=== PATIENT | male | born 1945 | race Caucasian/White ===

== ENCOUNTER 2016-12-03 14:49 | Inpatient (IN) | payer OTHER, MEDICARE ==
[2016-12-03] VITALS (7 sets, daily range): BP systolic 125–179; BP diastolic 64–95; PULSE 74–97; RESP 17–25; TEMP 98.2; O2SAT 96–99
[~2016-12-03] VITALS: Ht 180.3 cm; Wt 109.0 kg
[2016-12-03] MEDS ORDERED: IOHEXOL 350 MG/ML 10 ML VIAL (for RAD DIAG) IVCONTRAST ONE (14:50)
[2016-12-03] MEDS ORDERED: ONDANSETRON HCL 4 MG/2 ML VIAL IV PUSH ONE (15:45)
[2016-12-03] MEDS ORDERED: MORPHINE SULFATE 4 MG/ML INJ IV PUSH ONE ×3 (15:45→17:00)
[2016-12-03] MEDS ORDERED: SODIUM CHLORID 0.9% 500 ML INJ 500 ML IV ONE (15:45)
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
[2016-12-03 16:17] LABS: AUTOMATED NEUTROPHIL # 16.3 TH/MM3 (1.8-7.7); BASOPHIL # 0.1 TH/MM3 (0-0.2); BASOPHIL % 0.4 % (0.0-2.0); EOSINOPHIL # 0.1 TH/MM3 (0-0.4); EOSINOPHIL % 0.5 % (0.0-4.0); HEMATOCRIT 50.4 % (39.0-51.0); HEMO FLAGS DIFF FINAL; LYMPH % 9.7 % (9.0-44.0); LYMPHOCYTE # 1.9 TH/MM3 (1.0-4.8); MEAN CELL VOLUME 97.3 FL (80.0-100.0); MEAN CORPUSCULAR HEMOGLOBIN 32.7 PG (27.0-34.0); MEAN CORPUSCULAR HGB CONC 33.6 % (32.0-36.0); MONO % 6.5 % (0.0-8.0); NEUT % 82.9 % (16.0-70.0); PLATELET COUNT 229 TH/MM3 (150-450); RED BLOOD COUNT 5.18 MIL/MM3 (4.50-5.90); RED CELL DISTRIBUTION WIDTH 13.1 % (11.6-17.2); WHITE BLOOD COUNT 19.6 TH/MM3 (4.0-11.0)
[2016-12-03 16:26] LABS: APTT (PATIENT) 25.7 SEC (24.3-30.1); PROTHROMBIN TIME - PATIENT 10.7 SEC (9.8-11.6)
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
[2016-12-03 16:39] LABS: BICARBONATE 24.6 MEQ/L (21.0-32.0); POTASSIUM 4.2 MEQ/L (3.5-5.1)
[2016-12-03] MEDS ORDERED: ceFAZolin 2 GM PREMIX 50 ML IV ONE (16:45)
[2016-12-03] MEDS ORDERED: SODIUM CHLOR 0.9% 1000 ML INJ 1,000 ML IV ONE (17:00)
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
[2016-12-03] MEDS ORDERED: HYDROmorphone HCL PF 0.5 MG/0.5 ML SYRINGE IV PUSH ONE (18:15)
[2016-12-03] MEDS ORDERED: NALOXONE HCL 0.4 MG/ML AMP IV PUSH PRN (18:45)
[2016-12-03] MEDS ORDERED: Post-op Orders (for Pharmacy) MISC XX ONE (18:45)
[2016-12-03] MEDS ORDERED: SODIUM CHLORIDE 0.9% FLUSH 10 ML FLUSH IV FLUSH PRN (18:45)
[2016-12-03] MEDS ORDERED: ONDANSETRON HCL 4 MG/2 ML VIAL IV PUSH PRN (18:45)
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
[2016-12-03] MEDS: SODIUM CHLOR 0.9% 1000 ML INJ 1,000 ML IV SCH (19:37)
[2016-12-03] MEDS: MAGNESIUM HYDROXIDE SUSP 30 ML CUP PO SCH (21:00)
[2016-12-03] MEDS: SODIUM CHLORIDE 0.9% FLUSH 10 ML FLUSH IV FLUSH SCH (21:00)
[2016-12-03] MEDS ORDERED: LEVO200T4 PO (21:39)
[2016-12-03] MEDS ORDERED: LIPI10TA PO (21:39)
[2016-12-03] MEDS ORDERED: BUPR300T PO (21:39)
[2016-12-03] MEDS ORDERED: NEXI40CA PO (21:39)
[2016-12-03] MEDS ORDERED: LEVO50TA4 PO (21:39)
[2016-12-03] MEDS ORDERED: BENA20TA PO (21:39)
[2016-12-03] MEDS: METHOCARBAMOL 500 MG TAB PO SCH (21:44)
[2016-12-03] MEDS: PANTOPRAZOLE SOD 40 MG DELAYED RELEASE TAB PO SCH (21:44)
[2016-12-03] MEDS: DOCUSATE SODIUM 50 MG/SENNA 8.6 MG TAB PO SCH (21:44)
[2016-12-03] MEDS: LIDOCAINE HCL 5% PATCH T-DERMAL SCH (21:45)
[2016-12-03] MEDS: HYDROmorphone HCL PF 1 MG/ML VIAL IV PUSH PRN (21:47)
[2016-12-04] VITALS (12 sets, daily range): BP systolic 133–189; BP diastolic 63–84; PULSE 86–96; RESP 15–36; TEMP 96.8–98.7; O2SAT 92–99
[2016-12-04] MEDS: HYDROmorphone HCL PF 1 MG/ML VIAL IV PUSH PRN ×6 (00:35→19:31)
[2016-12-04 05:12] LABS: AUTOMATED NEUTROPHIL # 13.2 TH/MM3 (1.8-7.7); BASOPHIL % 0.3 % (0.0-2.0); HEMATOCRIT 45.2 % (39.0-51.0); HEMO FLAGS DIFF FINAL; LYMPH % 12.4 % (9.0-44.0); LYMPHOCYTE # 2.2 TH/MM3 (1.0-4.8); MEAN CELL VOLUME 98.9 FL (80.0-100.0); MEAN CORPUSCULAR HEMOGLOBIN 33.2 PG (27.0-34.0); MEAN CORPUSCULAR HGB CONC 33.6 % (32.0-36.0); MONO % 11.4 % (0.0-8.0); NEUT % 75.9 % (16.0-70.0); PLATELET COUNT 182 TH/MM3 (150-450); RED BLOOD COUNT 4.57 MIL/MM3 (4.50-5.90); RED CELL DISTRIBUTION WIDTH 13.1 % (11.6-17.2); WHITE BLOOD COUNT 17.4 TH/MM3 (4.0-11.0)
[2016-12-04] MEDS: METHOCARBAMOL 500 MG TAB PO SCH ×3 (05:32→19:33)
[2016-12-04 05:38] LABS: BICARBONATE 26.9 MEQ/L (21.0-32.0)
[2016-12-04] MEDS: SODIUM CHLOR 0.9% 1000 ML INJ 1,000 ML IV SCH ×3 (06:00→18:04)
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
[2016-12-04] MEDS: REMOVE OLD LIDOCAINE PATCH T-DERMAL SCH (09:00)
[2016-12-04] MEDS: SODIUM CHLORIDE 0.9% FLUSH 10 ML FLUSH IV FLUSH SCH ×2 (09:00→21:00)
[2016-12-04] MEDS: buPROPion HCL 150 MG SUSTAINED RELEASE TAB PO SCH ×2 (09:44→19:32)
[2016-12-04] MEDS: DOCUSATE SODIUM 50 MG/SENNA 8.6 MG TAB PO SCH ×2 (09:45→19:32)
[2016-12-04] MEDS: LISINOPRIL 20 MG TAB PO SCH ×2 (09:45→19:32)
[2016-12-04] MEDS: ATORVASTATIN 10 MG TAB PO SCH (09:49)
[2016-12-04] MEDS ORDERED: INFLUENZA VIRUS VACCINE (QUADRIVALENT) 0.5 ML SYR IM ONE (10:00)
[2016-12-04] MEDS ORDERED: PNEUMOCOCCAL POLYVALENT INJ 25 MCG/0.5 ML SYR IM ONE (10:00)
[2016-12-04] MEDS: LEVOTHYROXINE SODIUM 200 MCG TAB PO SCH (10:05)
[2016-12-04] MEDS: oxyCODONE/ACETAMINOPHEN 5 MG/325 MG TAB PO PRN ×2 (10:55→21:25)
[2016-12-04] MEDS: ASCORBIC ACID 500 MG TAB PO SCH ×2 (11:19→19:32)
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
[2016-12-04] MEDS ORDERED: SENN1TAB PO (19:09)
[2016-12-04] MEDS ORDERED: MAGN400S PO (19:09)
[2016-12-04] MEDS: PANTOPRAZOLE SOD 40 MG DELAYED RELEASE TAB PO SCH (19:32)
[2016-12-04] MEDS: LEVOTHYROXINE SODIUM 50 MCG TAB PO SCH (19:32)
[2016-12-04] MEDS: MAGNESIUM HYDROXIDE SUSP 30 ML CUP PO SCH (19:32)
[2016-12-04] MEDS: LIDOCAINE HCL 5% PATCH T-DERMAL SCH (19:34)
[2016-12-05 00:13] VITALS: BP 150/66; PULSE 94; RESP 17; TEMP 97.5; O2SAT 95
[2016-12-05] MEDS: HYDROmorphone HCL PF 1 MG/ML VIAL IV PUSH PRN ×2 (01:18→07:22)
[2016-12-05 04:27] LABS: AUTOMATED NEUTROPHIL # 11.9 TH/MM3 (1.8-7.7); BASOPHIL # 0.1 TH/MM3 (0-0.2); BASOPHIL % 0.3 % (0.0-2.0); EOSINOPHIL # 0.1 TH/MM3 (0-0.4); EOSINOPHIL % 0.4 % (0.0-4.0); HEMATOCRIT 37.9 % (39.0-51.0); HEMO FLAGS DIFF FINAL; LYMPH % 13.7 % (9.0-44.0); LYMPHOCYTE # 2.2 TH/MM3 (1.0-4.8); MEAN CELL VOLUME 97.9 FL (80.0-100.0); MEAN CORPUSCULAR HEMOGLOBIN 32.9 PG (27.0-34.0); MEAN CORPUSCULAR HGB CONC 33.6 % (32.0-36.0); MONO % 10.6 % (0.0-8.0); PLATELET COUNT 139 TH/MM3 (150-450); RED BLOOD COUNT 3.87 MIL/MM3 (4.50-5.90); WHITE BLOOD COUNT 15.9 TH/MM3 (4.0-11.0)
[2016-12-05 04:38] LABS: BICARBONATE 24.4 MEQ/L (21.0-32.0); POTASSIUM 4.5 MEQ/L (3.5-5.1)
[2016-12-05] MEDS: oxyCODONE/ACETAMINOPHEN 5 MG/325 MG TAB PO PRN (05:36)
[2016-12-05] MEDS: METHOCARBAMOL 500 MG TAB PO SCH ×3 (05:36→20:10)
[2016-12-05] MEDS: LEVOTHYROXINE SODIUM 200 MCG TAB PO SCH (05:36)
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
[2016-12-05 08:00] VITALS: BP 158/56; PULSE 91; RESP 18; TEMP 98.5; O2SAT 92
[2016-12-05] MEDS: SODIUM CHLORIDE 0.9% FLUSH 10 ML FLUSH IV FLUSH SCH ×2 (09:00→20:09)
[2016-12-05] MEDS: REMOVE OLD LIDOCAINE PATCH T-DERMAL SCH (09:00)
[2016-12-05] MEDS: LACTULOSE SYRUP 20 GM/30 ML CUP PO SCH (09:28)
[2016-12-05] MEDS: buPROPion HCL 150 MG SUSTAINED RELEASE TAB PO SCH ×2 (09:28→20:10)
[2016-12-05] MEDS: DOCUSATE SODIUM 50 MG/SENNA 8.6 MG TAB PO SCH ×2 (09:29→20:10)
[2016-12-05] MEDS: ATORVASTATIN 10 MG TAB PO SCH (09:29)
[2016-12-05] MEDS: ASCORBIC ACID 500 MG TAB PO SCH ×2 (09:31→20:10)
[2016-12-05] MEDS: LISINOPRIL 20 MG TAB PO SCH ×2 (09:31→20:10)
[2016-12-05] MEDS: SODIUM CHLOR 0.9% 1000 ML INJ 1,000 ML IV SCH (09:55)
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
[2016-12-05 12:00] VITALS: BP 159/85; PULSE 88; RESP 18; TEMP 96.7; O2SAT 96
[2016-12-05] MEDS: oxyCODONE/ACETAMINOPHEN 7.5 MG/325 MG TAB PO PRN ×2 (15:21→20:11)
[2016-12-05 16:00] VITALS: BP 160/74; PULSE 96; RESP 18; TEMP 98; O2SAT 95
[2016-12-05] MEDS: LIDOCAINE HCL 5% PATCH T-DERMAL SCH (20:09)
[2016-12-05] MEDS: MAGNESIUM HYDROXIDE SUSP 30 ML CUP PO SCH (20:09)
[2016-12-05] MEDS: LEVOTHYROXINE SODIUM 50 MCG TAB PO SCH (20:10)
[2016-12-05] MEDS: PANTOPRAZOLE SOD 40 MG DELAYED RELEASE TAB PO SCH (20:14)
[2016-12-05 20:24] VITALS: BP 186/90; PULSE 84; RESP 18; TEMP 98; O2SAT 95
[2016-12-05 21:00] VITALS: O2SAT 95
[2016-12-06 00:01] VITALS: BP 143/75; PULSE 90; RESP 20; TEMP 98.7; O2SAT 98
[2016-12-06] MEDS: oxyCODONE/ACETAMINOPHEN 7.5 MG/325 MG TAB PO PRN (01:56)
[2016-12-06 03:31] LABS: AUTOMATED NEUTROPHIL # 10.1 TH/MM3 (1.8-7.7); BASOPHIL # 0.1 TH/MM3 (0-0.2); BASOPHIL % 0.7 % (0.0-2.0); EOSINOPHIL # 0.2 TH/MM3 (0-0.4); EOSINOPHIL % 1.3 % (0.0-4.0); HEMATOCRIT 36.3 % (39.0-51.0); HEMO FLAGS DIFF FINAL; LYMPHOCYTE # 2.5 TH/MM3 (1.0-4.8); MEAN CELL VOLUME 97.1 FL (80.0-100.0); MEAN CORPUSCULAR HEMOGLOBIN 32.7 PG (27.0-34.0); MEAN CORPUSCULAR HGB CONC 33.7 % (32.0-36.0); MONO % 12.6 % (0.0-8.0); NEUT % 68.4 % (16.0-70.0); PLATELET COUNT 147 TH/MM3 (150-450); RED BLOOD COUNT 3.74 MIL/MM3 (4.50-5.90); RED CELL DISTRIBUTION WIDTH 13.3 % (11.6-17.2); WHITE BLOOD COUNT 14.7 TH/MM3 (4.0-11.0)
[2016-12-06 04:10] LABS: BICARBONATE 26.8 MEQ/L (21.0-32.0); POTASSIUM 4.2 MEQ/L (3.5-5.1)
[2016-12-06] MEDS: METHOCARBAMOL 500 MG TAB PO SCH ×2 (04:48→12:15)
[2016-12-06] MEDS: LEVOTHYROXINE SODIUM 200 MCG TAB PO SCH (04:49)
[2016-12-06] MEDS ORDERED: HYDROmorphone HCL PF 0.5 MG/0.5 ML SYRINGE IV PUSH PRN (05:00)
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
[2016-12-06 07:46] VITALS: BP 177/82; PULSE 86; RESP 20; TEMP 97.8; O2SAT 98
[2016-12-06] MEDS: SODIUM CHLORIDE 0.9% FLUSH 10 ML FLUSH IV FLUSH SCH (08:10)
[2016-12-06] MEDS: ATORVASTATIN 10 MG TAB PO SCH (08:10)
[2016-12-06] MEDS: buPROPion HCL 150 MG SUSTAINED RELEASE TAB PO SCH (08:10)
[2016-12-06] MEDS: DOCUSATE SODIUM 50 MG/SENNA 8.6 MG TAB PO SCH (08:10)
[2016-12-06] MEDS: LACTULOSE SYRUP 20 GM/30 ML CUP PO SCH (08:10)
[2016-12-06] MEDS: LISINOPRIL 20 MG TAB PO SCH (08:10)
[2016-12-06] MEDS: ASCORBIC ACID 500 MG TAB PO SCH (08:10)
[2016-12-06] MEDS: REMOVE OLD LIDOCAINE PATCH T-DERMAL SCH (08:11)
[2016-12-06] MEDS: oxyCODONE/ACETAMINOPHEN 10 MG/325 MG TAB PO PRN ×2 (08:11→12:15)
[2016-12-06 12:00] VITALS: BP 169/76; PULSE 89; RESP 19; TEMP 98.3; O2SAT 96
[2016-12-06] MEDS ORDERED: MAGNESIUM CITRATE SOLN 300 ML BTL PO ONE (12:30)
[2016-12-06] MEDS ORDERED: OXYC1TAB63 PO (13:09)
[2016-12-06] MEDS ORDERED: METH500T3 PO (13:09)
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
== END 2016-12-06 14:58 | disposition home or self-care (01) | DRG 963 ==
LOC: NEPE 14:49 → NEDA 17:58 → N03B 20:15 → N07A 12-04 17:25
PROVIDERS: ADMIT Surgery; ATTEND Surgery
DX: S37.012A Minor contusion of left kidney, initial encounter (principal); S27.1XXA Traumatic hemothorax, initial encounter; K66.1 Hemoperitoneum; S36.039A Unspecified laceration of spleen, initial encounter; S22.39XA Fracture of one rib, unspecified side, initial encounter for closed fracture; I10 Essential (primary) hypertension; E03.9 Hypothyroidism, unspecified; V29.9XXA Motorcycle rider (driver) (passenger) injured in unspecified traffic accident, initial encounter; Y92.410 Unspecified street and highway as the place of occurrence of the external cause
CPT/HCPCS: 70450; 70486; 71010; 71260; 72125; 74177; 80048; 85025; 85610; 85730; 87641; 90686; 90732; 94150; 94640; 94667; 94668; 96361; 96374; 96375; J1170; J0690; J2270; J2405; J7030; J7040; L0150; Q2038; Q9967

== ENCOUNTER 2016-12-09 00:24 | Inpatient (IN) | payer OTHER, MEDICARE ==
[2016-12-09] VITALS (22 sets, daily range): BP systolic 129–218; BP diastolic 59–110; PULSE 84–115; RESP 16–28; TEMP 96.4–100.5; O2SAT 64–100
[~2016-12-09] VITALS: Ht 190.5 cm; Wt 127.6 kg
[~2016-12-09 00:24] MED LIST: BENA20TA PO; BUPR300T PO; LEVO200T4 PO; LEVO50TA4 PO; LIPI10TA PO; MAGN400S PO; METH500T3 PO; NEXI40CA PO; OXYC1TAB63 PO; SENN1TAB PO
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
[2016-12-09] MEDS ORDERED: SODIUM CHLORIDE 0.9% FLUSH 10 ML FLUSH IVF PRN (01:00)
[2016-12-09] MEDS ORDERED: MORPHINE SULFATE 4 MG/ML INJ IV PUSH ONE (01:00)
[2016-12-09] MEDS ORDERED: ONDANSETRON HCL 4 MG/2 ML VIAL IV PUSH ONE (01:00)
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
[2016-12-09 01:27] LABS: AUTOMATED NEUTROPHIL # 11.3 TH/MM3 (1.8-7.7); BASOPHIL # 0.1 TH/MM3 (0-0.2); BASOPHIL % 0.4 % (0.0-2.0); EOSINOPHIL # 0.2 TH/MM3 (0-0.4); EOSINOPHIL % 1.3 % (0.0-4.0); HEMATOCRIT 34.2 % (39.0-51.0); HEMO FLAGS DIFF FINAL; LYMPH % 12.6 % (9.0-44.0); MEAN CORPUSCULAR HEMOGLOBIN 33.2 PG (27.0-34.0); MEAN CORPUSCULAR HGB CONC 34.2 % (32.0-36.0); MONO % 13.5 % (0.0-8.0); NEUT % 72.2 % (16.0-70.0); PLATELET COUNT 235 TH/MM3 (150-450); RED BLOOD COUNT 3.53 MIL/MM3 (4.50-5.90); RED CELL DISTRIBUTION WIDTH 12.7 % (11.6-17.2); WHITE BLOOD COUNT 15.6 TH/MM3 (4.0-11.0)
[2016-12-09 01:31] LABS: BICARBONATE 28.1 MEQ/L (21.0-32.0); POTASSIUM 4.9 MEQ/L (3.5-5.1)
[2016-12-09 01:33] LABS: APTT (PATIENT) 29.8 SEC (24.3-30.1); INTERNATIONAL NORMALIZED RATIO 0.9 RATIO; PROTHROMBIN TIME - PATIENT 9.8 SEC (9.8-11.6)
[2016-12-09] MEDS ORDERED: PROPOFOL 500 MG/50 ML INJ 50 ML ONE (01:45)
[2016-12-09] MEDS ORDERED: LIDOCAINE 1%/EPINEPHrine 1:100,000 SOLN 20 ML VIAL INFIL ONE (02:00)
[2016-12-09] MEDS ORDERED: SODIUM CHLOR 0.9% 1000 ML INJ 1,000 ML IV ONE (02:30)
[2016-12-09] MEDS ORDERED: PROPOFOL 200 MG/20 ML AMP IV ONE (02:30)
[2016-12-09] MEDS ORDERED: HYDROmorphone HCL PF 1 MG/ML VIAL ONE (02:51)
[2016-12-09] MEDS ORDERED: HYDROmorphone HCL PF 1 MG/ML VIAL IV PUSH ONE (03:00)
--- NOTE | 2016-12-09 03:09 | RADRPT ---
EXAM DATE/TIME: 12/09/2016 02:36 [facility] COMPARISON: CT THORAX W CONTRAST, December 03, 2016, 16:59. INDICATIONS : Evaluate pneumothorax. Post chest tube. RADIATION DOSE: 23.61 CTDIvol (mGy) ; Combined studies - Thorax/Abdomen/Pelvis MEDICAL HISTORY : Cardiovascular disease. Gastroesophageal reflux disease. Hernia, hiatal. SURGICAL HISTORY : Pacemaker. ENCOUNTER: Initial ACUITY: 1 day PAIN SCALE: 10/10 LOCATION: Right chest TECHNIQUE: Volumetric scanning of the chest was performed. Using automated exposure control and adjustment of t he mA and/or kV according to patient size, radiation dose was kept as low as reasonably achievable to obtain optimal diagnostic quality images. DICOM format image data is available electronically for r eview and comparison. Follow-up recommendations for detected pulmonary nodules are based at a minimum on nodule size and pa tient risk factors according to Fleischner Society Guidelines. FINDINGS: LUNGS: Left-sided chest tube placed. Tip in the region of the major fissure. Consolidative changes in the le ft lower lobe. Small anterior basal pneumothorax. PLEURAE: Pleural-based density posteriorly and inferiorly likely hemothorax There is no pleural thickening or pleural effusion on the right. MEDIASTINUM: The heart and great vessels demonstrate no acute abnormality. There is no mediastinal or hilar lymph adenopathy. AXILLAE: Within normal limits. No lymphadenopathy. MUSCULOSKELETAL: Multiple left-sided rib fractures. Left clavicle fracture. Multiple old right-sided rib fractures. MISCELLANEOUS: The visualized upper abdominal organs demonstrate no acute abnormality. CONCLUSION: 1. Left-sided chest tube with small left basilar and anterior pneumothorax. 2. Hemothorax. 3. Left basilar consolidation. Kulwant Valladares MD on December 09, 2016 at 3:04 Board Certified Radiologist. This report was verified electronically.
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
--- NOTE | 2016-12-09 03:14 | RADRPT ---
EXAM DATE/TIME: 12/09/2016 02:17 [facility] COMPARISON: CHEST SINGLE AP, December 09, 2016, 1:09. INDICATIONS : Chest tube placement. MEDICAL HISTORY : None. SURGICAL HISTORY : None. ENCOUNTER: Initial ACUITY: 1 day PAIN SCORE: 0/10 LOCATION: Bilateral chest FINDINGS: A single view of the chest demonstrates decreasing density left lung status post chest tube placement . Left basilar atelectasis/consolidation. The cardiomediastinal contours are unremarkable. Osseous s tructures are intact. CONCLUSION: Left-sided chest tube placement without definite pneumothorax. Decreasing left lung density. Kulwant Valladares MD on December 09, 2016 at 3:12 Board Certified Radiologist. This report was verified electronically.
[2016-12-09] MEDS ORDERED: KETOROLAC TROMETHAMINE 30 MG/ML (IVP) VIAL IV PUSH ONE (03:15)
[2016-12-09 04:52] LABS: AUTOMATED NEUTROPHIL # 10.8 TH/MM3 (1.8-7.7); BASOPHIL # 0.1 TH/MM3 (0-0.2); BASOPHIL % 0.9 % (0.0-2.0); EOSINOPHIL # 0.1 TH/MM3 (0-0.4); EOSINOPHIL % 0.9 % (0.0-4.0); HEMATOCRIT 33.7 % (39.0-51.0); LYMPHOCYTE # 1.5 TH/MM3 (1.0-4.8); MEAN CORPUSCULAR HEMOGLOBIN 32.3 PG (27.0-34.0); MEAN CORPUSCULAR HGB CONC 33.3 % (32.0-36.0); MONO % 14.5 % (0.0-8.0); NEUT % 73.7 % (16.0-70.0); PLATELET COUNT 257 TH/MM3 (150-450); RED BLOOD COUNT 3.48 MIL/MM3 (4.50-5.90); RED CELL DISTRIBUTION WIDTH 12.7 % (11.6-17.2); WHITE BLOOD COUNT 14.7 TH/MM3 (4.0-11.0)
[2016-12-09 05:07] LABS: HEMO FLAGS AUTO DIFF
[2016-12-09 05:36] LABS: BANDS 2 % (0-6); EOSINOPHILS 1 % (0-4); METAMYELOCYTES 4 % (0-1); NEUTROPHIL # MANUAL DIFF 12.9 TH/MM3 (1.8-7.7); PLATELET ESTIMATE SMEAR NORMAL (NORMAL); PLATELET MORPHOLOGY NORMAL (NORMAL); POLYS (SEG NEUTROPHILS) 82 % (16-70); SCAN/DIFF FINAL DIFF MANUAL; WBC DIFF SAMPLE 100
[2016-12-09] MEDS ORDERED: oxyCODONE/ACETAMINOPHEN 5 MG/325 MG TAB PO PRN ×2 (06:30)
[2016-12-09] MEDS ORDERED: SODIUM CHLORIDE FLUSH PRN IV FLUSH (06:30)
[2016-12-09] MEDS ORDERED: ONDANSETRON HCL 4 MG/2 ML VIAL IV PUSH PRN (06:30)
[2016-12-09] MEDS ORDERED: SODIUM CHLOR 0.9% 1000 ML INJ 1,000 ML IV SCH (06:30)
[2016-12-09] MEDS ORDERED: SODIUM CHLORIDE FLUSH BID IV FLUSH SCH (09:00)
[2016-12-09] MEDS ORDERED: PANTOPRAZOLE SODIUM 40 MG VIAL IV PUSH SCH (09:00)
[2016-12-09] MEDS: BISACODYL 10 MG SUPP RECTAL SCH (09:38)
[2016-12-09] MEDS: FAMOTIDINE 20 MG TAB PO SCH ×2 (09:38→19:46)
[2016-12-09] MEDS: BISACODYL EC 5 MG TABEC PO SCH (09:38)
[2016-12-09] MEDS: HYDROmorphone HCL PF 0.5 MG/0.5 ML SYRINGE IV PUSH PRN ×3 (09:43→19:48)
[2016-12-09] MEDS ORDERED: SOD PHOSPHATE/SOD BIPHOSPHATE (ADULT) ENEMA 133ML RECTAL ONE (11:00)
[2016-12-09] MEDS: LISINOPRIL 20 MG TAB PO SCH ×3 (11:00→19:46)
[2016-12-09] MEDS: ATORVASTATIN 10 MG TAB PO SCH (11:00)
[2016-12-09] MEDS: buPROPion HCL 150 MG SUSTAINED RELEASE TAB PO SCH ×3 (11:01→19:46)
[2016-12-09] MEDS: LEVOTHYROXINE SODIUM 200 MCG TAB PO SCH ×2 (11:01→11:50)
[2016-12-09] MEDS ORDERED: HALOPERIDOL LACTATE 5 MG/ML AMP IV ONE (11:30)
[2016-12-09] MEDS ORDERED: ENALAPRILAT 1.25 MG/ML VIAL IV PUSH ONE (11:45)
[2016-12-09] MEDS ORDERED: IODIXANOL 320 MG/ML 10 ML VIAL (for Rad CT) IVCONTRAST ONE (12:10)
--- NOTE | 2016-12-09 12:29 | RADRPT ---
EXAM DATE/TIME: 12/09/2016 12:08 [facility] COMPARISON: CT THORAX W/O CONTRAST, December 09, 2016, 2:36. INDICATIONS : Short of breath. Left chest pain. IV CONTRAST: 50 cc Visipaque (iodixanol) IV RADIATION DOSE: 23.38 CTDIvol (mGy) MEDICAL HISTORY : Hypertension. SURGICAL HISTORY : None. ENCOUNTER: Initial ACUITY: 1 day PAIN SCALE: 10/10 LOCATION: Left chest TECHNIQUE: Volumetric scanning of the chest was performed using a pulmonary embolism protocol MIP images were re constructed. Using automated exposure control and adjustment of the mA and/or kV according to patien t size, radiation dose was kept as low as reasonably achievable to obtain optimal diagnostic quality images. DICOM format image data is available electronically for review and comparison. Follow-up recommendations for detected pulmonary nodules are based at a minimum on nodule size and pa tient risk factors according to Fleischner Society Guidelines. FINDINGS: PULMONARY ARTERIES: No filling defects are seen in the pulmonary arteries through the segmental level. LUNGS: Segmental consolidation medial left lower lung r Grams is slightly smaller than on prior chest CT. PLEURAE: Stable large posterior pleural-based low density opacity measuring greater than 11 cm in superior/inf erior extent, stable in configuration and appearance from prior. Left lower chest pleural fluid fritz uring 2.4 cm and small anterior pneumothorax measuring 2.3 cm is stable in appearance from prior. MEDIASTINUM: There is good visualization of the great vessels of the middle mediastinum. No evidence of mediastin al or hilar adenopathy/mass. MUSCULOSKELETAL: Multiple healed right rib fractures and displaced acute lower left rib fractures are similar to prior CT 12/09/16. MISCELLANEOUS: Left chest drainage tube tip is unchanged from prior, directed in medial left upper chest. Stable lo w density mass in the right adrenal measuring 2 cm. CONCLUSION: 1. The study is negative for pulmonary embolism. 2. Multiple additional findings are unchanged from a diagnostic CT thorax performed earlier today (le ft anterior pneumothorax, or large pleural-based opacity, left pleural effusion, left rib fractures, left lower lung consolidation, and left chest drainage tube in place). Tio Raza MD on December 09, 2016 at 12:16 Board Certified Radiologist. This report was verified electronically.
[2016-12-09 13:34] LABS: BLOOD GAS BASE EXCESS -0.1 mmol/L (-2-2); BLOOD GAS CARBOXYHEMOGLOBIN 1.3 % (0-4); BLOOD GAS HCO3 25 mmol/L (22-26); BLOOD GAS METHEMOGLOBIN 0.7 % (0-2); BLOOD GAS O2 HGB SATURATION 97 % (90-100); BLOOD GAS OXYGEN CONTENT 16.6 Vol % (12.0-20.0); BLOOD GAS PCO2 48 mmHg (38-42); BLOOD GAS PO2 190 mmHG (61-120); BLOOD GAS TOTAL HGB 11.8 G/DL (12.0-16.0); CRITICAL VALUE NO; FIO2 100 %; LITER FLOW 15 L/M
[2016-12-09 13:35] LABS: DRAW SITE RT RADIAL; NUMBER OF ARTERIAL PUNCTURES 1; STAT YES; TEMP CORR TO 98.6; ULNAR PULSE PRESENT
--- NOTE | 2016-12-09 13:37 | RADRPT ---
EXAM DATE/TIME: 12/09/2016 12:24 [facility] COMPARISON: CT THORAX W CONTRAST, December 03, 2016, 16:59. CT THORAX W/O CONTRAST, December 09, 2016, 2:36. CHES T SINGLE AP, December 09, 2016, 2:17. INDICATIONS : Respiratory Distress. MEDICAL HISTORY : None. SURGICAL HISTORY : None. ENCOUNTER: Initial ACUITY: 1 day PAIN SCORE: 0/10 LOCATION: Bilateral chest FINDINGS: There is a stable pleural-based collection within the left lateral lung field in the region of the mu ltiple rib fractures and left-sided chest tube. No significant residual pneumothorax is identified. The heart is stable. The right lung is unchanged and essentially clear. CONCLUSION: 1. Persistent pleural-based collection along the left lateral lung field in the region of the multip le displaced rib fractures and the left chest tube. 2. No definite residual pneumothorax identified. Trent Nava MD on December 09, 2016 at 12:11 Board Certified Radiologist. This report was verified electronically.
[2016-12-09] MEDS ORDERED: KETOROLAC TROMETHAMINE 30 MG/ML (IVP) VIAL IV PUSH SCH (14:00)
[2016-12-09] MEDS: REMOVE OLD PATCH T-DERMAL SCH (14:00)
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
[2016-12-09] MEDS: fentaNYL 50 MCG/HR PATCH T-DERMAL SCH (14:57)
[2016-12-09] MEDS: RESP: ALBUTEROL 2.5 MG/IPRATROPIUM 0.5 MG NEB (PRN) NEB (17:38)
[2016-12-09] MEDS: LEVOTHYROXINE SODIUM 50 MCG TAB PO SCH (19:46)
[2016-12-09] MEDS: KETOROLAC TROMETHAMINE 30 MG/ML (IVP) VIAL IV PUSH SCH (19:48)
[2016-12-10] VITALS (11 sets, daily range): BP systolic 153–171; BP diastolic 62–87; PULSE 85–95; RESP 12–20; TEMP 97.5–100.1; O2SAT 94–97
[2016-12-10] MEDS: HYDROmorphone HCL PF 0.5 MG/0.5 ML SYRINGE IV PUSH PRN ×6 (00:30→23:56)
[2016-12-10] MEDS: KETOROLAC TROMETHAMINE 30 MG/ML (IVP) VIAL IV PUSH SCH ×4 (03:12→19:59)
[2016-12-10 04:45] LABS: BASOPHIL # 0.1 TH/MM3 (0-0.2); BASOPHIL % 0.6 % (0.0-2.0); EOSINOPHIL # 0.3 TH/MM3 (0-0.4); EOSINOPHIL % 2.3 % (0.0-4.0); HEMATOCRIT 30.7 % (39.0-51.0); LYMPH % 14.2 % (9.0-44.0); LYMPHOCYTE # 1.8 TH/MM3 (1.0-4.8); MEAN CELL VOLUME 97.2 FL (80.0-100.0); MEAN CORPUSCULAR HEMOGLOBIN 32.7 PG (27.0-34.0); MEAN CORPUSCULAR HGB CONC 33.6 % (32.0-36.0); MONO % 18.3 % (0.0-8.0); NEUT % 64.6 % (16.0-70.0); PLATELET COUNT 278 TH/MM3 (150-450); RED BLOOD COUNT 3.16 MIL/MM3 (4.50-5.90); RED CELL DISTRIBUTION WIDTH 12.9 % (11.6-17.2); WHITE BLOOD COUNT 12.5 TH/MM3 (4.0-11.0)
[2016-12-10 05:11] LABS: ANION GAP 8 MEQ/L (5-15); AST (GOT) 27 U/L (15-37); BICARBONATE 26.8 MEQ/L (21.0-32.0); BLOOD UREA NITROGEN 34 MG/DL (7-18); CHLORIDE 98 MEQ/L (98-107); GLOMERULAR FILTRATION RATE 44 ML/MIN (>89); POTASSIUM 4.6 MEQ/L (3.5-5.1); SODIUM (NA) 133 MEQ/L (136-145)
[2016-12-10 05:12] LABS: ALT (GPT) 30 U/L (12-78)
[2016-12-10 05:14] LABS: HEMO FLAGS AUTO DIFF
[2016-12-10 05:15] LABS: ALKALINE PHOSPHATASE 63 U/L (45-117); TOTAL BILIRUBIN ADULT 0.6 MG/DL (0.2-1.0)
--- NOTE | 2016-12-10 06:22 | RADRPT ---
EXAM DATE/TIME: 12/10/2016 06:13 [facility] COMPARISON: CHEST SINGLE AP, December 09, 2016, 12:24. INDICATIONS : Chest pain. MEDICAL HISTORY : None. SURGICAL HISTORY : None. ENCOUNTER: Subsequent ACUITY: 1 week PAIN SCORE: Non-responsive. LOCATION: Bilateral chest FINDINGS: A single view of the chest demonstrates persistent pleural-parenchymal density in the upper left maye thorax. Left-sided chest tube stable in position. Tiny left apical pneumothorax. Multiple left-sided rib fractures. The cardiomediastinal contours are unremarkable. CONCLUSION: 1. Persistent pleural-parenchymal opacity in the left upper hemithorax. 2. Left-sided chest tube with tiny left apical pneumothorax. Kulwant Valladares MD on December 10, 2016 at 6:18 Board Certified Radiologist. This report was verified electronically.
[2016-12-10] MEDS: LEVOTHYROXINE SODIUM 200 MCG TAB PO SCH (06:42)
[2016-12-10 07:56] LABS: SCAN/DIFF AUTO DIFF CONFIRMED
[2016-12-10] MEDS: BISACODYL 10 MG SUPP RECTAL SCH (09:00)
[2016-12-10] MEDS ORDERED: BUPIVACAINE HCL PF 0.25% 30 ML VIAL ONE ×2 (10:02→13:54)
[2016-12-10] MEDS ORDERED: GENTAMICIN SULFATE 80 MG/2 ML VIAL ONE (10:02)
[2016-12-10] MEDS ORDERED: NEOSTIGMINE METHYLSULFATE 5 MG/10 ML ONE (10:02)
[2016-12-10] MEDS ORDERED: BUPIVACAINE LIPOSOME PF 1.3% 20 ML VIAL ONE (10:07)
[2016-12-10] MEDS: LISINOPRIL 20 MG TAB PO SCH ×2 (10:46→19:58)
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
[2016-12-10] MEDS ORDERED: SODIUM CHLORIDE 0.9% 20 ML VIAL ONE (11:18)
[2016-12-10] MEDS ORDERED: ePHEDrine/NS 25 MG/5 ML SYR IV ONE (12:00)
[2016-12-10] MEDS ORDERED: PHENYLEPH/NS 1000 MCG/10 ML SYR IV ONE (12:00)
[2016-12-10] MEDS ORDERED: KETOROLAC TROMETHAMINE 30 MG/ML (IVP) VIAL IV PUSH ONE (12:00)
[2016-12-10] MEDS ORDERED: PROPOFOL 200 MG/20 ML AMP IV ONE (12:00)
[2016-12-10] MEDS ORDERED: NEOSTIGMINE 3 MG/3 ML SYR IV ONE (12:00)
[2016-12-10] MEDS ORDERED: SODIUM CHLOR 0.9% 1000 ML INJ 2,000 ML IV ONE (12:00)
[2016-12-10] MEDS ORDERED: DEXAMETHASONE SOD PHOS 4 MG/ML VIAL IV ONE (12:00)
[2016-12-10] MEDS ORDERED: GLYCOPYRROLATE 1 MG/5 ML SYRINGE IV PUSH ONE (12:00)
[2016-12-10] MEDS ORDERED: PHENYLEPHRINE HCL 10 MG/ML VIAL IV ONE (12:00)
[2016-12-10] MEDS ORDERED: ONDANSETRON HCL 4 MG/2 ML VIAL IV PUSH ONE (12:00)
[2016-12-10] MEDS ORDERED: ROCURONIUM INJ 50 MG/5 ML SYRINGE IV PUSH ONE (12:00)
[2016-12-10] MEDS ORDERED: ceFAZolin 2 GM PREMIX 50 ML IV ONE (13:34)
[2016-12-10] MEDS ORDERED: DEXAMETHASONE SOD PHOS PF 10 MG/ML VIAL ONE (13:53)
[2016-12-10] MEDS ORDERED: DO NOT ADM ANY ANTICOAGULANT DRUGS PRN (14:24)
[2016-12-10] MEDS ORDERED: ACETAMINOPHEN 1000 MG/100 ML 100 ML IV ONE (14:44)
[2016-12-10] MEDS ORDERED: *RESP: ALBUTEROL 2.5 MG/3 ML NEB (PRN) PERIprocedural Use ONLY NEB ONE (14:49)
[2016-12-10] MEDS ORDERED: *LABETALOL HCL 100 MG/20 ML VIAL PERIprocedural Use ONLY ONE (14:54)
[2016-12-10] MEDS ORDERED: *morphine SULFATE 8 MG/ML PERIprocedure ONLY ONE (14:54)
--- NOTE | 2016-12-10 15:24 | RADRPT ---
EXAM DATE/TIME: 12/10/2016 15:10 [facility] COMPARISON: CHEST SINGLE AP, December 10, 2016, 6:13. INDICATIONS : Post op thoracoscopy MEDICAL HISTORY : None. SURGICAL HISTORY : Thoracoscopy ENCOUNTER: Initial ACUITY: 1 day PAIN SCORE: Non-responsive. LOCATION: Bilateral chest FINDINGS: A single portable frontal view of the chest shows a left thoracostomy tube with the tip in the apex a s well as a left subpulmonic chest tube. No pneumothorax. Scattered areas of parenchymal consolidatio n throughout the entire left lung but most consolidative within the left lung base. Linear atelectasi s within the right lung base. No effusions. Heart is mildly enlarged. Multiple left-sided rib fractur es. CONCLUSION: 1. Cardiomegaly. 2. No pneumothorax. 3. Consolidation is unchanged throughout the left lung. Tio Barnes Jr., MD on December 10, 2016 at 15:21 Board Certified Radiologist. This report was verified electronically.
[2016-12-10] MEDS: ENALAPRILAT 1.25 MG/ML VIAL IV PUSH PRN (16:49)
[2016-12-10] MEDS: BISACODYL EC 5 MG TABEC PO SCH (16:51)
[2016-12-10] MEDS: buPROPion HCL 150 MG SUSTAINED RELEASE TAB PO SCH ×2 (16:52→19:58)
[2016-12-10] MEDS: FAMOTIDINE 20 MG TAB PO SCH ×2 (16:52→19:58)
[2016-12-10] MEDS: ATORVASTATIN 10 MG TAB PO SCH (16:52)
[2016-12-10] MEDS ORDERED: BISACODYL EC 5 MG TABEC PO PRN (19:30)
[2016-12-10] MEDS ORDERED: BISACODYL 10 MG SUPP RECTAL PRN (19:30)
[2016-12-10] MEDS: LEVOTHYROXINE SODIUM 50 MCG TAB PO SCH (19:58)
[2016-12-10] MEDS: DOCUSATE SODIUM 50 MG/SENNA 8.6 MG TAB PO SCH (19:58)
[2016-12-10] MEDS: MAGNESIUM HYDROXIDE SUSP 30 ML CUP PO SCH ×2 (19:59→20:07)
[2016-12-11] VITALS (9 sets, daily range): BP systolic 114–190; BP diastolic 53–86; PULSE 74–104; RESP 15–24; TEMP 96.7–100.1; O2SAT 95–100
[2016-12-11] MEDS: oxyCODONE/ACETAMINOPHEN 5 MG/325 MG TAB PO PRN ×2 (01:08→06:50)
[2016-12-11] MEDS: KETOROLAC TROMETHAMINE 30 MG/ML (IVP) VIAL IV PUSH SCH ×4 (02:14→21:48)
[2016-12-11] MEDS ORDERED: oxyCODONE/ACETAMINOPHEN 5 MG/325 MG TAB PO PRN (02:45)
[2016-12-11] MEDS: HYDROmorphone HCL PF 0.5 MG/0.5 ML SYRINGE IV PUSH PRN ×5 (04:25→23:52)
[2016-12-11 05:05] LABS: AUTOMATED NEUTROPHIL # 13.5 TH/MM3 (1.8-7.7); BASOPHIL # 0.1 TH/MM3 (0-0.2); BASOPHIL % 0.9 % (0.0-2.0); EOSINOPHIL % 0.2 % (0.0-4.0); HEMO FLAGS DIFF FINAL; LYMPHOCYTE # 0.6 TH/MM3 (1.0-4.8); MEAN CELL VOLUME 97.7 FL (80.0-100.0); MEAN CORPUSCULAR HEMOGLOBIN 32.4 PG (27.0-34.0); MEAN CORPUSCULAR HGB CONC 33.2 % (32.0-36.0); MONO % 4.9 % (0.0-8.0); PLATELET COUNT 339 TH/MM3 (150-450); RED BLOOD COUNT 3.18 MIL/MM3 (4.50-5.90); RED CELL DISTRIBUTION WIDTH 12.7 % (11.6-17.2)
[2016-12-11 05:40] LABS: ALKALINE PHOSPHATASE 64 U/L (45-117); ALT (GPT) 27 U/L (12-78); ANION GAP 8 MEQ/L (5-15); AST (GOT) 27 U/L (15-37); BICARBONATE 23.9 MEQ/L (21.0-32.0); BLOOD UREA NITROGEN 34 MG/DL (7-18); CHLORIDE 99 MEQ/L (98-107); GLOMERULAR FILTRATION RATE 45 ML/MIN (>89); POTASSIUM 5.5 MEQ/L (3.5-5.1); SODIUM (NA) 131 MEQ/L (136-145); TOTAL BILIRUBIN ADULT 0.5 MG/DL (0.2-1.0)
--- NOTE | 2016-12-11 06:03 | RADRPT ---
EXAM DATE/TIME: 12/11/2016 05:23 [facility] COMPARISON: No previous studies available for comparison. INDICATIONS : Evaluate for left pneumothorax MEDICAL HISTORY : None. SURGICAL HISTORY : Thoracotomy ENCOUNTER: Subsequent ACUITY: 1 week PAIN SCORE: 5/10 LOCATION: Left chest FINDINGS: A single view of the chest demonstrates left-sided chest tube without pneumothorax. Multiple left-jey ed rib fractures. Minimal left lung density. Heart enlarged. The cardiomediastinal contours are unrem arkable. Osseous structures are intact. CONCLUSION: No pneumothorax on the left. Kulwant Valladares MD on December 11, 2016 at 6:01 Board Certified Radiologist. This report was verified electronically.
[2016-12-11] MEDS: LEVOTHYROXINE SODIUM 200 MCG TAB PO SCH (06:49)
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
[2016-12-11] MEDS: buPROPion HCL 150 MG SUSTAINED RELEASE TAB PO SCH ×2 (08:36→21:46)
[2016-12-11] MEDS: LACTULOSE SYRUP 20 GM/30 ML CUP PO SCH (08:36)
[2016-12-11] MEDS: FAMOTIDINE 20 MG TAB PO SCH ×2 (08:36→21:46)
[2016-12-11] MEDS: ATORVASTATIN 10 MG TAB PO SCH (08:36)
[2016-12-11] MEDS: LISINOPRIL 20 MG TAB PO SCH (08:37)
[2016-12-11] MEDS: DOCUSATE SODIUM 50 MG/SENNA 8.6 MG TAB PO SCH ×2 (08:38→21:48)
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
[2016-12-11] MEDS ORDERED: METOPROLOL SUCCINATE 25 MG EXTENDED RELEASE TAB PO SCH (10:00)
[2016-12-11] MEDS: oxyCODONE/ACETAMINOPHEN 7.5 MG/325 MG TAB PO PRN ×2 (15:51→20:12)
[2016-12-11] MEDS: MAGNESIUM HYDROXIDE SUSP 30 ML CUP PO SCH (21:44)
[2016-12-11] MEDS: HEPARIN SODIUM - SQ 10,000 UNITS/ML VIAL SQ SCH (21:45)
[2016-12-11] MEDS: LEVOTHYROXINE SODIUM 50 MCG TAB PO SCH (21:45)
[2016-12-11] MEDS: ENALAPRILAT 1.25 MG/ML VIAL IV PUSH PRN (23:53)
[2016-12-12] VITALS (12 sets, daily range): BP systolic 131–187; BP diastolic 59–91; PULSE 83–93; RESP 18–22; TEMP 96.7–98.7; O2SAT 91–97
[2016-12-12] MEDS: KETOROLAC TROMETHAMINE 30 MG/ML (IVP) VIAL IV PUSH SCH ×2 (02:56→08:29)
[2016-12-12 05:58] LABS: AUTOMATED NEUTROPHIL # 12.1 TH/MM3 (1.8-7.7); BASOPHIL # 0.1 TH/MM3 (0-0.2); BASOPHIL % 0.5 % (0.0-2.0); EOSINOPHIL # 0.2 TH/MM3 (0-0.4); EOSINOPHIL % 1.5 % (0.0-4.0); HEMATOCRIT 29.9 % (39.0-51.0); LYMPH % 8.2 % (9.0-44.0); LYMPHOCYTE # 1.3 TH/MM3 (1.0-4.8); MEAN CELL VOLUME 97.8 FL (80.0-100.0); MEAN CORPUSCULAR HEMOGLOBIN 32.1 PG (27.0-34.0); MEAN CORPUSCULAR HGB CONC 32.8 % (32.0-36.0); MONO % 13.8 % (0.0-8.0); PLATELET COUNT 395 TH/MM3 (150-450); RED BLOOD COUNT 3.06 MIL/MM3 (4.50-5.90); RED CELL DISTRIBUTION WIDTH 12.9 % (11.6-17.2); WHITE BLOOD COUNT 15.9 TH/MM3 (4.0-11.0)
[2016-12-12] MEDS: oxyCODONE/ACETAMINOPHEN 7.5 MG/325 MG TAB PO PRN (06:06)
[2016-12-12] MEDS: LEVOTHYROXINE SODIUM 200 MCG TAB PO SCH (06:06)
[2016-12-12 06:16] LABS: HEMO FLAGS AUTO DIFF
[2016-12-12 06:25] LABS: ANION GAP 5 MEQ/L (5-15); AST (GOT) 39 U/L (15-37); BICARBONATE 27.6 MEQ/L (21.0-32.0); BLOOD UREA NITROGEN 36 MG/DL (7-18); CHLORIDE 95 MEQ/L (98-107); GLOMERULAR FILTRATION RATE 45 ML/MIN (>89); POTASSIUM 5.3 MEQ/L (3.5-5.1); SODIUM (NA) 128 MEQ/L (136-145)
[2016-12-12 06:30] LABS: ALKALINE PHOSPHATASE 94 U/L (45-117); ALT (GPT) 27 U/L (12-78); TOTAL BILIRUBIN ADULT 0.7 MG/DL (0.2-1.0)
[2016-12-12 08:02] LABS: BANDS 12 % (0-6); EOSINOPHILS 2 % (0-4); METAMYELOCYTES 1 % (0-1); NEUTROPHIL # MANUAL DIFF 13.4 TH/MM3 (1.8-7.7); POLYS (SEG NEUTROPHILS) 71 % (16-70); WBC DIFF SAMPLE 100
[2016-12-12 08:04] LABS: PLATELET ESTIMATE SMEAR NORMAL (NORMAL); PLATELET MORPHOLOGY NORMAL (NORMAL); SCAN/DIFF FINAL DIFF MANUAL
--- NOTE | 2016-12-12 08:25 | RADRPT ---
EXAM DATE/TIME: 12/12/2016 07:13 [facility] COMPARISON: CHEST SINGLE AP, December 11, 2016, 5:23. INDICATIONS : Short of breath, evaluate chest tubes on left MEDICAL HISTORY : Multiple rib fractures SURGICAL HISTORY : Thoracotomy ENCOUNTER: Subsequent ACUITY: 1 week PAIN SCORE: 4/10 LOCATION: Bilateral chest FINDINGS: The left chest tube is stable in position compared to the previous examination. Multiple fractures o f left rib cage are stable. No pneumothorax is noted. Bibasilar patchiness is stable. The heart is stable. CONCLUSION: 1. Stable chest. Trent Nava MD on December 12, 2016 at 7:38 Board Certified Radiologist. This report was verified electronically.
[2016-12-12] MEDS: HEPARIN SODIUM - SQ 10,000 UNITS/ML VIAL SQ SCH ×2 (08:27→21:17)
[2016-12-12] MEDS: LACTULOSE SYRUP 20 GM/30 ML CUP PO SCH (08:27)
[2016-12-12] MEDS: DOCUSATE SODIUM 50 MG/SENNA 8.6 MG TAB PO SCH ×2 (08:27→21:17)
[2016-12-12] MEDS: buPROPion HCL 150 MG SUSTAINED RELEASE TAB PO SCH ×2 (08:28→21:00)
[2016-12-12] MEDS: METOPROLOL SUCCINATE 25 MG EXTENDED RELEASE TAB PO SCH (08:28)
[2016-12-12] MEDS: FAMOTIDINE 20 MG TAB PO SCH ×2 (08:28→21:16)
[2016-12-12] MEDS: ATORVASTATIN 10 MG TAB PO SCH (08:28)
[2016-12-12] MEDS: SODIUM CHLOR 0.9% 1000 ML INJ 1,000 ML IV SCH ×2 (08:33→18:36)
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
[2016-12-12] MEDS ORDERED: BISACODYL EC 5 MG TABEC PO ONE (12:00)
[2016-12-12] MEDS ORDERED: BISACODYL 10 MG SUPP RECTAL ONE (12:00)
[2016-12-12] MEDS ORDERED: SODIUM CHLOR 0.9% 1000 ML INJ 1,000 ML IV ONE (12:00)
[2016-12-12] MEDS: REMOVE OLD PATCH T-DERMAL SCH (13:51)
[2016-12-12] MEDS: fentaNYL 50 MCG/HR PATCH T-DERMAL SCH (13:51)
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
[2016-12-12] MEDS: GABAPENTIN 300 MG CAP PO SCH ×2 (13:52→17:31)
[2016-12-12] MEDS: oxyCODONE/ACETAMINOPHEN 5 MG/325 MG TAB PO PRN ×3 (13:57→23:53)
--- NOTE | 2016-12-12 14:14 | RADRPT ---
EXAM DATE/TIME: 12/12/2016 14:49 [facility] COMPARISON: CHEST SINGLE AP, December 12, 2016, 7:13. INDICATIONS : Left side chest and rib pain. Self removal of chest tube. MEDICAL HISTORY : Cardiovascular disease. Gastroesophageal reflux disease. Hernia, hiatal. SURGICAL HISTORY : Pacemaker. ENCOUNTER: Subsequent ACUITY: 1 week PAIN SCORE: 10/10 LOCATION: Left chest Ribs. FINDINGS: Chest drainage tube is unchanged in position and location when compared to exam performed earlier tod ay. No evidence of pneumothorax. Multiple left rib fractures and patchy areas of infiltrate in left lower lung stable. The right lung is unchanged with small right lower lung infiltrate and old heale d rib fractures. Heart is normal size. CONCLUSION: Location of the left chest drainage tube is unchanged from exam earlier today. Stable patchy left lo wer lung infiltrates. Tio Raza MD on December 12, 2016 at 14:11 Board Certified Radiologist. This report was verified electronically.
--- NOTE | 2016-12-12 17:00 | RADRPT ---
EXAM DATE/TIME: 12/12/2016 15:57 [facility] COMPARISON: CT ABDOMEN & PELVIS W CONTRAST, December 03, 2016, 16:59. POC ULTRASOUND ED, December 09, 2016, 1:28. CT PULMONARY ANGIOGRAM, December 09, 2016, 12:08. CT ABDOMEN & PELVIS W/O CONTRAST, December 09, 2016 , 2:36. INDICATIONS : Increased lab values. MEDICAL HISTORY : Hypercholesterolemia. Hypertension. Gastroesophageal reflux disease. Hypothyroidism. Fibromyalgia. Os teoarthritis. SURGICAL HISTORY : Left hand carpal tunnel release. Thoracentesis. ENCOUNTER: Initial ACUITY: 1 day PAIN SCORE: 5/10 LOCATION: Bilateral flank MEASUREMENTS: RIGHT KIDNEY: 13.0 x 6.2 x 6.2 cm LEFT KIDNEY: 14.0 x 7.3 x 7.0 cm FINDINGS: RIGHT KIDNEY: Renal cortex is normal in thickness and echotexture. No hydronephrosis, stone, or mass. LEFT KIDNEY: Renal cortex is normal in thickness and echotexture. No hydronephrosis, stone, or mass. Intermediat e echotexture mass over the lower pole measures 6.2 x 5.1 cm; this corresponds to the location a subc apsular hematoma seen on prior CT. The subcapsular hematoma was stable in size on 2 subsequent CTs; difference in dimension may be due to be different measurement planes. BLADDER: Within normal limits given the degree of distension. CONCLUSION: 1. No evidence of hydronephrosis on either side. 2. The left lower pole subcapsular hematoma measures up to 6.2 cm in maximal oblique dimension. Tio Raza MD on December 12, 2016 at 16:54 Board Certified Radiologist. This report was verified electronically.
[2016-12-12 18:59] LABS: BACTERIA, URINE RARE /hpf; BLOOD, URINE MOD (NEG); GLUCOSE,URINE NEG (NEG); KETONE, URINE NEG (NEG); MUCUS URINE FEW /lpf (OCC); NITRITE,URINE NEG (NEG); PH, URINE 5.5 (5.0-8.5); URINE COLOR LIGHT-YELLOW (YELLW/STRAW)
[2016-12-12 19:04] LABS: URINE TOTAL PROTEIN TIMED 19.3 MG/DL
[2016-12-12] MEDS: MAGNESIUM HYDROXIDE SUSP 30 ML CUP PO SCH (21:00)
[2016-12-12] MEDS: LEVOTHYROXINE SODIUM 50 MCG TAB PO SCH (21:16)
[2016-12-12] MEDS: ENALAPRILAT 1.25 MG/ML VIAL IV PUSH PRN (23:52)
[2016-12-13] VITALS (9 sets, daily range): BP systolic 132–195; BP diastolic 69–93; PULSE 78–90; RESP 17–21; TEMP 97.6–99.6; O2SAT 92–97
[2016-12-13 04:34] LABS: BASOPHIL # 0.1 TH/MM3 (0-0.2); BASOPHIL % 0.7 % (0.0-2.0); EOSINOPHIL # 0.2 TH/MM3 (0-0.4); EOSINOPHIL % 1.3 % (0.0-4.0); HEMATOCRIT 29.4 % (39.0-51.0); LYMPH % 13.4 % (9.0-44.0); LYMPHOCYTE # 2.1 TH/MM3 (1.0-4.8); MEAN CELL VOLUME 96.6 FL (80.0-100.0); MEAN CORPUSCULAR HEMOGLOBIN 32.3 PG (27.0-34.0); MEAN CORPUSCULAR HGB CONC 33.4 % (32.0-36.0); MONO % 15.8 % (0.0-8.0); NEUT % 68.8 % (16.0-70.0); PLATELET COUNT 481 TH/MM3 (150-450); RED BLOOD COUNT 3.05 MIL/MM3 (4.50-5.90); RED CELL DISTRIBUTION WIDTH 13.3 % (11.6-17.2); WHITE BLOOD COUNT 15.9 TH/MM3 (4.0-11.0)
[2016-12-13 04:41] LABS: HEMO FLAGS AUTO DIFF
[2016-12-13 05:04] LABS: ALT (GPT) 35 U/L (12-78); ANION GAP 6 MEQ/L (5-15); AST (GOT) 37 U/L (15-37); BICARBONATE 27.2 MEQ/L (21.0-32.0); BLOOD UREA NITROGEN 28 MG/DL (7-18); CHLORIDE 103 MEQ/L (98-107); GLOMERULAR FILTRATION RATE 53 ML/MIN (>89); POTASSIUM 4.8 MEQ/L (3.5-5.1); SODIUM (NA) 136 MEQ/L (136-145)
[2016-12-13 05:12] LABS: ALKALINE PHOSPHATASE 168 U/L (45-117); TOTAL BILIRUBIN ADULT 0.7 MG/DL (0.2-1.0); TOTAL PROTEIN SPE 6.6 GM/DL (6.0-7.6)
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
[2016-12-13] MEDS: LEVOTHYROXINE SODIUM 200 MCG TAB PO SCH (06:43)
[2016-12-13] MEDS: oxyCODONE/ACETAMINOPHEN 5 MG/325 MG TAB PO PRN (06:44)
[2016-12-13 07:34] LABS: BANDS 4 % (0-6); EOSINOPHILS 1 % (0-4); METAMYELOCYTES 3 % (0-1); NEUTROPHIL # MANUAL DIFF 10.8 TH/MM3 (1.8-7.7); POLYS (SEG NEUTROPHILS) 61 % (16-70); WBC DIFF SAMPLE 100
[2016-12-13 07:35] LABS: PLATELET ESTIMATE SMEAR HIGH (NORMAL); PLATELET MORPHOLOGY NORMAL (NORMAL); SCAN/DIFF FINAL DIFF MANUAL
[2016-12-13] MEDS: buPROPion HCL 150 MG SUSTAINED RELEASE TAB PO SCH ×2 (08:07→19:55)
[2016-12-13] MEDS: FAMOTIDINE 20 MG TAB PO SCH ×2 (08:07→19:55)
[2016-12-13] MEDS: HEPARIN SODIUM - SQ 10,000 UNITS/ML VIAL SQ SCH ×2 (08:07→19:56)
[2016-12-13] MEDS: GABAPENTIN 300 MG CAP PO SCH ×3 (08:07→17:43)
[2016-12-13] MEDS: METOPROLOL SUCCINATE 25 MG EXTENDED RELEASE TAB PO SCH (08:07)
[2016-12-13] MEDS: DOCUSATE SODIUM 50 MG/SENNA 8.6 MG TAB PO SCH ×2 (08:07→19:55)
[2016-12-13] MEDS: LACTULOSE SYRUP 20 GM/30 ML CUP PO SCH (08:07)
[2016-12-13] MEDS: ATORVASTATIN 10 MG TAB PO SCH (08:08)
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
[2016-12-13] MEDS: oxyCODONE/ACETAMINOPHEN 10 MG/325 MG TAB PO PRN ×3 (11:19→19:57)
[2016-12-13] MEDS ORDERED: DEXT10TA2 PO (13:46)
[2016-12-13] MEDS ORDERED: VITA250C3 CHEW (13:47)
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
[2016-12-13] MEDS: TAMSULOSIN HCL 0.4 MG CAP PO SCH (13:59)
[2016-12-13] MEDS: RESP: ALBUTEROL 2.5 MG/IPRATROPIUM 0.5 MG NEB (PRN) NEB ×2 (14:16→20:59)
[2016-12-13] MEDS: RESP: ACETYLCYSTEINE 10% 30 ML NEB NEB SCH ×2 (14:18→20:59)
[2016-12-13] MEDS: amLODIPine BESYLATE 5 MG TAB PO SCH (15:15)
[2016-12-13] MEDS: MAGNESIUM HYDROXIDE SUSP 30 ML CUP PO SCH (19:54)
[2016-12-13] MEDS: LEVOTHYROXINE SODIUM 50 MCG TAB PO SCH (19:55)
[2016-12-13] MEDS: DEXTROAMPHETAMINE SULFATE 5 MG TAB PO SCH (19:56)
[2016-12-14] VITALS (16 sets, daily range): BP systolic 88–146; BP diastolic 52–75; PULSE 81–113; RESP 14–25; TEMP 96–100.1; O2SAT 85–99
[2016-12-14] MEDS: oxyCODONE/ACETAMINOPHEN 10 MG/325 MG TAB PO PRN (02:29)
[2016-12-14] MEDS: RESP: ALBUTEROL 2.5 MG/IPRATROPIUM 0.5 MG NEB (PRN) NEB ×3 (03:40→19:56)
[2016-12-14] MEDS: RESP: ACETYLCYSTEINE 10% 30 ML NEB NEB SCH ×4 (03:40→19:57)
[2016-12-14] MEDS: LEVOTHYROXINE SODIUM 200 MCG TAB PO SCH (05:23)
[2016-12-14] MEDS ORDERED: SODIUM CHLOR 0.9% 1000 ML INJ 1,000 ML IV SCH (06:00)
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
[2016-12-14] MEDS ORDERED: IOHEXOL 350 MG/ML 10 ML VIAL (for RAD DIAG) IVCONTRAST ONE (06:25)
--- NOTE | 2016-12-14 06:36 | RADRPT ---
EXAM DATE/TIME: 12/14/2016 06:18 [facility] COMPARISON: CT BRAIN W/O CONTRAST, December 03, 2016, 16:43. INDICATIONS : Altered mental status. RADIATION DOSE: 50.61 CTDIvol (mGy) ; Tabletop CT Head MEDICAL HISTORY : Hypertension. Gastroesophageal reflux disease. Fibromyalgia. SURGICAL HISTORY : Tonsillectomy. ENCOUNTER: Initial ACUITY: 1 day PAIN SCALE: 0/10 LOCATION: cranial TECHNIQUE: Multiple contiguous axial images were obtained of the head. Using automated exposure control and adj ustment of the mA and/or kV according to patient size, radiation dose was kept as low as reasonably a chievable to obtain optimal diagnostic quality images. DICOM format image data is available electro nically for review and comparison. FINDINGS: CEREBRUM: The ventricles are normal for age. No evidence of midline shift, mass lesion, hemorrhage or acute in farction. No extra-axial fluid collections are seen. POSTERIOR FOSSA: The cerebellum and brainstem are intact. The 4th ventricle is midline. The cerebellopontine angle i s unremarkable. EXTRACRANIAL: The visualized portion of the orbits is intact. SKULL: The calvaria is intact. No evidence of skull fracture. CONCLUSION: Negative noncontrast head CT. Benny Dent MD on December 14, 2016 at 6:34 Board Certified Radiologist. This report was verified electronically.
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
[2016-12-14 07:52] LABS: HEMATOCRIT 24.3 % (39.0-51.0); MEAN CELL VOLUME 96.6 FL (80.0-100.0); MEAN CORPUSCULAR HEMOGLOBIN 32.1 PG (27.0-34.0); MEAN CORPUSCULAR HGB CONC 33.3 % (32.0-36.0); PLATELET COUNT 470 TH/MM3 (150-450); RED BLOOD COUNT 2.51 MIL/MM3 (4.50-5.90); RED CELL DISTRIBUTION WIDTH 13.3 % (11.6-17.2); WHITE BLOOD COUNT 32.9 TH/MM3 (4.0-11.0)
[2016-12-14 07:57] LABS: REVIEW FLAG FINAL
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
[2016-12-14 08:25] LABS: BICARBONATE 26.3 MEQ/L (21.0-32.0); POTASSIUM 6.5 MEQ/L (3.5-5.1)
[2016-12-14] MEDS ORDERED: SODIUM CHLOR 0.9% 1000 ML INJ 1,000 ML IV ONE (08:30)
[2016-12-14] MEDS ORDERED: DEXTROSE 50% IN WATER 50 ML SYRINGE ONE (08:35)
[2016-12-14] MEDS: SODIUM CHLOR 0.9% 1000 ML INJ 1,000 ML IV ONE ×2 (08:45→11:51)
[2016-12-14] MEDS: amLODIPine BESYLATE 5 MG TAB PO SCH (09:00)
[2016-12-14] MEDS: buPROPion HCL 150 MG SUSTAINED RELEASE TAB PO SCH ×2 (09:00→20:20)
[2016-12-14] MEDS: FAMOTIDINE 20 MG TAB PO SCH (09:00)
[2016-12-14] MEDS: DOCUSATE SODIUM 50 MG/SENNA 8.6 MG TAB PO SCH ×2 (09:00→20:19)
[2016-12-14] MEDS ORDERED: DEXTROSE 50% IN WATER 50 ML SYRINGE IV PUSH ONE (09:00)
[2016-12-14] MEDS: DEXTROAMPHETAMINE SULFATE 5 MG TAB PO SCH ×2 (09:00→20:19)
[2016-12-14] MEDS: TAMSULOSIN HCL 0.4 MG CAP PO SCH (09:00)
[2016-12-14] MEDS: ATORVASTATIN 10 MG TAB PO SCH (09:00)
[2016-12-14] MEDS: LACTULOSE SYRUP 20 GM/30 ML CUP PO SCH (09:00)
[2016-12-14] MEDS: HEPARIN SODIUM - SQ 10,000 UNITS/ML VIAL SQ SCH (09:00)
[2016-12-14] MEDS: METOPROLOL SUCCINATE 25 MG EXTENDED RELEASE TAB PO SCH (09:00)
[2016-12-14] MEDS: GABAPENTIN 300 MG CAP PO SCH ×3 (09:00→18:00)
[2016-12-14] MEDS ORDERED: INSULIN HUMAN REGULAR 1,000 UNITS/10 ML VIAL IV PUSH ONE (09:00)
[2016-12-14 09:16] LABS: BLOOD GAS BASE EXCESS -0.1 mmol/L (-2-2); BLOOD GAS CARBOXYHEMOGLOBIN 1.8 % (0-4); BLOOD GAS HCO3 24 mmol/L (22-26); BLOOD GAS METHEMOGLOBIN 0.9 % (0-2); BLOOD GAS O2 HGB SATURATION 92 % (90-100); BLOOD GAS OXYGEN CONTENT 10.3 Vol % (12.0-20.0); BLOOD GAS PCO2 42 mmHg (38-42); BLOOD GAS PO2 74 mmHg (61-120); BLOOD GAS TOTAL HGB 7.9 G/DL (12.0-16.0); CRITICAL VALUE NO; DRAW SITE RA; NUMBER OF ARTERIAL PUNCTURES 1; OXYGEN DEVICE NASAL CANNULA; STAT YES; TEMP CORR TO 98.6; ULNAR PULSE PRESENT
[2016-12-14 09:17] LABS: LITER FLOW 3 L/M
[2016-12-14] MEDS ORDERED: SODIUM CHLOR 0.9% 250 ML INJ 250 ML IV ONE (09:45)
--- NOTE | 2016-12-14 09:51 | RADRPT ---
EXAM DATE/TIME: 12/14/2016 09:39 [facility] COMPARISON: CHEST SINGLE AP, December 14, 2016, 6:04. INDICATIONS : Fever. Patient removed left side chest tube. MEDICAL HISTORY : Hypercholesterolemia. Hypertension. Gastroesophageal reflux disease. Hypothyroidism. Fibromyalgia. O steoarthritis. SURGICAL HISTORY : ENCOUNTER: Subsequent ACUITY: 1 day PAIN SCORE: Non-responsive. LOCATION: Bilateral chest FINDINGS: The previously noted chest tube has been removed. No pneumothorax has developed. Multiple fractures of the left rib cage are stable. Pleural-based density along the left lateral hemithorax is stable. Bibasilar atelectasis is unchanged. CONCLUSION: 1. No pneumothorax status post removal of left chest tube. 2. No significant change compared to 12/14/2016. Trent Nava MD on December 14, 2016 at 9:45 Board Certified Radiologist. This report was verified electronically.
[2016-12-14 09:52] LABS: HEMATOCRIT 22.9 % (39.0-51.0)
[2016-12-14 09:55] LABS: REVIEW FLAG FINAL
[2016-12-14 10:00] LABS: APTT (PATIENT) 27.8 SEC (24.3-30.1)
[2016-12-14] MEDS ORDERED: SODIUM BICARBONATE 8.4% INJ 50 MEQ/50 ML SYR IV PUSH ONE (10:00)
[2016-12-14] MEDS ORDERED: CALCIUM GLUCONATE INJ 1 GM in SODIUM CHLORIDE 0.9% INJ 100 ML IV ONE (10:00)
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
[2016-12-14 11:08] LABS: BICARBONATE 26.6 MEQ/L (21.0-32.0); POTASSIUM 5.6 MEQ/L (3.5-5.1)
[2016-12-14] MEDS: VANCOMYCIN INJ 1,000 MG in SODIUM CHLOR 0.9% 250 ML INJ 250 ML IV SCH ×2 (11:57→20:19)
[2016-12-14] MEDS: PIPERACIL-TAZO 3.375 GM PREMIX 50 ML IV SCH ×2 (11:57→18:42)
[2016-12-14] MEDS ORDERED: VECURONIUM BROMIDE 20 MG VIAL IV ONE (12:00)
[2016-12-14] MEDS ORDERED: PHENYLEPH/NS 1000 MCG/10 ML SYR IV ONE (12:00)
[2016-12-14] MEDS ORDERED: NORMOSOL R INJ 2,000 ML IV ONE (12:00)
[2016-12-14] MEDS ORDERED: ROCURONIUM INJ 50 MG/5 ML SYRINGE IV PUSH ONE (12:00)
[2016-12-14] MEDS ORDERED: SODIUM CHLOR 0.9% 1000 ML INJ 2,000 ML IV ONE (12:00)
[2016-12-14] MEDS ORDERED: PROPOFOL 200 MG/20 ML AMP IV ONE (12:00)
[2016-12-14] MEDS ORDERED: PHENYLEPHRINE HCL 10 MG/ML VIAL IV ONE (12:00)
[2016-12-14] MEDS ORDERED: LIDOCAINE HCL 1% PF 5 ML AMPULE OTHER ONE (12:00)
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
[2016-12-14 14:15] LABS: BLOOD GAS BASE EXCESS -0.2 mmol/L (-2-2); BLOOD GAS CARBOXYHEMOGLOBIN 1.6 % (0-4); BLOOD GAS HCO3 24 mmol/L (22-26); BLOOD GAS METHEMOGLOBIN 1.1 % (0-2); BLOOD GAS O2 HGB SATURATION 97 % (90-100); BLOOD GAS OXYGEN CONTENT 13.7 Vol % (12.0-20.0); BLOOD GAS PCO2 40 mmHg (38-42); BLOOD GAS PO2 226 mmHg (61-120); BLOOD GAS TOTAL HGB 9.7 G/DL (12.0-16.0); CRITICAL VALUE NO; OXYGEN DEVICE VENTILATOR; TEMP CORR TO 98.6
[2016-12-14 14:16] LABS: FIO2 80 %
[2016-12-14 14:17] LABS: BASOPHIL # 0.2 TH/MM3 (0-0.2); BASOPHIL % 0.8 % (0.0-2.0); EOSINOPHIL % 0.1 % (0.0-4.0); LYMPH % 5.4 % (9.0-44.0); LYMPHOCYTE # 1.6 TH/MM3 (1.0-4.8); MEAN CELL VOLUME 93.3 FL (80.0-100.0); MEAN CORPUSCULAR HEMOGLOBIN 30.6 PG (27.0-34.0); MEAN CORPUSCULAR HGB CONC 32.8 % (32.0-36.0); MONO % 9.1 % (0.0-8.0); NEUT % 84.6 % (16.0-70.0); PLATELET COUNT 434 TH/MM3 (150-450); RED BLOOD COUNT 2.47 MIL/MM3 (4.50-5.90); RED CELL DISTRIBUTION WIDTH 15.7 % (11.6-17.2); WHITE BLOOD COUNT 29.5 TH/MM3 (4.0-11.0)
[2016-12-14 14:17] LABS: DRAW SITE ART LINE; STAT YES
[2016-12-14 14:20] LABS: HEMO FLAGS AUTO DIFF
[2016-12-14] MEDS ORDERED: PHENYLEPHRINE HCL 10 MG/ML VIAL ONE (14:35)
[2016-12-14 15:11] LABS: BANDS 9 % (0-6); METAMYELOCYTES 2 % (0-1); MYELOCYTES 4 % (0-0); NEUTROPHIL # MANUAL DIFF 25.4 TH/MM3 (1.8-7.7); POLYS (SEG NEUTROPHILS) 70 % (16-70); PROMYELOCYTES 1 % (0-0); WBC DIFF SAMPLE 100
[2016-12-14 15:12] LABS: PLATELET ESTIMATE SMEAR HIGH (NORMAL); PLATELET MORPHOLOGY NORMAL (NORMAL); SCAN/DIFF FINAL DIFF MANUAL
[2016-12-14] MEDS ORDERED: PROPOFOL 500 MG/50 ML INJ 50 ML ONE (15:20)
[2016-12-14] MEDS: PROPOFOL 1000 MG/100 ML INJ 100 ML IV PRN ×3 (16:05→23:04)
[2016-12-14] MEDS: HYDROmorphone HCL PF 0.5 MG/0.5 ML SYRINGE IV PUSH PRN (16:06)
--- NOTE | 2016-12-14 16:10 | RADRPT ---
EXAM DATE/TIME: 12/14/2016 16:34 [facility] COMPARISON: CHEST SINGLE AP, December 14, 2016, 9:39. INDICATIONS : Post intubation. MEDICAL HISTORY : Hypercholesterolemia. Hypertension. Gastroesophageal reflux disease. Hypothyroidism. Fibromyalgia. Os teoarthritis. SURGICAL HISTORY : None. ENCOUNTER: Subsequent ACUITY: 2 weeks PAIN SCORE: 0/10 LOCATION: Bilateral chest FINDINGS: Endotracheal tube tip at the level of the clavicles. Gastric tube traverses the [id number]. Left subclavian catheter tip in the mid superior vena cava. Left chest drainage tube tip projects at the apex. Patchy areas of infiltrate in the left lower lung with air bronchograms. Right lung is clear . The heart is normal size. Multiple left rib fractures. CONCLUSION: 1. ET tube in good position. 2. Subsegmental consolidation medial left lower lung. Tio Raza MD on December 14, 2016 at 16:07 Board Certified Radiologist. This report was verified electronically.
[2016-12-14] MEDS: SODIUM CHLOR 0.9% 1000 ML INJ 1,000 ML IV SCH (16:24)
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
[2016-12-14 17:42] LABS: HEMATOCRIT 26.5 % (39.0-51.0); MEAN CELL VOLUME 90.6 FL (80.0-100.0); MEAN CORPUSCULAR HEMOGLOBIN 31.8 PG (27.0-34.0); MEAN CORPUSCULAR HGB CONC 35.1 % (32.0-36.0); PLATELET COUNT 407 TH/MM3 (150-450); RED BLOOD COUNT 2.93 MIL/MM3 (4.50-5.90); RED CELL DISTRIBUTION WIDTH 16.5 % (11.6-17.2); REVIEW FLAG FINAL; WHITE BLOOD COUNT 27.6 TH/MM3 (4.0-11.0)
[2016-12-14 17:51] LABS: BLOOD GAS BASE EXCESS -0.9 mmol/L (-2-2); BLOOD GAS CARBOXYHEMOGLOBIN 1.7 % (0-4); BLOOD GAS HCO3 25 mmol/L (22-26); BLOOD GAS O2 HGB SATURATION 97 % (90-100); BLOOD GAS OXYGEN CONTENT 13.7 Vol % (12.0-20.0); BLOOD GAS PCO2 53 mmHg (38-42); BLOOD GAS PO2 200 mmHg (61-120); BLOOD GAS TOTAL HGB 9.8 G/DL (12.0-16.0); TEMP CORR TO 98.6
[2016-12-14 17:52] LABS: CRITICAL VALUE YES; OXYGEN DEVICE VENTILATOR
[2016-12-14 17:53] LABS: DRAW SITE ART LINE; FIO2 100 %; STAT NO; VENT SETTINGS PRVC/AC
[2016-12-14 18:02] LABS: APTT (PATIENT) 28.5 SEC (24.3-30.1); PROTHROMBIN TIME - PATIENT 10.6 SEC (9.8-11.6)
[2016-12-14 18:04] LABS: ANION GAP 7 MEQ/L (5-15); AST (GOT) 59 U/L (15-37); BICARBONATE 25.7 MEQ/L (21.0-32.0); BLOOD UREA NITROGEN 31 MG/DL (7-18); CHLORIDE 103 MEQ/L (98-107); GLOMERULAR FILTRATION RATE 43 ML/MIN (>89); POTASSIUM 5.7 MEQ/L (3.5-5.1); SODIUM (NA) 136 MEQ/L (136-145)
[2016-12-14 18:05] LABS: ALT (GPT) 42 U/L (12-78)
[2016-12-14 18:07] LABS: ALKALINE PHOSPHATASE 91 U/L (45-117); TOTAL BILIRUBIN ADULT 1.1 MG/DL (0.2-1.0)
[2016-12-14] MEDS: LEVOTHYROXINE SODIUM 50 MCG TAB PO SCH (20:19)
[2016-12-14] MEDS: MAGNESIUM HYDROXIDE SUSP 30 ML CUP PO SCH (20:19)
[2016-12-14] MEDS: CHLORHEXIDINE 0.12% (ORAL KIT) 15 ML CUP MT SCH (20:20)
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
[2016-12-15] VITALS (18 sets, daily range): BP systolic 99–168; BP diastolic 53–75; PULSE 93–114; RESP 13–29; TEMP 97.6–98.9; O2SAT 95–100
[2016-12-15] MEDS: PIPERACIL-TAZO 3.375 GM PREMIX 50 ML IV SCH ×3 (02:23→17:06)
[2016-12-15] MEDS: PROPOFOL 1000 MG/100 ML INJ 100 ML IV PRN ×8 (02:24→21:50)
[2016-12-15] MEDS: RESP: ACETYLCYSTEINE 10% 30 ML NEB NEB SCH ×4 (04:00→21:17)
[2016-12-15 04:24] LABS: BASOPHIL # 0.1 TH/MM3 (0-0.2); BASOPHIL % 0.3 % (0.0-2.0); EOSINOPHIL % 0.2 % (0.0-4.0); HEMATOCRIT 24.4 % (39.0-51.0); LYMPH % 6.9 % (9.0-44.0); MEAN CELL VOLUME 90.5 FL (80.0-100.0); MEAN CORPUSCULAR HEMOGLOBIN 31.3 PG (27.0-34.0); MEAN CORPUSCULAR HGB CONC 34.6 % (32.0-36.0); MONO % 11.9 % (0.0-8.0); NEUT % 80.7 % (16.0-70.0); PLATELET COUNT 435 TH/MM3 (150-450); RED BLOOD COUNT 2.69 MIL/MM3 (4.50-5.90); RED CELL DISTRIBUTION WIDTH 16.9 % (11.6-17.2); WHITE BLOOD COUNT 28.5 TH/MM3 (4.0-11.0)
[2016-12-15 04:28] LABS: HEMO FLAGS AUTO DIFF
[2016-12-15 04:45] LABS: ANION GAP 8 MEQ/L (5-15); AST (GOT) 44 U/L (15-37); BICARBONATE 26.5 MEQ/L (21.0-32.0); BLOOD UREA NITROGEN 32 MG/DL (7-18); CHLORIDE 104 MEQ/L (98-107); GLOMERULAR FILTRATION RATE 44 ML/MIN (>89); MAGNESIUM 1.9 MG/DL (1.5-2.5); SODIUM (NA) 138 MEQ/L (136-145)
[2016-12-15] MEDS: RESP: ALBUTEROL 2.5 MG/IPRATROPIUM 0.5 MG NEB (PRN) NEB ×4 (04:46→21:17)
[2016-12-15 04:47] LABS: ALT (GPT) 39 U/L (12-78)
[2016-12-15 04:49] LABS: ALKALINE PHOSPHATASE 85 U/L (45-117); TOTAL BILIRUBIN ADULT 0.6 MG/DL (0.2-1.0)
--- NOTE | 2016-12-15 04:49 | RADRPT ---
EXAM DATE/TIME: 12/15/2016 04:44 [facility] COMPARISON: CHEST SINGLE AP, December 14, 2016, 16:34. INDICATIONS : Evaluate for Pnuemothorax MEDICAL HISTORY : Hypercholesterolemia. Hypertension Gastroesophageal reflux disease. Hypotyroidism, Fibromyalgia SURGICAL HISTORY : None. ENCOUNTER: Subsequent ACUITY: 2 weeks PAIN SCORE: Non-responsive. LOCATION: Bilateral chest FINDINGS: Endotracheal tube, nasogastric tube, left subclavian central line and left thoracostomy tube remain i n place. Mild bilateral basilar atelectasis persists. Cardiac contours are unchanged. CONCLUSION: No significant interval change Benny Evans MD on December 15, 2016 at 4:46 Board Certified Radiologist. This report was verified electronically.
[2016-12-15] MEDS: LEVOTHYROXINE SODIUM 200 MCG TAB PO SCH (05:30)
[2016-12-15 06:14] LABS: BANDS 22 % (0-6); METAMYELOCYTES 3 % (0-1); MYELOCYTES 2 % (0-0); NEUTROPHIL # MANUAL DIFF 25.4 TH/MM3 (1.8-7.7); POLYS (SEG NEUTROPHILS) 62 % (16-70); WBC DIFF SAMPLE 100
[2016-12-15 06:15] LABS: PLATELET ESTIMATE SMEAR NORMAL (NORMAL); PLATELET MORPHOLOGY NORMAL (NORMAL); SCAN/DIFF FINAL DIFF MANUAL
[2016-12-15 06:16] LABS: TOXIC GRANULATION 1+ (NORMAL)
[2016-12-15] MEDS: REMOVE OLD PATCH T-DERMAL SCH (07:30)
[2016-12-15 08:16] LABS: BLOOD GAS BASE EXCESS 3.2 mmol/L (-2-2); BLOOD GAS CARBOXYHEMOGLOBIN 1.5 % (0-4); BLOOD GAS HCO3 27 mmol/L (22-26); BLOOD GAS O2 HGB SATURATION 95 % (90-100); BLOOD GAS OXYGEN CONTENT 11.4 Vol % (12.0-20.0); BLOOD GAS PCO2 40 mmHg (38-42); BLOOD GAS PO2 84 mmHg (61-120); BLOOD GAS TOTAL HGB 8.5 G/DL (12.0-16.0); CRITICAL VALUE NO; TEMP CORR TO 98.6
[2016-12-15 08:17] LABS: DRAW SITE ART LINE; FIO2 40 %; OXYGEN DEVICE VENTILATOR; STAT NO
[2016-12-15] MEDS: CHLORHEXIDINE 0.12% (ORAL KIT) 15 ML CUP MT SCH ×2 (08:17→20:00)
[2016-12-15] MEDS: TAMSULOSIN HCL 0.4 MG CAP PO SCH (08:18)
[2016-12-15] MEDS: buPROPion HCL 150 MG SUSTAINED RELEASE TAB PO SCH ×2 (08:18→21:00)
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
[2016-12-15] MEDS ORDERED: HYDROmorphone HCL PF 1 MG/ML VIAL IV PUSH PRN (09:00)
[2016-12-15] MEDS: VANCOMYCIN INJ 1,000 MG in SODIUM CHLOR 0.9% 250 ML INJ 250 ML IV SCH ×2 (09:01→22:08)
[2016-12-15] MEDS: GABAPENTIN 300 MG CAP PO SCH ×3 (09:02→17:05)
[2016-12-15] MEDS: amLODIPine BESYLATE 5 MG TAB PO SCH (09:02)
[2016-12-15] MEDS: ATORVASTATIN 10 MG TAB PO SCH (09:02)
[2016-12-15] MEDS: DEXTROAMPHETAMINE SULFATE 5 MG TAB PO SCH ×2 (09:02→21:50)
[2016-12-15] MEDS: DOCUSATE SODIUM 50 MG/SENNA 8.6 MG TAB PO SCH ×2 (09:06→21:50)
[2016-12-15] MEDS: LACTULOSE SYRUP 20 GM/30 ML CUP PO SCH (09:06)
[2016-12-15] MEDS: fentaNYL DRIP 250 ML IV PRN ×2 (10:03→23:38)
[2016-12-15] MEDS: SODIUM CHLOR 0.9% 1000 ML INJ 1,000 ML IV SCH ×3 (11:25→21:45)
--- NOTE | 2016-12-15 12:16 | EKG ---
Date Performed: 12/14/2016 Time Performed: 11:35:56 PTAGE: 71 years EKG: Sinus rhythm . Normal ECG NO PREVIOUS TRACING DOCTOR: Jesús Leon Interpretating Date/Time 12/15/2016 12:13:00
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
--- NOTE | 2016-12-15 12:31 | HHI.IDPN ---
Note Infectious Disease Note Patient opens eyes to voice. On the vent. Afebrile. WBC remain elevated. 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 PAST MEDICAL HISTORY: 1. Hypertension. 2. Hypothyroidism. 3. Fibromyalgia. 4. Osteoarthritis. 5. Tonsillectomy. ALLERGIES: CLARITHROMYCIN. MEDICATIONS: 1. Piperacillin / tazobactam. 2. Vancomycin. SOCIAL HISTORY No tobacco. Rare alcohol. No illicit drugs. OBJECTIVE: Vital Signs Date Time Temp Pulse Resp B/P (MAP) Pulse Ox O2 Delivery O2 Flow Rate FiO2 12/15/16 12:00 103 12/15/16 12:00 40 12/15/16 12:00 97.6 103 13 137/68 (91) 100 168/62 (97) 12/15/16 11:14 95 40 12/15/16 10:00 108 12/15/16 08:00 98.4 114 29 146/68 (94) 99 132/64 (86) 12/15/16 08:00 40 12/15/16 08:00 114 12/15/16 07:57 40 12/15/16 07:56 95 40 12/15/16 07:36 100 100 12/15/16 04:46 98 50 12/15/16 04:00 98.6 108 23 139/66 (90) 99 133/63 (86) 12/15/16 04:00 50 12/15/16 00:30 97 50 12/15/16 00:00 98.5 93 20 118/58 (78) 99 99/53 (68) 12/15/16 00:00 50 12/14/16 23:00 91 12/14/16 20:00 99.4 87 20 109/59 (76) 99 129/53 (78) 12/14/16 20:00 50 12/14/16 19:57 99 50 12/14/16 16:27 97 50 12/14/16 16:20 50 12/14/16 16:00 98.5 93 16 120/56 (77) 85 Manual Cuff/Doppler 12/14/16 15:30 100 12/14/16 15:15 93 100 12/14/16 15:00 81 Laboratory Tests Test 12/14/16 07:36 12/14/16 09:04 12/14/16 13:56 12/14/16 17:05 White Blood Count 32.9 TH/MM3 29.5 TH/MM3 27.6 TH/MM3 Red Blood Count 2.51 MIL/MM3 2.47 MIL/MM3 2.93 MIL/MM3 Hemoglobin 8.1 GM/DL 7.5 GM/DL 7.6 GM/DL 9.3 GM/DL Hematocrit 24.3 % 22.9 % 23.0 % 26.5 % Mean Corpuscular Volume 96.6 FL 93.3 FL 90.6 FL Mean Corpuscular Hemoglobin 32.1 PG 30.6 PG 31.8 PG Mean Corpuscular Hemoglobin Concent 33.3 % 32.8 % 35.1 % Red Cell Distribution Width 13.3 % 15.7 % 16.5 % Platelet Count 470 TH/MM3 434 TH/MM3 407 TH/MM3 Mean Platelet Volume 7.4 FL 7.5 FL 7.9 FL Neutrophils (%) (Auto) 84.6 % Lymphocytes (%) (Auto) 5.4 % Monocytes (%) (Auto) 9.1 % Eosinophils (%) (Auto) 0.1 % Basophils (%) (Auto) 0.8 % Neutrophils # (Auto) 25.0 TH/MM3 Lymphocytes # (Auto) 1.6 TH/MM3 Monocytes # (Auto) 2.7 TH/MM3 Eosinophils # (Auto) 0.0 TH/MM3 Basophils # (Auto) 0.2 TH/MM3 CBC Comment AUTO DIFF Differential Total Cells Counted 100 Neutrophils % (Manual) 70 % Band Neutrophils % 9 % Lymphocytes % 5 % Monocytes % 9 % Neutrophils # (Manual) 25.4 TH/MM3 Metamyelocytes 2 % Myelocytes 4 % Promyelocytes 1 % Differential Comment FINAL DIFF MANUAL Platelet Estimate HIGH Platelet Morphology Comment NORMAL Test 12/15/16 04:10 White Blood Count 28.5 TH/MM3 Red Blood Count 2.69 MIL/MM3 Hemoglobin 8.4 GM/DL Hematocrit 24.4 % Mean Corpuscular Volume 90.5 FL Mean Corpuscular Hemoglobin 31.3 PG Mean Corpuscular Hemoglobin Concent 34.6 % Red Cell Distribution Width 16.9 % Platelet Count 435 TH/MM3 Mean Platelet Volume 7.6 FL Neutrophils (%) (Auto) 80.7 % Lymphocytes (%) (Auto) 6.9 % Monocytes (%) (Auto) 11.9 % Eosinophils (%) (Auto) 0.2 % Basophils (%) (Auto) 0.3 % Neutrophils # (Auto) 23.0 TH/MM3 Lymphocytes # (Auto) 2.0 TH/MM3 Monocytes # (Auto) 3.4 TH/MM3 Eosinophils # (Auto) 0.0 TH/MM3 Basophils # (Auto) 0.1 TH/MM3 CBC Comment AUTO DIFF Differential Total Cells Counted 100 Neutrophils % (Manual) 62 % Band Neutrophils % 22 % Lymphocytes % 1 % Monocytes % 10 % Neutrophils # (Manual) 25.4 TH/MM3 Metamyelocytes 3 % Myelocytes 2 % Differential Comment FINAL DIFF MANUAL Toxic Granulation 1+ Platelet Estimate NORMAL Platelet Morphology Comment NORMAL Laboratory Tests Test 12/14/16 07:36 12/14/16 09:45 12/14/16 17:05 12/15/16 04:10 Blood Urea Nitrogen 31 MG/DL 35 MG/DL 31 MG/DL 32 MG/DL Creatinine 2.06 MG/DL 2.23 MG/DL 1.59 MG/DL 1.57 MG/DL Random Glucose 125 MG/DL 101 MG/DL 150 MG/DL 122 MG/DL Albumin 2.2 GM/DL 2.0 GM/DL 2.0 GM/DL Calcium Level 8.9 MG/DL 8.0 MG/DL 7.9 MG/DL 7.8 MG/DL Phosphorus Level 4.1 MG/DL Sodium Level 132 MEQ/L 134 MEQ/L 136 MEQ/L 138 MEQ/L Potassium Level 6.5 MEQ/L 5.6 MEQ/L 5.7 MEQ/L 5.0 MEQ/L Chloride Level 98 MEQ/L 100 MEQ/L 103 MEQ/L 104 MEQ/L Carbon Dioxide Level 26.3 MEQ/L 26.6 MEQ/L 25.7 MEQ/L 26.5 MEQ/L Anion Gap 8 MEQ/L 7 MEQ/L 7 MEQ/L 8 MEQ/L Estimat Glomerular Filtration Rate 32 ML/MIN 29 ML/MIN 43 ML/MIN 44 ML/MIN Total Protein 5.1 GM/DL 5.1 GM/DL Alkaline Phosphatase 91 U/L 85 U/L Aspartate Amino Transf (AST/SGOT) 59 U/L 44 U/L Alanine Aminotransferase (ALT/SGPT) 42 U/L 39 U/L Total Bilirubin 1.1 MG/DL 0.6 MG/DL Magnesium Level 1.9 MG/DL Microbiology Date/Time Source Procedure Growth Status 12/14/16 09:18 Blood Peripheral Aerobic Blood Culture - Preliminary NO GROWTH IN 1 DAY Resulted 12/14/16 09:18 Blood Peripheral Anaerobic Blood Culture - Preliminary NO GROWTH IN 1 DAY Resulted 12/14/16 09:04 Blood Peripheral Aerobic Blood Culture - Preliminary NO GROWTH IN 1 DAY Resulted 12/14/16 09:04 Blood Peripheral Anaerobic Blood Culture - Preliminary NO GROWTH IN 1 DAY Resulted 12/14/16 15:00 Fluid Other Gram Stain - Final Resulted 12/14/16 15:00 Fluid Other Body Fluid Culture Pending Resulted 12/14/16 09:07 Urine Catheterized Urine Urine Culture - Preliminary NO GROWTH IN 24 HOURS. Resulted PHYSICAL EXAMINATION: GENERAL: No acute distress. HEAD, EYES, EARS, NOSE, THROAT: Unable to fully assess. The oropharynx is intubated. The mucosa of the mouth appears moist. NECK: The neck is supple without adenopathy. LUNGS: Slight rhonchi at the bases. HEART: Regular S1 and S2 without audible murmurs. ABDOMEN: Soft, decreased bowel sounds. The patient has a catheter exiting the abdominal wound bed postop which has bloody drainage. EXTREMITIES: No clubbing or cyanosis or edema. The extremities are warm to touch. SKIN: No rash. NEUROLOGIC: Unable to assess. PSYCHIATRIC: Unable to asses. IMPRESSION: 1. Low-grade fever and leukocytosis very likely related to blood in the abdominal cavity and hemoconcentration. The patient had a drop in his hemoglobin and subcapsular hematoma. 2. Status post splenectomy and evacuation of hemoperitoneum. RECOMMENDATIONS: 1. Continue Vancomycin. 2. Continue piperacillin / tazobactam. 3. Follow cultures. 4. Monitor the clinical status. D/W ASHLEY. Mike Mina MD Dec 15, 2016 12:31
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
[2016-12-15] MEDS: MAGNESIUM HYDROXIDE SUSP 30 ML CUP PO SCH (21:49)
[2016-12-15] MEDS: LEVOTHYROXINE SODIUM 50 MCG TAB PO SCH (21:50)
[2016-12-16] VITALS (20 sets, daily range): BP systolic 108–156; BP diastolic 52–69; PULSE 87–110; RESP 13–17; TEMP 99.1–100.3; O2SAT 89–100
[2016-12-16] MEDS: PROPOFOL 1000 MG/100 ML INJ 100 ML IV PRN ×5 (00:14→06:30)
[2016-12-16] MEDS: PIPERACIL-TAZO 3.375 GM PREMIX 50 ML IV SCH ×3 (01:02→17:38)
[2016-12-16] MEDS: RESP: ALBUTEROL 2.5 MG/IPRATROPIUM 0.5 MG NEB (PRN) NEB ×3 (04:09→15:09)
[2016-12-16] MEDS: RESP: ACETYLCYSTEINE 10% 30 ML NEB NEB SCH ×4 (04:09→21:04)
[2016-12-16 04:31] LABS: HEMATOCRIT 23.2 % (39.0-51.0); MEAN CELL VOLUME 92.8 FL (80.0-100.0); MEAN CORPUSCULAR HEMOGLOBIN 31.5 PG (27.0-34.0); MEAN CORPUSCULAR HGB CONC 33.9 % (32.0-36.0); PLATELET COUNT 543 TH/MM3 (150-450); RED CELL DISTRIBUTION WIDTH 16.8 % (11.6-17.2); WHITE BLOOD COUNT 32.1 TH/MM3 (4.0-11.0)
[2016-12-16 04:45] LABS: HEMO FLAGS AUTO DIFF
[2016-12-16 05:02] LABS: ANION GAP 6 MEQ/L (5-15); AST (GOT) 31 U/L (15-37); BICARBONATE 27.5 MEQ/L (21.0-32.0); BLOOD UREA NITROGEN 23 MG/DL (7-18); CHLORIDE 107 MEQ/L (98-107); GLOMERULAR FILTRATION RATE 57 ML/MIN (>89); POTASSIUM 4.7 MEQ/L (3.5-5.1); SODIUM (NA) 140 MEQ/L (136-145)
[2016-12-16 05:03] LABS: ALT (GPT) 37 U/L (12-78)
[2016-12-16 05:05] LABS: ALKALINE PHOSPHATASE 155 U/L (45-117); TOTAL BILIRUBIN ADULT 0.4 MG/DL (0.2-1.0)
--- NOTE | 2016-12-16 05:25 | RADRPT ---
EXAM DATE/TIME: 12/16/2016 04:46 CORRECTION Corrected on: December 16, 2016; changed the date and time [facility] COMPARISON: CHEST SINGLE AP, December 15, 2016, 4:44. INDICATIONS : Short of breath. MEDICAL HISTORY : Hypercholesterolemia. Hypertension Gastroesophageal reflux disease. Hypotyroidism, Fibromyalgia SURGICAL HISTORY : None. ENCOUNTER: Subsequent ACUITY: 2 weeks PAIN SCORE: Non-responsive. LOCATION: Bilateral chest FINDINGS: Endotracheal tube, nasogastric tube and left subclavian central line are stable. There is dense conso lidation and effusion at the left lung base. Mild persistent left perihilar and right base infiltrate . CONCLUSION: Interval deterioration in aeration, mainly in the left lung base. Benny Evans MD on December 16, 2016 at 5:22 Board Certified Radiologist. This report was verified electronically.
[2016-12-16] MEDS: LEVOTHYROXINE SODIUM 200 MCG TAB PO SCH (05:42)
[2016-12-16 06:01] LABS: BLOOD GAS BASE EXCESS 1.3 mmol/L (-2-2); BLOOD GAS HCO3 27 mmol/L (22-26); BLOOD GAS O2 HGB SATURATION 95 % (90-100); BLOOD GAS OXYGEN CONTENT 16.7 Vol % (12.0-20.0); BLOOD GAS PCO2 53 mmHg (38-42); BLOOD GAS PO2 103 mmHg (61-120); BLOOD GAS TOTAL HGB 12.4 G/DL (12.0-16.0); TEMP CORR TO 98.6
[2016-12-16 06:02] LABS: CRITICAL VALUE YES; DRAW SITE ART LINE; FIO2 40 %; OXYGEN DEVICE VENT; STAT NO; ULNAR PULSE PRESENT; VENT SETTINGS SEE COMMENTS
[2016-12-16 07:13] LABS: BANDS 6 % (0-6); EOSINOPHILS 1 % (0-4); MYELOCYTES 3 % (0-0); NEUTROPHIL # MANUAL DIFF 23.4 TH/MM3 (1.8-7.7); POLYS (SEG NEUTROPHILS) 64 % (16-70); WBC DIFF SAMPLE 100
[2016-12-16 07:14] LABS: PLATELET ESTIMATE SMEAR HIGH (NORMAL); PLATELET MORPHOLOGY NORMAL (NORMAL); SCAN/DIFF FINAL DIFF MANUAL; TOXIC VACUOLATION PRESENT (NONE SEEN)
[2016-12-16] MEDS: TAMSULOSIN HCL 0.4 MG CAP PO SCH (09:00)
[2016-12-16] MEDS: buPROPion HCL 150 MG SUSTAINED RELEASE TAB PO SCH (09:00)
[2016-12-16] MEDS: SODIUM CHLOR 0.9% 1000 ML INJ 1,000 ML IV SCH (09:05)
[2016-12-16] MEDS: CHLORHEXIDINE 0.12% (ORAL KIT) 15 ML CUP MT SCH ×2 (09:05→20:00)
[2016-12-16] MEDS: LACTULOSE SYRUP 20 GM/30 ML CUP PO SCH (09:07)
[2016-12-16] MEDS: ATORVASTATIN 10 MG TAB PO SCH (09:07)
[2016-12-16] MEDS: GABAPENTIN 300 MG CAP PO SCH ×3 (09:07→17:38)
[2016-12-16] MEDS: amLODIPine BESYLATE 5 MG TAB PO SCH (09:08)
[2016-12-16] MEDS: VANCOMYCIN INJ 1,000 MG in SODIUM CHLOR 0.9% 250 ML INJ 250 ML IV SCH ×2 (09:08→21:00)
[2016-12-16] MEDS: DEXTROAMPHETAMINE SULFATE 5 MG TAB PO SCH ×2 (09:08→21:18)
[2016-12-16] MEDS: DOCUSATE SODIUM 50 MG/SENNA 8.6 MG TAB PO SCH ×2 (09:08→21:18)
[2016-12-16] MEDS: METOPROLOL TARTRATE 5 MG/5 ML VIAL IV PUSH SCH ×3 (09:09→21:18)
[2016-12-16] MEDS ORDERED: oxyCODONE HCL ORAL CONC 5 MG/0.25 ML SYRINGE PO PRN (09:15)
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
[2016-12-16] MEDS ORDERED: SODIUM CHLOR 0.9% 250 ML INJ 250 ML IV ONE (09:30)
[2016-12-16] MEDS: DEXMEDETOMIDINE INJ 200 MCG in SODIUM CHLORIDE 0.9% INJ 50 ML IV PRN ×7 (09:56→22:29)
[2016-12-16] MEDS ORDERED: BUMETANIDE INJ 1 MG/4 ML VIAL IV PUSH ONE (10:00)
[2016-12-16] MEDS: fentaNYL DRIP 250 ML IV PRN ×2 (10:23→17:41)
[2016-12-16] MEDS ORDERED: MIDAZOLAM HCL 5 MG/ML VIAL (1 ML) ONE (10:28)
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
[2016-12-16] MEDS ORDERED: MIDAZOLAM HCL 5 MG/ML VIAL (1 ML) IV PUSH ONE (12:45)
[2016-12-16] MEDS: buPROPion HCL 100 MG TAB NG SCH ×2 (14:00→21:18)
--- NOTE | 2016-12-16 14:02 | HHI.IDPN ---
Note Infectious Disease Note Patient is sedated. Noted to be agitated when sedation was lifted. On the vent. Afebrile. WBC remain elevated. 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 PAST MEDICAL HISTORY: 1. Hypertension. 2. Hypothyroidism. 3. Fibromyalgia. 4. Osteoarthritis. 5. Tonsillectomy. ALLERGIES: CLARITHROMYCIN. MEDICATIONS: 1. Piperacillin / tazobactam. 2. Vancomycin. SOCIAL HISTORY No tobacco. Rare alcohol. No illicit drugs. OBJECTIVE: Vital Signs Date Time Temp Pulse Resp B/P (MAP) Pulse Ox O2 Delivery O2 Flow Rate FiO2 12/16/16 13:49 99.2 91 17 117/52 97 12/16/16 13:33 99.2 94 17 119/53 97 12/16/16 12:00 99.2 98 17 122/56 (78) 95 12/16/16 12:00 98 12/16/16 12:00 50 12/16/16 10:29 89 50 12/16/16 10:00 106 12/16/16 08:00 99.1 108 13 156/66 (96) 95 12/16/16 08:00 110 12/16/16 08:00 40 12/16/16 07:43 40 12/16/16 07:43 94 40 12/16/16 06:00 98 12/16/16 06:00 40 12/16/16 04:09 96 40 12/16/16 04:00 99.2 103 16 99 118/53 (74) 12/16/16 04:00 98 12/16/16 02:00 98 12/16/16 00:54 96 40 12/16/16 00:00 99.4 102 16 136/64 (88) 100 146/64 (91) 12/16/16 00:00 98 12/16/16 00:00 40 12/15/16 22:00 98 12/15/16 21:18 100 40 12/15/16 20:00 40 12/15/16 20:00 95 12/15/16 20:00 98.9 95 16 127/75 (92) 100 12/15/16 18:57 100 40 12/15/16 18:00 96 12/15/16 16:00 40 12/15/16 16:00 98.0 96 17 138/65 (89) 100 159/57 (91) 12/15/16 16:00 96 12/15/16 15:28 100 40 12/15/16 14:00 100 12/16/16 12/16/16 12/17/16 15:00 23:00 07:00 Intake Total 864 ml Balance 864 ml IV Total 864 ml Laboratory Tests Test 12/14/16 17:05 12/15/16 04:10 12/16/16 04:20 White Blood Count 27.6 TH/MM3 28.5 TH/MM3 32.1 TH/MM3 Red Blood Count 2.93 MIL/MM3 2.69 MIL/MM3 2.50 MIL/MM3 Hemoglobin 9.3 GM/DL 8.4 GM/DL 7.9 GM/DL Hematocrit 26.5 % 24.4 % 23.2 % Mean Corpuscular Volume 90.6 FL 90.5 FL 92.8 FL Mean Corpuscular Hemoglobin 31.8 PG 31.3 PG 31.5 PG Mean Corpuscular Hemoglobin Concent 35.1 % 34.6 % 33.9 % Red Cell Distribution Width 16.5 % 16.9 % 16.8 % Platelet Count 407 TH/MM3 435 TH/MM3 543 TH/MM3 Mean Platelet Volume 7.9 FL 7.6 FL 7.2 FL Neutrophils (%) (Auto) 80.7 % Lymphocytes (%) (Auto) 6.9 % Monocytes (%) (Auto) 11.9 % Eosinophils (%) (Auto) 0.2 % Basophils (%) (Auto) 0.3 % Neutrophils # (Auto) 23.0 TH/MM3 Lymphocytes # (Auto) 2.0 TH/MM3 Monocytes # (Auto) 3.4 TH/MM3 Eosinophils # (Auto) 0.0 TH/MM3 Basophils # (Auto) 0.1 TH/MM3 CBC Comment AUTO DIFF AUTO DIFF Differential Total Cells Counted 100 100 Neutrophils % (Manual) 62 % 64 % Band Neutrophils % 22 % 6 % Lymphocytes % 1 % 5 % Monocytes % 10 % 21 % Neutrophils # (Manual) 25.4 TH/MM3 23.4 TH/MM3 Metamyelocytes 3 % Myelocytes 2 % 3 % Differential Comment FINAL DIFF MANUAL FINAL DIFF MANUAL Toxic Granulation 1+ Platelet Estimate NORMAL HIGH Platelet Morphology Comment NORMAL NORMAL Eosinophils % 1 % Toxic Vacuolation PRESENT Laboratory Tests Test 12/14/16 17:05 12/15/16 04:10 12/16/16 04:20 Blood Urea Nitrogen 31 MG/DL 32 MG/DL 23 MG/DL Creatinine 1.59 MG/DL 1.57 MG/DL 1.25 MG/DL Random Glucose 150 MG/DL 122 MG/DL 86 MG/DL Total Protein 5.1 GM/DL 5.1 GM/DL 5.5 GM/DL Albumin 2.0 GM/DL 2.0 GM/DL 1.9 GM/DL Calcium Level 7.9 MG/DL 7.8 MG/DL 8.0 MG/DL Alkaline Phosphatase 91 U/L 85 U/L 155 U/L Aspartate Amino Transf (AST/SGOT) 59 U/L 44 U/L 31 U/L Alanine Aminotransferase (ALT/SGPT) 42 U/L 39 U/L 37 U/L Total Bilirubin 1.1 MG/DL 0.6 MG/DL 0.4 MG/DL Sodium Level 136 MEQ/L 138 MEQ/L 140 MEQ/L Potassium Level 5.7 MEQ/L 5.0 MEQ/L 4.7 MEQ/L Chloride Level 103 MEQ/L 104 MEQ/L 107 MEQ/L Carbon Dioxide Level 25.7 MEQ/L 26.5 MEQ/L 27.5 MEQ/L Anion Gap 7 MEQ/L 8 MEQ/L 6 MEQ/L Estimat Glomerular Filtration Rate 43 ML/MIN 44 ML/MIN 57 ML/MIN Magnesium Level 1.9 MG/DL 2.0 MG/DL Phosphorus Level 3.7 MG/DL Thyroid Stimulating Hormone 3rd Gen 0.528 uIU/ML Microbiology Date/Time Source Procedure Growth Status 12/14/16 09:18 Blood Peripheral Aerobic Blood Culture - Preliminary NO GROWTH IN 2 DAYS Resulted 12/14/16 09:18 Blood Peripheral Anaerobic Blood Culture - Preliminary NO GROWTH IN 2 DAYS Resulted 12/14/16 09:04 Blood Peripheral Aerobic Blood Culture - Preliminary NO GROWTH IN 2 DAYS Resulted 12/14/16 09:04 Blood Peripheral Anaerobic Blood Culture - Preliminary NO GROWTH IN 2 DAYS Resulted 12/14/16 15:00 Fluid Other Gram Stain - Final Resulted 12/14/16 15:00 Fluid Other Body Fluid Culture - Preliminary NO GROWTH IN 48 HOURS. Resulted 12/16/16 09:30 Sputum Endotracheal Gram Stain Pending Received 12/16/16 09:30 Sputum Endotracheal Sputum Culture Pending Received 12/14/16 09:07 Urine Catheterized Urine Urine Culture - Final NO GROWTH IN 48 HOURS. Complete IMAGING: Chest X-Ray 12/16/16 0600 Signed Impressions: Service Date/Time: Friday, December 16, 2016 04:46 - CONCLUSION: Interval deterioration in aeration, mainly in the left lung base. Benny Evans MD Head CT 12/14/16 Signed Impressions: Service Date/Time: Wednesday, December 14, 2016 06:18 - CONCLUSION: Negative noncontrast head CT. Benny Dent MD Chest CT 12/14/16 Signed Impressions: Service Date/Time: Wednesday, December 14, 2016 10:26 - CONCLUSION: 1. Interval decrease in the size of the left pneumothorax. 2. Interval decrease in the left pleural-based hematoma which now measures 7.5 x 3.7 x 11.2 cm. 3. Scattered atelectatic changes bilaterally. 4. Small bilateral pleural effusions. 5. Cardiomegaly and coronary artery calcifications. 6. Cholelithiasis. 7. 1.8 x 1.8 cm right adrenal nodule consistent with probable adenoma. 8. Multiple stable displaced left rib fractures and nondisplaced left medial clavicular fracture. Trent Nava MD Abdomen/Pelvis CT 12/14/16 Signed Impressions: Service Date/Time: Wednesday, December 14, 2016 06:24 - CONCLUSION: 1. Subacute subcapsular hematoma of the left kidney is slightly larger in the interim. Left nephrogram is slightly delayed relative to the right. I don't see a focus of active bleeding. 2. A subcapsular hematoma is now evident of the spleen. No evidence of active bleeding. 3. The amount of subacute blood in the pelvic cavity is slightly worse in the interim. 4. Intact liver, pancreas, adrenal glands and right kidney. 5. Cholelithiasis again incidentally noted. 6. Tiny right and hblax-nn-gppatsey left pleural effusions with bibasilar atelectasis. 7. Mild body wall edema/anasarca developing. Benny Dent MD Renal Ultrasound 12/12/16 Signed Impressions: Service Date/Time: Monday, December 12, 2016 15:57 - CONCLUSION: 1. No evidence of hydronephrosis on either side. 2. The left lower pole subcapsular hematoma measures up to 6.2 cm in maximal oblique dimension. Tio Raza MD CT Angiography 12/09/16 0000 Signed Impressions: Service Date/Time: Friday, December 09, 2016 12:08 - CONCLUSION: 1. The study is negative for pulmonary embolism. 2. Multiple additional findings are unchanged from a diagnostic CT thorax performed earlier today (left anterior pneumothorax, or large pleural-based opacity, left pleural effusion, left rib fractures, left lower lung consolidation, and left chest drainage tube in place). Tio Raza MD PHYSICAL EXAMINATION: GENERAL: No acute distress. HEAD, EYES, EARS, NOSE, THROAT: Unable to fully assess. The oropharynx is intubated. The mucosa of the mouth appears moist. NECK: The neck is supple without adenopathy. LUNGS: Bilateral rhonchi. HEART: Regular S1 and S2 without audible murmurs. ABDOMEN: Soft, decreased bowel sounds. The patient has a catheter exiting the abdominal wound bed postop which has serous drainage. EXTREMITIES: No clubbing or cyanosis or edema. The extremities are warm to touch. SKIN: No rash. NEUROLOGIC: Unable to assess. PSYCHIATRIC: Unable to asses. IMPRESSION: 1. Low-grade fever and leukocytosis very likely related to blood in the abdominal cavity and hemoconcentration. The patient had a drop in his hemoglobin and subcapsular hematoma. 2. Status post splenectomy and evacuation of hemoperitoneum. 3. Abnormal CXR. 4. Acute Respiratory failure. RECOMMENDATIONS: 1. Continue Vancomycin. 2. Continue piperacillin / tazobactam. 3. Follow cultures. Blood culture and urine culture negative so far. 4. Monitor sputum culture. D/W RN. Mike Mina MD Dec 16, 2016 14:01
[2016-12-16 15:21] LABS: ALBUMIN SPE 3.34 GM/DL (3.50-5.00); ALPHA 1 GLOBULIN 0.48 GM/DL (0.11-0.29); ALPHA 2 GLOBULIN 0.79 GM/DL (0.22-1.00); BETA GLOBULINS (SPE) 1.02 GM/DL (0.53-1.03)
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
[2016-12-16 16:47] LABS: HEMATOCRIT 24.8 % (39.0-51.0)
[2016-12-16 16:53] LABS: REVIEW FLAG FINAL
[2016-12-16] MEDS: LEVOTHYROXINE SODIUM 50 MCG TAB PO SCH (21:00)
[2016-12-16] MEDS: RESP: ALBUTEROL 2.5 MG/IPRATROPIUM 0.5 MG NEB (SCH) NEB (21:04)
[2016-12-16] MEDS: MAGNESIUM HYDROXIDE SUSP 30 ML CUP PO SCH (21:19)
[2016-12-16] MEDS: MIDAZOLAM HCL 2 MG/2 ML VIAL IV PUSH PRN (21:19)
[2016-12-17] VITALS (21 sets, daily range): BP systolic 119–138; BP diastolic 55–65; PULSE 89–108; RESP 16–19; TEMP 97.4–99.2; O2SAT 92–99
[2016-12-17] MEDS: MIDAZOLAM HCL 2 MG/2 ML VIAL IV PUSH PRN ×2 (01:04→05:04)
[2016-12-17] MEDS: DEXMEDETOMIDINE INJ 200 MCG in SODIUM CHLORIDE 0.9% INJ 50 ML IV PRN ×3 (01:05→05:46)
[2016-12-17] MEDS: PIPERACIL-TAZO 3.375 GM PREMIX 50 ML IV SCH ×3 (02:00→17:32)
[2016-12-17 03:52] LABS: KAPPA/LAMBDA FREE 1.24 (0.26-1.65)
[2016-12-17] MEDS: METOPROLOL TARTRATE 5 MG/5 ML VIAL IV PUSH SCH ×4 (04:00→21:33)
[2016-12-17] MEDS: RESP: ACETYLCYSTEINE 10% 30 ML NEB NEB SCH ×2 (04:00→10:00)
[2016-12-17] MEDS: RESP: ALBUTEROL 2.5 MG/IPRATROPIUM 0.5 MG NEB (SCH) NEB ×4 (04:00→20:02)
[2016-12-17 05:15] LABS: AUTOMATED NEUTROPHIL # 23.7 TH/MM3 (1.8-7.7); BASOPHIL # 0.1 TH/MM3 (0-0.2); BASOPHIL % 0.5 % (0.0-2.0); EOSINOPHIL # 0.1 TH/MM3 (0-0.4); EOSINOPHIL % 0.4 % (0.0-4.0); HEMATOCRIT 24.4 % (39.0-51.0); LYMPH % 7.1 % (9.0-44.0); LYMPHOCYTE # 2.2 TH/MM3 (1.0-4.8); MEAN CELL VOLUME 90.3 FL (80.0-100.0); MEAN CORPUSCULAR HEMOGLOBIN 29.9 PG (27.0-34.0); MEAN CORPUSCULAR HGB CONC 33.1 % (32.0-36.0); PLATELET COUNT 612 TH/MM3 (150-450); RED CELL DISTRIBUTION WIDTH 20.3 % (11.6-17.2); WHITE BLOOD COUNT 30.4 TH/MM3 (4.0-11.0)
[2016-12-17 05:19] LABS: HEMO FLAGS AUTO DIFF
[2016-12-17] MEDS: SODIUM CHLOR 0.9% 1000 ML INJ 1,000 ML IV SCH ×2 (05:36→10:00)
[2016-12-17 05:38] LABS: ANION GAP 8 MEQ/L (5-15); AST (GOT) 38 U/L (15-37); BICARBONATE 26.8 MEQ/L (21.0-32.0); BLOOD UREA NITROGEN 23 MG/DL (7-18); CHLORIDE 108 MEQ/L (98-107); GLOMERULAR FILTRATION RATE 52 ML/MIN (>89); MAGNESIUM 2.2 MG/DL (1.5-2.5); POTASSIUM 4.7 MEQ/L (3.5-5.1); SODIUM (NA) 143 MEQ/L (136-145)
[2016-12-17 05:40] LABS: ALT (GPT) 45 U/L (12-78)
[2016-12-17 05:41] LABS: ALKALINE PHOSPHATASE 367 U/L (45-117); TOTAL BILIRUBIN ADULT 0.6 MG/DL (0.2-1.0)
[2016-12-17] MEDS: LEVOTHYROXINE SODIUM 200 MCG TAB PO SCH (05:49)
--- NOTE | 2016-12-17 06:17 | RADRPT ---
EXAM DATE/TIME: 12/17/2016 05:07 [facility] COMPARISON: CHEST SINGLE AP, December 16, 2016, 4:46. INDICATIONS : Shortness of breath. MEDICAL HISTORY : Hypertension. Gastroesophageal reflux disease. SURGICAL HISTORY : None. ENCOUNTER: Subsequent ACUITY: 2 weeks PAIN SCORE: Non-responsive. LOCATION: Bilateral chest FINDINGS: Endotracheal tube tip is about 8 cm above the mica. Nasogastric tube descends in the stomach. A tho racostomy tube is unchanged. Left subclavian central line is stable in good position. Hazy asymmetric al left-sided pleuroparenchymal opacity is grossly stable with dense consolidative change at the left base. Right base parenchymal opacity is unchanged. Cardiac contours are stable. Multiple left-sided rib deformities again noted. CONCLUSION: No significant interval change Benny Evans MD on December 17, 2016 at 6:14 Board Certified Radiologist. This report was verified electronically.
[2016-12-17 06:44] LABS: BANDS 3 % (0-6); CORRECTED NUCLEATED RBC 1 /100 WBC (0-0); METAMYELOCYTES 1 % (0-1); MYELOCYTES 2 % (0-0); NEUTROPHIL # MANUAL DIFF 24.6 TH/MM3 (1.8-7.7); PLATELET ESTIMATE SMEAR HIGH (NORMAL); PLATELET MORPHOLOGY NORMAL (NORMAL); POLYS (SEG NEUTROPHILS) 75 % (16-70); SCAN/DIFF FINAL DIFF MANUAL; WBC DIFF SAMPLE 100
[2016-12-17] MEDS: CHLORHEXIDINE 0.12% (ORAL KIT) 15 ML CUP MT SCH ×2 (08:30→21:31)
[2016-12-17] MEDS: VANCOMYCIN INJ 1,000 MG in SODIUM CHLOR 0.9% 250 ML INJ 250 ML IV SCH ×2 (08:31→21:32)
[2016-12-17] MEDS: ATORVASTATIN 10 MG TAB PO SCH (08:31)
[2016-12-17] MEDS: buPROPion HCL 100 MG TAB NG SCH ×2 (08:32→21:33)
[2016-12-17] MEDS: GABAPENTIN 300 MG CAP PO SCH ×3 (08:32→17:33)
[2016-12-17] MEDS: TAMSULOSIN HCL 0.4 MG CAP PO SCH (08:32)
[2016-12-17] MEDS: DEXTROAMPHETAMINE SULFATE 5 MG TAB PO SCH ×2 (08:33→21:33)
[2016-12-17] MEDS: DOCUSATE SODIUM 50 MG/SENNA 8.6 MG TAB PO SCH ×2 (08:33→21:33)
[2016-12-17] MEDS: LACTULOSE SYRUP 20 GM/30 ML CUP PO SCH (08:33)
[2016-12-17] MEDS: PROPOFOL 1000 MG/100 ML INJ 100 ML IV PRN ×4 (09:27→21:34)
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
--- NOTE | 2016-12-17 12:19 | HHI.IDPN ---
Note Infectious Disease Note Patient is sedated. On the vent. No distress. Afebrile. WBC still elevated. 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 PAST MEDICAL HISTORY: 1. Hypertension. 2. Hypothyroidism. 3. Fibromyalgia. 4. Osteoarthritis. 5. Tonsillectomy. ALLERGIES: CLARITHROMYCIN. MEDICATIONS: 1. Piperacillin / tazobactam. 2. Vancomycin. SOCIAL HISTORY No tobacco. Rare alcohol. No illicit drugs. OBJECTIVE: Vital Signs Date Time Temp Pulse Resp B/P (MAP) Pulse Ox O2 Delivery O2 Flow Rate FiO2 12/17/16 10:28 94 40 12/17/16 10:00 98 12/17/16 08:08 94 40 12/17/16 08:00 40 12/17/16 08:00 98 12/17/16 08:00 99.1 106 17 133/58 (83) 94 12/17/16 06:00 98 12/17/16 04:27 96 50 12/17/16 04:00 97.8 100 19 120/62 (81) 92 132/59 (83) 12/17/16 04:00 100 12/17/16 04:00 50 12/17/16 02:00 90 12/17/16 01:12 95 50 12/17/16 00:00 100 12/17/16 00:00 97.4 100 17 120/62 (81) 95 119/55 (76) 12/17/16 00:00 50 12/16/16 22:00 92 12/16/16 21:08 98 50 12/16/16 20:00 87 12/16/16 20:00 50 12/16/16 20:00 100.3 97 17 116/69 (85) 99 108/57 (74) 12/16/16 18:00 87 12/16/16 16:00 99.3 98 17 110/54 (72) 92 12/16/16 16:00 50 12/16/16 16:00 98 12/16/16 15:12 98 50 12/16/16 14:00 90 12/16/16 13:49 99.2 91 17 117/52 97 12/16/16 13:33 99.2 94 17 119/53 97 Laboratory Tests Test 12/16/16 04:20 12/16/16 16:30 12/17/16 04:30 White Blood Count 32.1 TH/MM3 30.4 TH/MM3 Red Blood Count 2.50 MIL/MM3 2.70 MIL/MM3 Hemoglobin 7.9 GM/DL 8.3 GM/DL 8.1 GM/DL Hematocrit 23.2 % 24.8 % 24.4 % Mean Corpuscular Volume 92.8 FL 90.3 FL Mean Corpuscular Hemoglobin 31.5 PG 29.9 PG Mean Corpuscular Hemoglobin Concent 33.9 % 33.1 % Red Cell Distribution Width 16.8 % 20.3 % Platelet Count 543 TH/MM3 612 TH/MM3 Mean Platelet Volume 7.2 FL 7.4 FL CBC Comment AUTO DIFF AUTO DIFF Differential Total Cells Counted 100 100 Neutrophils % (Manual) 64 % 75 % Band Neutrophils % 6 % 3 % Lymphocytes % 5 % 4 % Monocytes % 21 % 15 % Eosinophils % 1 % Neutrophils # (Manual) 23.4 TH/MM3 24.6 TH/MM3 Myelocytes 3 % 2 % Differential Comment FINAL DIFF MANUAL FINAL DIFF MANUAL Toxic Vacuolation PRESENT Platelet Estimate HIGH HIGH Platelet Morphology Comment NORMAL NORMAL Neutrophils (%) (Auto) 78.0 % Lymphocytes (%) (Auto) 7.1 % Monocytes (%) (Auto) 14.0 % Eosinophils (%) (Auto) 0.4 % Basophils (%) (Auto) 0.5 % Neutrophils # (Auto) 23.7 TH/MM3 Lymphocytes # (Auto) 2.2 TH/MM3 Monocytes # (Auto) 4.3 TH/MM3 Eosinophils # (Auto) 0.1 TH/MM3 Basophils # (Auto) 0.1 TH/MM3 Metamyelocytes 1 % Nucleated Red Blood Cells 1 /100 WBC Basophilic Stippling FAINT Laboratory Tests Test 12/16/16 04:20 12/17/16 04:30 Blood Urea Nitrogen 23 MG/DL 23 MG/DL Creatinine 1.25 MG/DL 1.36 MG/DL Random Glucose 86 MG/DL 71 MG/DL Total Protein 5.5 GM/DL 5.9 GM/DL Albumin 1.9 GM/DL 1.8 GM/DL Calcium Level 8.0 MG/DL 8.5 MG/DL Phosphorus Level 3.7 MG/DL Magnesium Level 2.0 MG/DL 2.2 MG/DL Alkaline Phosphatase 155 U/L 367 U/L Aspartate Amino Transf (AST/SGOT) 31 U/L 38 U/L Alanine Aminotransferase (ALT/SGPT) 37 U/L 45 U/L Total Bilirubin 0.4 MG/DL 0.6 MG/DL Sodium Level 140 MEQ/L 143 MEQ/L Potassium Level 4.7 MEQ/L 4.7 MEQ/L Chloride Level 107 MEQ/L 108 MEQ/L Carbon Dioxide Level 27.5 MEQ/L 26.8 MEQ/L Anion Gap 6 MEQ/L 8 MEQ/L Estimat Glomerular Filtration Rate 57 ML/MIN 52 ML/MIN Thyroid Stimulating Hormone 3rd Gen 0.528 uIU/ML Microbiology Date/Time Source Procedure Growth Status 12/14/16 15:00 Fluid Other Gram Stain - Final Complete 12/14/16 15:00 Fluid Other Body Fluid Culture - Final NO GROWTH IN 72 HRS.--AEROBICALLY OR ... Complete 12/16/16 09:30 Sputum Endotracheal Gram Stain - Final Resulted 12/16/16 09:30 Sputum Endotracheal Sputum Culture Pending Resulted IMAGING: Chest X-Ray 12/16/16 0600 Signed Impressions: Service Date/Time: Friday, December 16, 2016 04:46 - CONCLUSION: Interval deterioration in aeration, mainly in the left lung base. Benny Evans MD Head CT 12/14/16 0000 Signed Impressions: Service Date/Time: Wednesday, December 14, 2016 06:18 - CONCLUSION: Negative noncontrast head CT. Benny Dent MD Chest CT 12/14/16 0000 Signed Impressions: Service Date/Time: Wednesday, December 14, 2016 10:26 - CONCLUSION: 1. Interval decrease in the size of the left pneumothorax. 2. Interval decrease in the left pleural-based hematoma which now measures 7.5 x 3.7 x 11.2 cm. 3. Scattered atelectatic changes bilaterally. 4. Small bilateral pleural effusions. 5. Cardiomegaly and coronary artery calcifications. 6. Cholelithiasis. 7. 1.8 x 1.8 cm right adrenal nodule consistent with probable adenoma. 8. Multiple stable displaced left rib fractures and nondisplaced left medial clavicular fracture. Trent Nava MD Abdomen/Pelvis CT 12/14/16 0000 Signed Impressions: Service Date/Time: Wednesday, December 14, 2016 06:24 - CONCLUSION: 1. Subacute subcapsular hematoma of the left kidney is slightly larger in the interim. Left nephrogram is slightly delayed relative to the right. I don't see a focus of active bleeding. 2. A subcapsular hematoma is now evident of the spleen. No evidence of active bleeding. 3. The amount of subacute blood in the pelvic cavity is slightly worse in the interim. 4. Intact liver, pancreas, adrenal glands and right kidney. 5. Cholelithiasis again incidentally noted. 6. Tiny right and [id number] left pleural effusions with bibasilar atelectasis. 7. Mild body wall edema/anasarca developing. Benny Dent MD Renal Ultrasound 12/12/16 0000 Signed Impressions: Service Date/Time: Monday, December 12, 2016 15:57 - CONCLUSION: 1. No evidence of hydronephrosis on either side. 2. The left lower pole subcapsular hematoma measures up to 6.2 cm in maximal oblique dimension. Tio Raza MD CT Angiography 12/09/16 0000 Signed Impressions: Service Date/Time: Friday, December 09, 2016 12:08 - CONCLUSION: 1. The study is negative for pulmonary embolism. 2. Multiple additional findings are unchanged from a diagnostic CT thorax performed earlier today (left anterior pneumothorax, or large pleural-based opacity, left pleural effusion, left rib fractures, left lower lung consolidation, and left chest drainage tube in place). Tio Raza MD PHYSICAL EXAMINATION: GENERAL: No acute distress. HEAD, EYES, EARS, NOSE, THROAT: Unable to fully assess. The oropharynx is intubated. The mucosa of the mouth appears moist. NECK: The neck is supple without adenopathy. LUNGS: Coarse bilateral rhonchi. HEART: Regular S1 and S2 without audible murmurs. ABDOMEN: Soft, decreased bowel sounds. EXTREMITIES: No clubbing or cyanosis or edema. The extremities are warm to touch. SKIN: No rash. NEUROLOGIC: Unable to assess. PSYCHIATRIC: Unable to asses. IMPRESSION: 1. Fever and leukocytosis. 2. Status post splenectomy and evacuation of hemoperitoneum. 3. Acute Respiratory failure. RECOMMENDATIONS: 1. Continue Vancomycin. 2. Continue piperacillin / tazobactam. 3. Monitor sputum culture. Mike Mina MD Dec 17, 2016 12:19
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
[2016-12-17] MEDS: fentaNYL DRIP 250 ML IV PRN ×2 (13:20→21:35)
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
[2016-12-17] MEDS: LEVOTHYROXINE SODIUM 50 MCG TAB PO SCH (21:33)
[2016-12-17] MEDS: MAGNESIUM HYDROXIDE SUSP 30 ML CUP PO SCH (21:33)
[2016-12-18] VITALS (20 sets, daily range): BP systolic 123–149; BP diastolic 60–77; PULSE 88–124; RESP 12–16; TEMP 97.2–100.3; O2SAT 22–100
[2016-12-18] MEDS: PIPERACIL-TAZO 3.375 GM PREMIX 50 ML IV SCH ×2 (01:20→08:34)
[2016-12-18] MEDS: RESP: ALBUTEROL 2.5 MG/IPRATROPIUM 0.5 MG NEB (SCH) NEB ×4 (03:30→20:22)
[2016-12-18] MEDS: PROPOFOL 1000 MG/100 ML INJ 100 ML IV PRN ×6 (03:52→22:58)
[2016-12-18] MEDS: METOPROLOL TARTRATE 5 MG/5 ML VIAL IV PUSH SCH ×4 (03:52→21:47)
[2016-12-18 04:27] LABS: HEMATOCRIT 23.2 % (39.0-51.0); MEAN CELL VOLUME 91.4 FL (80.0-100.0); MEAN CORPUSCULAR HEMOGLOBIN 30.7 PG (27.0-34.0); MEAN CORPUSCULAR HGB CONC 33.6 % (32.0-36.0); PLATELET COUNT 690 TH/MM3 (150-450); RED BLOOD COUNT 2.53 MIL/MM3 (4.50-5.90); RED CELL DISTRIBUTION WIDTH 19.6 % (11.6-17.2); WHITE BLOOD COUNT 25.2 TH/MM3 (4.0-11.0)
[2016-12-18 04:34] LABS: HEMO FLAGS AUTO DIFF
[2016-12-18 04:43] LABS: BICARBONATE 28.4 MEQ/L (21.0-32.0); POTASSIUM 4.4 MEQ/L (3.5-5.1)
[2016-12-18 05:45] LABS: BLOOD GAS BASE EXCESS 2.5 mmol/L (-2-2); BLOOD GAS CARBOXYHEMOGLOBIN 1.3 % (0-4); BLOOD GAS HCO3 28 mmol/L (22-26); BLOOD GAS METHEMOGLOBIN 0.7 % (0-2); BLOOD GAS O2 HGB SATURATION 93 % (90-100); BLOOD GAS OXYGEN CONTENT 9.9 Vol % (12.0-20.0); BLOOD GAS PCO2 55 mmHg (38-42); BLOOD GAS PO2 77 mmHg (61-120); BLOOD GAS TOTAL HGB 7.4 G/DL (12.0-16.0); TEMP CORR TO 98.6
[2016-12-18 05:46] LABS: CRITICAL VALUE YES; OXYGEN DEVICE VENTILATOR
[2016-12-18 05:47] LABS: DRAW SITE LD; FIO2 40 %; NUMBER OF ARTERIAL PUNCTURES 1; STAT NO; ULNAR PULSE Y; VENT SETTINGS VOLUME/ AC
[2016-12-18] MEDS: LEVOTHYROXINE SODIUM 200 MCG TAB PO SCH (05:54)
[2016-12-18] MEDS: SODIUM CHLOR 0.9% 1000 ML INJ 1,000 ML IV SCH (06:07)
[2016-12-18 07:53] LABS: BANDS 4 % (0-6); BASOPHILS 1 % (0-2); MYELOCYTES 4 % (0-0); NEUTROPHIL # MANUAL DIFF 17.9 TH/MM3 (1.8-7.7); POLYS (SEG NEUTROPHILS) 63 % (16-70); WBC DIFF SAMPLE 100
[2016-12-18 07:54] LABS: PLATELET ESTIMATE SMEAR HIGH (NORMAL); PLATELET MORPHOLOGY NORMAL (NORMAL); SCAN/DIFF FINAL DIFF MANUAL
[2016-12-18] MEDS: CHLORHEXIDINE 0.12% (ORAL KIT) 15 ML CUP MT SCH ×2 (08:00→20:46)
[2016-12-18] MEDS: MIDAZOLAM HCL 2 MG/2 ML VIAL IV PUSH PRN ×2 (08:16→16:00)
[2016-12-18] MEDS: buPROPion HCL 100 MG TAB NG SCH ×2 (08:34→20:48)
[2016-12-18] MEDS: LACTULOSE SYRUP 20 GM/30 ML CUP PO SCH (08:34)
[2016-12-18] MEDS: VANCOMYCIN INJ 1,000 MG in SODIUM CHLOR 0.9% 250 ML INJ 250 ML IV SCH ×2 (08:34→20:47)
[2016-12-18] MEDS: TAMSULOSIN HCL 0.4 MG CAP PO SCH (08:35)
[2016-12-18] MEDS: ATORVASTATIN 10 MG TAB PO SCH (08:35)
[2016-12-18] MEDS: DOCUSATE SODIUM 50 MG/SENNA 8.6 MG TAB PO SCH ×2 (08:35→20:49)
[2016-12-18] MEDS: DEXTROAMPHETAMINE SULFATE 5 MG TAB PO SCH ×2 (08:35→20:48)
[2016-12-18] MEDS: GABAPENTIN 300 MG CAP PO SCH ×3 (08:35→17:31)
--- NOTE | 2016-12-18 10:13 | RADRPT ---
EXAM DATE/TIME: 12/18/2016 09:34 [facility] COMPARISON: CHEST SINGLE AP, December 17, 2016, 5:07. INDICATIONS : Short of breath MEDICAL HISTORY : Hypertension. Gastroesophageal reflux disease SURGICAL HISTORY : None. ENCOUNTER: Subsequent ACUITY: 2 weeks PAIN SCORE: Non-responsive. LOCATION: Chest FINDINGS: An endotracheal tube has its tip approximately 6 cm above the mica. A nasogastric tube has its tip below the diaphragm. Left-sided chest tube is in good position with its tip in the apex. No pneumo thorax is noted. Left subclavian central line has its tip in the superior vena cava. The heart is e nlarged. Scattered atelectasis is noted bilaterally. A small left pleural effusion is likely. CONCLUSION: 1. Multiple tubes and lines are in good positions. 2. Cardiomegaly. 3. Scattered atelectasis bilaterally. 4. Small left pleural effusion. Trent Nava MD on December 18, 2016 at 10:00 Board Certified Radiologist. This report was verified electronically.
--- NOTE | 2016-12-18 12:00 | HHI.IDPN ---
Note Infectious Disease Note Patient is sedated. On the vent. No distress. Afebrile. WBC still elevated. Sputum culture has serratia. 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 PAST MEDICAL HISTORY: 1. Hypertension. 2. Hypothyroidism. 3. Fibromyalgia. 4. Osteoarthritis. 5. Tonsillectomy. ALLERGIES: CLARITHROMYCIN. MEDICATIONS: 1. Piperacillin / tazobactam. 2. Vancomycin. SOCIAL HISTORY No tobacco. Rare alcohol. No illicit drugs. OBJECTIVE: Vital Signs Date Time Temp Pulse Resp B/P (MAP) Pulse Ox O2 Delivery O2 Flow Rate FiO2 12/18/16 11:38 95 40 12/18/16 10:00 124 12/18/16 09:00 40 12/18/16 08:25 94 40 12/18/16 08:25 93 40 12/18/16 08:07 95 40 12/18/16 08:00 97.2 102 16 144/69 (94) 95 12/18/16 08:00 40 12/18/16 08:00 102 12/18/16 07:00 95 Mechanical Ventilator 40 12/18/16 06:00 104 12/18/16 04:00 93 12/18/16 04:00 40 12/18/16 04:00 99.4 93 16 123/62 (82) 97 12/18/16 03:30 94 40 12/18/16 02:00 112 12/18/16 00:00 40 12/18/16 00:00 99.1 97 16 125/60 (81) 95 12/18/16 00:00 97 12/17/16 23:48 94 Ventilator 12/17/16 23:42 94 40 12/17/16 22:00 96 12/17/16 20:02 97 40 12/17/16 20:00 97 12/17/16 20:00 40 12/17/16 20:00 99.2 97 16 138/65 (89) 96 12/17/16 18:00 96 12/17/16 16:40 99 40 12/17/16 16:00 40 12/17/16 16:00 98.9 89 16 134/63 (86) 93 12/17/16 16:00 89 12/17/16 14:00 108 12/17/16 13:50 92 40 12/17/16 12:00 40 12/17/16 12:00 98.5 102 16 132/63 (86) 95 Arterial Line 12/17/16 12:00 102 Laboratory Tests Test 12/16/16 16:30 12/17/16 04:30 12/18/16 04:00 Hemoglobin 8.3 GM/DL 8.1 GM/DL 7.8 GM/DL Hematocrit 24.8 % 24.4 % 23.2 % White Blood Count 30.4 TH/MM3 25.2 TH/MM3 Red Blood Count 2.70 MIL/MM3 2.53 MIL/MM3 Mean Corpuscular Volume 90.3 FL 91.4 FL Mean Corpuscular Hemoglobin 29.9 PG 30.7 PG Mean Corpuscular Hemoglobin Concent 33.1 % 33.6 % Red Cell Distribution Width 20.3 % 19.6 % Platelet Count 612 TH/MM3 690 TH/MM3 Mean Platelet Volume 7.4 FL 7.2 FL Neutrophils (%) (Auto) 78.0 % Lymphocytes (%) (Auto) 7.1 % Monocytes (%) (Auto) 14.0 % Eosinophils (%) (Auto) 0.4 % Basophils (%) (Auto) 0.5 % Neutrophils # (Auto) 23.7 TH/MM3 Lymphocytes # (Auto) 2.2 TH/MM3 Monocytes # (Auto) 4.3 TH/MM3 Eosinophils # (Auto) 0.1 TH/MM3 Basophils # (Auto) 0.1 TH/MM3 CBC Comment AUTO DIFF AUTO DIFF Differential Total Cells Counted 100 100 Neutrophils % (Manual) 75 % 63 % Band Neutrophils % 3 % 4 % Lymphocytes % 4 % 12 % Monocytes % 15 % 16 % Neutrophils # (Manual) 24.6 TH/MM3 17.9 TH/MM3 Metamyelocytes 1 % Myelocytes 2 % 4 % Nucleated Red Blood Cells 1 /100 WBC Differential Comment FINAL DIFF MANUAL FINAL DIFF MANUAL Platelet Estimate HIGH HIGH Platelet Morphology Comment NORMAL NORMAL Basophilic Stippling FAINT Basophils % 1 % Laboratory Tests Test 12/17/16 04:30 12/18/16 04:00 Blood Urea Nitrogen 23 MG/DL 23 MG/DL Creatinine 1.36 MG/DL 1.13 MG/DL Random Glucose 71 MG/DL 68 MG/DL Total Protein 5.9 GM/DL Albumin 1.8 GM/DL Calcium Level 8.5 MG/DL 8.5 MG/DL Magnesium Level 2.2 MG/DL Alkaline Phosphatase 367 U/L Aspartate Amino Transf (AST/SGOT) 38 U/L Alanine Aminotransferase (ALT/SGPT) 45 U/L Total Bilirubin 0.6 MG/DL Sodium Level 143 MEQ/L 146 MEQ/L Potassium Level 4.7 MEQ/L 4.4 MEQ/L Chloride Level 108 MEQ/L 109 MEQ/L Carbon Dioxide Level 26.8 MEQ/L 28.4 MEQ/L Anion Gap 8 MEQ/L 9 MEQ/L Estimat Glomerular Filtration Rate 52 ML/MIN 64 ML/MIN Microbiology Date/Time Source Procedure Growth Status 12/16/16 09:30 Sputum Endotracheal Gram Stain - Final Complete 12/16/16 09:30 Sputum Culture - Final Serratia Marcescens Complete IMAGING: Chest X-Ray 12/17/16 06 Signed Impressions: Service Date/Time: Saturday, December 17, 2016 05:07 - CONCLUSION: No significant interval change Benny Evans MD Chest X-Ray 12/16/16 06 Signed Impressions: Service Date/Time: Friday, December 16, 2016 04:46 - CONCLUSION: Interval deterioration in aeration, mainly in the left lung base. Benny Evans MD Head CT 12/14/16 0000 Signed Impressions: Service Date/Time: Wednesday, December 14, 2016 06:18 - CONCLUSION: Negative noncontrast head CT. Benny Dent MD Chest CT 12/14/16 0000 Signed Impressions: Service Date/Time: Wednesday, December 14, 2016 10:26 - CONCLUSION: 1. Interval decrease in the size of the left pneumothorax. 2. Interval decrease in the left pleural-based hematoma which now measures 7.5 x 3.7 x 11.2 cm. 3. Scattered atelectatic changes bilaterally. 4. Small bilateral pleural effusions. 5. Cardiomegaly and coronary artery calcifications. 6. Cholelithiasis. 7. 1.8 x 1.8 cm right adrenal nodule consistent with probable adenoma. 8. Multiple stable displaced left rib fractures and nondisplaced left medial clavicular fracture. Trent Nava MD Abdomen/Pelvis CT 12/14/16 0000 Signed Impressions: Service Date/Time: Wednesday, December 14, 2016 06:24 - CONCLUSION: 1. Subacute subcapsular hematoma of the left kidney is slightly larger in the interim. Left nephrogram is slightly delayed relative to the right. I don't see a focus of active bleeding. 2. A subcapsular hematoma is now evident of the spleen. No evidence of active bleeding. 3. The amount of subacute blood in the pelvic cavity is slightly worse in the interim. 4. Intact liver, pancreas, adrenal glands and right kidney. 5. Cholelithiasis again incidentally noted. 6. Tiny right and [id number] left pleural effusions with bibasilar atelectasis. 7. Mild body wall edema/anasarca developing. Benny Dent MD Renal Ultrasound 12/12/16 0000 Signed Impressions: Service Date/Time: Monday, December 12, 2016 15:57 - CONCLUSION: 1. No evidence of hydronephrosis on either side. 2. The left lower pole subcapsular hematoma measures up to 6.2 cm in maximal oblique dimension. Tio Raza MD CT Angiography 12/09/16 0000 Signed Impressions: Service Date/Time: Friday, December 09, 2016 12:08 - CONCLUSION: 1. The study is negative for pulmonary embolism. 2. Multiple additional findings are unchanged from a diagnostic CT thorax performed earlier today (left anterior pneumothorax, or large pleural-based opacity, left pleural effusion, left rib fractures, left lower lung consolidation, and left chest drainage tube in place). Tio Raza MD PHYSICAL EXAMINATION: GENERAL: No acute distress. HEAD, EYES, EARS, NOSE, THROAT: Unable to fully assess. The oropharynx is intubated. The mucosa of the mouth appears moist. NECK: Supple, No adenopathy. LUNGS: Coarse bilateral rhonchi persist. HEART: Regular S1 and S2 without audible murmurs. ABDOMEN: Soft, decreased bowel sounds. EXTREMITIES: No clubbing or cyanosis or edema. The extremities are warm to touch. SKIN: No rash. NEUROLOGIC: Unable to assess. PSYCHIATRIC: Unable to asses. IMPRESSION: 1. Fever and leukocytosis. 2. Status post splenectomy and evacuation of hemoperitoneum. 3. Acute Respiratory failure. 4. HCAP - serratia. RECOMMENDATIONS: 1. Continue Vancomycin. 2. Stop piperacillin / tazobactam. 3. Start Levaquin. 4. Monitor WBC. Mike Mina MD Dec 18, 2016 12:00
[2016-12-18] MEDS: REMOVE OLD PATCH T-DERMAL SCH (12:09)
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
[2016-12-18] MEDS: fentaNYL DRIP 250 ML IV PRN (14:24)
[2016-12-18] MEDS: LEVOFLOXACIN 500 MG PREMIX INJ 100 ML IV SCH (14:24)
[2016-12-18 16:02] LABS: BLOOD GAS BASE EXCESS 3.6 mmol/L (-2-2); BLOOD GAS CARBOXYHEMOGLOBIN 1.4 % (0-4); BLOOD GAS HCO3 29 mmol/L (22-26); BLOOD GAS METHEMOGLOBIN 0.8 % (0-2); BLOOD GAS O2 HGB SATURATION 83 % (90-100); BLOOD GAS OXYGEN CONTENT 9.7 Vol % (12.0-20.0); BLOOD GAS PCO2 53 mmHg (38-42); BLOOD GAS PO2 52 mmHg (61-120); BLOOD GAS TOTAL HGB 8.3 G/DL (12.0-16.0); TEMP CORR TO 98.6
[2016-12-18 16:03] LABS: CRITICAL VALUE YES; OXYGEN DEVICE VENTILATOR
[2016-12-18 16:04] LABS: DRAW SITE RT RADIAL; FIO2 40 %; NUMBER OF ARTERIAL PUNCTURES 1; STAT YES; ULNAR PULSE PRESENT; VENT SETTINGS AC
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
[2016-12-18] MEDS: MAGNESIUM HYDROXIDE SUSP 30 ML CUP PO SCH (20:49)
[2016-12-18] MEDS: LEVOTHYROXINE SODIUM 50 MCG TAB PO SCH (20:49)
[2016-12-19] VITALS (17 sets, daily range): BP systolic 129–141; BP diastolic 60–66; PULSE 83–111; RESP 16; TEMP 98.7–100.1; O2SAT 94–100
[2016-12-19] MEDS: PROPOFOL 1000 MG/100 ML INJ 100 ML IV PRN ×5 (02:31→21:18)
[2016-12-19] MEDS: RESP: ALBUTEROL 2.5 MG/IPRATROPIUM 0.5 MG NEB (SCH) NEB ×3 (04:12→19:44)
[2016-12-19 05:36] LABS: HEMATOCRIT 24.9 % (39.0-51.0); MEAN CELL VOLUME 91.5 FL (80.0-100.0); MEAN CORPUSCULAR HEMOGLOBIN 29.7 PG (27.0-34.0); MEAN CORPUSCULAR HGB CONC 32.4 % (32.0-36.0); PLATELET COUNT 722 TH/MM3 (150-450); RED BLOOD COUNT 2.72 MIL/MM3 (4.50-5.90); RED CELL DISTRIBUTION WIDTH 19.3 % (11.6-17.2); WHITE BLOOD COUNT 22.9 TH/MM3 (4.0-11.0)
[2016-12-19 05:38] LABS: HEMO FLAGS AUTO DIFF
[2016-12-19] MEDS: METOPROLOL TARTRATE 5 MG/5 ML VIAL IV PUSH SCH ×4 (05:55→21:17)
[2016-12-19] MEDS: LEVOTHYROXINE SODIUM 200 MCG TAB PO SCH (05:55)
[2016-12-19] MEDS: fentaNYL DRIP 250 ML IV PRN ×2 (05:59→18:40)
[2016-12-19 06:02] LABS: BICARBONATE 29.7 MEQ/L (21.0-32.0); POTASSIUM 4.3 MEQ/L (3.5-5.1)
[2016-12-19] MEDS ORDERED: MAGNESIUM SULFATE INJ 4 GM in SODIUM CHLORIDE 0.9% INJ 92 ML IV PRN (07:00)
[2016-12-19] MEDS ORDERED: POTASSIUM CHLORIDE 25 MEQ EFFERVESCENT TAB PO PRN (07:00)
[2016-12-19] MEDS ORDERED: POTASSIUM CHLOR 40 MEQ PREMIX 100 ML IV PRN ×2 (07:00)
[2016-12-19] MEDS ORDERED: SODIUM PHOSPHATE INJ 30 MMOL in SODIUM CHLOR 0.9% 250 ML INJ 240 ML IV PRN (07:00)
[2016-12-19] MEDS ORDERED: POTASSIUM PHOSPHATE MONOBASIC 500 MG TAB PO/TUBE PRN (07:00)
[2016-12-19] MEDS ORDERED: POTASSIUM CHLOR 20 MEQ PREMIX 100 ML IV PRN ×2 (07:00)
[2016-12-19] MEDS ORDERED: POTASSIUM PHOSPHATE MONOBASIC 500 MG TAB PO PRN (07:00)
[2016-12-19] MEDS ORDERED: MAGNESIUM OXIDE 400 MG TAB PO PRN (07:00)
[2016-12-19] MEDS ORDERED: MAGNESIUM SULFATE INJ 2 GM in SODIUM CHLORIDE 0.9% INJ 96 ML IV PRN (07:00)
[2016-12-19] MEDS ORDERED: POTASSIUM PHOSPHATE INJ 30 MMOL in SODIUM CHLOR 0.9% 250 ML INJ 250 ML IV PRN (07:00)
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
[2016-12-19 07:31] LABS: BANDS 2 % (0-6); MYELOCYTES 1 % (0-0); NEUTROPHIL # MANUAL DIFF 18.8 TH/MM3 (1.8-7.7); POLYS (SEG NEUTROPHILS) 79 % (16-70); WBC DIFF SAMPLE 100
[2016-12-19 07:32] LABS: PLATELET ESTIMATE SMEAR HIGH (NORMAL); PLATELET MORPHOLOGY NORMAL (NORMAL); SCAN/DIFF FINAL DIFF MANUAL
[2016-12-19] MEDS: LACTULOSE SYRUP 20 GM/30 ML CUP PO SCH (08:26)
[2016-12-19] MEDS: VANCOMYCIN INJ 1,000 MG in SODIUM CHLOR 0.9% 250 ML INJ 250 ML IV SCH ×2 (08:26→20:45)
[2016-12-19] MEDS: BISACODYL 10 MG SUPP RECTAL SCH (08:27)
[2016-12-19] MEDS: DOCUSATE SODIUM 50 MG/SENNA 8.6 MG TAB PO SCH ×2 (08:27→20:46)
[2016-12-19] MEDS: DEXTROAMPHETAMINE SULFATE 5 MG TAB PO SCH ×2 (08:27→20:45)
[2016-12-19] MEDS: GABAPENTIN 300 MG CAP PO SCH ×3 (08:27→17:34)
[2016-12-19] MEDS: buPROPion HCL 100 MG TAB NG SCH ×2 (08:27→20:45)
[2016-12-19] MEDS: TAMSULOSIN HCL 0.4 MG CAP PO SCH (08:28)
[2016-12-19] MEDS: ATORVASTATIN 10 MG TAB PO SCH (08:28)
[2016-12-19] MEDS: CHLORHEXIDINE 0.12% (ORAL KIT) 15 ML CUP MT SCH ×2 (08:31→20:46)
[2016-12-19] MEDS: HEPARIN SODIUM - SQ 10,000 UNITS/ML VIAL SQ SCH ×2 (10:46→21:18)
--- NOTE | 2016-12-19 10:57 | HHI.IDPN ---
Note Infectious Disease Note Patient is sedated. On the vent. Opens eyes. Copious thick creamy secretions via ETT. Was following commands when sedation was lifted but became agitated. Low grade fever. WBC still elevated. D/W RN. 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 PAST MEDICAL HISTORY: 1. Hypertension. 2. Hypothyroidism. 3. Fibromyalgia. 4. Osteoarthritis. 5. Tonsillectomy. ALLERGIES: CLARITHROMYCIN. MEDICATIONS: 1. Levaquin. 2. Vancomycin. SOCIAL HISTORY No tobacco. Rare alcohol. No illicit drugs. OBJECTIVE: Vital Signs Date Time Temp Pulse Resp B/P (MAP) Pulse Ox O2 Delivery O2 Flow Rate FiO2 12/19/16 08:31 94 50 12/19/16 07:00 97 Mechanical Ventilator 50 12/19/16 06:00 94 12/19/16 04:07 99 60 12/19/16 04:00 85 12/19/16 04:00 99.5 94 16 133/60 (84) 97 12/19/16 04:00 50 12/19/16 02:00 90 12/19/16 00:00 85 12/19/16 00:00 99.4 85 16 129/62 (84) 99 12/19/16 00:00 60 12/18/16 23:54 100 70 12/18/16 22:00 92 12/18/16 20:23 22 70 12/18/16 20:00 70 12/18/16 20:00 96 12/18/16 20:00 100.3 96 16 137/68 (91) 99 12/18/16 19:00 99 Mechanical Ventilator 70 12/18/16 18:00 88 12/18/16 16:45 70 12/18/16 16:20 91 100 12/18/16 16:00 98.9 98 14 149/77 (101) 89 12/18/16 16:00 100 12/18/16 16:00 98 12/18/16 14:00 94 12/18/16 13:00 95 40 12/18/16 13:00 40 12/18/16 12:00 96 12/18/16 12:00 100.0 96 12 136/63 (87) 96 12/18/16 12:00 40 12/18/16 11:38 95 40 Laboratory Tests Test 12/18/16 04:00 12/19/16 05:28 White Blood Count 25.2 TH/MM3 22.9 TH/MM3 Red Blood Count 2.53 MIL/MM3 2.72 MIL/MM3 Hemoglobin 7.8 GM/DL 8.1 GM/DL Hematocrit 23.2 % 24.9 % Mean Corpuscular Volume 91.4 FL 91.5 FL Mean Corpuscular Hemoglobin 30.7 PG 29.7 PG Mean Corpuscular Hemoglobin Concent 33.6 % 32.4 % Red Cell Distribution Width 19.6 % 19.3 % Platelet Count 690 TH/MM3 722 TH/MM3 Mean Platelet Volume 7.2 FL 6.9 FL CBC Comment AUTO DIFF AUTO DIFF Differential Total Cells Counted 100 100 Neutrophils % (Manual) 63 % 79 % Band Neutrophils % 4 % 2 % Lymphocytes % 12 % 4 % Monocytes % 16 % 14 % Basophils % 1 % Neutrophils # (Manual) 17.9 TH/MM3 18.8 TH/MM3 Myelocytes 4 % 1 % Differential Comment FINAL DIFF MANUAL FINAL DIFF MANUAL Platelet Estimate HIGH HIGH Platelet Morphology Comment NORMAL NORMAL Laboratory Tests Test 12/18/16 04:00 12/19/16 05:28 Blood Urea Nitrogen 23 MG/DL 21 MG/DL Creatinine 1.13 MG/DL 0.89 MG/DL Random Glucose 68 MG/DL 137 MG/DL Calcium Level 8.5 MG/DL 8.7 MG/DL Sodium Level 146 MEQ/L 145 MEQ/L Potassium Level 4.4 MEQ/L 4.3 MEQ/L Chloride Level 109 MEQ/L 108 MEQ/L Carbon Dioxide Level 28.4 MEQ/L 29.7 MEQ/L Anion Gap 9 MEQ/L 7 MEQ/L Estimat Glomerular Filtration Rate 64 ML/MIN 85 ML/MIN Albumin 1.6 GM/DL Phosphorus Level 2.4 MG/DL IMAGING: Chest X-Ray 12/17/16 0600 Signed Impressions: Service Date/Time: Saturday, December 17, 2016 05:07 - CONCLUSION: No significant interval change Benny Evans MD Chest X-Ray 12/16/16 06 Signed Impressions: Service Date/Time: Friday, December 16, 2016 04:46 - CONCLUSION: Interval deterioration in aeration, mainly in the left lung base. Benny Evans MD Head CT 12/14/16 0000 Signed Impressions: Service Date/Time: Wednesday, December 14, 2016 06:18 - CONCLUSION: Negative noncontrast head CT. Benny Dent MD Chest CT 12/14/16 Signed Impressions: Service Date/Time: Wednesday, December 14, 2016 10:26 - CONCLUSION: 1. Interval decrease in the size of the left pneumothorax. 2. Interval decrease in the left pleural-based hematoma which now measures 7.5 x 3.7 x 11.2 cm. 3. Scattered atelectatic changes bilaterally. 4. Small bilateral pleural effusions. 5. Cardiomegaly and coronary artery calcifications. 6. Cholelithiasis. 7. 1.8 x 1.8 cm right adrenal nodule consistent with probable adenoma. 8. Multiple stable displaced left rib fractures and nondisplaced left medial clavicular fracture. Trent Nava MD Abdomen/Pelvis CT 12/14/16 Signed Impressions: Service Date/Time: Wednesday, December 14, 2016 06:24 - CONCLUSION: 1. Subacute subcapsular hematoma of the left kidney is slightly larger in the interim. Left nephrogram is slightly delayed relative to the right. I don't see a focus of active bleeding. 2. A subcapsular hematoma is now evident of the spleen. No evidence of active bleeding. 3. The amount of subacute blood in the pelvic cavity is slightly worse in the interim. 4. Intact liver, pancreas, adrenal glands and right kidney. 5. Cholelithiasis again incidentally noted. 6. Tiny right and envqv-av-torfdeyt left pleural effusions with bibasilar atelectasis. 7. Mild body wall edema/anasarca developing. Benyn Dent MD Renal Ultrasound 12/12/16 Signed Impressions: Service Date/Time: Monday, December 12, 2016 15:57 - CONCLUSION: 1. No evidence of hydronephrosis on either side. 2. The left lower pole subcapsular hematoma measures up to 6.2 cm in maximal oblique dimension. Tio Raza MD CT Angiography 12/09/16 Signed Impressions: Service Date/Time: Friday, December 09, 2016 12:08 - CONCLUSION: 1. The study is negative for pulmonary embolism. 2. Multiple additional findings are unchanged from a diagnostic CT thorax performed earlier today (left anterior pneumothorax, or large pleural-based opacity, left pleural effusion, left rib fractures, left lower lung consolidation, and left chest drainage tube in place). Tio Raza MD PHYSICAL EXAMINATION: GENERAL: No acute distress. HEAD, EYES, EARS, NOSE, THROAT: Unable to fully assess. The oropharynx is intubated. The mucosa of the mouth appears moist. NECK: Supple, No adenopathy. LUNGS: Coarse bilateral rhonchi persist. HEART: Regular S1 and S2 without audible murmurs. ABDOMEN: Soft, decreased bowel sounds. EXTREMITIES: No clubbing or cyanosis or edema. The extremities are warm to touch. SKIN: No rash. NEUROLOGIC: Unable to assess. PSYCHIATRIC: Unable to asses. IMPRESSION: 1. Fever and leukocytosis. 2. Status post splenectomy and evacuation of hemoperitoneum. 3. Acute Respiratory failure. 4. HCAP - Serratia. RECOMMENDATIONS: 1. Continue Vancomycin. 2. Continue Levaquin. 3. Monitor WBC. 4. Patient is asplenic and therefore needs to be followed and recultured if high temps. Mike Mina MD Dec 19, 2016 10:57
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
[2016-12-19 12:55] LABS: BLOOD GAS BASE EXCESS 5.5 mmol/L (-2-2); BLOOD GAS CARBOXYHEMOGLOBIN 1.2 % (0-4); BLOOD GAS HCO3 30 mmol/L (22-26); BLOOD GAS METHEMOGLOBIN 0.7 % (0-2); BLOOD GAS O2 HGB SATURATION 94 % (90-100); BLOOD GAS OXYGEN CONTENT 11.1 Vol % (12.0-20.0); BLOOD GAS PCO2 46 mmHg (38-42); BLOOD GAS PO2 73 mmHg (61-120); BLOOD GAS TOTAL HGB 8.4 G/DL (12.0-16.0); TEMP CORR TO 98.6
[2016-12-19 12:56] LABS: CRITICAL VALUE NO; DRAW SITE RT RADIAL; FIO2 70 %; NUMBER OF ARTERIAL PUNCTURES 1; OXYGEN DEVICE VENTILATOR; STAT NO; ULNAR PULSE PRESENT; VENT SETTINGS PRVC16/550/0.9/+8
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
[2016-12-19] MEDS: LEVOFLOXACIN 500 MG PREMIX INJ 100 ML IV SCH (13:44)
[2016-12-19] MEDS: MAGNESIUM HYDROXIDE SUSP 30 ML CUP PO SCH (20:45)
[2016-12-19] MEDS: LEVOTHYROXINE SODIUM 50 MCG TAB PO SCH (20:46)
[2016-12-20] VITALS (17 sets, daily range): BP systolic 125–141; BP diastolic 57–65; PULSE 87–118; RESP 14–20; TEMP 98.3–101.4; O2SAT 90–100
[2016-12-20] MEDS: PROPOFOL 1000 MG/100 ML INJ 100 ML IV PRN ×8 (00:44→22:47)
[2016-12-20] MEDS: RESP: ALBUTEROL 2.5 MG/IPRATROPIUM 0.5 MG NEB (SCH) NEB ×2 (04:01→08:17)
[2016-12-20] MEDS: METOPROLOL TARTRATE 5 MG/5 ML VIAL IV PUSH SCH ×4 (04:11→22:48)
--- NOTE | 2016-12-20 04:37 | RADRPT ---
EXAM DATE/TIME: 12/20/2016 03:42 [facility] COMPARISON: CHEST SINGLE AP, December 18, 2016, 9:34. INDICATIONS : Evaluate for infiltrate MEDICAL HISTORY : Hypertension. Gastroesophageal reflux disease. SURGICAL HISTORY : None. ENCOUNTER: Subsequent ACUITY: 2 weeks PAIN SCORE: Non-responsive. LOCATION: Bilateral chest FINDINGS: Single AP view of the chest. Endotracheal tube, nasogastric tube, left subclavian central venous cath eter, and left-sided chest tube remain in place. Persistent patchy bilateral pulmonary parenchymal op acity with lower lung zone predominance. No significant interval change. Small bilateral pleural effu sions. No evidence of pneumothorax. CONCLUSION: No significant interval change. Gama Calle MD on December 20, 2016 at 4:33 Board Certified Radiologist. This report was verified electronically.
[2016-12-20] MEDS: LEVOTHYROXINE SODIUM 200 MCG TAB PO SCH (05:49)
[2016-12-20 06:00] LABS: BLOOD GAS BASE EXCESS 6.3 mmol/L (-2-2); BLOOD GAS HCO3 31 mmol/L (22-26); BLOOD GAS METHEMOGLOBIN 0.9 % (0-2); BLOOD GAS O2 HGB SATURATION 96 % (90-100); BLOOD GAS OXYGEN CONTENT 11.3 Vol % (12.0-20.0); BLOOD GAS PCO2 51 mmHg (38-42); BLOOD GAS PO2 108 mmHg (61-120); BLOOD GAS TOTAL HGB 8.2 G/DL (12.0-16.0); TEMP CORR TO 98.6
[2016-12-20 06:03] LABS: CRITICAL VALUE YES
[2016-12-20 06:06] LABS: DRAW SITE LT RADIAL; FIO2 60 %; NUMBER OF ARTERIAL PUNCTURES 1; STAT NO; ULNAR PULSE PRESENT
[2016-12-20 06:28] LABS: AUTOMATED NEUTROPHIL # 18.8 TH/MM3 (1.8-7.7); BASOPHIL # 0.1 TH/MM3 (0-0.2); BASOPHIL % 0.5 % (0.0-2.0); EOSINOPHIL # 0.4 TH/MM3 (0-0.4); EOSINOPHIL % 1.7 % (0.0-4.0); HEMATOCRIT 24.6 % (39.0-51.0); LYMPH % 6.6 % (9.0-44.0); LYMPHOCYTE # 1.6 TH/MM3 (1.0-4.8); MEAN CORPUSCULAR HEMOGLOBIN 30.1 PG (27.0-34.0); MEAN CORPUSCULAR HGB CONC 32.7 % (32.0-36.0); MONO % 13.2 % (0.0-8.0); PLATELET COUNT 709 TH/MM3 (150-450); RED BLOOD COUNT 2.68 MIL/MM3 (4.50-5.90); RED CELL DISTRIBUTION WIDTH 18.2 % (11.6-17.2); WHITE BLOOD COUNT 24.1 TH/MM3 (4.0-11.0)
[2016-12-20 06:37] LABS: HEMO FLAGS AUTO DIFF
[2016-12-20 06:53] LABS: BICARBONATE 30.9 MEQ/L (21.0-32.0); POTASSIUM 3.9 MEQ/L (3.5-5.1)
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
[2016-12-20 08:20] LABS: BANDS 10 % (0-6); CORRECTED NUCLEATED RBC 1 /100 WBC (0-0); EOSINOPHILS 4 % (0-4); METAMYELOCYTES 2 % (0-1); MYELOCYTES 2 % (0-0); NEUTROPHIL # MANUAL DIFF 20.5 TH/MM3 (1.8-7.7); PLATELET ESTIMATE SMEAR HIGH (NORMAL); PLATELET MORPHOLOGY NORMAL (NORMAL); POLYS (SEG NEUTROPHILS) 71 % (16-70); WBC DIFF SAMPLE 100
[2016-12-20 08:21] LABS: SCAN/DIFF FINAL DIFF MANUAL
[2016-12-20] MEDS: fentaNYL DRIP 250 ML IV PRN ×2 (08:36→23:48)
[2016-12-20] MEDS: TAMSULOSIN HCL 0.4 MG CAP PO SCH (09:00)
[2016-12-20] MEDS: LACTULOSE SYRUP 20 GM/30 ML CUP PO SCH (09:58)
[2016-12-20] MEDS: VANCOMYCIN INJ 1,000 MG in SODIUM CHLOR 0.9% 250 ML INJ 250 ML IV SCH ×2 (09:59→20:20)
[2016-12-20] MEDS: CHLORHEXIDINE 0.12% (ORAL KIT) 15 ML CUP MT SCH ×2 (10:00→20:20)
[2016-12-20] MEDS: buPROPion HCL 100 MG TAB NG SCH ×2 (10:00→20:18)
[2016-12-20] MEDS: GABAPENTIN 300 MG CAP PO SCH ×3 (10:00→17:32)
[2016-12-20] MEDS: HEPARIN SODIUM - SQ 10,000 UNITS/ML VIAL SQ SCH ×2 (10:00→20:18)
[2016-12-20] MEDS: DOCUSATE SODIUM 50 MG/SENNA 8.6 MG TAB PO SCH ×2 (10:00→20:18)
[2016-12-20] MEDS: ATORVASTATIN 10 MG TAB PO SCH (10:01)
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
[2016-12-20] MEDS: BISACODYL 10 MG SUPP RECTAL SCH (10:17)
[2016-12-20] MEDS: DEXTROAMPHETAMINE SULFATE 5 MG TAB PO SCH ×2 (10:17→20:18)
[2016-12-20] MEDS: FREE WATER G-TUBE SCH ×2 (12:00→17:32)
[2016-12-20] MEDS: LEVOFLOXACIN 500 MG PREMIX INJ 100 ML IV SCH (13:16)
--- NOTE | 2016-12-20 20:15 | HHI.PR ---
Addendum to Inpatient Note Additional Information ID X cover - pt seen around 19 00 full note to follow Raya De Guzman MD Dec 20, 2016 20:15
[2016-12-20] MEDS: LEVOTHYROXINE SODIUM 50 MCG TAB PO SCH (20:18)
[2016-12-20] MEDS: MAGNESIUM HYDROXIDE SUSP 30 ML CUP PO SCH (20:19)
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
[2016-12-20] MEDS: CEFEPIME INJ 2,000 MG in SODIUM CHLORIDE 0.9% INJ 100 ML IV SCH (22:47)
[2016-12-21] VITALS (18 sets, daily range): BP systolic 116–125; BP diastolic 60–64; PULSE 88–96; RESP 16–24; TEMP 99–99.4; O2SAT 92–100
[2016-12-21] MEDS: FREE WATER G-TUBE SCH ×5 (00:31→21:53)
[2016-12-21] MEDS: PROPOFOL 1000 MG/100 ML INJ 100 ML IV PRN ×6 (01:09→21:41)
[2016-12-21] MEDS: METOPROLOL TARTRATE 5 MG/5 ML VIAL IV PUSH SCH ×5 (04:00→21:41)
[2016-12-21 04:44] LABS: BASOPHIL # 0.3 TH/MM3 (0-0.2); EOSINOPHIL # 0.4 TH/MM3 (0-0.4); EOSINOPHIL % 1.4 % (0.0-4.0); HEMATOCRIT 25.6 % (39.0-51.0); LYMPH % 5.3 % (9.0-44.0); LYMPHOCYTE # 1.7 TH/MM3 (1.0-4.8); MEAN CELL VOLUME 93.3 FL (80.0-100.0); MEAN CORPUSCULAR HGB CONC 31.1 % (32.0-36.0); MONO % 12.1 % (0.0-8.0); NEUT % 80.2 % (16.0-70.0); PLATELET COUNT 687 TH/MM3 (150-450); RED BLOOD COUNT 2.75 MIL/MM3 (4.50-5.90); RED CELL DISTRIBUTION WIDTH 18.1 % (11.6-17.2); WHITE BLOOD COUNT 31.2 TH/MM3 (4.0-11.0)
[2016-12-21 04:54] LABS: HEMO FLAGS AUTO DIFF
[2016-12-21 05:12] LABS: BICARBONATE 29.6 MEQ/L (21.0-32.0); POTASSIUM 4.5 MEQ/L (3.5-5.1)
[2016-12-21 05:29] LABS: BANDS 4 % (0-6); EOSINOPHILS 2 % (0-4); METAMYELOCYTES 1 % (0-1); MYELOCYTES 2 % (0-0); POLYS (SEG NEUTROPHILS) 73 % (16-70); WBC DIFF SAMPLE 100
[2016-12-21 05:30] LABS: PLATELET ESTIMATE SMEAR HIGH (NORMAL); PLATELET MORPHOLOGY NORMAL (NORMAL); SCAN/DIFF FINAL DIFF MANUAL
[2016-12-21] MEDS: LEVOTHYROXINE SODIUM 200 MCG TAB PO SCH (05:43)
[2016-12-21] MEDS: CEFEPIME INJ 2,000 MG in SODIUM CHLORIDE 0.9% INJ 100 ML IV SCH ×2 (05:43→13:46)
--- NOTE | 2016-12-21 05:59 | RADRPT ---
EXAM DATE/TIME: 12/21/2016 04:31 [facility] COMPARISON: CHEST SINGLE AP, December 20, 2016, 3:42. INDICATIONS : Follow up pneumonia. MEDICAL HISTORY : None. SURGICAL HISTORY : None. ENCOUNTER: Subsequent ACUITY: 4 - 6 days PAIN SCORE: Non-responsive. LOCATION: Bilateral chest FINDINGS: Single AP view of the chest. Endotracheal tube, nasogastric tube, left subclavian central venous cath eter, and left-sided chest tube remain in place. No evidence of pneumothorax. No change in bilateral pulmonary opacity. No change in small left pleural effusion. CONCLUSION: Lines and tubes remain in place. Patchy bilateral pulmonary parenchymal opacity and small left pleura l effusion unchanged. No evidence of pneumothorax. Gama Calle MD on December 21, 2016 at 5:57 Board Certified Radiologist. This report was verified electronically.
[2016-12-21 06:06] LABS: BLOOD GAS BASE EXCESS 5.8 mmol/L (-2-2); BLOOD GAS HCO3 32 mmol/L (22-26); BLOOD GAS METHEMOGLOBIN 0.9 % (0-2); BLOOD GAS O2 HGB SATURATION 90 % (90-100); BLOOD GAS OXYGEN CONTENT 14.1 Vol % (12.0-20.0); BLOOD GAS PCO2 62 mmHg (38-42); BLOOD GAS PO2 68 mmHg (61-120); BLOOD GAS TOTAL HGB 11.1 G/DL (12.0-16.0); TEMP CORR TO 98.6
[2016-12-21 06:07] LABS: CRITICAL VALUE YES; OXYGEN DEVICE VENT
[2016-12-21 06:08] LABS: DRAW SITE RT RADIAL; FIO2 70 %; NUMBER OF ARTERIAL PUNCTURES 1; STAT NO; ULNAR PULSE PRESENT; VENT SETTINGS SEE COMMENTS
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
[2016-12-21] MEDS: RESP: ALBUTEROL 2.5 MG/IPRATROPIUM 0.5 MG NEB (PRN) NEB (07:52)
[2016-12-21] MEDS: CHLORHEXIDINE 0.12% (ORAL KIT) 15 ML CUP MT SCH ×2 (08:00→21:01)
[2016-12-21] MEDS: TAMSULOSIN HCL 0.4 MG CAP PO SCH (09:00)
[2016-12-21] MEDS: VANCOMYCIN INJ 1,000 MG in SODIUM CHLOR 0.9% 250 ML INJ 250 ML IV SCH ×2 (09:17→21:03)
[2016-12-21] MEDS: HEPARIN SODIUM - SQ 10,000 UNITS/ML VIAL SQ SCH ×2 (09:27→21:05)
[2016-12-21] MEDS: DOCUSATE SODIUM 50 MG/SENNA 8.6 MG TAB PO SCH ×2 (09:30→21:04)
[2016-12-21] MEDS: BISACODYL 10 MG SUPP RECTAL SCH (09:30)
[2016-12-21] MEDS: LACTULOSE SYRUP 20 GM/30 ML CUP PO SCH (09:31)
[2016-12-21] MEDS: GABAPENTIN 300 MG CAP PO SCH ×3 (09:31→18:51)
[2016-12-21] MEDS: ATORVASTATIN 10 MG TAB PO SCH (09:31)
[2016-12-21] MEDS: DEXTROAMPHETAMINE SULFATE 5 MG TAB PO SCH ×2 (09:31→21:04)
[2016-12-21] MEDS: buPROPion HCL 100 MG TAB NG SCH ×2 (09:31→21:04)
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
[2016-12-21] MEDS: fentaNYL DRIP 250 ML IV PRN ×2 (12:40→23:49)
[2016-12-21] MEDS: LEVOFLOXACIN 500 MG PREMIX INJ 100 ML IV SCH (13:46)
[2016-12-21] MEDS: REMOVE OLD PATCH T-DERMAL SCH (14:00)
--- NOTE | 2016-12-21 18:45 | HHI.IDPN ---
Subjective Subjective Remarks ID X cover - seemn earlier today pt is failing any attepnt for CPAP and benson not tolerate weaning of sedation welll Minimal secretions Tolerating tube feeds, but no BM essentailly since admission requires 75 % FiO2 growinf Serratia + low grade fever WBC is even higher @ 31K Antibiotics levaquine Allergies: Coded Allergies: clarithromycin (Verified Allergy, Unknown, 12/09/16) Objective . Vital Signs Date Time Temp Pulse Resp B/P (MAP) Pulse Ox O2 Delivery O2 Flow Rate FiO2 12/21/16 16:32 92 75 12/21/16 12:00 60 12/21/16 12:00 88 12/21/16 11:10 96 100 12/21/16 10:00 88 12/21/16 08:00 88 12/21/16 08:00 60 12/21/16 08:00 99.0 90 18 121/60 (80) 100 12/21/16 07:48 100 60 12/21/16 06:18 70 12/21/16 06:00 88 12/21/16 04:41 100 70 12/21/16 04:00 88 12/21/16 04:00 60 12/21/16 04:00 99.2 88 16 119/62 (81) 96 12/21/16 02:00 89 12/21/16 01:22 94 70 12/21/16 00:00 99.1 93 24 116/61 (79) 94 12/21/16 00:00 60 12/21/16 00:00 93 12/20/16 22:00 93 12/20/16 20:00 94 70 12/20/16 20:00 98.3 94 14 125/57 (79) 92 12/20/16 20:00 60 12/20/16 20:00 94 12/21/16 12/21/16 12/22/16 15:00 23:00 07:00 Intake Total 700 ml Balance 700 ml IV Total 700 ml . Laboratory Tests Test 12/20/16 05:55 12/21/16 04:28 White Blood Count 24.1 TH/MM3 31.2 TH/MM3 Red Blood Count 2.68 MIL/MM3 2.75 MIL/MM3 Hemoglobin 8.1 GM/DL 8.0 GM/DL Hematocrit 24.6 % 25.6 % Mean Corpuscular Volume 92.0 FL 93.3 FL Mean Corpuscular Hemoglobin 30.1 PG 29.0 PG Mean Corpuscular Hemoglobin Concent 32.7 % 31.1 % Red Cell Distribution Width 18.2 % 18.1 % Platelet Count 709 TH/MM3 687 TH/MM3 Mean Platelet Volume 7.5 FL 8.0 FL Neutrophils (%) (Auto) 78.0 % 80.2 % Lymphocytes (%) (Auto) 6.6 % 5.3 % Monocytes (%) (Auto) 13.2 % 12.1 % Eosinophils (%) (Auto) 1.7 % 1.4 % Basophils (%) (Auto) 0.5 % 1.0 % Neutrophils # (Auto) 18.8 TH/MM3 25.0 TH/MM3 Lymphocytes # (Auto) 1.6 TH/MM3 1.7 TH/MM3 Monocytes # (Auto) 3.2 TH/MM3 3.8 TH/MM3 Eosinophils # (Auto) 0.4 TH/MM3 0.4 TH/MM3 Basophils # (Auto) 0.1 TH/MM3 0.3 TH/MM3 CBC Comment AUTO DIFF AUTO DIFF Differential Total Cells Counted 100 100 Neutrophils % (Manual) 71 % 73 % Band Neutrophils % 10 % 4 % Lymphocytes % 5 % 6 % Monocytes % 6 % 12 % Eosinophils % 4 % 2 % Neutrophils # (Manual) 20.5 TH/MM3 25.0 TH/MM3 Metamyelocytes 2 % 1 % Myelocytes 2 % 2 % Nucleated Red Blood Cells 1 /100 WBC Differential Comment FINAL DIFF MANUAL FINAL DIFF MANUAL Platelet Estimate HIGH HIGH Platelet Morphology Comment NORMAL NORMAL Laboratory Tests Test 12/20/16 05:55 12/21/16 04:28 Blood Urea Nitrogen 19 MG/DL 21 MG/DL Creatinine 1.06 MG/DL 1.13 MG/DL Random Glucose 136 MG/DL 123 MG/DL Calcium Level 8.7 MG/DL 8.7 MG/DL Sodium Level 146 MEQ/L 145 MEQ/L Potassium Level 3.9 MEQ/L 4.5 MEQ/L Chloride Level 110 MEQ/L 108 MEQ/L Carbon Dioxide Level 30.9 MEQ/L 29.6 MEQ/L Anion Gap 5 MEQ/L 7 MEQ/L Estimat Glomerular Filtration Rate 69 ML/MIN 64 ML/MIN Microbiology Date/Time Source Procedure Growth Status 12/20/16 23:00 Sputum Endotracheal Gram Stain - Final Resulted 12/20/16 23:00 Sputum Endotracheal Sputum Culture - Preliminary IMMATURE GROWTH - REINCUBATE Resulted Imaging Last Impressions Chest X-Ray 12/21/16 0600 Signed Impressions: Service Date/Time: Wednesday, December 21, 2016 04:31 - CONCLUSION: Lines and tubes remain in place. Patchy bilateral pulmonary parenchymal opacity and small left pleural effusion unchanged. No evidence of pneumothorax. Gama Calle MD Head CT 12/14/16 0000 Signed Impressions: Service Date/Time: Wednesday, December 14, 2016 06:18 - CONCLUSION: Negative noncontrast head CT. Benny Dent MD Chest CT 12/14/16 0000 Signed Impressions: Service Date/Time: Wednesday, December 14, 2016 10:26 - CONCLUSION: 1. Interval decrease in the size of the left pneumothorax. 2. Interval decrease in the left pleural-based hematoma which now measures 7.5 x 3.7 x 11.2 cm. 3. Scattered atelectatic changes bilaterally. 4. Small bilateral pleural effusions. 5. Cardiomegaly and coronary artery calcifications. 6. Cholelithiasis. 7. 1.8 x 1.8 cm right adrenal nodule consistent with probable adenoma. 8. Multiple stable displaced left rib fractures and nondisplaced left medial clavicular fracture. Trent Nava MD Abdomen/Pelvis CT 12/14/16 0000 Signed Impressions: Service Date/Time: Wednesday, December 14, 2016 06:24 - CONCLUSION: 1. Subacute subcapsular hematoma of the left kidney is slightly larger in the interim. Left nephrogram is slightly delayed relative to the right. I don't see a focus of active bleeding. 2. A subcapsular hematoma is now evident of the spleen. No evidence of active bleeding. 3. The amount of subacute blood in the pelvic cavity is slightly worse in the interim. 4. Intact liver, pancreas, adrenal glands and right kidney. 5. Cholelithiasis again incidentally noted. 6. Tiny right and jqyqk-[id number] left pleural effusions with bibasilar atelectasis. 7. Mild body wall edema/anasarca developing. Benny Dent MD Renal Ultrasound 12/12/16 0000 Signed Impressions: Service Date/Time: Monday, December 12, 2016 15:57 - CONCLUSION: 1. No evidence of hydronephrosis on either side. 2. The left lower pole subcapsular hematoma measures up to 6.2 cm in maximal oblique dimension. Tio Raza MD CT Angiography 12/09/16 0000 Signed Impressions: Service Date/Time: Friday, December 09, 2016 12:08 - CONCLUSION: 1. The study is negative for pulmonary embolism. 2. Multiple additional findings are unchanged from a diagnostic CT thorax performed earlier today (left anterior pneumothorax, or large pleural-based opacity, left pleural effusion, left rib fractures, left lower lung consolidation, and left chest drainage tube in place). Tio Raza MD Physical Exam GENERAL: No acute distress. Int'd sed'd on mech vent'n HEAD, EYES, EARS, NOSE, THROAT: Unable to fully assess. The oropharynx is intubated. The mucosa of the mouth appears moist. NECK: Supple, No adenopathy. LUNGS: Coarse bilateral rhonchi b/l CT in place R HEART: Regular S1 and S2 without audible murmurs. ABDOMEN: Soft, very hypoactive bowel sounds. Distnded Incision dry, clean EXTREMITIES: No clubbing or cyanosis + edema. The extremities are warm to touch. well perfused foleyin place with clear yellow urine SKIN: No rash. NEUROLOGIC: sedated PSYCHIATRIC: Unable to asses. Assessment & Plan Remarks IMPRESSION: 1. Fever and leukocytosis. today afebrile, but WBC went up 2. Status post splenectomy and evacuation of hemoperitoneum. 3. Acute Respiratory failure. - not weaning - on 70% FiO2 4. HCAP - Serratia. - repeat sputum with immature growth 5. Probable ileus - CT P for am Marked Leukocytosis ? source RECOMMENDATIONS: 1. cont Vancomycin 2. dc Levaquin.cefepime 3. start Meropenem - ASP: pt not improving critical on curremnt Rx, risk for MDRO is high 4. Monitor WBC. 5. fu sputum clx 6. chk blood clx 7. stool for C.diff: pt is at high risk for C.diff and C.diff can present with ileus dw Raya Mccain MD Dec 21, 2016 18:45
[2016-12-21] MEDS ORDERED: ASP: Other exception documentation: ( ) PRN (19:00)
[2016-12-21] MEDS ORDERED: Vancomycin Consult Pharmacy 1 EA OTHER SCH (19:00)
[2016-12-21] MEDS ORDERED: MISCELLANEOUS PHARMACY INFORMATION XX PRN (19:00)
[2016-12-21] MEDS ORDERED: ASP: ID consult, note reason in consult order PRN (19:00)
[2016-12-21] MEDS ORDERED: PHARMACY ORDERED LAB ONE (20:45)
[2016-12-21] MEDS: LEVOTHYROXINE SODIUM 50 MCG TAB PO SCH (21:04)
[2016-12-21] MEDS: MAGNESIUM HYDROXIDE SUSP 30 ML CUP PO SCH (21:04)
[2016-12-21] MEDS: MEROPENEM INJ 1,000 MG in SODIUM CHLORIDE 0.9% INJ 100 ML IV SCH (21:41)
[2016-12-22] VITALS (22 sets, daily range): BP systolic 114–163; BP diastolic 55–112; PULSE 79–106; RESP 18–19; TEMP 98.6–100; O2SAT 93–100
[2016-12-22] MEDS: PROPOFOL 1000 MG/100 ML INJ 100 ML IV PRN ×6 (01:00→20:33)
[2016-12-22] MEDS: METOPROLOL TARTRATE 5 MG/5 ML VIAL IV PUSH SCH ×4 (03:45→21:02)
[2016-12-22] MEDS: MEROPENEM INJ 1,000 MG in SODIUM CHLORIDE 0.9% INJ 100 ML IV SCH ×3 (03:45→20:17)
[2016-12-22] MEDS: FREE WATER G-TUBE SCH ×3 (04:51→17:28)
[2016-12-22] MEDS: LEVOTHYROXINE SODIUM 200 MCG TAB PO SCH (04:52)
[2016-12-22 05:36] LABS: AUTOMATED NEUTROPHIL # 20.9 TH/MM3 (1.8-7.7); BASOPHIL # 0.2 TH/MM3 (0-0.2); BASOPHIL % 0.7 % (0.0-2.0); EOSINOPHIL # 0.5 TH/MM3 (0-0.4); HEMATOCRIT 23.7 % (39.0-51.0); LYMPH % 7.1 % (9.0-44.0); LYMPHOCYTE # 1.9 TH/MM3 (1.0-4.8); MEAN CELL VOLUME 91.7 FL (80.0-100.0); MEAN CORPUSCULAR HEMOGLOBIN 28.9 PG (27.0-34.0); MEAN CORPUSCULAR HGB CONC 31.5 % (32.0-36.0); MONO % 11.2 % (0.0-8.0); PLATELET COUNT 725 TH/MM3 (150-450); RED BLOOD COUNT 2.58 MIL/MM3 (4.50-5.90); RED CELL DISTRIBUTION WIDTH 18.9 % (11.6-17.2); WHITE BLOOD COUNT 26.5 TH/MM3 (4.0-11.0)
[2016-12-22 05:41] LABS: HEMO FLAGS AUTO DIFF
[2016-12-22 06:05] LABS: BICARBONATE 30.4 MEQ/L (21.0-32.0); POTASSIUM 4.4 MEQ/L (3.5-5.1)
[2016-12-22 06:10] LABS: BLOOD GAS BASE EXCESS 5.8 mmol/L (-2-2); BLOOD GAS CARBOXYHEMOGLOBIN 1.1 % (0-4); BLOOD GAS HCO3 31 mmol/L (22-26); BLOOD GAS METHEMOGLOBIN 0.6 % (0-2); BLOOD GAS O2 HGB SATURATION 92 % (90-100); BLOOD GAS OXYGEN CONTENT 10.3 Vol % (12.0-20.0); BLOOD GAS PCO2 54 mmHg (38-42); BLOOD GAS PO2 70 mmHg (61-120); BLOOD GAS TOTAL HGB 7.9 G/DL (12.0-16.0); TEMP CORR TO 98.6
[2016-12-22 06:11] LABS: CRITICAL VALUE YES
[2016-12-22 06:12] LABS: OXYGEN DEVICE VENT
[2016-12-22 06:13] LABS: DRAW SITE LT RADIAL; FIO2 75 %; NUMBER OF ARTERIAL PUNCTURES 1; STAT NO; ULNAR PULSE PRESENT; VENT SETTINGS SEE COMMENTS
[2016-12-22 06:52] LABS: BANDS 10 % (0-6); EOSINOPHILS 2 % (0-4); METAMYELOCYTES 1 % (0-1); MYELOCYTES 6 % (0-0); NEUTROPHIL # MANUAL DIFF 20.4 TH/MM3 (1.8-7.7); PLATELET ESTIMATE SMEAR HIGH (NORMAL); POLYS (SEG NEUTROPHILS) 60 % (16-70); WBC DIFF SAMPLE 100
[2016-12-22 06:53] LABS: PLATELET MORPHOLOGY NORMAL (NORMAL); SCAN/DIFF FINAL DIFF MANUAL
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
[2016-12-22] MEDS: CHLORHEXIDINE 0.12% (ORAL KIT) 15 ML CUP MT SCH ×2 (08:00→21:00)
[2016-12-22] MEDS ORDERED: IOHEXOL 350 MG/ML 10 ML VIAL (for RAD DIAG) IVCONTRAST ONE (08:25)
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
[2016-12-22] MEDS: TAMSULOSIN HCL 0.4 MG CAP PO SCH (09:00)
[2016-12-22] MEDS: DEXTROAMPHETAMINE SULFATE 5 MG TAB PO SCH ×2 (09:00→21:00)
[2016-12-22] MEDS: LACTULOSE SYRUP 20 GM/30 ML CUP PO SCH (09:00)
[2016-12-22] MEDS: DOCUSATE SODIUM 50 MG/SENNA 8.6 MG TAB PO SCH ×2 (09:00→21:01)
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
[2016-12-22] MEDS ORDERED: SODIUM CHLOR 0.9% 250 ML INJ 250 ML IV ONE (09:15)
[2016-12-22] MEDS: VANCOMYCIN INJ 1,250 MG in SODIUM CHLOR 0.9% 250 ML INJ 250 ML IV SCH ×2 (10:54→21:49)
[2016-12-22] MEDS: buPROPion HCL 100 MG TAB NG SCH ×2 (10:56→21:01)
[2016-12-22] MEDS: GABAPENTIN 300 MG CAP PO SCH ×3 (10:57→17:29)
[2016-12-22] MEDS: ATORVASTATIN 10 MG TAB PO SCH (10:57)
[2016-12-22] MEDS: HEPARIN SODIUM - SQ 10,000 UNITS/ML VIAL SQ SCH ×2 (10:57→21:03)
[2016-12-22] MEDS: BISACODYL 10 MG SUPP RECTAL SCH (11:25)
[2016-12-22] MEDS: fentaNYL DRIP 250 ML IV PRN (12:18)
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
--- NOTE | 2016-12-22 14:13 | HHI.IDPN ---
Note Infectious Disease Note Patient is sedated. On the vent. Opens eyes. Low grade fever. WBC still elevated. 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 PAST MEDICAL HISTORY: 1. Hypertension. 2. Hypothyroidism. 3. Fibromyalgia. 4. Osteoarthritis. 5. Tonsillectomy. ALLERGIES: CLARITHROMYCIN. MEDICATIONS: 1. Meropenem. 2. Vancomycin. SOCIAL HISTORY No tobacco. Rare alcohol. No illicit drugs. OBJECTIVE: Vital Signs Date Time Temp Pulse Resp B/P (MAP) Pulse Ox O2 Delivery O2 Flow Rate FiO2 12/22/16 12:24 96 65 12/22/16 12:04 99.9 93 18 163/112 97 12/22/16 12:00 99.9 79 18 123/62 (82) 98 12/22/16 12:00 80 12/22/16 12:00 65 12/22/16 11:50 99.1 106 19 139/73 94 12/22/16 10:00 81 12/22/16 08:35 99 75 12/22/16 08:00 99 100 12/22/16 08:00 75 12/22/16 08:00 99.1 100 18 149/70 (96) 95 12/22/16 08:00 102 12/22/16 06:45 75 12/22/16 06:00 82 12/22/16 04:08 96 75 12/22/16 04:00 89 12/22/16 04:00 75 12/22/16 04:00 99.0 89 18 115/57 (76) 99 12/22/16 02:00 89 12/22/16 00:16 97 75 12/22/16 00:00 75 12/22/16 00:00 98.6 87 18 114/60 (78) 97 12/22/16 00:00 93 12/21/16 22:16 95 75 12/21/16 22:00 90 12/21/16 20:00 99.2 96 18 125/60 (81) 93 12/21/16 20:00 90 12/21/16 20:00 75 12/21/16 18:00 96 60 12/21/16 16:00 99.3 92 18 122/64 (83) 97 12/21/16 16:00 92 Laboratory Tests Test 12/21/16 04:28 12/22/16 04:53 White Blood Count 31.2 TH/MM3 26.5 TH/MM3 Red Blood Count 2.75 MIL/MM3 2.58 MIL/MM3 Hemoglobin 8.0 GM/DL 7.5 GM/DL Hematocrit 25.6 % 23.7 % Mean Corpuscular Volume 93.3 FL 91.7 FL Mean Corpuscular Hemoglobin 29.0 PG 28.9 PG Mean Corpuscular Hemoglobin Concent 31.1 % 31.5 % Red Cell Distribution Width 18.1 % 18.9 % Platelet Count 687 TH/MM3 725 TH/MM3 Mean Platelet Volume 8.0 FL 8.2 FL Neutrophils (%) (Auto) 80.2 % 79.0 % Lymphocytes (%) (Auto) 5.3 % 7.1 % Monocytes (%) (Auto) 12.1 % 11.2 % Eosinophils (%) (Auto) 1.4 % 2.0 % Basophils (%) (Auto) 1.0 % 0.7 % Neutrophils # (Auto) 25.0 TH/MM3 20.9 TH/MM3 Lymphocytes # (Auto) 1.7 TH/MM3 1.9 TH/MM3 Monocytes # (Auto) 3.8 TH/MM3 3.0 TH/MM3 Eosinophils # (Auto) 0.4 TH/MM3 0.5 TH/MM3 Basophils # (Auto) 0.3 TH/MM3 0.2 TH/MM3 CBC Comment AUTO DIFF AUTO DIFF Differential Total Cells Counted 100 100 Neutrophils % (Manual) 73 % 60 % Band Neutrophils % 4 % 10 % Lymphocytes % 6 % 5 % Monocytes % 12 % 16 % Eosinophils % 2 % 2 % Neutrophils # (Manual) 25.0 TH/MM3 20.4 TH/MM3 Metamyelocytes 1 % 1 % Myelocytes 2 % 6 % Differential Comment FINAL DIFF MANUAL FINAL DIFF MANUAL Platelet Estimate HIGH HIGH Platelet Morphology Comment NORMAL NORMAL Laboratory Tests Test 12/21/16 04:28 12/21/16 20:42 12/22/16 04:53 Blood Urea Nitrogen 21 MG/DL 25 MG/DL Creatinine 1.13 MG/DL 1.30 MG/DL Random Glucose 123 MG/DL 132 MG/DL Calcium Level 8.7 MG/DL 8.6 MG/DL Sodium Level 145 MEQ/L 145 MEQ/L Potassium Level 4.5 MEQ/L 4.4 MEQ/L Chloride Level 108 MEQ/L 108 MEQ/L Carbon Dioxide Level 29.6 MEQ/L 30.4 MEQ/L Anion Gap 7 MEQ/L 7 MEQ/L Estimat Glomerular Filtration Rate 64 ML/MIN 55 ML/MIN Lactic Acid Level 0.7 mmol/L Microbiology Date/Time Source Procedure Growth Status 12/20/16 23:00 Sputum Endotracheal Gram Stain - Final Complete 12/20/16 23:00 Sputum Culture - Final Serratia Marcescens Complete IMAGING: Chest CT 12/22/16799 Signed Impressions: Service Date/Time: Thursday, December 22, 2016 08:17 - CONCLUSION: 1. Bibasilar consolidation likely atelectasis. 2. Small pleural effusions slightly loculated on the left. 3. Left-sided chest tube with tip in the major fissure. No pneumothorax. 4. Multiple left-sided rib fractures and left clavicular head fracture. Kulwant Valladares MD Abdomen/Pelvis CT 12/22/16799 Signed Impressions: Service Date/Time: Thursday, December 22, 2016 08:17 - CONCLUSION: 1. Status post splenectomy. There is some fluid in the splenectomy bed. 2. Left posterior subcapsular hematoma slightly smaller now measuring 2.9 cm. 3. Nasogastric tube with tip at the GE junction and should be advanced. Kulwant Valladares MD PHYSICAL EXAMINATION: GENERAL: No acute distress. HEENT:The oropharynx is intubated. The mucosa of the mouth appears moist. NECK: Supple, No adenopathy. LUNGS: Coarse bilateral rhonchi. HEART: Regular S1 and S2 without audible murmurs. ABDOMEN: Soft, decreased bowel sounds. EXTREMITIES: No clubbing or cyanosis or edema. The extremities are warm to touch. SKIN: No rash. NEUROLOGIC: Unable to assess. PSYCHIATRIC: Unable to asses. IMPRESSION: 1. HCAP - Serratia. 2. Status post splenectomy and evacuation of hemoperitoneum. 3. Acute Respiratory failure. 4. Fever and leukocytosis. RECOMMENDATIONS: 1. Continue Vancomycin. 2. Continue Meropenem. 3. Monitor WBC. 4. Monitor sensitivity of latest sputum culture. Mike Mina MD Dec 22, 2016 14:13
[2016-12-22] MEDS: LEVOTHYROXINE SODIUM 50 MCG TAB PO SCH (21:01)
[2016-12-22] MEDS: MAGNESIUM HYDROXIDE SUSP 30 ML CUP PO SCH (21:01)
[2016-12-23] VITALS (18 sets, daily range): BP systolic 130–149; BP diastolic 62–91; PULSE 81–98; RESP 12–18; TEMP 99.2–101; O2SAT 90–100
[2016-12-23] MEDS: fentaNYL DRIP 250 ML IV PRN ×2 (02:24→18:17)
[2016-12-23] MEDS: PROPOFOL 1000 MG/100 ML INJ 100 ML IV PRN ×4 (02:25→20:37)
[2016-12-23] MEDS: MEROPENEM INJ 1,000 MG in SODIUM CHLORIDE 0.9% INJ 100 ML IV SCH ×3 (04:14→20:14)
[2016-12-23] MEDS: FREE WATER G-TUBE SCH ×4 (04:15→18:00)
[2016-12-23] MEDS: METOPROLOL TARTRATE 5 MG/5 ML VIAL IV PUSH SCH ×4 (04:15→21:16)
[2016-12-23] MEDS: LEVOTHYROXINE SODIUM 200 MCG TAB PO SCH (04:15)
[2016-12-23 04:49] LABS: AUTOMATED NEUTROPHIL # 23.6 TH/MM3 (1.8-7.7); BASOPHIL # 0.4 TH/MM3 (0-0.2); BASOPHIL % 1.3 % (0.0-2.0); EOSINOPHIL # 0.4 TH/MM3 (0-0.4); EOSINOPHIL % 1.4 % (0.0-4.0); HEMATOCRIT 27.5 % (39.0-51.0); LYMPHOCYTE # 2.1 TH/MM3 (1.0-4.8); MEAN CELL VOLUME 90.6 FL (80.0-100.0); MEAN CORPUSCULAR HEMOGLOBIN 28.5 PG (27.0-34.0); MEAN CORPUSCULAR HGB CONC 31.5 % (32.0-36.0); MONO % 12.9 % (0.0-8.0); NEUT % 77.4 % (16.0-70.0); PLATELET COUNT 758 TH/MM3 (150-450); RED BLOOD COUNT 3.03 MIL/MM3 (4.50-5.90); RED CELL DISTRIBUTION WIDTH 18.3 % (11.6-17.2); WHITE BLOOD COUNT 30.5 TH/MM3 (4.0-11.0)
[2016-12-23 05:02] LABS: HEMO FLAGS AUTO DIFF
[2016-12-23 05:05] LABS: BICARBONATE 29.7 MEQ/L (21.0-32.0); POTASSIUM 4.5 MEQ/L (3.5-5.1)
--- NOTE | 2016-12-23 05:52 | RADRPT ---
EXAM DATE/TIME: 12/23/2016 05:00 [facility] COMPARISON: CHEST SINGLE AP, December 21, 2016, 4:31. INDICATIONS : Short of breath. MEDICAL HISTORY : Cardiovascular disease. Hypertension. SURGICAL HISTORY : None. ENCOUNTER: Subsequent ACUITY: 3 weeks PAIN SCORE: Non-responsive. LOCATION: Bilateral chest FINDINGS: The cardiac silhouette is enlarged in transverse diameter. Left chest tube is in place with multiple left rib fractures. Small apical pneumothorax is present. There is patchy alveolar disease bilaterall y compatible with edema or pneumonia. CONCLUSION: 1. Patchy alveolar disease characteristic of edema or pneumonia. There has been no significant beasley e when compared to the prior exam. 2. Small left apical pneumothorax Jesús Ibrahim MD on December 23, 2016 at 5:50 Board Certified Radiologist. This report was verified electronically.
[2016-12-23 06:58] LABS: BANDS 10 % (0-6); CORRECTED NUCLEATED RBC 1 /100 WBC (0-0); EOSINOPHILS 3 % (0-4); METAMYELOCYTES 3 % (0-1); MYELOCYTES 2 % (0-0); NEUTROPHIL # MANUAL DIFF 24.7 TH/MM3 (1.8-7.7); POLYS (SEG NEUTROPHILS) 66 % (16-70); WBC DIFF SAMPLE 100
[2016-12-23 06:59] LABS: PLATELET ESTIMATE SMEAR HIGH (NORMAL); PLATELET MORPHOLOGY NORMAL (NORMAL); SCAN/DIFF FINAL DIFF MANUAL
[2016-12-23 07:00] LABS: TOXIC VACUOLATION PRESENT (NONE SEEN)
[2016-12-23] MEDS: CHLORHEXIDINE 0.12% (ORAL KIT) 15 ML CUP MT SCH ×2 (08:00→20:16)
[2016-12-23] MEDS ORDERED: MAGNESIUM CITRATE SOLN 300 ML BTL PO ONE (08:00)
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
[2016-12-23] MEDS: HEPARIN SODIUM - SQ 10,000 UNITS/ML VIAL SQ SCH ×2 (09:00→20:17)
[2016-12-23] MEDS: TAMSULOSIN HCL 0.4 MG CAP PO SCH (09:00)
[2016-12-23] MEDS: DEXTROAMPHETAMINE SULFATE 5 MG TAB PO SCH ×2 (10:44→20:16)
[2016-12-23] MEDS: ATORVASTATIN 10 MG TAB PO SCH (10:45)
[2016-12-23] MEDS: BISACODYL 10 MG SUPP RECTAL SCH (10:45)
[2016-12-23] MEDS: DOCUSATE SODIUM 50 MG/SENNA 8.6 MG TAB PO SCH ×2 (10:45→20:16)
[2016-12-23] MEDS: buPROPion HCL 100 MG TAB NG SCH ×2 (10:45→20:16)
[2016-12-23] MEDS: GABAPENTIN 300 MG CAP PO SCH ×3 (10:56→18:20)
[2016-12-23] MEDS: LACTULOSE SYRUP 20 GM/30 ML CUP PO SCH (10:56)
[2016-12-23] MEDS: VANCOMYCIN INJ 1,250 MG in SODIUM CHLOR 0.9% 250 ML INJ 250 ML IV SCH ×2 (10:57→21:16)
--- NOTE | 2016-12-23 12:30 | HHI.IDPN ---
Note Infectious Disease Note Patient is sedated. On the vent. 65% FIO2. Having fever and WBC is higher. WBC still elevated. 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 PAST MEDICAL HISTORY: 1. Hypertension. 2. Hypothyroidism. 3. Fibromyalgia. 4. Osteoarthritis. 5. Tonsillectomy. ALLERGIES: CLARITHROMYCIN. MEDICATIONS: 1. Meropenem. 2. Vancomycin. SOCIAL HISTORY No tobacco. Rare alcohol. No illicit drugs. OBJECTIVE: Vital Signs Date Time Temp Pulse Resp B/P (MAP) Pulse Ox O2 Delivery O2 Flow Rate FiO2 12/23/16 10:00 86 12/23/16 08:02 99 65 12/23/16 08:00 65 12/23/16 08:00 99.7 89 18 134/73 (93) 96 12/23/16 08:00 89 12/23/16 06:00 81 12/23/16 04:00 65 12/23/16 04:00 98 12/23/16 04:00 98 12/23/16 04:00 100.6 98 18 149/91 (110) 97 12/23/16 03:24 96 65 12/23/16 02:00 92 12/23/16 00:00 82 12/23/16 00:00 99.7 82 18 137/63 (87) 100 12/23/16 00:00 65 12/22/16 23:20 100 65 12/22/16 22:00 88 12/22/16 20:00 100.0 82 18 135/63 (87) 99 12/22/16 20:00 82 12/22/16 20:00 65 12/22/16 19:53 99 65 12/22/16 19:53 99 Ventilator 65 12/22/16 18:00 85 12/22/16 16:38 94 65 12/22/16 16:00 65 12/22/16 16:00 99.8 85 18 146/55 (85) 93 12/22/16 16:00 86 12/22/16 14:19 99.4 99 19 128/56 98 12/22/16 14:00 93 Laboratory Tests Test 12/22/16 04:53 12/23/16 04:15 White Blood Count 26.5 TH/MM3 30.5 TH/MM3 Red Blood Count 2.58 MIL/MM3 3.03 MIL/MM3 Hemoglobin 7.5 GM/DL 8.6 GM/DL Hematocrit 23.7 % 27.5 % Mean Corpuscular Volume 91.7 FL 90.6 FL Mean Corpuscular Hemoglobin 28.9 PG 28.5 PG Mean Corpuscular Hemoglobin Concent 31.5 % 31.5 % Red Cell Distribution Width 18.9 % 18.3 % Platelet Count 725 TH/MM3 758 TH/MM3 Mean Platelet Volume 8.2 FL 8.5 FL Neutrophils (%) (Auto) 79.0 % 77.4 % Lymphocytes (%) (Auto) 7.1 % 7.0 % Monocytes (%) (Auto) 11.2 % 12.9 % Eosinophils (%) (Auto) 2.0 % 1.4 % Basophils (%) (Auto) 0.7 % 1.3 % Neutrophils # (Auto) 20.9 TH/MM3 23.6 TH/MM3 Lymphocytes # (Auto) 1.9 TH/MM3 2.1 TH/MM3 Monocytes # (Auto) 3.0 TH/MM3 3.9 TH/MM3 Eosinophils # (Auto) 0.5 TH/MM3 0.4 TH/MM3 Basophils # (Auto) 0.2 TH/MM3 0.4 TH/MM3 CBC Comment AUTO DIFF AUTO DIFF Differential Total Cells Counted 100 100 Neutrophils % (Manual) 60 % 66 % Band Neutrophils % 10 % 10 % Lymphocytes % 5 % 7 % Monocytes % 16 % 9 % Eosinophils % 2 % 3 % Neutrophils # (Manual) 20.4 TH/MM3 24.7 TH/MM3 Metamyelocytes 1 % 3 % Myelocytes 6 % 2 % Differential Comment FINAL DIFF MANUAL FINAL DIFF MANUAL Platelet Estimate HIGH HIGH Platelet Morphology Comment NORMAL NORMAL Nucleated Red Blood Cells 1 /100 WBC Toxic Vacuolation PRESENT Laboratory Tests Test 12/21/16 20:42 12/22/16 04:53 12/23/16 04:15 Lactic Acid Level 0.7 mmol/L Blood Urea Nitrogen 25 MG/DL 27 MG/DL Creatinine 1.30 MG/DL 1.23 MG/DL Random Glucose 132 MG/DL 101 MG/DL Calcium Level 8.6 MG/DL 9.1 MG/DL Sodium Level 145 MEQ/L 145 MEQ/L Potassium Level 4.4 MEQ/L 4.5 MEQ/L Chloride Level 108 MEQ/L 109 MEQ/L Carbon Dioxide Level 30.4 MEQ/L 29.7 MEQ/L Anion Gap 7 MEQ/L 6 MEQ/L Estimat Glomerular Filtration Rate 55 ML/MIN 58 ML/MIN Microbiology Date/Time Source Procedure Growth Status 12/20/16 23:00 Sputum Endotracheal Gram Stain - Final Complete 12/20/16 23:00 Sputum Culture - Final Serratia Marcescens Complete Microbiology Date/Time Source Procedure Growth Status 12/20/16 23:00 Sputum Endotracheal Gram Stain - Final Complete 12/20/16 23:00 Sputum Culture - Final Serratia Marcescens Complete IMAGING: Chest X-Ray 12/23/16599 Signed Impressions: Service Date/Time: Friday, December 23, 2016 05:00 - CONCLUSION: 1. Patchy alveolar disease characteristic of edema or pneumonia. There has been no significant change when compared to the prior exam. 2. Small left apical pneumothorax Jesús Ibrahim MD Chest CT 12/22/16799 Signed Impressions: Service Date/Time: Thursday, December 22, 2016 08:17 - CONCLUSION: 1. Bibasilar consolidation likely atelectasis. 2. Small pleural effusions slightly loculated on the left. 3. Left-sided chest tube with tip in the major fissure. No pneumothorax. 4. Multiple left-sided rib fractures and left clavicular head fracture. Kulwant Valladares MD Abdomen/Pelvis CT 12/22/16799 Signed Impressions: Service Date/Time: Thursday, December 22, 2016 08:17 - CONCLUSION: 1. Status post splenectomy. There is some fluid in the splenectomy bed. 2. Left posterior subcapsular hematoma slightly smaller now measuring 2.9 cm. 3. Nasogastric tube with tip at the GE junction and should be advanced. Kulwant Valladares MD Chest CT 12/22/16799 Signed Impressions: Service Date/Time: Thursday, December 22, 2016 08:17 - CONCLUSION: 1. Bibasilar consolidation likely atelectasis. 2. Small pleural effusions slightly loculated on the left. 3. Left-sided chest tube with tip in the major fissure. No pneumothorax. 4. Multiple left-sided rib fractures and left clavicular head fracture. Kulwant Valladares MD Abdomen/Pelvis CT 12/22/16799 Signed Impressions: Service Date/Time: Thursday, December 22, 2016 08:17 - CONCLUSION: 1. Status post splenectomy. There is some fluid in the splenectomy bed. 2. Left posterior subcapsular hematoma slightly smaller now measuring 2.9 cm. 3. Nasogastric tube with tip at the GE junction and should be advanced. Kulwant Valladares MD PHYSICAL EXAMINATION: GENERAL: No acute distress. HEENT:The oropharynx is intubated. No icterus. NECK: Supple, No adenopathy. LUNGS: Coarse bilateral rhonchi. HEART: Regular S1 and S2 without audible murmurs. ABDOMEN: Soft, decreased bowel sounds. EXTREMITIES: No clubbing or cyanosis or edema. SKIN: No rash. Warm and moist. NEUROLOGIC: Unable to assess. PSYCHIATRIC: Unable to asses. IMPRESSION: 1. HCAP - Serratia. 2. Status post splenectomy and evacuation of hemoperitoneum. 3. Acute Respiratory failure. 4. Fever and leukocytosis. Persistent. ? sepsis. RECOMMENDATIONS: 1. Continue Vancomycin. 2. Continue Meropenem. 3. Repeat blood culture. 4. UA C&S. 5. Monitor WBC. Mike Mina MD Dec 23, 2016 12:30
[2016-12-23] MEDS ORDERED: MIDAZOLAM HCL 5 MG/ML VIAL (1 ML) ONE (12:58)
[2016-12-23] MEDS ORDERED: MIDAZOLAM HCL 5 MG/ML VIAL (1 ML) IM ONE (13:00)
[2016-12-23] MEDS: MIDAZOLAM HCL 2 MG/2 ML VIAL IV PUSH PRN (13:00)
[2016-12-23] MEDS ORDERED: ROCURONIUM INJ 100 MG/10 ML VIAL IV ONE (13:00)
[2016-12-23] MEDS ORDERED: ROCURONIUM INJ 50 MG/5 ML VIAL ONE (13:02)
[2016-12-23] MEDS ORDERED: MIDAZOLAM HCL 5 MG/5 ML VIAL IV PUSH ONE (13:30)
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
--- NOTE | 2016-12-23 14:36 | PD.PROCEDR ---
Procedure Note Procedure DX: Respiratory Failure (J96.00) OP: Bronchoscopy (77193) Procedure: Time out. Bronchoscope passed through vent circuit side port on elbow. Usual ICU monitoring in place. Mechanical ventilation rate 18/min.. The mucosa of the main trachea was mildly inflamed. The segmental bronchi both sides were inspected and clean. The left lower lobe bronchi were suctioned for large amounts of light ugalde sputum. BAL of LLL was sent for C&S. Branching was anatomically normal. The scope and orotracheal tube were then withdrawn to the cricoid level. Visualization was accomplished from this position for the percutaneous trach insertion by another team. After trach insertion the scope was introduced through the new trach tube to confirm good position in the mid- trachea. Ventilation was then converted to the new trach tube. Sats were easily maintained over 91% throughout the procedure. Geovanni Barbour MD Dec 23, 2016 14:36
[2016-12-23 15:23] LABS: BLOOD GAS BASE EXCESS 4.6 mmol/L (-2-2); BLOOD GAS HCO3 29 mmol/L (22-26); BLOOD GAS METHEMOGLOBIN 0.9 % (0-2); BLOOD GAS O2 HGB SATURATION 93 % (90-100); BLOOD GAS OXYGEN CONTENT 11.9 Vol % (12.0-20.0); BLOOD GAS PCO2 50 mmHg (38-42); BLOOD GAS PO2 74 mmHg (61-120); CRITICAL VALUE NO; OXYGEN DEVICE VENTILATOR; TEMP CORR TO 98.6
[2016-12-23 15:24] LABS: DRAW SITE RT RADIAL; FIO2 100 %; NUMBER OF ARTERIAL PUNCTURES 1; STAT NO; ULNAR PULSE PRESENT; VENT SETTINGS APRV
--- NOTE | 2016-12-23 15:49 | MP ---
cc: KYLE ACOSTA MD DATE OF SURGERY: 12/23/2016 PREOPERATIVE DIAGNOSIS Respiratory failure, chest trauma. POSTOPERATIVE DIAGNOSIS Respiratory failure, chest trauma. OPERATIVE PROCEDURE Tracheostomy, Blue Rhino. SURGEON Dr. Acosta. ENVIRONMENTAL CONSERVATION PROFESSOR/BRONCHOSCOPIST Dr. Germán Barbour. ANESTHESIA General. ESTIMATED BLOOD LOSS Minimal. DETAILS OF PROCEDURE The patient is prepped and draped in the usual fashion. First the bronchoscope is passed through the endotracheal tube and a huge amount of secretions obtained from the right lung. Once this was cleared up a small incision is made in the suprasternal notch area midline, deepened down to the trachea. An Angiocath with needle is inserted into the trachea and under bronchoscopy vision a guidewire is passed down. Over the guidewire the punch dilator and then the Blue Rhino dilator are guided into the trachea. This was followed by an 8 Shiley endotracheal cannula on the guide. When the [address] it is connected to the ventilator, end-tidal CO2 checked, and secured with 2-0 Prolene to the skin. Once more the patient is bronchoscoped. He tolerated the procedure well. Kyle HA/CHRISTIAN /2:52 PM /3:41 PM
[2016-12-23] MEDS: RESP: ALBUTEROL 2.5 MG/IPRATROPIUM 0.5 MG NEB (PRN) NEB (20:11)
[2016-12-23] MEDS: MAGNESIUM HYDROXIDE SUSP 30 ML CUP PO SCH (20:16)
[2016-12-23] MEDS: LEVOTHYROXINE SODIUM 50 MCG TAB PO SCH (20:16)
[2016-12-24] VITALS (19 sets, daily range): BP systolic 128–156; BP diastolic 67–75; PULSE 94–113; RESP 12–30; TEMP 99–101.4; O2SAT 94–100
[2016-12-24] MEDS: PROPOFOL 1000 MG/100 ML INJ 100 ML IV PRN ×4 (02:19→20:16)
[2016-12-24] MEDS: RESP: ALBUTEROL 2.5 MG/IPRATROPIUM 0.5 MG NEB (PRN) NEB (03:24)
[2016-12-24] MEDS: MEROPENEM INJ 1,000 MG in SODIUM CHLORIDE 0.9% INJ 100 ML IV SCH ×3 (04:15→20:16)
[2016-12-24] MEDS: METOPROLOL TARTRATE 5 MG/5 ML VIAL IV PUSH SCH ×4 (04:15→22:00)
[2016-12-24 04:19] LABS: AUTOMATED NEUTROPHIL # 23.8 TH/MM3 (1.8-7.7); BASOPHIL # 0.1 TH/MM3 (0-0.2); BASOPHIL % 0.3 % (0.0-2.0); EOSINOPHIL # 0.2 TH/MM3 (0-0.4); EOSINOPHIL % 0.7 % (0.0-4.0); HEMATOCRIT 28.3 % (39.0-51.0); LYMPH % 6.3 % (9.0-44.0); LYMPHOCYTE # 1.9 TH/MM3 (1.0-4.8); MEAN CELL VOLUME 90.7 FL (80.0-100.0); MEAN CORPUSCULAR HEMOGLOBIN 28.5 PG (27.0-34.0); MEAN CORPUSCULAR HGB CONC 31.4 % (32.0-36.0); MONO % 13.1 % (0.0-8.0); NEUT % 79.6 % (16.0-70.0); PLATELET COUNT 665 TH/MM3 (150-450); RED BLOOD COUNT 3.12 MIL/MM3 (4.50-5.90); RED CELL DISTRIBUTION WIDTH 18.3 % (11.6-17.2); WHITE BLOOD COUNT 29.8 TH/MM3 (4.0-11.0)
[2016-12-24 04:23] LABS: HEMO FLAGS AUTO DIFF
[2016-12-24 04:56] LABS: ALT (GPT) 38 U/L (12-78); ANION GAP 5 MEQ/L (5-15); AST (GOT) 52 U/L (15-37); BICARBONATE 30.7 MEQ/L (21.0-32.0); BLOOD UREA NITROGEN 31 MG/DL (7-18); CHLORIDE 108 MEQ/L (98-107); GLOMERULAR FILTRATION RATE 55 ML/MIN (>89); MAGNESIUM 2.7 MG/DL (1.5-2.5); POTASSIUM 4.7 MEQ/L (3.5-5.1); SODIUM (NA) 144 MEQ/L (136-145)
[2016-12-24 04:56] LABS: BACTERIA, URINE OCC /hpf; BLOOD, URINE SMALL (NEG); GLUCOSE,URINE NEG (NEG); GRANULAR CAST, URINE 13 /lpf; KETONE, URINE NEG (NEG); MUCUS URINE FEW /lpf (OCC); NITRITE,URINE NEG (NEG); PH, URINE 5.5 (5.0-8.5); SQUAMOUS EPITHELIAL CELL URINE 1 /hpf (0-5); URINE COLOR YELLOW (YELLW/STRAW)
[2016-12-24 04:57] LABS: COMMENT (UR) CATH-CULTURE IND; CULTURE IF INDICATED CATH CULTURE IND
[2016-12-24 04:59] LABS: ALKALINE PHOSPHATASE 275 U/L (45-117); TOTAL BILIRUBIN ADULT 0.5 MG/DL (0.2-1.0)
[2016-12-24 05:04] LABS: BLOOD GAS BASE EXCESS 4.6 mmol/L (-2-2); BLOOD GAS CARBOXYHEMOGLOBIN 0.9 % (0-4); BLOOD GAS HCO3 29 mmol/L (22-26); BLOOD GAS METHEMOGLOBIN 0.6 % (0-2); BLOOD GAS O2 HGB SATURATION 98 % (90-100); BLOOD GAS OXYGEN CONTENT 12.6 Vol % (12.0-20.0); BLOOD GAS PCO2 44 mmHg (38-42); BLOOD GAS PO2 256 mmHg (61-120); BLOOD GAS TOTAL HGB 8.7 G/DL (12.0-16.0); CRITICAL VALUE NO; OXYGEN DEVICE VENTILATOR; TEMP CORR TO 98.6
[2016-12-24 05:05] LABS: DRAW SITE RT RADIAL; FIO2 100 %; NUMBER OF ARTERIAL PUNCTURES 1; STAT NO; ULNAR PULSE PRESENT; VENT SETTINGS APRV/BILEVEL
[2016-12-24] MEDS: FREE WATER G-TUBE SCH ×4 (06:00→17:24)
--- NOTE | 2016-12-24 06:04 | RADRPT ---
EXAM DATE/TIME: 12/24/2016 04:19 [facility] COMPARISON: CHEST SINGLE AP, December 23, 2016, 5:00. INDICATIONS : Shortness of breath. MEDICAL HISTORY : Hypertension. Cardiovascular disease. SURGICAL HISTORY : None. ENCOUNTER: Subsequent ACUITY: 3 weeks PAIN SCORE: Non-responsive. LOCATION: Bilateral chest FINDINGS: The cardiac silhouette is normal in transverse diameter. A tracheostomy tube is in place in the midli ne. There is patchy alveolar disease bilaterally compatible with edema or pneumonia. Improving left b asilar atelectasis versus pneumonia seen CONCLUSION: Patchy alveolar disease characteristic of edema or pneumonia. Improving left basilar atelectasis There is no evidence of pneumothorax. Jesús Ibrahim MD on December 24, 2016 at 6:01 Board Certified Radiologist. This report was verified electronically.
[2016-12-24] MEDS: LEVOTHYROXINE SODIUM 200 MCG TAB PO SCH (06:16)
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
[2016-12-24 07:36] LABS: BANDS 5 % (0-6); CORRECTED NUCLEATED RBC 1 /100 WBC (0-0); EOSINOPHILS 1 % (0-4); METAMYELOCYTES 2 % (0-1); MYELOCYTES 2 % (0-0); NEUTROPHIL # MANUAL DIFF 24.7 TH/MM3 (1.8-7.7); PLATELET ESTIMATE SMEAR HIGH (NORMAL); PLATELET MORPHOLOGY NORMAL (NORMAL); POLYS (SEG NEUTROPHILS) 74 % (16-70); SCAN/DIFF FINAL DIFF MANUAL; WBC DIFF SAMPLE 100
[2016-12-24] MEDS: CHLORHEXIDINE 0.12% (ORAL KIT) 15 ML CUP MT SCH ×2 (08:00→20:00)
[2016-12-24] MEDS: HEPARIN SODIUM - SQ 10,000 UNITS/ML VIAL SQ SCH ×2 (08:41→20:16)
[2016-12-24] MEDS: DEXTROAMPHETAMINE SULFATE 5 MG TAB PO SCH ×2 (08:41→20:16)
[2016-12-24] MEDS: LACTULOSE SYRUP 20 GM/30 ML CUP PO SCH (08:41)
[2016-12-24] MEDS: DOCUSATE SODIUM 50 MG/SENNA 8.6 MG TAB PO SCH ×2 (08:42→20:17)
[2016-12-24] MEDS: GABAPENTIN 300 MG CAP PO SCH ×3 (08:42→17:24)
[2016-12-24] MEDS: VANCOMYCIN INJ 1,250 MG in SODIUM CHLOR 0.9% 250 ML INJ 250 ML IV SCH (08:42)
[2016-12-24] MEDS: ATORVASTATIN 10 MG TAB PO SCH (08:42)
[2016-12-24] MEDS: BISACODYL 10 MG SUPP RECTAL SCH (08:42)
[2016-12-24] MEDS: buPROPion HCL 100 MG TAB NG SCH ×2 (08:42→20:17)
[2016-12-24] MEDS: TAMSULOSIN HCL 0.4 MG CAP PO SCH (08:43)
[2016-12-24] MEDS ORDERED: PHARMACY ORDERED LAB ONE (08:45)
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
[2016-12-24] MEDS: fentaNYL DRIP 250 ML IV PRN ×2 (10:14→22:29)
--- NOTE | 2016-12-24 12:18 | HHI.IDPN ---
Note Infectious Disease Note Patient is sedated. Opens eyes. On the vent. Temp lower. WBC still elevated. 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 PAST MEDICAL HISTORY: 1. Hypertension. 2. Hypothyroidism. 3. Fibromyalgia. 4. Osteoarthritis. 5. Tonsillectomy. ALLERGIES: CLARITHROMYCIN. MEDICATIONS: 1. Meropenem. 2. Vancomycin. SOCIAL HISTORY No tobacco. Rare alcohol. No illicit drugs. OBJECTIVE: Vital Signs Date Time Temp Pulse Resp B/P (MAP) Pulse Ox O2 Delivery O2 Flow Rate FiO2 12/24/16 12:00 104 12/24/16 12:00 100.0 104 30 156/75 (102) 98 12/24/16 12:00 65 12/24/16 10:00 106 12/24/16 08:17 96 40 12/24/16 08:00 65 12/24/16 08:00 111 12/24/16 08:00 99.0 113 30 138/70 (92) 96 12/24/16 06:00 101 12/24/16 04:00 99.4 100 24 128/67 (87) 100 12/24/16 04:00 100 12/24/16 04:00 100 12/24/16 03:55 100 100 12/24/16 02:00 100 12/24/16 01:26 100 100 12/24/16 00:00 94 12/24/16 00:00 100 12/24/16 00:00 99.7 94 12 142/73 (96) 100 12/23/16 22:28 90 100 12/23/16 22:00 86 12/23/16 20:10 100 100 12/23/16 20:00 94 12/23/16 20:00 101.0 94 12 130/65 (86) 100 12/23/16 20:00 100 12/23/16 18:00 93 12/23/16 16:00 99.2 93 12 140/72 (94) 100 12/23/16 16:00 100 12/23/16 16:00 94 12/23/16 14:15 93 100 12/23/16 14:00 95 12/23/16 14:00 100 100 Laboratory Tests Test 12/23/16 04:15 12/24/16 04:08 White Blood Count 30.5 TH/MM3 29.8 TH/MM3 Red Blood Count 3.03 MIL/MM3 3.12 MIL/MM3 Hemoglobin 8.6 GM/DL 8.9 GM/DL Hematocrit 27.5 % 28.3 % Mean Corpuscular Volume 90.6 FL 90.7 FL Mean Corpuscular Hemoglobin 28.5 PG 28.5 PG Mean Corpuscular Hemoglobin Concent 31.5 % 31.4 % Red Cell Distribution Width 18.3 % 18.3 % Platelet Count 758 TH/MM3 665 TH/MM3 Mean Platelet Volume 8.5 FL 8.5 FL Neutrophils (%) (Auto) 77.4 % 79.6 % Lymphocytes (%) (Auto) 7.0 % 6.3 % Monocytes (%) (Auto) 12.9 % 13.1 % Eosinophils (%) (Auto) 1.4 % 0.7 % Basophils (%) (Auto) 1.3 % 0.3 % Neutrophils # (Auto) 23.6 TH/MM3 23.8 TH/MM3 Lymphocytes # (Auto) 2.1 TH/MM3 1.9 TH/MM3 Monocytes # (Auto) 3.9 TH/MM3 3.9 TH/MM3 Eosinophils # (Auto) 0.4 TH/MM3 0.2 TH/MM3 Basophils # (Auto) 0.4 TH/MM3 0.1 TH/MM3 CBC Comment AUTO DIFF AUTO DIFF Differential Total Cells Counted 100 100 Neutrophils % (Manual) 66 % 74 % Band Neutrophils % 10 % 5 % Lymphocytes % 7 % 3 % Monocytes % 9 % 13 % Eosinophils % 3 % 1 % Neutrophils # (Manual) 24.7 TH/MM3 24.7 TH/MM3 Metamyelocytes 3 % 2 % Myelocytes 2 % 2 % Nucleated Red Blood Cells 1 /100 WBC 1 /100 WBC Differential Comment FINAL DIFF MANUAL FINAL DIFF MANUAL Toxic Vacuolation PRESENT Platelet Estimate HIGH HIGH Platelet Morphology Comment NORMAL NORMAL Laboratory Tests Test 12/23/16 04:15 12/24/16 04:08 Blood Urea Nitrogen 27 MG/DL 31 MG/DL Creatinine 1.23 MG/DL 1.29 MG/DL Random Glucose 101 MG/DL 146 MG/DL Calcium Level 9.1 MG/DL 8.7 MG/DL Sodium Level 145 MEQ/L 144 MEQ/L Potassium Level 4.5 MEQ/L 4.7 MEQ/L Chloride Level 109 MEQ/L 108 MEQ/L Carbon Dioxide Level 29.7 MEQ/L 30.7 MEQ/L Anion Gap 6 MEQ/L 5 MEQ/L Estimat Glomerular Filtration Rate 58 ML/MIN 55 ML/MIN Total Protein 6.8 GM/DL Albumin 1.5 GM/DL Magnesium Level 2.7 MG/DL Alkaline Phosphatase 275 U/L Aspartate Amino Transf (AST/SGOT) 52 U/L Alanine Aminotransferase (ALT/SGPT) 38 U/L Total Bilirubin 0.5 MG/DL Microbiology Date/Time Source Procedure Growth Status 12/24/16 04:08 Blood Peripheral Aerobic Blood Culture Pending Received 12/24/16 04:08 Blood Peripheral Anaerobic Blood Culture Pending Received 12/24/16 04:02 Blood Peripheral Aerobic Blood Culture Pending Received 12/24/16 04:02 Blood Peripheral Anaerobic Blood Culture Pending Received 12/24/16 03:50 Urine Catheterized Urine Urine Culture Pending Received 12/23/16 14:30 Other Cytomegalovirus Culture Pending Received Microbiology Date/Time Source Procedure Growth Status 12/20/16 23:00 Sputum Endotracheal Gram Stain - Final Complete 12/20/16 23:00 Sputum Culture - Final Serratia Marcescens Complete Microbiology Date/Time Source Procedure Growth Status 12/20/16 23:00 Sputum Endotracheal Gram Stain - Final Complete 12/20/16 23:00 Sputum Culture - Final Serratia Marcescens Complete IMAGING: Chest X-Ray 12/24/16 0600 Signed Impressions: Service Date/Time: Saturday, December 24, 2016 04:19 - CONCLUSION: Patchy alveolar disease characteristic of edema or pneumonia. Improving left basilar atelectasis There is no evidence of pneumothorax. Jesús Ibrahim MD Chest X-Ray 12/23/16 0600 Signed Impressions: Service Date/Time: Friday, December 23, 2016 05:00 - CONCLUSION: 1. Patchy alveolar disease characteristic of edema or pneumonia. There has been no significant change when compared to the prior exam. 2. Small left apical pneumothorax Jesús Ibrahim MD Chest CT 12/22/16 0800 Signed Impressions: Service Date/Time: Thursday, December 22, 2016 08:17 - CONCLUSION: 1. Bibasilar consolidation likely atelectasis. 2. Small pleural effusions slightly loculated on the left. 3. Left-sided chest tube with tip in the major fissure. No pneumothorax. 4. Multiple left-sided rib fractures and left clavicular head fracture. Kulwant Valladares MD Abdomen/Pelvis CT 12/22/16 0800 Signed Impressions: Service Date/Time: Thursday, December 22, 2016 08:17 - CONCLUSION: 1. Status post splenectomy. There is some fluid in the splenectomy bed. 2. Left posterior subcapsular hematoma slightly smaller now measuring 2.9 cm. 3. Nasogastric tube with tip at the GE junction and should be advanced. Kulwant Valladares MD PHYSICAL EXAMINATION: GENERAL: No acute distress. HEENT:The oropharynx is intubated. No icterus. NECK: Supple, No adenopathy. LUNGS: Coarse bilateral rhonchi. HEART: Regular S1 and S2 without audible murmurs. ABDOMEN: Soft, decreased bowel sounds. EXTREMITIES: No clubbing or cyanosis or edema. SKIN: No rash. Warm and moist. NEUROLOGIC: Unable to assess. PSYCHIATRIC: Unable to asses. IMPRESSION: 1. HCAP - Serratia. 2. Status post splenectomy and evacuation of hemoperitoneum. 3. Acute Respiratory failure. 4. Fever and leukocytosis. Persistent. ? sepsis vs abdomen source. WBC remain elevated. RECOMMENDATIONS: 1. Continue Vancomycin. 2. Continue Meropenem. 3. Monitor Blood culture. 4. Monitor urine culture. 5. Monitor WBC. Mike Mina MD Dec 24, 2016 12:18
[2016-12-24] MEDS ORDERED: MINERAL OIL EMULSION 55% PO SCH (13:00)
[2016-12-24] MEDS: REMOVE OLD PATCH T-DERMAL SCH (13:57)
[2016-12-24] MEDS: MINERAL OIL LIQUID 30 ML CUP PO SCH ×2 (14:53→17:24)
[2016-12-24 16:19] LABS: BLOOD GAS BASE EXCESS 3.8 mmol/L (-2-2); BLOOD GAS CARBOXYHEMOGLOBIN 1.1 % (0-4); BLOOD GAS HCO3 29 mmol/L (22-26); BLOOD GAS METHEMOGLOBIN 0.8 % (0-2); BLOOD GAS O2 HGB SATURATION 88 % (90-100); BLOOD GAS OXYGEN CONTENT 13.2 Vol % (12.0-20.0); BLOOD GAS PCO2 54 mmHg (38-42); BLOOD GAS PO2 62 mmHg (61-120); BLOOD GAS TOTAL HGB 10.6 G/DL (12.0-16.0); CRITICAL VALUE YES; OXYGEN DEVICE VENTILATOR; TEMP CORR TO 98.6
[2016-12-24 16:20] LABS: DRAW SITE RT RADIAL; FIO2 35 %; NUMBER OF ARTERIAL PUNCTURES 1; STAT NO; ULNAR PULSE PRESENT; VENT SETTINGS APRV/BILEVEL
[2016-12-24] MEDS: MAGNESIUM HYDROXIDE SUSP 30 ML CUP PO SCH (20:15)
[2016-12-24] MEDS: LEVOTHYROXINE SODIUM 50 MCG TAB PO SCH (20:16)
[2016-12-25] VITALS (19 sets, daily range): BP systolic 104–132; BP diastolic 52–68; PULSE 88–103; RESP 10–15; TEMP 99.4–101.5; O2SAT 93–97
[2016-12-25] MEDS: METOPROLOL TARTRATE 5 MG/5 ML VIAL IV PUSH SCH ×4 (05:24→22:00)
[2016-12-25] MEDS: FREE WATER G-TUBE SCH ×5 (05:24→23:49)
[2016-12-25] MEDS: LEVOTHYROXINE SODIUM 200 MCG TAB PO SCH (05:24)
[2016-12-25] MEDS: MEROPENEM INJ 1,000 MG in SODIUM CHLORIDE 0.9% INJ 100 ML IV SCH ×3 (05:25→21:25)
[2016-12-25 05:49] LABS: AUTOMATED NEUTROPHIL # 26.5 TH/MM3 (1.8-7.7); BASOPHIL # 0.4 TH/MM3 (0-0.2); BASOPHIL % 1.2 % (0.0-2.0); EOSINOPHIL # 0.1 TH/MM3 (0-0.4); EOSINOPHIL % 0.4 % (0.0-4.0); HEMATOCRIT 28.2 % (39.0-51.0); MEAN CELL VOLUME 92.1 FL (80.0-100.0); MEAN CORPUSCULAR HEMOGLOBIN 28.6 PG (27.0-34.0); MONO % 14.3 % (0.0-8.0); NEUT % 78.1 % (16.0-70.0); PLATELET COUNT 612 TH/MM3 (150-450); RED BLOOD COUNT 3.06 MIL/MM3 (4.50-5.90); RED CELL DISTRIBUTION WIDTH 18.5 % (11.6-17.2)
[2016-12-25 05:50] LABS: HEMO FLAGS AUTO DIFF
[2016-12-25 05:58] LABS: BLOOD GAS BASE EXCESS 3.9 mmol/L (-2-2); BLOOD GAS CARBOXYHEMOGLOBIN 1.5 % (0-4); BLOOD GAS HCO3 29 mmol/L (22-26); BLOOD GAS METHEMOGLOBIN 0.8 % (0-2); BLOOD GAS O2 HGB SATURATION 90 % (90-100); BLOOD GAS OXYGEN CONTENT 10.9 Vol % (12.0-20.0); BLOOD GAS PCO2 51 mmHg (38-42); BLOOD GAS PO2 65 mmHg (61-120); BLOOD GAS TOTAL HGB 8.6 G/DL (12.0-16.0); TEMP CORR TO 98.6
[2016-12-25 06:00] LABS: CRITICAL VALUE YES; OXYGEN DEVICE VENTILATOR
[2016-12-25 06:01] LABS: DRAW SITE RT RADIAL; FIO2 35 %; NUMBER OF ARTERIAL PUNCTURES 1; STAT NO; ULNAR PULSE PRESENT
[2016-12-25 06:14] LABS: ANION GAP 6 MEQ/L (5-15); AST (GOT) 46 U/L (15-37); BICARBONATE 27.7 MEQ/L (21.0-32.0); BLOOD UREA NITROGEN 38 MG/DL (7-18); CHLORIDE 107 MEQ/L (98-107); GLOMERULAR FILTRATION RATE 45 ML/MIN (>89); POTASSIUM 4.8 MEQ/L (3.5-5.1); SODIUM (NA) 141 MEQ/L (136-145)
[2016-12-25 06:15] LABS: ALT (GPT) 44 U/L (12-78)
[2016-12-25 06:17] LABS: ALKALINE PHOSPHATASE 272 U/L (45-117); TOTAL BILIRUBIN ADULT 0.6 MG/DL (0.2-1.0)
--- NOTE | 2016-12-25 06:37 | RADRPT ---
EXAM DATE/TIME: 12/25/2016 05:08 [facility] COMPARISON: CHEST SINGLE AP, December 24, 2016, 4:19. INDICATIONS : Short of breath. MEDICAL HISTORY : Hypertension. Cardiovascular disease. SURGICAL HISTORY : None. ENCOUNTER: Subsequent ACUITY: 3 weeks PAIN SCORE: Non-responsive. LOCATION: Bilateral chest FINDINGS: The cardiac silhouette is enlarged in transverse diameter. There is subsegmental atelectasis in the both bases. There is prominence of the central pulmonary vasculature with indistinct vascular margins compatible with vascular congestion but no evidence of overt failure. A small left sided effusion is present. CONCLUSION: 1. Cardiomegaly and findings of vascular congestion without overt failure. The findings are improved when compared with the prior exam. 2. Subsegmental atelectasis both bases. Jesús Ibrahim MD on December 25, 2016 at 6:35 Board Certified Radiologist. This report was verified electronically.
[2016-12-25 06:52] LABS: BANDS 9 % (0-6); EOSINOPHILS 2 % (0-4); METAMYELOCYTES 1 % (0-1); MYELOCYTES 2 % (0-0); NEUTROPHIL # MANUAL DIFF 29.2 TH/MM3 (1.8-7.7); POLYS (SEG NEUTROPHILS) 74 % (16-70); WBC DIFF SAMPLE 100
[2016-12-25 06:53] LABS: PLATELET ESTIMATE SMEAR HIGH (NORMAL)
[2016-12-25 06:54] LABS: PLATELET MORPHOLOGY NORMAL (NORMAL)
[2016-12-25 06:55] LABS: SCAN/DIFF FINAL DIFF MANUAL
[2016-12-25] MEDS: CHLORHEXIDINE 0.12% (ORAL KIT) 15 ML CUP MT SCH ×2 (08:00→20:00)
[2016-12-25] MEDS: fentaNYL DRIP 250 ML IV PRN ×2 (08:00→18:44)
[2016-12-25] MEDS: PROPOFOL 1000 MG/100 ML INJ 100 ML IV PRN ×3 (08:00→18:42)
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
[2016-12-25] MEDS: DEXTROAMPHETAMINE SULFATE 5 MG TAB PO SCH ×2 (08:22→22:25)
[2016-12-25] MEDS: ATORVASTATIN 10 MG TAB PO SCH (08:22)
[2016-12-25] MEDS: DOCUSATE SODIUM 50 MG/SENNA 8.6 MG TAB PO SCH ×2 (08:22→22:25)
[2016-12-25] MEDS: buPROPion HCL 100 MG TAB NG SCH ×2 (08:23→22:25)
[2016-12-25] MEDS: BISACODYL 10 MG SUPP RECTAL SCH (08:23)
[2016-12-25] MEDS: LACTULOSE SYRUP 20 GM/30 ML CUP PO SCH (08:23)
[2016-12-25] MEDS: TAMSULOSIN HCL 0.4 MG CAP PO SCH (08:23)
[2016-12-25] MEDS: MINERAL OIL LIQUID 30 ML CUP PO SCH ×3 (08:23→16:34)
[2016-12-25] MEDS: GABAPENTIN 300 MG CAP PO SCH ×3 (08:23→16:34)
[2016-12-25] MEDS: HEPARIN SODIUM - SQ 10,000 UNITS/ML VIAL SQ SCH ×2 (08:24→22:25)
[2016-12-25 11:00] LABS: BLOOD GAS CARBOXYHEMOGLOBIN 1.3 % (0-4); BLOOD GAS HCO3 29 mmol/L (22-26); BLOOD GAS METHEMOGLOBIN 1.1 % (0-2); BLOOD GAS O2 HGB SATURATION 90 % (90-100); BLOOD GAS OXYGEN CONTENT 11.4 Vol % (12.0-20.0); BLOOD GAS PCO2 52 mmHg (38-42); BLOOD GAS PO2 66 mmHg (61-120); BLOOD GAS TOTAL HGB 8.9 G/DL (12.0-16.0); CRITICAL VALUE YES; OXYGEN DEVICE VENTILATOR; TEMP CORR TO 98.6
[2016-12-25 11:01] LABS: DRAW SITE RT RADIAL; FIO2 35 %; NUMBER OF ARTERIAL PUNCTURES 1; STAT NO; ULNAR PULSE PRESENT; VENT SETTINGS PRVC14/650/1.5/+25
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
--- NOTE | 2016-12-25 12:36 | HHI.IDPN ---
Note Infectious Disease Note Patient is sedated. reportedly becomes tremulous when sedation is weaned. On the vent. Low grade fever. WBC still elevated. Higher. Discussed with RN. 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 PAST MEDICAL HISTORY: 1. Hypertension. 2. Hypothyroidism. 3. Fibromyalgia. 4. Osteoarthritis. 5. Tonsillectomy. ALLERGIES: CLARITHROMYCIN. MEDICATIONS: 1. Meropenem. 2. Vancomycin. SOCIAL HISTORY No tobacco. Rare alcohol. No illicit drugs. OBJECTIVE: Vital Signs Date Time Temp Pulse Resp B/P (MAP) Pulse Ox O2 Delivery O2 Flow Rate FiO2 12/25/16 12:00 91 12/25/16 12:00 35 12/25/16 12:00 100.9 91 15 114/65 (81) 93 12/25/16 11:33 103 123/63 12/25/16 11:28 35 12/25/16 10:00 103 12/25/16 09:39 97 35 12/25/16 08:47 97 35 12/25/16 08:00 98 12/25/16 08:00 35 12/25/16 08:00 100.8 98 14 120/57 (78) 97 12/25/16 06:00 96 12/25/16 04:00 96 12/25/16 04:00 35 12/25/16 04:00 100.2 99 10 132/68 (89) 96 12/25/16 03:33 96 35 12/25/16 02:00 92 12/25/16 00:00 100.2 99 10 132/63 (86) 96 12/25/16 00:00 35 12/25/16 00:00 96 12/24/16 23:43 97 35 12/24/16 22:00 102 12/24/16 20:04 99 35 12/24/16 20:00 35 12/24/16 20:00 102 12/24/16 20:00 100.4 102 16 135/70 (91) 98 12/24/16 18:00 97 12/24/16 16:09 95 35 12/24/16 16:00 65 12/24/16 16:00 106 12/24/16 16:00 101.4 106 21 137/69 (91) 94 12/24/16 14:00 103 12/24/16 12:50 Ventilator 35 12/24/16 12:40 98 40 Laboratory Tests Test 12/24/16 04:08 12/25/16 04:16 White Blood Count 29.8 TH/MM3 34.0 TH/MM3 Red Blood Count 3.12 MIL/MM3 3.06 MIL/MM3 Hemoglobin 8.9 GM/DL 8.7 GM/DL Hematocrit 28.3 % 28.2 % Mean Corpuscular Volume 90.7 FL 92.1 FL Mean Corpuscular Hemoglobin 28.5 PG 28.6 PG Mean Corpuscular Hemoglobin Concent 31.4 % 31.0 % Red Cell Distribution Width 18.3 % 18.5 % Platelet Count 665 TH/MM3 612 TH/MM3 Mean Platelet Volume 8.5 FL 9.7 FL Neutrophils (%) (Auto) 79.6 % 78.1 % Lymphocytes (%) (Auto) 6.3 % 6.0 % Monocytes (%) (Auto) 13.1 % 14.3 % Eosinophils (%) (Auto) 0.7 % 0.4 % Basophils (%) (Auto) 0.3 % 1.2 % Neutrophils # (Auto) 23.8 TH/MM3 26.5 TH/MM3 Lymphocytes # (Auto) 1.9 TH/MM3 2.0 TH/MM3 Monocytes # (Auto) 3.9 TH/MM3 4.9 TH/MM3 Eosinophils # (Auto) 0.2 TH/MM3 0.1 TH/MM3 Basophils # (Auto) 0.1 TH/MM3 0.4 TH/MM3 CBC Comment AUTO DIFF AUTO DIFF Differential Total Cells Counted 100 100 Neutrophils % (Manual) 74 % 74 % Band Neutrophils % 5 % 9 % Lymphocytes % 3 % 2 % Monocytes % 13 % 10 % Eosinophils % 1 % 2 % Neutrophils # (Manual) 24.7 TH/MM3 29.2 TH/MM3 Metamyelocytes 2 % 1 % Myelocytes 2 % 2 % Nucleated Red Blood Cells 1 /100 WBC Differential Comment FINAL DIFF MANUAL FINAL DIFF MANUAL Platelet Estimate HIGH HIGH Platelet Morphology Comment NORMAL NORMAL Basophilic Stippling FAINT Laboratory Tests Test 12/24/16 04:08 12/25/16 04:16 Blood Urea Nitrogen 31 MG/DL 38 MG/DL Creatinine 1.29 MG/DL 1.55 MG/DL Random Glucose 146 MG/DL 81 MG/DL Total Protein 6.8 GM/DL 6.7 GM/DL Albumin 1.5 GM/DL 1.4 GM/DL Calcium Level 8.7 MG/DL 8.8 MG/DL Magnesium Level 2.7 MG/DL 3.0 MG/DL Alkaline Phosphatase 275 U/L 272 U/L Aspartate Amino Transf (AST/SGOT) 52 U/L 46 U/L Alanine Aminotransferase (ALT/SGPT) 38 U/L 44 U/L Total Bilirubin 0.5 MG/DL 0.6 MG/DL Sodium Level 144 MEQ/L 141 MEQ/L Potassium Level 4.7 MEQ/L 4.8 MEQ/L Chloride Level 108 MEQ/L 107 MEQ/L Carbon Dioxide Level 30.7 MEQ/L 27.7 MEQ/L Anion Gap 5 MEQ/L 6 MEQ/L Estimat Glomerular Filtration Rate 55 ML/MIN 45 ML/MIN Microbiology Date/Time Source Procedure Growth Status 12/24/16 04:08 Blood Peripheral Aerobic Blood Culture - Preliminary NO GROWTH IN 1 DAY Resulted 12/24/16 04:08 Blood Peripheral Anaerobic Blood Culture - Preliminary NO GROWTH IN 1 DAY Resulted 12/24/16 04:02 Blood Peripheral Aerobic Blood Culture - Preliminary NO GROWTH IN 1 DAY Resulted 12/24/16 04:02 Blood Peripheral Anaerobic Blood Culture - Preliminary NO GROWTH IN 1 DAY Resulted 12/24/16 03:50 Urine Catheterized Urine Urine Culture Pending Received 12/23/16 14:30 Other Cytomegalovirus Culture Pending Received Microbiology Date/Time Source Procedure Growth Status 12/20/16 23:00 Sputum Endotracheal Gram Stain - Final Complete 12/20/16 23:00 Sputum Culture - Final Serratia Marcescens Complete IMAGING: Chest X-Ray 12/25/16 0400 Signed Impressions: Service Date/Time: December 05:08 - CONCLUSION: 1. Cardiomegaly and findings of vascular congestion without overt failure. The findings are improved when compared with the prior exam. 2. Subsegmental atelectasis both bases. Jesús Ibrahim MD Chest X-Ray 12/24/16 0600 Signed Impressions: Service Date/Time: Saturday, December 24, 2016 04:19 - CONCLUSION: Patchy alveolar disease characteristic of edema or pneumonia. Improving left basilar atelectasis There is no evidence of pneumothorax. Jesús Ibrahim MD Chest X-Ray 12/23/16 0600 Signed Impressions: Service Date/Time: Friday, December 23, 2016 05:00 - CONCLUSION: 1. Patchy alveolar disease characteristic of edema or pneumonia. There has been no significant change when compared to the prior exam. 2. Small left apical pneumothorax Jesús Ibrahim MD Chest CT 12/22/16799 Signed Impressions: Service Date/Time: Thursday, December 22, 2016 08:17 - CONCLUSION: 1. Bibasilar consolidation likely atelectasis. 2. Small pleural effusions slightly loculated on the left. 3. Left-sided chest tube with tip in the major fissure. No pneumothorax. 4. Multiple left-sided rib fractures and left clavicular head fracture. Kulwant Valladares MD Abdomen/Pelvis CT 12/22/16799 Signed Impressions: Service Date/Time: Thursday, December 22, 2016 08:17 - CONCLUSION: 1. Status post splenectomy. There is some fluid in the splenectomy bed. 2. Left posterior subcapsular hematoma slightly smaller now measuring 2.9 cm. 3. Nasogastric tube with tip at the GE junction and should be advanced. Kulwant Valladares MD PHYSICAL EXAMINATION: GENERAL: No acute distress. On the vent. HEENT: No icterus. NECK: Supple, No adenopathy. LUNGS: Coarse bilateral rhonchi. HEART: Regular S1 and S2 without audible murmurs. ABDOMEN: Soft, distended. (+) bowel sounds. EXTREMITIES: No clubbing or cyanosis or edema. SKIN: No rash. Warm and moist. NEUROLOGIC: Unable to assess. PSYCHIATRIC: Unable to asses. IMPRESSION: 1. HCAP - Serratia. 2. Status post splenectomy and evacuation of hemoperitoneum. 3. Acute Respiratory failure. 4. Fever and leukocytosis. Persistent. ? sepsis vs abdomen source. WBC remain elevated. RECOMMENDATIONS: 1. Continue Vancomycin. 2. Continue Meropenem. 3. Add Diflucan. 4. Monitor Blood culture. 5. Monitor urine culture. 6. Monitor WBC. Consider repeat imaging of the abdomen. Mike Mina MD Dec 25, 2016 12:35
[2016-12-25] MEDS: FLUCONAZOLE 100 MG PREMIX BAG 50 ML IV SCH (13:13)
[2016-12-25] MEDS ORDERED: ACETAMINOPHEN 650 MG/20.3 ML UDC PO PRN (17:00)
[2016-12-25] MEDS ORDERED: SOD PHOSPHATE/SOD BIPHOSPHATE (ADULT) ENEMA 133ML RECTAL ONE (21:00)
[2016-12-25] MEDS: MAGNESIUM HYDROXIDE SUSP 30 ML CUP PO SCH (22:25)
[2016-12-25] MEDS: LEVOTHYROXINE SODIUM 50 MCG TAB PO SCH (22:25)
[2016-12-26] VITALS (13 sets, daily range): BP systolic 116–144; BP diastolic 58–67; PULSE 81–99; RESP 14–18; TEMP 97.6–98.8; O2SAT 92–99
[2016-12-26] MEDS: PROPOFOL 1000 MG/100 ML INJ 100 ML IV PRN ×3 (03:36→17:07)
[2016-12-26] MEDS: MEROPENEM INJ 1,000 MG in SODIUM CHLORIDE 0.9% INJ 100 ML IV SCH ×3 (03:36→20:00)
[2016-12-26] MEDS: METOPROLOL TARTRATE 5 MG/5 ML VIAL IV PUSH SCH ×4 (03:37→21:28)
[2016-12-26 03:56] LABS: BLOOD GAS BASE EXCESS 3.6 mmol/L (-2-2); BLOOD GAS CARBOXYHEMOGLOBIN 1.2 % (0-4); BLOOD GAS HCO3 29 mmol/L (22-26); BLOOD GAS METHEMOGLOBIN 0.7 % (0-2); BLOOD GAS O2 HGB SATURATION 95 % (90-100); BLOOD GAS OXYGEN CONTENT 11.1 Vol % (12.0-20.0); BLOOD GAS PCO2 54 mmHg (38-42); BLOOD GAS PO2 86 mmHg (61-120); BLOOD GAS TOTAL HGB 8.2 G/DL (12.0-16.0); TEMP CORR TO 98.6
[2016-12-26 03:57] LABS: CRITICAL VALUE YES; OXYGEN DEVICE VENTILATOR
[2016-12-26 03:58] LABS: DRAW SITE RT RADIAL; FIO2 50 %; NUMBER OF ARTERIAL PUNCTURES 2; STAT NO; ULNAR PULSE PRESENT
--- NOTE | 2016-12-26 04:44 | RADRPT ---
EXAM DATE/TIME: 12/26/2016 03:52 [facility] COMPARISON: CHEST SINGLE AP, December 25, 2016, 5:08. INDICATIONS : Short of breath. MEDICAL HISTORY : Gastroesophageal reflux disease. Hypertension. Cardiovascular disease. Hypothyroidism. Fibromya lgia. Osteoarthritis .Hypercholesterolemia. SURGICAL HISTORY : None. ENCOUNTER: Subsequent ACUITY: 3 weeks PAIN SCORE: Non-responsive. LOCATION: Bilateral chest FINDINGS: The cardiac silhouette is enlarged in transverse diameter. There is patchy alveolar disease bilateral ly compatible with edema or pneumonia. No pleural effusions are identified. CONCLUSION: 1. Patchy alveolar disease characteristic of edema or pneumonia. The findings have worsened when com pared with the prior examination. Jesús Ibrahim MD on December 26, 2016 at 4:42 Board Certified Radiologist. This report was verified electronically.
[2016-12-26 05:53] LABS: AUTOMATED NEUTROPHIL # 22.6 TH/MM3 (1.8-7.7); BASOPHIL # 0.1 TH/MM3 (0-0.2); BASOPHIL % 0.4 % (0.0-2.0); EOSINOPHIL # 0.4 TH/MM3 (0-0.4); EOSINOPHIL % 1.4 % (0.0-4.0); HEMATOCRIT 25.7 % (39.0-51.0); LYMPH % 5.6 % (9.0-44.0); LYMPHOCYTE # 1.6 TH/MM3 (1.0-4.8); MEAN CELL VOLUME 91.7 FL (80.0-100.0); MEAN CORPUSCULAR HEMOGLOBIN 28.7 PG (27.0-34.0); MEAN CORPUSCULAR HGB CONC 31.3 % (32.0-36.0); MONO % 12.9 % (0.0-8.0); NEUT % 79.7 % (16.0-70.0); PLATELET COUNT 595 TH/MM3 (150-450); RED CELL DISTRIBUTION WIDTH 18.7 % (11.6-17.2); WHITE BLOOD COUNT 28.3 TH/MM3 (4.0-11.0)
[2016-12-26] MEDS: FREE WATER G-TUBE SCH ×3 (06:00→17:08)
[2016-12-26 06:01] LABS: HEMO FLAGS AUTO DIFF
[2016-12-26] MEDS: LEVOTHYROXINE SODIUM 200 MCG TAB PO SCH (06:15)
[2016-12-26] MEDS: fentaNYL DRIP 250 ML IV PRN ×2 (06:15→17:07)
[2016-12-26 07:05] LABS: BANDS 8 % (0-6); BASOPHILS 1 % (0-2); CORRECTED NUCLEATED RBC 1 /100 WBC (0-0); EOSINOPHILS 3 % (0-4); MYELOCYTES 3 % (0-0); NEUTROPHIL # MANUAL DIFF 23.2 TH/MM3 (1.8-7.7); PLATELET ESTIMATE SMEAR HIGH (NORMAL); POLYS (SEG NEUTROPHILS) 71 % (16-70); SCAN/DIFF FINAL DIFF MANUAL; WBC DIFF SAMPLE 100
[2016-12-26 07:06] LABS: PLATELET MORPHOLOGY ENLARGED (NORMAL)
[2016-12-26 07:10] LABS: ALKALINE PHOSPHATASE 213 U/L (45-117); ALT (GPT) 48 U/L (12-78); ANION GAP 7 MEQ/L (5-15); AST (GOT) 69 U/L (15-37); BICARBONATE 28.9 MEQ/L (21.0-32.0); BLOOD UREA NITROGEN 57 MG/DL (7-18); CHLORIDE 105 MEQ/L (98-107); GLOMERULAR FILTRATION RATE 28 ML/MIN (>89); MAGNESIUM 3.3 MG/DL (1.5-2.5); POTASSIUM 4.5 MEQ/L (3.5-5.1); SODIUM (NA) 141 MEQ/L (136-145); TOTAL BILIRUBIN ADULT 0.4 MG/DL (0.2-1.0)
[2016-12-26] MEDS: CHLORHEXIDINE 0.12% (ORAL KIT) 15 ML CUP MT SCH ×2 (08:00→20:00)
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
[2016-12-26] MEDS: LACTULOSE SYRUP 20 GM/30 ML CUP PO SCH (08:47)
[2016-12-26] MEDS: BISACODYL 10 MG SUPP RECTAL SCH (08:48)
[2016-12-26] MEDS: MINERAL OIL LIQUID 30 ML CUP PO SCH ×3 (08:48→17:06)
[2016-12-26] MEDS: DOCUSATE SODIUM 50 MG/SENNA 8.6 MG TAB PO SCH ×2 (08:48→21:28)
[2016-12-26] MEDS ORDERED: SODIUM CHLOR 0.9% 1000 ML INJ 1,000 ML IV ONE ×2 (09:15)
[2016-12-26] MEDS: GABAPENTIN 300 MG CAP PO SCH ×3 (10:01→17:06)
[2016-12-26] MEDS: TAMSULOSIN HCL 0.4 MG CAP PO SCH (10:01)
[2016-12-26] MEDS: ATORVASTATIN 10 MG TAB PO SCH (10:02)
[2016-12-26] MEDS: DEXTROAMPHETAMINE SULFATE 5 MG TAB PO SCH ×2 (10:02→21:29)
[2016-12-26] MEDS: buPROPion HCL 100 MG TAB NG SCH ×2 (10:02→21:28)
[2016-12-26] MEDS: HEPARIN SODIUM - SQ 10,000 UNITS/ML VIAL SQ SCH ×2 (10:03→21:29)
--- NOTE | 2016-12-26 11:03 | HHI.IDPN ---
Note Infectious Disease Note Patient is sedated but opens eyes. Family at bedside notes he is following commands. On the vent. Temp lower. WBC still elevated. Worsening renal indices. Discussed with RN. 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 PAST MEDICAL HISTORY: 1. Hypertension. 2. Hypothyroidism. 3. Fibromyalgia. 4. Osteoarthritis. 5. Tonsillectomy. ALLERGIES: CLARITHROMYCIN. MEDICATIONS: 1. Meropenem. 2. Vancomycin. 3. Diflucan. SOCIAL HISTORY No tobacco. Rare alcohol. No illicit drugs. OBJECTIVE: Vital Signs Date Time Temp Pulse Resp B/P (MAP) Pulse Ox O2 Delivery O2 Flow Rate FiO2 12/26/16 08:24 92 35 12/26/16 08:00 98.1 99 18 122/64 (83) 95 12/26/16 08:00 35 12/26/16 06:00 88 12/26/16 04:46 99 50 12/26/16 04:00 86 12/26/16 04:00 98.8 89 14 126/63 (84) 97 12/26/16 04:00 35 12/26/16 02:00 88 12/26/16 00:00 98.8 86 14 116/58 (77) 97 12/26/16 00:00 86 12/26/16 00:00 35 12/25/16 23:55 97 35 12/25/16 22:00 88 12/25/16 20:48 96 35 12/25/16 20:00 35 12/25/16 20:00 99.4 90 14 104/52 (69) 97 12/25/16 20:00 90 12/25/16 18:00 93 12/25/16 17:49 20 12/25/16 16:58 94 40 12/25/16 16:00 35 12/25/16 16:00 101.5 99 14 122/62 (82) 94 12/25/16 16:00 99 12/25/16 14:00 100 12/25/16 13:17 93 35 12/25/16 12:00 91 12/25/16 12:00 35 12/25/16 12:00 100.9 91 15 114/65 (81) 93 12/25/16 11:33 103 123/63 12/25/16 11:28 35 Laboratory Tests Test 11/9/17 04:16 12/26/16 05:24 White Blood Count 34.0 TH/MM3 28.3 TH/MM3 Red Blood Count 3.06 MIL/MM3 2.80 MIL/MM3 Hemoglobin 8.7 GM/DL 8.0 GM/DL Hematocrit 28.2 % 25.7 % Mean Corpuscular Volume 92.1 FL 91.7 FL Mean Corpuscular Hemoglobin 28.6 PG 28.7 PG Mean Corpuscular Hemoglobin Concent 31.0 % 31.3 % Red Cell Distribution Width 18.5 % 18.7 % Platelet Count 612 TH/MM3 595 TH/MM3 Mean Platelet Volume 9.7 FL 9.2 FL Neutrophils (%) (Auto) 78.1 % 79.7 % Lymphocytes (%) (Auto) 6.0 % 5.6 % Monocytes (%) (Auto) 14.3 % 12.9 % Eosinophils (%) (Auto) 0.4 % 1.4 % Basophils (%) (Auto) 1.2 % 0.4 % Neutrophils # (Auto) 26.5 TH/MM3 22.6 TH/MM3 Lymphocytes # (Auto) 2.0 TH/MM3 1.6 TH/MM3 Monocytes # (Auto) 4.9 TH/MM3 3.6 TH/MM3 Eosinophils # (Auto) 0.1 TH/MM3 0.4 TH/MM3 Basophils # (Auto) 0.4 TH/MM3 0.1 TH/MM3 CBC Comment AUTO DIFF AUTO DIFF Differential Total Cells Counted 100 100 Neutrophils % (Manual) 74 % 71 % Band Neutrophils % 9 % 8 % Lymphocytes % 2 % 3 % Monocytes % 10 % 11 % Eosinophils % 2 % 3 % Neutrophils # (Manual) 29.2 TH/MM3 23.2 TH/MM3 Metamyelocytes 1 % Myelocytes 2 % 3 % Differential Comment FINAL DIFF MANUAL FINAL DIFF MANUAL Platelet Estimate HIGH HIGH Platelet Morphology Comment NORMAL ENLARGED Basophilic Stippling FAINT Basophils % 1 % Nucleated Red Blood Cells 1 /100 WBC Laboratory Tests Test 12/25/16 04:16 12/26/16 05:24 Blood Urea Nitrogen 38 MG/DL 57 MG/DL Creatinine 1.55 MG/DL 2.29 MG/DL Random Glucose 81 MG/DL 124 MG/DL Total Protein 6.7 GM/DL 6.2 GM/DL Albumin 1.4 GM/DL 1.2 GM/DL Calcium Level 8.8 MG/DL 8.3 MG/DL Magnesium Level 3.0 MG/DL 3.3 MG/DL Alkaline Phosphatase 272 U/L 213 U/L Aspartate Amino Transf (AST/SGOT) 46 U/L 69 U/L Alanine Aminotransferase (ALT/SGPT) 44 U/L 48 U/L Total Bilirubin 0.6 MG/DL 0.4 MG/DL Sodium Level 141 MEQ/L 141 MEQ/L Potassium Level 4.8 MEQ/L 4.5 MEQ/L Chloride Level 107 MEQ/L 105 MEQ/L Carbon Dioxide Level 27.7 MEQ/L 28.9 MEQ/L Anion Gap 6 MEQ/L 7 MEQ/L Estimat Glomerular Filtration Rate 45 ML/MIN 28 ML/MIN Microbiology Date/Time Source Procedure Growth Status 12/24/16 04:08 Blood Peripheral Aerobic Blood Culture - Preliminary NO GROWTH IN 1 DAY Resulted 12/24/16 04:08 Blood Peripheral Anaerobic Blood Culture - Preliminary NO GROWTH IN 1 DAY Resulted 12/24/16 04:02 Blood Peripheral Aerobic Blood Culture - Preliminary NO GROWTH IN 1 DAY Resulted 12/24/16 04:02 Blood Peripheral Anaerobic Blood Culture - Preliminary NO GROWTH IN 1 DAY Resulted 12/24/16 03:50 Urine Catheterized Urine Urine Culture - Final NO GROWTH IN 48 HOURS. Complete 12/23/16 14:30 Other Cytomegalovirus Culture Pending Received Microbiology Date/Time Source Procedure Growth Status 12/20/16 23:00 Sputum Endotracheal Gram Stain - Final Complete 12/20/16 23:00 Sputum Culture - Final Serratia Marcescens Complete IMAGING: Chest X-Ray 12/26/16 0600 Signed Impressions: Service Date/Time: Monday, December 26, 2016 03:52 - CONCLUSION: 1. Patchy alveolar disease characteristic of edema or pneumonia. The findings have worsened when compared with the prior examination. Jesús Ibrahim MD Chest X-Ray 12/25/16 0400 Signed Impressions: Service Date/Time: December 05:08 - CONCLUSION: 1. Cardiomegaly and findings of vascular congestion without overt failure. The findings are improved when compared with the prior exam. 2. Subsegmental atelectasis both bases. Jesús Ibrahim MD Chest X-Ray 12/24/16 0600 Signed Impressions: Service Date/Time: Saturday, December 24, 2016 04:19 - CONCLUSION: Patchy alveolar disease characteristic of edema or pneumonia. Improving left basilar atelectasis There is no evidence of pneumothorax. Jesús Ibrahim MD Chest X-Ray 12/23/16 06 Signed Impressions: Service Date/Time: Friday, December 23, 2016 05:00 - CONCLUSION: 1. Patchy alveolar disease characteristic of edema or pneumonia. There has been no significant change when compared to the prior exam. 2. Small left apical pneumothorax Jesús Ibrahim MD Chest CT 12/22/16 08 Signed Impressions: Service Date/Time: Thursday, December 22, 2016 08:17 - CONCLUSION: 1. Bibasilar consolidation likely atelectasis. 2. Small pleural effusions slightly loculated on the left. 3. Left-sided chest tube with tip in the major fissure. No pneumothorax. 4. Multiple left-sided rib fractures and left clavicular head fracture. Kulwant Valladares MD Abdomen/Pelvis CT 12/22/16 08 Signed Impressions: Service Date/Time: Thursday, December 22, 2016 08:17 - CONCLUSION: 1. Status post splenectomy. There is some fluid in the splenectomy bed. 2. Left posterior subcapsular hematoma slightly smaller now measuring 2.9 cm. 3. Nasogastric tube with tip at the GE junction and should be advanced. Kulwant Valladares MD PHYSICAL EXAMINATION: GENERAL: No acute distress. HEENT: No icterus. NECK: Supple, No adenopathy. LUNGS: Coarse rhonchi. HEART: Regular S1 and S2 without audible murmurs. ABDOMEN: Soft, distended. (+) bowel sounds. EXTREMITIES: No clubbing or cyanosis or edema. SKIN: No rash. Warm, moist. NEUROLOGIC: Unable to fully assess. PSYCHIATRIC: Unable to asses. IMPRESSION: 1. HCAP - Serratia. 2. Status post splenectomy and evacuation of hemoperitoneum. 3. Acute Respiratory failure. 4. Fever and leukocytosis. Persistent. ? sepsis vs abdomen source. WBC remain elevated. Temp lower. RECOMMENDATIONS: 1. Stop Vancomycin. 2. Continue Meropenem. 3. Continue Diflucan. 4. Monitor Blood culture. 5. Monitor WBC. D/W daughter at bedside. Mike Mina MD Dec 26, 2016 11:03
[2016-12-26] MEDS: FLUCONAZOLE 100 MG PREMIX BAG 50 ML IV SCH (13:27)
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
[2016-12-26] MEDS ORDERED: BUMETANIDE INJ 1 MG/4 ML VIAL IV PUSH ONE (16:30)
--- NOTE | 2016-12-26 19:12 | PD.WCN.NOT ---
Wound Consult Description: Patient seen on 3 [facility] for evaluation of pressure ulcer stage 1 from Toby REICH Communicated with: ASHLEY Oates and DAMIR Luis Recommendation: 1.Please cleanse open wounds with normal salineand pat dry. Apply skin prep to periwound and unopened moisture related breakdown and cover with Optifoam sacral dressing to protect against pressure related breakdown. If skin becomes macerated or denuded from multiple stools and multiple dressing changes, please removed adhesive foam dressing and apply thick layer of Calazime barrier cream and leave open to air. 2.Please turn patient every 2 hours and PRN for comfort and to offload pressure from sacrococcygeal area. Additional Information: Patient seen on 3 [facility] for evaluation of pressure ulcer stage 1. Patient turned to L side with the assistance of Lashon [facility] and Kobi [facility] , removed soiled optifoam dressing in place to reveal partial thickness skin loss that moisture related and moisture related breakdown to bilateral gluteal folds. Blanchable erythema is noted to coccyx and sacrum. Cleansed open wounds to bilateral gluteal folds with normal saline and pat dry. Applied skin prep to unopened moisture related skin breakdown and blanchable sacral erythema. Covered entire buttocks and sacrum with new Optifoam gentle dressing.Patient was then positioned off sacrum and coccyx to offload pressure with pillow for support. Optifoam gentle was placed to prevent pressure and shearing related injuries.Patient is laying on [facility] specialty bed. Sonal Staley [facility] Dec 26, 2016 19:12
[2016-12-26] MEDS: MAGNESIUM HYDROXIDE SUSP 30 ML CUP PO SCH (21:00)
[2016-12-26] MEDS: LEVOTHYROXINE SODIUM 50 MCG TAB PO SCH (21:29)
[2016-12-27] VITALS (21 sets, daily range): BP systolic 97–168; BP diastolic 53–71; PULSE 76–102; RESP 16–20; TEMP 97.9–99.7; O2SAT 92–98
[2016-12-27] MEDS: FREE WATER G-TUBE SCH ×4 (00:23→16:52)
[2016-12-27] MEDS: MEROPENEM INJ 1,000 MG in SODIUM CHLORIDE 0.9% INJ 100 ML IV SCH ×3 (04:00→20:32)
[2016-12-27] MEDS: METOPROLOL TARTRATE 5 MG/5 ML VIAL IV PUSH SCH ×4 (04:00→22:00)
[2016-12-27] MEDS: PROPOFOL 1000 MG/100 ML INJ 100 ML IV PRN ×3 (05:21→22:49)
[2016-12-27] MEDS: LEVOTHYROXINE SODIUM 200 MCG TAB PO SCH (05:22)
[2016-12-27] MEDS: fentaNYL DRIP 250 ML IV PRN ×2 (05:22→18:30)
[2016-12-27 05:50] LABS: BICARBONATE 27.3 MEQ/L (21.0-32.0); POTASSIUM 4.6 MEQ/L (3.5-5.1)
[2016-12-27 06:13] LABS: AUTOMATED NEUTROPHIL # 17.4 TH/MM3 (1.8-7.7); BASOPHIL # 0.2 TH/MM3 (0-0.2); EOSINOPHIL # 0.4 TH/MM3 (0-0.4); EOSINOPHIL % 1.7 % (0.0-4.0); HEMATOCRIT 24.8 % (39.0-51.0); LYMPHOCYTE # 1.8 TH/MM3 (1.0-4.8); MEAN CELL VOLUME 91.7 FL (80.0-100.0); MEAN CORPUSCULAR HEMOGLOBIN 28.8 PG (27.0-34.0); MEAN CORPUSCULAR HGB CONC 31.4 % (32.0-36.0); MONO % 11.4 % (0.0-8.0); NEUT % 77.9 % (16.0-70.0); PLATELET COUNT 569 TH/MM3 (150-450); RED CELL DISTRIBUTION WIDTH 18.5 % (11.6-17.2); WHITE BLOOD COUNT 22.3 TH/MM3 (4.0-11.0)
[2016-12-27 06:26] LABS: BLOOD GAS BASE EXCESS 4.4 mmol/L (-2-2); BLOOD GAS CARBOXYHEMOGLOBIN 1.2 % (0-4); BLOOD GAS HCO3 29 mmol/L (22-26); BLOOD GAS METHEMOGLOBIN 0.9 % (0-2); BLOOD GAS O2 HGB SATURATION 91 % (90-100); BLOOD GAS OXYGEN CONTENT 11.7 Vol % (12.0-20.0); BLOOD GAS PCO2 47 mmHg (38-42); BLOOD GAS PO2 65 mmHg (61-120); BLOOD GAS TOTAL HGB 9.1 G/DL (12.0-16.0); CRITICAL VALUE NO; OXYGEN DEVICE VENT; TEMP CORR TO 98.6
[2016-12-27 06:27] LABS: DRAW SITE RT RADIAL; FIO2 35 %; NUMBER OF ARTERIAL PUNCTURES 1; STAT NO; ULNAR PULSE PRESENT; VENT SETTINGS SEE COMMENTS
[2016-12-27 06:46] LABS: HEMO FLAGS AUTO DIFF
[2016-12-27] MEDS: DEXTROAMPHETAMINE SULFATE 5 MG TAB PO SCH ×2 (08:43→22:49)
[2016-12-27] MEDS: HEPARIN SODIUM - SQ 10,000 UNITS/ML VIAL SQ SCH ×2 (08:43→22:51)
[2016-12-27] MEDS: ATORVASTATIN 10 MG TAB PO SCH (08:44)
[2016-12-27] MEDS: GABAPENTIN 300 MG CAP PO SCH ×3 (08:46→16:52)
[2016-12-27] MEDS: buPROPion HCL 100 MG TAB NG SCH ×2 (08:47→22:50)
[2016-12-27] MEDS: CHLORHEXIDINE 0.12% (ORAL KIT) 15 ML CUP MT SCH ×2 (08:47→20:00)
[2016-12-27] MEDS: LACTULOSE SYRUP 20 GM/30 ML CUP PO SCH (08:48)
[2016-12-27] MEDS: TAMSULOSIN HCL 0.4 MG CAP PO SCH (08:48)
[2016-12-27] MEDS: MINERAL OIL LIQUID 30 ML CUP PO SCH ×3 (08:49→16:52)
[2016-12-27] MEDS: DOCUSATE SODIUM 50 MG/SENNA 8.6 MG TAB PO SCH ×2 (08:49→22:51)
[2016-12-27] MEDS: BISACODYL 10 MG SUPP RECTAL SCH (08:50)
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
[2016-12-27 09:44] LABS: BANDS 14 % (0-6); EOSINOPHILS 1 % (0-4); MYELOCYTES 5 % (0-0); NEUTROPHIL # MANUAL DIFF 17.2 TH/MM3 (1.8-7.7); PLATELET ESTIMATE SMEAR HIGH (NORMAL); PLATELET MORPHOLOGY NORMAL (NORMAL); POLYS (SEG NEUTROPHILS) 58 % (16-70); SCAN/DIFF FINAL DIFF MANUAL; WBC DIFF SAMPLE 100
[2016-12-27 09:45] LABS: ACANTHOCYTES OCC (NORMAL)
[2016-12-27] MEDS: oxyCODONE HCL ORAL CONC 5 MG/0.25 ML SYRINGE PO SCH ×3 (10:11→22:50)
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
[2016-12-27] MEDS: FLUCONAZOLE 100 MG PREMIX BAG 50 ML IV SCH (14:43)
[2016-12-27] MEDS: REMOVE OLD PATCH T-DERMAL SCH (14:43)
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
[2016-12-27] MEDS ORDERED: BUMETANIDE INJ 1 MG/4 ML VIAL IV PUSH ONE (16:15)
[2016-12-27] MEDS: MAGNESIUM HYDROXIDE SUSP 30 ML CUP PO SCH (22:49)
[2016-12-27] MEDS: LEVOTHYROXINE SODIUM 50 MCG TAB PO SCH (22:51)
[2016-12-28] VITALS (18 sets, daily range): BP systolic 101–128; BP diastolic 56–58; PULSE 81–102; RESP 14–20; TEMP 98.6–99.7; O2SAT 93–98
[2016-12-28] MEDS: METOPROLOL TARTRATE 5 MG/5 ML VIAL IV PUSH SCH ×4 (04:00→22:00)
[2016-12-28] MEDS: oxyCODONE HCL ORAL CONC 5 MG/0.25 ML SYRINGE PO SCH ×4 (04:15→21:57)
[2016-12-28] MEDS: MEROPENEM INJ 1,000 MG in SODIUM CHLORIDE 0.9% INJ 100 ML IV SCH ×3 (04:15→22:01)
--- NOTE | 2016-12-28 04:32 | RADRPT ---
EXAM DATE/TIME: 12/28/2016 03:31 [facility] COMPARISON: CHEST SINGLE AP, December 26, 2016, 3:52. INDICATIONS : Shortness of breath. MEDICAL HISTORY : Gastroesophageal reflux disease. Hypertension Cardiovascular disease. Hypothyroidism. Fibromyalgi a. Osteoarthritis .Hypercholesterolemia SURGICAL HISTORY : None. ENCOUNTER: Subsequent ACUITY: 3 weeks PAIN SCORE: Non-responsive. LOCATION: Bilateral chest FINDINGS: The cardiac silhouette is enlarged in transverse diameter. There are findings of congestive heart hailey lure with interstitial and alveolar opacity bilaterally. The findings have worsened when compared wit h the prior examination. Small bilateral pleural effusions are identified. CONCLUSION: 1. Cardiomegaly and findings of congestive heart failure. The findings have worsened when compared wi th the prior examination. Jesús Ibrahim MD on December 28, 2016 at 4:30 Board Certified Radiologist. This report was verified electronically.
[2016-12-28 04:59] LABS: BASOPHIL # 0.1 TH/MM3 (0-0.2); BASOPHIL % 0.3 % (0.0-2.0); EOSINOPHIL # 0.4 TH/MM3 (0-0.4); EOSINOPHIL % 1.7 % (0.0-4.0); HEMATOCRIT 26.4 % (39.0-51.0); LYMPH % 11.1 % (9.0-44.0); LYMPHOCYTE # 2.3 TH/MM3 (1.0-4.8); MEAN CELL VOLUME 91.5 FL (80.0-100.0); MEAN CORPUSCULAR HEMOGLOBIN 29.6 PG (27.0-34.0); MEAN CORPUSCULAR HGB CONC 32.3 % (32.0-36.0); MONO % 10.1 % (0.0-8.0); NEUT % 76.8 % (16.0-70.0); PLATELET COUNT 617 TH/MM3 (150-450); RED BLOOD COUNT 2.88 MIL/MM3 (4.50-5.90); RED CELL DISTRIBUTION WIDTH 18.5 % (11.6-17.2); WHITE BLOOD COUNT 20.8 TH/MM3 (4.0-11.0)
[2016-12-28 05:17] LABS: HEMO FLAGS AUTO DIFF
[2016-12-28 05:25] LABS: BICARBONATE 28.4 MEQ/L (21.0-32.0); POTASSIUM 4.4 MEQ/L (3.5-5.1)
[2016-12-28] MEDS: FREE WATER G-TUBE SCH ×4 (06:00→17:36)
[2016-12-28] MEDS: LEVOTHYROXINE SODIUM 200 MCG TAB PO SCH (06:19)
[2016-12-28 06:34] LABS: BANDS 2 % (0-6); CORRECTED NUCLEATED RBC 1 /100 WBC (0-0); METAMYELOCYTES 2 % (0-1); MYELOCYTES 1 % (0-0); NEUTROPHIL # MANUAL DIFF 17.1 TH/MM3 (1.8-7.7); POLYS (SEG NEUTROPHILS) 77 % (16-70); WBC DIFF SAMPLE 100
[2016-12-28 06:35] LABS: PLATELET ESTIMATE SMEAR HIGH (NORMAL); PLATELET MORPHOLOGY NORMAL (NORMAL); SCAN/DIFF FINAL DIFF MANUAL
[2016-12-28] MEDS: RESP: ALBUTEROL 2.5 MG/IPRATROPIUM 0.5 MG NEB (PRN) NEB (08:07)
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
[2016-12-28] MEDS: BISACODYL 10 MG SUPP RECTAL SCH (09:00)
[2016-12-28] MEDS: ATORVASTATIN 10 MG TAB PO SCH (09:10)
[2016-12-28] MEDS: buPROPion HCL 100 MG TAB NG SCH ×2 (09:10→21:57)
[2016-12-28] MEDS: CHLORHEXIDINE 0.12% (ORAL KIT) 15 ML CUP MT SCH ×2 (09:10→20:00)
[2016-12-28] MEDS: MINERAL OIL LIQUID 30 ML CUP PO SCH ×3 (09:11→17:38)
[2016-12-28] MEDS: DOCUSATE SODIUM 50 MG/SENNA 8.6 MG TAB PO SCH ×2 (09:11→21:58)
[2016-12-28] MEDS: GABAPENTIN 300 MG CAP PO SCH ×3 (09:11→17:37)
[2016-12-28] MEDS: DEXTROAMPHETAMINE SULFATE 5 MG TAB PO SCH ×2 (09:11→21:58)
[2016-12-28] MEDS: LACTULOSE SYRUP 20 GM/30 ML CUP PO SCH (09:11)
[2016-12-28] MEDS: HEPARIN SODIUM - SQ 10,000 UNITS/ML VIAL SQ SCH ×2 (09:13→21:56)
[2016-12-28] MEDS: TAMSULOSIN HCL 0.4 MG CAP PO SCH (09:14)
[2016-12-28] MEDS ORDERED: BUMETANIDE INJ 1 MG/4 ML VIAL IV PUSH ONE (09:30)
[2016-12-28] MEDS ORDERED: fentaNYL DRIP 250 ML IV PRN (09:45)
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
[2016-12-28 10:20] LABS: BLOOD GAS BASE EXCESS 5.2 mmol/L (-2-2); BLOOD GAS HCO3 29 mmol/L (22-26); BLOOD GAS METHEMOGLOBIN 0.8 % (0-2); BLOOD GAS O2 HGB SATURATION 91 % (90-100); BLOOD GAS PCO2 44 mmHg (38-42); BLOOD GAS PO2 64 mmHg (61-120); BLOOD GAS TOTAL HGB 11.7 G/DL (12.0-16.0); CRITICAL VALUE NO; DRAW SITE RT RADIAL; FIO2 40 %; NUMBER OF ARTERIAL PUNCTURES 1; OXYGEN DEVICE VENTILATOR; STAT NO; TEMP CORR TO 98.6; ULNAR PULSE PRESENT
[2016-12-28] MEDS: MIDAZOLAM 100 MG/100 ML INJ 100 ML IV PRN (10:56)
[2016-12-28] MEDS: FLUCONAZOLE 100 MG PREMIX BAG 50 ML IV SCH (14:52)
[2016-12-28] MEDS: MAGNESIUM HYDROXIDE SUSP 30 ML CUP PO SCH (21:58)
[2016-12-28] MEDS: LEVOTHYROXINE SODIUM 50 MCG TAB PO SCH (21:58)
[2016-12-29] VITALS (17 sets, daily range): BP systolic 138–166; BP diastolic 63–85; PULSE 85–106; RESP 14–23; TEMP 98.4–100.4; O2SAT 94–99
[2016-12-29] MEDS: FREE WATER G-TUBE SCH ×5 (00:30→23:34)
[2016-12-29] MEDS: LEVOTHYROXINE SODIUM 200 MCG TAB PO SCH (05:13)
[2016-12-29] MEDS: MEROPENEM INJ 1,000 MG in SODIUM CHLORIDE 0.9% INJ 100 ML IV SCH ×3 (05:13→20:32)
[2016-12-29] MEDS: METOPROLOL TARTRATE 5 MG/5 ML VIAL IV PUSH SCH ×4 (05:13→21:25)
[2016-12-29] MEDS: oxyCODONE HCL ORAL CONC 5 MG/0.25 ML SYRINGE PO SCH ×4 (05:14→21:24)
[2016-12-29 05:16] LABS: AUTOMATED NEUTROPHIL # 15.9 TH/MM3 (1.8-7.7); BASOPHIL # 0.2 TH/MM3 (0-0.2); BASOPHIL % 0.8 % (0.0-2.0); EOSINOPHIL # 0.4 TH/MM3 (0-0.4); EOSINOPHIL % 1.8 % (0.0-4.0); HEMATOCRIT 27.2 % (39.0-51.0); LYMPH % 12.3 % (9.0-44.0); LYMPHOCYTE # 2.6 TH/MM3 (1.0-4.8); MEAN CELL VOLUME 90.3 FL (80.0-100.0); MEAN CORPUSCULAR HEMOGLOBIN 28.6 PG (27.0-34.0); MEAN CORPUSCULAR HGB CONC 31.7 % (32.0-36.0); MONO % 10.5 % (0.0-8.0); NEUT % 74.6 % (16.0-70.0); PLATELET COUNT 770 TH/MM3 (150-450); RED BLOOD COUNT 3.01 MIL/MM3 (4.50-5.90); WHITE BLOOD COUNT 21.3 TH/MM3 (4.0-11.0)
[2016-12-29 05:22] LABS: HEMO FLAGS AUTO DIFF
[2016-12-29 05:33] LABS: BICARBONATE 29.1 MEQ/L (21.0-32.0); POTASSIUM 4.4 MEQ/L (3.5-5.1)
[2016-12-29] MEDS: CHLORHEXIDINE 0.12% (ORAL KIT) 15 ML CUP MT SCH ×2 (08:00→20:28)
[2016-12-29] MEDS: DOCUSATE SODIUM 50 MG/SENNA 8.6 MG TAB PO SCH ×2 (08:40→20:33)
[2016-12-29] MEDS: LACTULOSE SYRUP 20 GM/30 ML CUP PO SCH (08:40)
[2016-12-29] MEDS: MINERAL OIL LIQUID 30 ML CUP PO SCH (08:40)
[2016-12-29] MEDS: BISACODYL 10 MG SUPP RECTAL SCH (08:40)
[2016-12-29 08:53] LABS: BANDS 14 % (0-6); BASOPHILS 1 % (0-2); EOSINOPHILS 4 % (0-4); METAMYELOCYTES 3 % (0-1); POLYS (SEG NEUTROPHILS) 58 % (16-70); WBC DIFF SAMPLE 100
[2016-12-29 08:54] LABS: PLATELET ESTIMATE SMEAR HIGH (NORMAL); PLATELET MORPHOLOGY ENLARGED (NORMAL); SCAN/DIFF FINAL DIFF MANUAL
[2016-12-29] MEDS: DEXTROAMPHETAMINE SULFATE 5 MG TAB PO SCH (08:56)
[2016-12-29] MEDS: GABAPENTIN 300 MG CAP PO SCH ×3 (08:56→17:04)
[2016-12-29] MEDS: TAMSULOSIN HCL 0.4 MG CAP PO SCH (08:56)
[2016-12-29] MEDS: HEPARIN SODIUM - SQ 10,000 UNITS/ML VIAL SQ SCH ×2 (08:56→20:33)
[2016-12-29] MEDS: buPROPion HCL 100 MG TAB NG SCH ×2 (08:56→20:32)
[2016-12-29] MEDS: ATORVASTATIN 10 MG TAB PO SCH (08:57)
[2016-12-29] MEDS ORDERED: MINERAL OIL LIQUID 30 ML CUP PO PRN (10:00)
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
[2016-12-29] MEDS: PROPRANOLOL HCL 10 MG TAB PO SCH ×2 (10:39→17:04)
[2016-12-29] MEDS: FAMOTIDINE 20 MG TAB PO SCH ×2 (10:39→20:32)
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
[2016-12-29] MEDS ORDERED: Free Water G-TUBE (11:51)
[2016-12-29] MEDS ORDERED: NEUR300C PO (11:51)
[2016-12-29] MEDS ORDERED: FAMO20TA2 PO (11:51)
[2016-12-29] MEDS ORDERED: Lactulose Liq PO (11:51)
[2016-12-29] MEDS ORDERED: Albuterol-Ipratropium Neb NEB (11:51)
[2016-12-29] MEDS ORDERED: oxyCODONE LIQ PO (11:51)
[2016-12-29] MEDS ORDERED: Chlorhexidine 0.12% Liq MT (11:51)
[2016-12-29] MEDS ORDERED: AMLO10 PO (11:51)
[2016-12-29] MEDS ORDERED: PROP10TA6 PO (11:51)
[2016-12-29] MEDS ORDERED: MERO1INJ8 IV (11:51)
[2016-12-29] MEDS ORDERED: TAMS5CAP PO (11:51)
--- NOTE | 2016-12-29 12:30 | HHI.IDPN ---
Note Infectious Disease Note Patient is sedated but opens eyes and responds. On the vent. No distress. Temp low grade. WBC still elevated. Discussed with RN. 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 PAST MEDICAL HISTORY: 1. Hypertension. 2. Hypothyroidism. 3. Fibromyalgia. 4. Osteoarthritis. 5. Tonsillectomy. ALLERGIES: CLARITHROMYCIN. MEDICATIONS: 1. Meropenem. 2. Diflucan. SOCIAL HISTORY No tobacco. Rare alcohol. No illicit drugs. OBJECTIVE: Vital Signs Date Time Temp Pulse Resp B/P (MAP) Pulse Ox O2 Delivery O2 Flow Rate FiO2 12/29/16 12:00 40 12/29/16 11:32 94 40 12/29/16 08:56 40 12/29/16 08:49 96 40 12/29/16 08:00 100.4 106 23 166/85 (112) 96 12/29/16 08:00 40 12/29/16 06:00 90 12/29/16 04:13 95 40 12/29/16 04:00 98.8 105 14 146/66 (92) 96 12/29/16 04:00 105 12/29/16 04:00 40 12/29/16 02:00 90 12/29/16 01:40 95 40 12/29/16 00:00 40 12/29/16 00:00 98.7 94 14 146/66 (92) 96 12/29/16 00:00 94 12/28/16 22:36 97 40 12/28/16 22:00 90 12/28/16 20:00 98.7 81 14 101/57 (72) 97 12/28/16 20:00 81 12/28/16 20:00 88 12/28/16 20:00 40 12/28/16 20:00 40 12/28/16 20:00 98.8 88 14 128/57 (80) 98 12/28/16 19:47 96 40 12/28/16 18:27 95 12/28/16 16:00 50 12/28/16 16:00 92 12/28/16 16:00 98.6 92 17 118/56 (76) 97 12/28/16 16:00 90 12/28/16 15:46 95 50 Laboratory Tests Test 12/28/16 04:31 12/29/16 04:05 White Blood Count 20.8 TH/MM3 21.3 TH/MM3 Red Blood Count 2.88 MIL/MM3 3.01 MIL/MM3 Hemoglobin 8.5 GM/DL 8.6 GM/DL Hematocrit 26.4 % 27.2 % Mean Corpuscular Volume 91.5 FL 90.3 FL Mean Corpuscular Hemoglobin 29.6 PG 28.6 PG Mean Corpuscular Hemoglobin Concent 32.3 % 31.7 % Red Cell Distribution Width 18.5 % 18.0 % Platelet Count 617 TH/MM3 770 TH/MM3 Mean Platelet Volume 9.8 FL 9.7 FL Neutrophils (%) (Auto) 76.8 % 74.6 % Lymphocytes (%) (Auto) 11.1 % 12.3 % Monocytes (%) (Auto) 10.1 % 10.5 % Eosinophils (%) (Auto) 1.7 % 1.8 % Basophils (%) (Auto) 0.3 % 0.8 % Neutrophils # (Auto) 16.0 TH/MM3 15.9 TH/MM3 Lymphocytes # (Auto) 2.3 TH/MM3 2.6 TH/MM3 Monocytes # (Auto) 2.1 TH/MM3 2.2 TH/MM3 Eosinophils # (Auto) 0.4 TH/MM3 0.4 TH/MM3 Basophils # (Auto) 0.1 TH/MM3 0.2 TH/MM3 CBC Comment AUTO DIFF AUTO DIFF Differential Total Cells Counted 100 100 Neutrophils % (Manual) 77 % 58 % Band Neutrophils % 2 % 14 % Lymphocytes % 5 % 9 % Monocytes % 13 % 11 % Neutrophils # (Manual) 17.1 TH/MM3 16.0 TH/MM3 Metamyelocytes 2 % 3 % Myelocytes 1 % Nucleated Red Blood Cells 1 /100 WBC Differential Comment FINAL DIFF MANUAL FINAL DIFF MANUAL Platelet Estimate HIGH HIGH Platelet Morphology Comment NORMAL ENLARGED Red Cell Morphology Comment NORMAL Eosinophils % 4 % Basophils % 1 % Basophilic Stippling MOD Laboratory Tests Test 12/28/16 04:31 12/29/16 04:05 Blood Urea Nitrogen 58 MG/DL 57 MG/DL Creatinine 2.14 MG/DL 1.86 MG/DL Random Glucose 104 MG/DL 112 MG/DL Calcium Level 8.1 MG/DL 8.5 MG/DL Sodium Level 146 MEQ/L 148 MEQ/L Potassium Level 4.4 MEQ/L 4.4 MEQ/L Chloride Level 111 MEQ/L 110 MEQ/L Carbon Dioxide Level 28.4 MEQ/L 29.1 MEQ/L Anion Gap 7 MEQ/L 9 MEQ/L Estimat Glomerular Filtration Rate 31 ML/MIN 36 ML/MIN B-Type Natriuretic Peptide 89 PG/ML Microbiology Date/Time Source Procedure Growth Status 12/20/16 23:00 Sputum Endotracheal Gram Stain - Final Complete 12/20/16 23:00 Sputum Culture - Final Serratia Marcescens Complete IMAGING: Chest X-Ray 12/28/16599 Signed Impressions: Service Date/Time: Wednesday, December 28, 2016 03:31 - CONCLUSION: 1. Cardiomegaly and findings of congestive heart failure. The findings have worsened when compared with the prior examination. Jesús Ibrahim MD Chest X-Ray 12/26/16599 Signed Impressions: Service Date/Time: Monday, December 26, 2016 03:52 - CONCLUSION: 1. Patchy alveolar disease characteristic of edema or pneumonia. The findings have worsened when compared with the prior examination. Jesús Ibrahim MD Chest X-Ray 12/23/16599 Signed Impressions: Service Date/Time: Friday, December 23, 2016 05:00 - CONCLUSION: 1. Patchy alveolar disease characteristic of edema or pneumonia. There has been no significant change when compared to the prior exam. 2. Small left apical pneumothorax Jesús Ibrahim MD Chest CT 12/22/16799 Signed Impressions: Service Date/Time: Thursday, December 22, 2016 08:17 - CONCLUSION: 1. Bibasilar consolidation likely atelectasis. 2. Small pleural effusions slightly loculated on the left. 3. Left-sided chest tube with tip in the major fissure. No pneumothorax. 4. Multiple left-sided rib fractures and left clavicular head fracture. Kulwant Valladares MD Abdomen/Pelvis CT 12/22/16799 Signed Impressions: Service Date/Time: Thursday, December 22, 2016 08:17 - CONCLUSION: 1. Status post splenectomy. There is some fluid in the splenectomy bed. 2. Left posterior subcapsular hematoma slightly smaller now measuring 2.9 cm. 3. Nasogastric tube with tip at the GE junction and should be advanced. Kulwant Valladares MD PHYSICAL EXAMINATION: GENERAL: No acute distress. HEENT: No icterus. NECK: Supple, No adenopathy. LUNGS: Basilar rhonchi. HEART: Regular S1 and S2. No murmurs. ABDOMEN: Soft, distended. (+) bowel sounds. EXTREMITIES: No clubbing or cyanosis or edema. SKIN: No rash. Warm, moist. NEUROLOGIC: Unable to fully assess. PSYCHIATRIC: Unable to asses. IMPRESSION: 1. HCAP - Serratia. 2. Status post splenectomy and evacuation of hemoperitoneum. 3. Acute Respiratory failure. 4. Fever and leukocytosis. Temp now low grade. WBC remain elevated. Looks stable. RECOMMENDATIONS: 1. Continue Meropenem IV. 2. Stop Diflucan. 3. Monitor WBC. Okay to transfer to [facility] from iD standpoint. Mike Mina MD Dec 29, 2016 12:30
--- NOTE | 2016-12-29 12:53 | ECHRPT ---
Indication: SOB CONCLUSIONS Normal left ventricular size. Wall thickness is normal. The left ventricular systolic function is [id number] reduced with an estimated ejection fra ction in the range of 35-40%. The right ventricular systoilc function is moderately decreased. Aortic valve sclerosis is present. BP: 122 / 64 HR: 99 Rhythm: MEASUREMENTS (Male / Female) Normal Values Technical Quality:Technically difficult study 2D ECHO LV Diastolic Diameter PLAX 4.2 cm 4.2 - 5.9 / 3.9 - 5.3 cm LV Systolic Diameter PLAX 3.6 cm IVS Diastolic Thickness 1.3 cm 0.6 - 1.0 / 0.6 - 0.9 cm LVPW Diastolic Thickness 0.9 cm 0.6 - 1.0 / 0.6 - 0.9 cm LV Relative Wall Thickness 0.5 RV Internal Dim ED PLAX 2.5 cm LA Systolic Diameter LX 3.4 cm 3.0 - 4.0 / 2.7 - 3.8 cm M-MODE Aortic Root Diameter MM 3.0 cm AV Cusp Separation MM 2.1 cm DOPPLER AV Peak Velocity 152.0 cm/s AV Peak Gradient 9.2 mmHg Mitral E Point Velocity 79.0 cm/s Mitral A Point Velocity 81.9 cm/s Mitral E to A Ratio 1.0 TR Peak Velocity 206.0 cm/s TR Peak Gradient 17.0 mmHg Right Atrial Pressure 5.0 mmHg Pulmonary Artery Systolic Pressu 22.0 mmHg Right Ventricular Systolic Press 22.0 mmHg FINDINGS LEFT VENTRICLE Normal left ventricular size. Wall thickness is normal. The left ventricular systolic function is mzbtrnpb-[id number] reduced with an estimated ejection fra ction in the range of 35-40%. RIGHT VENTRICLE The right ventricular systoilc function is moderately decreased. LEFT ATRIUM The left atrial size is normal. RIGHT ATRIUM The right atrial size is normal. ATRIAL SEPTUM Normal atrial septal thickness without atrial level shunting by limited color doppler interrogation. AORTA The aortic root and proximal ascending aorta are normal in size on limited imaging. MITRAL VALVE Structurally normal mitral valve. No mitral valve stenosis or regurgitation. AORTIC VALVE Aortic valve sclerosis is present. TRICUSPID VALVE Structurally normal tricuspid valve. No tricuspid valve stenosis or regurgitation. PULMONARY VALVE No pulmonary valve regurgitation or stenosis. VESSELS The inferior vena cava is normal in size. PERICARDIUM No pericardial effusion. Bernadette Kwong MD, FACC (Electronically Signed) Final Date:29 December 2016 12:52
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
[2016-12-29] MEDS ORDERED: HAEMOPH B POLYSACCH CONJ VACCINE 0.5 ML VIAL IM ONE (13:00)
[2016-12-29] MEDS ORDERED: PNEUMOCOCCAL POLYVALENT INJ 25 MCG/0.5 ML SYR IM ONE (13:00)
[2016-12-29] MEDS ORDERED: MENINGOCOCCAL CONJUGATE VACCINE 0.5 ML VIAL IM ONE (13:00)
[2016-12-29] MEDS: FLUCONAZOLE 100 MG PREMIX BAG 50 ML IV SCH (13:32)
[2016-12-29] MEDS: LEVOTHYROXINE SODIUM 50 MCG TAB PO SCH (20:32)
[2016-12-29] MEDS: MAGNESIUM HYDROXIDE SUSP 30 ML CUP PO SCH (20:34)
[2016-12-29] MEDS: MIDAZOLAM 100 MG/100 ML INJ 100 ML IV PRN (21:32)
[2016-12-30] VITALS (8 sets, daily range): BP systolic 122–154; BP diastolic 67–98; PULSE 77–92; RESP 15–21; TEMP 98–98.1; O2SAT 91–98
[2016-12-30] MEDS: PROPRANOLOL HCL 10 MG TAB PO SCH ×2 (02:35→08:47)
[2016-12-30] MEDS: MEROPENEM INJ 1,000 MG in SODIUM CHLORIDE 0.9% INJ 100 ML IV SCH (03:39)
[2016-12-30] MEDS: oxyCODONE HCL ORAL CONC 5 MG/0.25 ML SYRINGE PO SCH ×2 (03:40→08:48)
[2016-12-30] MEDS: METOPROLOL TARTRATE 5 MG/5 ML VIAL IV PUSH SCH ×2 (03:41→08:48)
--- NOTE | 2016-12-30 05:02 | RADRPT ---
EXAM DATE/TIME: 12/30/2016 04:13 [facility] COMPARISON: CHEST SINGLE AP, December 28, 2016, 3:31. INDICATIONS : Respiratory status. MEDICAL HISTORY : None. SURGICAL HISTORY : None. ENCOUNTER: Subsequent ACUITY: 3 days PAIN SCORE: Non-responsive. LOCATION: Bilateral chest FINDINGS: A single view of the chest demonstrates the bilateral lower lobe there is consolidation are stable. T here are numerous healed rib fractures present. There is moderate size left pleural effusion, unchang ed. Tracheostomy tube in good position. NG tube in good position.. The cardiomediastinal contours ar e unremarkable. Osseous structures are intact. CONCLUSION: Stable bilateral lower areas of consolidation left greater than right. No new infiltrate is seen Jameson Yee MD on December 30, 2016 at 4:59 Board Certified Radiologist. This report was verified electronically.
[2016-12-30 05:13] LABS: AUTOMATED NEUTROPHIL # 17.9 TH/MM3 (1.8-7.7); BASOPHIL % 0.1 % (0.0-2.0); EOSINOPHIL # 0.2 TH/MM3 (0-0.4); EOSINOPHIL % 1.1 % (0.0-4.0); HEMATOCRIT 28.6 % (39.0-51.0); LYMPHOCYTE # 2.6 TH/MM3 (1.0-4.8); MEAN CELL VOLUME 91.6 FL (80.0-100.0); MEAN CORPUSCULAR HGB CONC 31.6 % (32.0-36.0); NEUT % 76.8 % (16.0-70.0); PLATELET COUNT 673 TH/MM3 (150-450); RED BLOOD COUNT 3.12 MIL/MM3 (4.50-5.90); RED CELL DISTRIBUTION WIDTH 18.4 % (11.6-17.2); WHITE BLOOD COUNT 23.3 TH/MM3 (4.0-11.0)
[2016-12-30 05:31] LABS: HEMO FLAGS AUTO DIFF
[2016-12-30 05:42] LABS: ANION GAP 6 MEQ/L (5-15); AST (GOT) 50 U/L (15-37); BICARBONATE 30.3 MEQ/L (21.0-32.0); BLOOD UREA NITROGEN 56 MG/DL (7-18); CHLORIDE 112 MEQ/L (98-107); GLOMERULAR FILTRATION RATE 37 ML/MIN (>89); MAGNESIUM 2.6 MG/DL (1.5-2.5); POTASSIUM 4.7 MEQ/L (3.5-5.1); SODIUM (NA) 148 MEQ/L (136-145)
[2016-12-30] MEDS: FREE WATER G-TUBE SCH (05:42)
[2016-12-30] MEDS: LEVOTHYROXINE SODIUM 200 MCG TAB PO SCH (05:42)
[2016-12-30 05:45] LABS: ALKALINE PHOSPHATASE 241 U/L (45-117); ALT (GPT) 44 U/L (12-78); TOTAL BILIRUBIN ADULT 0.5 MG/DL (0.2-1.0)
[2016-12-30 06:06] LABS: BLOOD GAS BASE EXCESS 7.2 mmol/L (-2-2); BLOOD GAS CARBOXYHEMOGLOBIN 1.4 % (0-4); BLOOD GAS HCO3 31 mmol/L (22-26); BLOOD GAS METHEMOGLOBIN 0.7 % (0-2); BLOOD GAS O2 HGB SATURATION 91 % (90-100); BLOOD GAS PCO2 46 mmHg (38-42); BLOOD GAS PO2 66 mmHg (61-120); BLOOD GAS TOTAL HGB 8.5 G/DL (12.0-16.0); CRITICAL VALUE NO; OXYGEN DEVICE VENT; TEMP CORR TO 98.6
[2016-12-30 06:07] LABS: DRAW SITE RT RADIAL; FIO2 40 %; NUMBER OF ARTERIAL PUNCTURES 1; VENT SETTINGS SEE COMMENTS
[2016-12-30 06:08] LABS: STAT YES; ULNAR PULSE PRESENT
[2016-12-30 06:44] LABS: BANDS 5 % (0-6); CORRECTED NUCLEATED RBC 1 /100 WBC (0-0); METAMYELOCYTES 2 % (0-1); MYELOCYTES 1 % (0-0); NEUTROPHIL # MANUAL DIFF 19.6 TH/MM3 (1.8-7.7); POLYS (SEG NEUTROPHILS) 76 % (16-70); WBC DIFF SAMPLE 100
[2016-12-30 06:45] LABS: PLATELET ESTIMATE SMEAR HIGH (NORMAL); PLATELET MORPHOLOGY NORMAL (NORMAL); SCAN/DIFF FINAL DIFF MANUAL
[2016-12-30] MEDS: CHLORHEXIDINE 0.12% (ORAL KIT) 15 ML CUP MT SCH (08:00)
[2016-12-30] MEDS: FAMOTIDINE 20 MG TAB PO SCH (08:47)
[2016-12-30] MEDS: GABAPENTIN 300 MG CAP PO SCH (08:47)
[2016-12-30] MEDS: TAMSULOSIN HCL 0.4 MG CAP PO SCH (08:47)
[2016-12-30] MEDS: DOCUSATE SODIUM 50 MG/SENNA 8.6 MG TAB PO SCH (08:47)
[2016-12-30] MEDS: ATORVASTATIN 10 MG TAB PO SCH (08:47)
[2016-12-30] MEDS: HEPARIN SODIUM - SQ 10,000 UNITS/ML VIAL SQ SCH (08:47)
[2016-12-30] MEDS: LACTULOSE SYRUP 20 GM/30 ML CUP PO SCH (09:00)
[2016-12-30] MEDS: buPROPion HCL 100 MG TAB NG SCH (09:00)
[2016-12-30] MEDS: BISACODYL 10 MG SUPP RECTAL SCH (09:00)
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
== END 2016-12-30 11:00 | DRG 3 ==
LOC: NEPC 00:24 → NEDA 03:26 → N06B 05:44 → N03A 12:52 → N07A 12-11 20:18 → N03A 12-14 11:50
PROVIDERS: ADMIT Surgery; ATTEND Surgery
PROC: 0W9B30Z Drainage of Left Pleural Cavity with Drainage Device, Percutaneous Approach (ICD-10-PCS; 2016-12-09)
PROC: 0W9B0ZZ Drainage of Left Pleural Cavity, Open Approach (ICD-10-PCS; 2016-12-10)
PROC: 0W9B30Z Drainage of Left Pleural Cavity with Drainage Device, Percutaneous Approach (ICD-10-PCS; 2016-12-10)
PROC: 0W9B30Z Drainage of Left Pleural Cavity with Drainage Device, Percutaneous Approach (ICD-10-PCS; 2016-12-10)
PROC: 0T9B70Z Drainage of Bladder with Drainage Device, Via Natural or Artificial Opening (ICD-10-PCS; 2016-12-10)
PROC: 5A1955Z Respiratory Ventilation, Greater than 96 Consecutive Hours (ICD-10-PCS; 2016-12-14)
PROC: 0WC Anatomical Regions, General, Extirpation (ICD-10-PCS; 2016-12-14)
PROC: 0W9B00Z Drainage of Left Pleural Cavity with Drainage Device, Open Approach (ICD-10-PCS; 2016-12-14)
PROC: 30233L1 Transfusion of Nonautologous Fresh Plasma into Peripheral Vein, Percutaneous Approach (ICD-10-PCS; 2016-12-14)
PROC: 30233N1 Transfusion of Nonautologous Red Blood Cells into Peripheral Vein, Percutaneous Approach (ICD-10-PCS; 2016-12-14)
PROC: 07TP0ZZ Resection of Spleen, Open Approach (ICD-10-PCS; principal; 2016-12-14 12:36)
PROC: 0B113F4 Bypass Trachea to Cutaneous with Tracheostomy Device, Percutaneous Approach (ICD-10-PCS; 2016-12-23)
PROC: 0B9J8ZX Drainage of Left Lower Lung Lobe, Via Natural or Artificial Opening Endoscopic, Diagnostic (ICD-10-PCS; 2016-12-23)
DX: S27.2XXA Traumatic hemopneumothorax, initial encounter (principal); N17.9 Acute kidney failure, unspecified; S36.09XA Other injury of spleen, initial encounter; K66.1 Hemoperitoneum; I95.9 Hypotension, unspecified; R06.03 Acute respiratory distress; E87.1 Hypo-osmolality and hyponatremia; E87.5 Hyperkalemia; D64.9 Anemia, unspecified; J44.0 Chronic obstructive pulmonary disease with (acute) lower respiratory infection; J96.00 Acute respiratory failure, unspecified whether with hypoxia or hypercapnia; Z99.11 Dependence on respirator [ventilator] status; S36.039D Unspecified laceration of spleen, subsequent encounter; I10 Essential (primary) hypertension; H91.90 Unspecified hearing loss, unspecified ear; M19.90 Unspecified osteoarthritis, unspecified site; S22.42XD Multiple fractures of ribs, left side, subsequent encounter for fracture with routine healing; V28.9XXD Unspecified motorcycle rider injured in noncollision transport accident in traffic accident, subsequent encounter; E78.00 Pure hypercholesterolemia, unspecified; K21.9 Gastro-esophageal reflux disease without esophagitis; G47.30 Sleep apnea, unspecified; E03.9 Hypothyroidism, unspecified; M62.838 Other muscle spasm; Z23 Encounter for immunization; S36.09XD Other injury of spleen, subsequent encounter; S37.012D Minor contusion of left kidney, subsequent encounter; Q75.2 Hypertelorism; F41.0 Panic disorder [episodic paroxysmal anxiety]; F41.9 Anxiety disorder, unspecified; F90.9 Attention-deficit hyperactivity disorder, unspecified type; M79.7 Fibromyalgia; G89.4 Chronic pain syndrome; S27.329D Contusion of lung, unspecified, subsequent encounter; R60.9 Edema, unspecified
CPT/HCPCS: 31624; 32551; 36430; 36556; 36600; 70450; 71010; 71250; 71260; 71275; 74176; 74177; 76775; 80048; 80053; 80069; 80202; 80307; 81001; 82306; 82570; 82805; 82948; 83605; 83735; 83880; 83883; 84100; 84165; 84300; 84443; 85007; 85014; 85018; 85025; 85027; 85384; 85610; 85730; 86160; 86335; 86850; 86900; 86901; 86920; 86927; 87040; 87070; 87077; 87086; 87176; 87186; 87205; 87252; 87254; 87340; 87641; 88305; 90732; 90734; 93005; 93306; 94002; 94003; 94150; 94640; 94664; 94667; 94668; 96374; 96375; 99152; 99153; J1170; A7521; C9290; J0131; J0610; J0690; J0692; J1100; J1450; J1580; J1630; J1644; J1815; J1885; J1956; J2185; J2250; J2270; J2370; J2405; J2543; J2710; J3010; J3370; J7030; J7050; J7608; J7613; P9016; P9017; Q9967

== ENCOUNTER 2017-02-11 00:11 | Inpatient (IN) | payer OTHER, MEDICARE ==
[~2017-02-11] VITALS: Ht 188 cm; Wt 101.0 kg
[2017-02-11] VITALS (11 sets, daily range): BP systolic 111–143; BP diastolic 57–87; PULSE 76–97; RESP 17–24; TEMP 96.4–99.5; O2SAT 90–100
[~2017-02-11 00:11] MED LIST changes: +AMLO10 PO; +ATOR10TA15 PO; +Aquaphor Oint TOPICAL; -BENA20TA PO; +BUPR100T4 PO; -BUPR300T PO; +Bacitracin Oint Packet TOPICAL; +GABA300C5 PO; +GETGO ROLLING W1 MI1; +HEPA5000 SQ; -LEVO50TA4 PO; -LIPI10TA PO; +LISI-519 PO; +Lactic Acid 12% Lotion TOPICAL; +Lactulose Liq PO; +MAGN30S PO; -MAGN400S PO; +MAGN400T2 PO; -METH500T3 PO; +METO25TA3 PO; -NEXI40CA PO; -OXYC1TAB63 PO; +PERI PO; +PROT40TA PO; -SENN1TAB PO; +SIME40S PO; +TAMS0.4C4 PO
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
[2017-02-11] MEDS ORDERED: ACETAMINOPHEN/HYDROcodone 325 MG/5 MG TAB PO ONE (01:15)
[2017-02-11 01:16] LABS: AUTOMATED NEUTROPHIL # 11.2 TH/MM3 (1.8-7.7); BASOPHIL # 0.1 TH/MM3 (0-0.2); BASOPHIL % 0.7 % (0.0-2.0); EOSINOPHIL # 0.2 TH/MM3 (0-0.4); EOSINOPHIL % 0.9 % (0.0-4.0); HEMATOCRIT 31.8 % (39.0-51.0); HEMOGLOBIN 10.3 GM/DL (13.0-17.0); LYMPH % 20.2 % (9.0-44.0); LYMPHOCYTE # 3.5 TH/MM3 (1.0-4.8); MEAN CELL VOLUME 92.1 FL (80.0-100.0); MEAN CORPUSCULAR HEMOGLOBIN 29.9 PG (27.0-34.0); MEAN CORPUSCULAR HGB CONC 32.4 % (32.0-36.0); MEAN PLATELET VOLUME 8.2 FL (7.0-11.0); MONOCYTE # 2.5 TH/MM3 (0-0.9); NEUT % 64.2 % (16.0-70.0); PLATELET COUNT 477 TH/MM3 (150-450); RED BLOOD COUNT 3.46 MIL/MM3 (4.50-5.90); RED CELL DISTRIBUTION WIDTH 19.7 % (11.6-17.2); WHITE BLOOD COUNT 17.5 TH/MM3 (4.0-11.0)
[2017-02-11 01:31] LABS: ALBUMIN 2.5 GM/DL (3.4-5.0); ALT (GPT) 11 U/L (12-78); AST (GOT) 8 U/L (15-37); BICARBONATE 31.2 MEQ/L (21.0-32.0); BLOOD UREA NITROGEN 17 MG/DL (7-18); CALCIUM 8.9 MG/DL (8.5-10.1); CHLORIDE 102 MEQ/L (98-107); CREATININE 1.35 MG/DL (0.60-1.30); GLOMERULAR FILTRATION RATE 52 ML/MIN (>89); GLUCOSE,RANDOM 98 MG/DL (74-106); LIPASE 593 U/L (73-393); SODIUM (NA) 138 MEQ/L (136-145)
[2017-02-11 01:35] LABS: ALKALINE PHOSPHATASE 103 U/L (45-117); TOTAL BILIRUBIN ADULT 0.4 MG/DL (0.2-1.0); TOTAL PROTEIN 6.9 GM/DL (6.4-8.2); TROPONIN I LESS THAN 0.02 NG/ML (0.02-0.05)
[2017-02-11 02:00] LABS: BANDS 4 % (0-6); MONOCYTES 13 % (0-8); MYELOCYTES 1 % (0-0); NEUTROPHIL # MANUAL DIFF 10.9 TH/MM3 (1.8-7.7); POLYS (SEG NEUTROPHILS) 57 % (16-70)
[2017-02-11 02:01] LABS: LYMPHOCYTES 25 % (9-44)
[2017-02-11 02:03] LABS: ACANTHOCYTES OCC (NORMAL)
--- NOTE | 2017-02-11 02:19 | RADRPT ---
EXAM DATE/TIME: 02/11/2017 01:31 [facility] COMPARISON: CHEST SINGLE AP, December 30, 2016, 4:13. INDICATIONS : Shortness of breath. MEDICAL HISTORY : Hypertension. Gastroesophageal reflux disease. SURGICAL HISTORY : None. ENCOUNTER: Initial ACUITY: 1 day PAIN SCORE: 0/10 LOCATION: Bilateral chest FINDINGS: Small left pleural effusion is seen. There is slight linear atelectasis in the right lung base. Lef t lung base opacity is present partially technical, however consolidation is difficult to exclude a m ild pulmonary venous congestion suspected. CONCLUSION: Left basilar opacity is present may be due to a combination of consolidation and or pleural effusion and probable mild pulmonary venous congestion. Roly Lawson MD on February 11, 2017 at 2:15 Board Certified Radiologist. This report was verified electronically.
--- NOTE | 2017-02-11 02:21 | RADRPT ---
EXAM DATE/TIME: 02/11/2017 01:35 [facility] COMPARISON: No previous studies available for comparison. INDICATIONS : Left shoulder pain. No known trauma. MEDICAL HISTORY : None. SURGICAL HISTORY : None. ENCOUNTER: Initial ACUITY: 1 day PAIN SCORE: 3/10 LOCATION: Left shoulder. FINDINGS: No definite fractures, dislocations, lytic, or sclerotic lesions are seen. Approximate 2.3 cm calcifi cation is present adjacent to the acromium could be within the rotator cuff. CONCLUSION: Large calcification most likely representing chronic tendinitis. Roly Lawson MD on February 11, 2017 at 2:18 Board Certified Radiologist. This report was verified electronically.
--- NOTE | 2017-02-11 03:58 | RADRPT ---
EXAM DATE/TIME: 02/11/2017 03:27 [facility] COMPARISON: CT THORAX W CONTRAST, December 22, 2016, 8:17. CT ABDOMEN & PELVIS W CONTRAST, February 04, 2017, 16 :43. INDICATIONS : Rib pain post trauma two months ago. RADIATION DOSE: 6.73 CTDIvol (mGy) MEDICAL HISTORY : Chronic obstructive pulmonary disease. Hypertension. SURGICAL HISTORY : Splenectomy. Thorasentisis ENCOUNTER: Initial ACUITY: 1 day PAIN SCALE: 5/10 LOCATION: Bilateral chest TECHNIQUE: Volumetric scanning of the chest was performed. Using automated exposure control and adjustment of t he mA and/or kV according to patient size, radiation dose was kept as low as reasonably achievable to obtain optimal diagnostic quality images. DICOM format image data is available electronically for r eview and comparison. Follow-up recommendations for detected pulmonary nodules are based at a minimum on nodule size and pa tient risk factors according to Fleischner Society Guidelines. FINDINGS: There is a loculated approximately 11 cm fluid collection in subdiaphragmatic location not signi ficantly changed probably from prior splenectomy. Small left pleural effusion is present with a tiny right pleural effusion. There is consolidation in the left lung base not significantly changed, howev er there is improvement in the aeration of the right lower lobe which is clear at this time. Slight a reas of parenchymal infiltrates are present in the right upper lobe not present previously in additio n to parenchymal infiltrate and consolidation in the lingula not present previously. Previously seen left chest tube has been removed. Multiple displaced rib fractures are again seen. Coronary artery ca lcifications are seen typically seen with CAD and need to be evaluated clinically. CONCLUSION: 1. Resolution of previously seen right lung base consolidation. 2. Interval development of infiltrate in bilateral upper lobes and left upper lobe consolidation and pleural effusion have not changed. 3. There is a tiny right pleural effusion smaller since the prior study and no significant change sub diaphragmatic fluid collection since the prior exam probably from post splenectomy changes. Roly Lawson MD on February 11, 2017 at 3:51 Board Certified Radiologist. This report was verified electronically.
[2017-02-11] MEDS ORDERED: PIPERACIL-TAZO 3.375 GM PREMIX 50 ML IV ONE (04:30)
[2017-02-11] MEDS ORDERED: VANCOMYCIN INJ 1,000 MG in SODIUM CHLOR 0.9% 250 ML INJ 250 ML IV ONE (05:15)
[2017-02-11] MEDS ORDERED: RESP: ALBUTEROL 2.5 MG/IPRATROPIUM 0.5 MG NEB (PRN) INH (05:15)
[2017-02-11] MEDS ORDERED: SODIUM CHLORIDE 0.9% FLUSH 10 ML FLUSH IV FLUSH PRN (05:15)
[2017-02-11] MEDS ORDERED: Vancomycin Consult Pharmacy 1 EA OTHER SCH (05:15)
[2017-02-11] MEDS: CEFEPIME INJ 2,000 MG in SODIUM CHLORIDE 0.9% INJ 100 ML IV SCH ×3 (05:27→23:43)
[2017-02-11] MEDS ORDERED: MORPHINE SULFATE 2 MG/ML INJ IV PUSH PRN (05:30)
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
[2017-02-11] MEDS ORDERED: ENOXAPARIN SODIUM 40 MG/0.4 ML SYRINGE SQ SCH (06:00)
[2017-02-11 06:01] LABS: BILIRUBIN, URINE NEG (NEG); BLOOD, URINE NEG (NEG); GLUCOSE,URINE NEG (NEG); HYALINE CAST, URINE 1 /lpf (RARE); KETONE, URINE NEG (NEG); MUCUS URINE FEW /lpf (OCC); NITRITE,URINE NEG (NEG); PH, URINE 5.5 (5.0-8.5); RENAL EPITHELIAL CELLS <1 /hpf; URINE COLOR YELLOW (YELLW/STRAW); URINE LEUKOCYTE ESTERASE NEG (NEG)
--- NOTE | 2017-02-11 06:17 | RADRPT ---
EXAM DATE/TIME: 02/11/2017 05:51 [facility] COMPARISON: CT ABDOMEN & PELVIS W CONTRAST, February 04, 2017, 16:43. INDICATIONS : Bilateral upper quadrant pain. ORAL CONTRAST: No oral contrast ingested. RADIATION DOSE: 14.35 CTDIvol (mGy) MEDICAL HISTORY : Gastroesophageal reflux disease. Chronic obstructive pulmonary disease. Hypertension.Acute kidney inj ury. Rib fractures. SURGICAL HISTORY : Splenectomy. ENCOUNTER: Initial ACUITY: 3 days PAIN SCALE: 10/10 LOCATION: Bilateral upper quadrant TECHNIQUE: Volumetric scanning of the abdomen and pelvis was performed. Using automated exposure control and ad justment of the mA and/or kV according to patient size, radiation dose was kept as low as reasonably achievable to obtain optimal diagnostic quality images. DICOM format image data is available electro nically for review and comparison. FINDINGS: CT Abdomen: Multiple gallstones are present without signs of gallbladder wall thickening, pericholecy stic fluid.the spleen is absent surgically and the postoperative fluid collection in the subdiaphragm atic location on the left side appears slightly larger and measures 11.9 cm in AP diameter approximat anamika 6.7 cm in transverse diameter as it measured 10.5 x 5.8 cm previously. Surrounding parenchymal ch anges extending to the anterior perinephric space also appears slightly more pronounced as compared t o the prior study. The liver,pancreas, kidneys, adrenals are unremarkable. There is no evidence for a ny appreciable pathological adenopathy, free fluid, or bowel obstruction. CT pelvis: There is no evidence for mass, abscess formation, or any significant adenopathy within the pelvis. The prostate gland is inhomogeneous and measures 4.5 x 5.5 cm in AP and transverse diameters and nonspecific. CONCLUSION: The postoperative fluid collection and surrounding parenchymal changes in left upper quadrant appears slightly larger since the study from 7 days ago. Possibility of underlying infectiou s process and abscess formation is not excluded and clinical correlation is suggested. Roly Lawson MD on February 11, 2017 at 6:11 Board Certified Radiologist. This report was verified electronically.
[2017-02-11] MEDS: ACETAMINOPHEN/HYDROcodone 325 MG/5 MG TAB PO PRN ×4 (06:45→23:47)
[2017-02-11] MEDS: LEVOTHYROXINE SODIUM 100 MCG TAB PO SCH (06:45)
[2017-02-11] MEDS: GABAPENTIN 300 MG CAP PO SCH ×3 (09:18→17:10)
[2017-02-11] MEDS: PANTOPRAZOLE SOD 40 MG DELAYED RELEASE TAB PO SCH (09:18)
[2017-02-11] MEDS: METOPROLOL TARTRATE 50 MG TAB PO SCH ×2 (09:18→20:50)
[2017-02-11] MEDS: SODIUM CHLORIDE 0.9% FLUSH 10 ML FLUSH IV FLUSH SCH ×2 (09:19→19:37)
[2017-02-11] MEDS: LISINOPRIL 5 MG TAB PO SCH (09:19)
[2017-02-11] MEDS: buPROPion HCL 100 MG TAB PO SCH ×2 (09:24→20:50)
[2017-02-11] MEDS ORDERED: LACTULOSE SYRUP 20 GM/30 ML CUP PO ONE (10:30)
[2017-02-11] MEDS ORDERED: BISACODYL EC 5 MG TABEC PO ONE (10:30)
[2017-02-11] MEDS: RESP: ALBUTEROL 2.5 MG/IPRATROPIUM 0.5 MG NEB (SCH) INH ×3 (12:36→20:55)
--- NOTE | 2017-02-11 12:51 | HHI.PR ---
Subjective Remarks Patient seen and treated for pneumonia. Tolerating cefepime and vancomycin for Serratia cultures. Doing well, complaining of some vague abdominal discomfort Objective Vitals Vital Signs Date Time Temp Pulse Resp B/P (MAP) Pulse Ox O2 Delivery O2 Flow Rate FiO2 02/11/17 12:00 98.6 76 19 111/61 (78) 90 02/11/17 09:00 76 02/11/17 08:00 96.4 81 19 124/64 (84) 94 02/11/17 06:31 98.3 89 21 135/65 (88) 94 02/11/17 05:49 86 22 143/69 (93) 94 Nasal Cannula 2.00 02/11/17 04:37 80 22 116/81 (93) 95 Nasal Cannula 2.00 02/11/17 01:58 86 22 139/69 (92) 95 Nasal Cannula 2.00 02/11/17 00:22 99.5 82 24 141/87 (105) 94 I/O 02/10/17 02/10/17 02/10/17 02/11/17 02/11/17 02/11/17 07:00 15:00 23:00 07:00 15:00 23:00 Intake Total 50 ml Balance 50 ml Intake IV Total 50 ml Result Diagram: 02/11/17 0100 02/11/17 0100 Imaging Last Impressions Shoulder X-Ray 02/11/17 0000 Signed Impressions: Service Date/Time: Saturday, February 11, 2017 01:35 - CONCLUSION: Large calcification most likely representing chronic tendinitis. Roly Lawson MD Chest X-Ray 02/11/17 0000 Signed Impressions: Service Date/Time: Saturday, February 11, 2017 01:31 - CONCLUSION: Left basilar opacity is present may be due to a combination of consolidation and or pleural effusion and probable mild pulmonary venous congestion. Roly Lawson MD Chest CT 02/11/17 0000 Signed Impressions: Service Date/Time: Saturday, February 11, 2017 03:27 - CONCLUSION: 1. Resolution of previously seen right lung base consolidation. 2. Interval development of infiltrate in bilateral upper lobes and left upper lobe consolidation and pleural effusion have not changed. 3. There is a tiny right pleural effusion smaller since the prior study and no significant change subdiaphragmatic fluid collection since the prior exam probably from post splenectomy changes. Roly Lawson MD Abdomen/Pelvis CT 02/11/17 0000 Signed Impressions: Service Date/Time: Saturday, February 11, 2017 05:51 - CONCLUSION: The postoperative fluid collection and surrounding parenchymal changes in left upper quadrant appears slightly larger since the study from 7 days ago. Possibility of underlying infectious process and abscess formation is not excluded and clinical correlation is suggested. Roly Lawson MD Objective Remarks GENERAL: This is a well-nourished, patient's ill-appearing gentleman complaining of abdominal pain CARDIOVASCULAR: Regular rate and rhythm without murmurs, gallops, or rubs. RESPIRATORY: Clear to auscultation. Breath sounds equal bilaterally. No wheezes , rales, or rhonchi. GASTROINTESTINAL: Abdomen soft, tender, nondistended. Hypoactive bowel sounds MUSCULOSKELETAL: Extremities without clubbing, cyanosis, or edema. NEURO: Alert & Oriented x4 to person, place, time, situation. Moves all ext x4 A/P Problem List: (1) Pancreatitis, acute ICD Code: K85.90 - Acute pancreatitis without necrosis or infection, unspecified Status: Resolved Plan: Patient with abnormal fluid collection which may be triggering his discomfort, general surgery to follow up In the meantime will be treated patient for pancreatitis with bowel rest, IV morphine, IV hydration and will follow-up clinically Does have a history of gallstones, will follow-up ultrasound Previous recommendations for surgery were to follow clinically and possibly have reevaluation of cholecystectomy. Patient's recent splenectomy admitted to [facility] (2) Pneumonia ICD Code: J18.9 - Pneumonia, unspecified organism Plan: previously patient had Serratia pneumonia (12/2016) The patient has persistent left upper lobe consolidation and pleural effusion with leukocytosis impaired antibiotics of vancomycin and cefepime have been started for possible healthcare associated pneumonia Assessment and Plan Continue treatment for hypertension, hypothyroidism and depression Shania Retana MD Feb 11, 2017 12:51
[2017-02-11] MEDS: SODIUM CHLOR 0.9% 1000 ML INJ 1,000 ML IV SCH (13:50)
--- NOTE | 2017-02-11 14:43 | EKG ---
Date Performed: 02/11/2017 Time Performed: 01:09:22 PTAGE: 71 years EKG: Sinus rhythm NORMAL ECG PREVIOUS TRACING : 12/14/2016 11.35 DOCTOR: Jameson Dunham Interpretating Date/Time 02/11/2017 14:41:33
[2017-02-11] MEDS: VANCOMYCIN INJ 2,000 MG in SODIUM CHLORID 0.9% 500 ML INJ 500 ML IV SCH (14:56)
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
[2017-02-11] MEDS: ATORVASTATIN 10 MG TAB PO SCH (20:50)
[2017-02-11] MEDS: TAMSULOSIN HCL 0.4 MG CAP PO SCH (20:51)
--- NOTE | 2017-02-11 21:30 | RADRPT ---
EXAM DATE/TIME: 02/11/2017 20:11 [facility] COMPARISON: CT ABDOMEN & PELVIS W/O CONTRAST, February 11, 2017, 5:51. INDICATIONS : Nausea and vomiting. MEDICAL HISTORY : Hypertension. Hypothyroidism. SURGICAL HISTORY : Splenectomy. Tonsillectomy. ENCOUNTER: Subsequent ACUITY: 2 days PAIN SCORE: 9/10 LOCATION: Right upper quadrant MEASUREMENTS: LIVER: 19.7 cm length COMMON DUCT: 6 mm RIGHT KIDNEY: 13.2 x 6.2 x 6.2 cm FINDINGS: LIVER: Diffusely increased hepatic echogenicity with hepatomegaly consistent with hepatic steatosis or medic al liver disease. COMMON DUCT: Gallbladder is moderately distended and contains multiple small gallstones. No significant gallbladde r wall thickening, pericholecystic fluid or sonographic Garzon's sign. GALLBLADDER: Contains no stones, demonstrates no wall thickening or pericholecystic fluid. PANCREAS: Large obscured due to bowel gas. RIGHT KIDNEY: No evidence of hydronephrosis, stone, or mass. CONCLUSION: 1. Distended gallbladder with multiple gallstones similar to earlier CT examination. No additional so nographic findings to suggest acute cholecystitis. However, the earliest manifestation of acute bhavna cystitis may be gallbladder distention. This is felt to be unlikely. If there is significant ongoing clinical concern consider HIDA scan to determine cystic duct patency. 2. Hepatomegaly with diffusely increased hepatic echogenicity consistent with hepatic steatosis or me dical liver disease. Brenton Dunbar MD on February 11, 2017 at 21:25 Board Certified Radiologist. This report was verified electronically.
[2017-02-12] VITALS (14 sets, daily range): BP systolic 96–129; BP diastolic 55–72; PULSE 78–111; RESP 16–20; TEMP 95.4–100.2; O2SAT 90–96
[2017-02-12] MEDS: SODIUM CHLOR 0.9% 1000 ML INJ 1,000 ML IV SCH ×4 (04:00→23:58)
[2017-02-12] MEDS: ACETAMINOPHEN/HYDROcodone 325 MG/5 MG TAB PO PRN ×2 (04:27→13:34)
[2017-02-12] MEDS: RESP: ALBUTEROL 2.5 MG/IPRATROPIUM 0.5 MG NEB (SCH) INH ×4 (05:00→21:32)
[2017-02-12 05:34] LABS: AUTOMATED NEUTROPHIL # 10.8 TH/MM3 (1.8-7.7); BASOPHIL # 0.1 TH/MM3 (0-0.2); BASOPHIL % 0.8 % (0.0-2.0); EOSINOPHIL # 0.2 TH/MM3 (0-0.4); EOSINOPHIL % 1.2 % (0.0-4.0); HEMATOCRIT 30.4 % (39.0-51.0); LYMPH % 23.3 % (9.0-44.0); LYMPHOCYTE # 4.1 TH/MM3 (1.0-4.8); MEAN CELL VOLUME 92.8 FL (80.0-100.0); MEAN CORPUSCULAR HEMOGLOBIN 30.4 PG (27.0-34.0); MEAN CORPUSCULAR HGB CONC 32.8 % (32.0-36.0); MEAN PLATELET VOLUME 8.3 FL (7.0-11.0); MONO % 13.9 % (0.0-8.0); MONOCYTE # 2.5 TH/MM3 (0-0.9); NEUT % 60.8 % (16.0-70.0); PLATELET COUNT 529 TH/MM3 (150-450); RED BLOOD COUNT 3.27 MIL/MM3 (4.50-5.90); RED CELL DISTRIBUTION WIDTH 19.5 % (11.6-17.2); WHITE BLOOD COUNT 17.8 TH/MM3 (4.0-11.0)
[2017-02-12 05:47] LABS: INTERNATIONAL NORMALIZED RATIO 1.2 RATIO; PROTHROMBIN TIME - PATIENT 11.7 SEC (9.8-11.6)
[2017-02-12] MEDS ORDERED: HEPARIN SODIUM - SQ 10,000 UNITS/ML VIAL SQ SCH (06:00)
[2017-02-12 06:01] LABS: ALBUMIN 2.1 GM/DL (3.4-5.0); AST (GOT) 13 U/L (15-37); BICARBONATE 26.9 MEQ/L (21.0-32.0); BLOOD UREA NITROGEN 15 MG/DL (7-18); CALCIUM 8.8 MG/DL (8.5-10.1); CHLORIDE 104 MEQ/L (98-107); GLOMERULAR FILTRATION RATE 74 ML/MIN (>89); GLUCOSE,RANDOM 73 MG/DL (74-106); LIPASE 416 U/L (73-393); SODIUM (NA) 138 MEQ/L (136-145)
[2017-02-12 06:05] LABS: ALKALINE PHOSPHATASE 149 U/L (45-117); ALT (GPT) 13 U/L (12-78); TOTAL BILIRUBIN ADULT 0.5 MG/DL (0.2-1.0)
[2017-02-12] MEDS: CEFEPIME INJ 2,000 MG in SODIUM CHLORIDE 0.9% INJ 100 ML IV SCH ×3 (06:37→23:58)
[2017-02-12] MEDS: LEVOTHYROXINE SODIUM 100 MCG TAB PO SCH (06:37)
[2017-02-12 06:42] LABS: LYMPHOCYTES 15 % (9-44); MONOCYTES 17 % (0-8); NEUTROPHIL # MANUAL DIFF 12.1 TH/MM3 (1.8-7.7); POLYS (SEG NEUTROPHILS) 68 % (16-70)
[2017-02-12] MEDS: PANTOPRAZOLE SOD 40 MG DELAYED RELEASE TAB PO SCH (08:29)
[2017-02-12] MEDS: LISINOPRIL 5 MG TAB PO SCH (08:29)
[2017-02-12] MEDS: METOPROLOL TARTRATE 50 MG TAB PO SCH ×2 (08:29→21:56)
[2017-02-12] MEDS: GABAPENTIN 300 MG CAP PO SCH ×3 (08:29→17:05)
[2017-02-12] MEDS: buPROPion HCL 100 MG TAB PO SCH ×2 (08:29→21:56)
[2017-02-12] MEDS: VANCOMYCIN INJ 2,000 MG in SODIUM CHLORID 0.9% 500 ML INJ 500 ML IV SCH (08:30)
[2017-02-12] MEDS: SODIUM CHLORIDE 0.9% FLUSH 10 ML FLUSH IV FLUSH SCH ×2 (08:31→21:00)
[2017-02-12] MEDS ORDERED: ACETAMINOPHEN 325 MG TAB PO PRN (12:45)
--- NOTE | 2017-02-12 12:45 | HHI.PR ---
Subjective Remarks Patient seen and evaluated today in follow-up for pneumonia and possible intra- abdominal abscess. Patient says his abdominal pain feels better with bowel rest and other supportive treatments for possible pancreatitis (patient with gallstones) Fever today but feels better general surgery consult appreciated Care plan discussed with Eleonora RAMIREZ Objective Vitals Vital Signs Date Time Temp Pulse Resp B/P (MAP) Pulse Ox O2 Delivery O2 Flow Rate FiO2 02/12/17 12:00 100.2 87 18 129/69 (89) 90 02/12/17 09:30 93 Nasal Cannula 3.00 02/12/17 08:00 99.4 90 18 125/58 (80) 93 02/12/17 07:00 88 02/12/17 05:02 93 Nasal Cannula 3.00 02/12/17 04:00 96.8 88 17 116/55 (75) 90 02/12/17 00:33 99.2 93 17 114/60 (78) 93 02/12/17 00:00 82 02/11/17 20:00 96.9 88 17 119/57 (77) 93 02/11/17 20:00 97 02/11/17 16:00 93 02/11/17 16:00 98.4 86 19 126/69 (88) 93 02/11/17 15:37 100 Nasal Cannula 3.00 I/O 02/11/17 02/11/17 02/11/17 02/12/17 02/12/17 02/12/17 07:00 15:00 23:00 07:00 15:00 23:00 Intake Total 50 ml 480 ml 1340 ml Output Total 500 ml Balance 50 ml -20 ml 1340 ml Intake Oral 480 ml 240 ml IV Total 50 ml 1100 ml Output Urine Total 500 ml # Voids 1 1 Result Diagram: 02/12/17 0444 02/12/17 0444 Objective Remarks GENERAL: This is a well-nourished, the patient appears better today CARDIOVASCULAR: Regular rate and rhythm without murmurs, gallops, or rubs. RESPIRATORY: Clear to auscultation. Breath sounds equal bilaterally. No wheezes , rales, or rhonchi. GASTROINTESTINAL: Abdomen soft, tender, nondistended. Hypoactive bowel sounds MUSCULOSKELETAL: Extremities without clubbing, cyanosis, or edema. NEURO: Alert & Oriented x4 to person, place, time, situation. Moves all ext x4 A/P Problem List: (1) Pancreatitis, acute ICD Code: K85.90 - Acute pancreatitis without necrosis or infection, unspecified Status: Resolved Plan: Patient with abnormal fluid collection which may be triggering his discomfort, general surgery to follow up In the meantime will be treated patient for possible gallstone pancreatitis with bowel rest, IV morphine, IV hydration and will follow-up clinically Does have a history of gallstones, gallstone concerning for early cholecystitis, Previous admission did have recommendations for surgery were to follow clinically and possibly have reevaluation of cholecystectomy. Patient's recent splenectomy recommended to heal first (2) Pneumonia ICD Code: J18.9 - Pneumonia, unspecified organism Plan: previously patient had Serratia pneumonia (12/2016) The patient has persistent left upper lobe consolidation and pleural effusion with leukocytosis impaired antibiotics of vancomycin and cefepime have been started for possible healthcare associated pneumonia (3) Abdominal fluid collection ICD Code: R18.8 - Other ascites Plan: Etiology unclear, for IR to drain and for cultures later today Continue empiric antibiotics cefepime and vancomycin General surgery following Assessment and Plan Continue treatment for hypertension, hypothyroidism and depression Discharge Planning Lives home with family Shania Retana MD Feb 12, 2017 12:45
[2017-02-12] MEDS ORDERED: IBUPROFEN 600 MG TAB PO PRN (13:15)
[2017-02-12] MEDS ORDERED: MIDAZOLAM HCL 2 MG/2 ML VIAL ONE (13:31)
[2017-02-12] MEDS ORDERED: LIDOCAINE HCL 1% 20 ML VIAL ONE (13:38)
--- NOTE | 2017-02-12 13:49 | PD.CAR.PN ---
CVT Progress Note Subjective/Hospital Course: 02/12/17 Patient awake alert and oriented Tender in left upper quadrant or fullness is appreciated Left upper quadrant collection in the splenic subphrenic bed may have pancreatic component because patient had contusion of the pancreas at a time and lipase is a bit elevated Discussed today with Dr. Manley will do CT-guided drainage of the same and then we'll see how patient does There are a few loculated areas around the main cavity but I believe draining the main cavity we will do and I do not believe this is infected Nothing further to add at this time Objective: Vital Signs Date Time Temp Pulse Resp B/P (MAP) Pulse Ox O2 Delivery O2 Flow Rate FiO2 02/12/17 12:00 100.2 87 18 129/69 (89) 90 02/12/17 09:30 93 Nasal Cannula 3.00 02/12/17 08:00 99.4 90 18 125/58 (80) 93 02/12/17 07:00 88 02/12/17 05:02 93 Nasal Cannula 3.00 02/12/17 04:00 96.8 88 17 116/55 (75) 90 02/12/17 00:33 99.2 93 17 114/60 (78) 93 02/12/17 00:00 82 02/11/17 20:00 96.9 88 17 119/57 (77) 93 02/11/17 20:00 97 02/11/17 16:00 93 02/11/17 16:00 98.4 86 19 126/69 (88) 93 02/11/17 15:37 100 Nasal Cannula 3.00 Labs: Laboratory Tests Test 02/12/17 04:44 White Blood Count 17.8 TH/MM3 (4.0-11.0) Red Blood Count 3.27 MIL/MM3 (4.50-5.90) Hemoglobin 10.0 GM/DL (13.0-17.0) Hematocrit 30.4 % (39.0-51.0) Mean Corpuscular Volume 92.8 FL (80.0-100.0) Mean Corpuscular Hemoglobin 30.4 PG (27.0-34.0) Mean Corpuscular Hemoglobin Concent 32.8 % (32.0-36.0) Red Cell Distribution Width 19.5 % (11.6-17.2) Platelet Count 529 TH/MM3 (150-450) Mean Platelet Volume 8.3 FL (7.0-11.0) Neutrophils (%) (Auto) 60.8 % (16.0-70.0) Lymphocytes (%) (Auto) 23.3 % (9.0-44.0) Monocytes (%) (Auto) 13.9 % (0.0-8.0) Eosinophils (%) (Auto) 1.2 % (0.0-4.0) Basophils (%) (Auto) 0.8 % (0.0-2.0) Neutrophils # (Auto) 10.8 TH/MM3 (1.8-7.7) Lymphocytes # (Auto) 4.1 TH/MM3 (1.0-4.8) Monocytes # (Auto) 2.5 TH/MM3 (0-0.9) Eosinophils # (Auto) 0.2 TH/MM3 (0-0.4) Basophils # (Auto) 0.1 TH/MM3 (0-0.2) CBC Comment AUTO DIFF Differential Total Cells Counted 100 Neutrophils % (Manual) 68 % (16-70) Lymphocytes % 15 % (9-44) Monocytes % 17 % (0-8) Neutrophils # (Manual) 12.1 TH/MM3 (1.8-7.7) Differential Comment FINAL DIFF MANUAL Platelet Estimate HIGH (NORMAL) Platelet Morphology Comment NORMAL (NORMAL) Prothrombin Time 11.7 SEC (9.8-11.6) Prothromb Time International Ratio 1.2 RATIO Activated Partial Thromboplast Time 31.7 SEC (24.3-30.1) Blood Urea Nitrogen 15 MG/DL (7-18) Creatinine 1.00 MG/DL (0.60-1.30) Random Glucose 73 MG/DL (74-106) Total Protein 6.0 GM/DL (6.4-8.2) Albumin 2.1 GM/DL (3.4-5.0) Calcium Level 8.8 MG/DL (8.5-10.1) Alkaline Phosphatase 149 U/L (45-117) Aspartate Amino Transf (AST/SGOT) 13 U/L (15-37) Alanine Aminotransferase (ALT/SGPT) 13 U/L (12-78) Total Bilirubin 0.5 MG/DL (0.2-1.0) Sodium Level 138 MEQ/L (136-145) Potassium Level 4.2 MEQ/L (3.5-5.1) Chloride Level 104 MEQ/L (98-107) Carbon Dioxide Level 26.9 MEQ/L (21.0-32.0) Anion Gap 7 MEQ/L (5-15) Estimat Glomerular Filtration Rate 74 ML/MIN (>89) Lipase 416 U/L (73-393) Result Diagram: 02/12/17 0444 02/12/17 0444 Kyle Maya MD Feb 12, 2017 13:49
--- NOTE | 2017-02-12 15:57 | PD.RAD ---
Post CT Procedure Prog Note Pre Procedure Diagnosis: (1) Abdominal fluid collection Post Procedure Diagnosis: (1) Abdominal fluid collection Procedure Date: Feb 12, 2017 Supervising Radiologist: Trip Manley Anesthesia: Local, Conscious Sedation Plan of Activity Patient to Unit: Nursing Unit Patient Condition: Fair See PACS Report for procedural detail/treatment Drainage Procedure Procedure 1 Imaging Guidance: CT Side: Left Procedure Type: Abscess Drainage Procedure: Placement Drainage: Suction Fluid Description: Purulent Trip Manley MD Feb 12, 2017 15:57
[2017-02-12] MEDS: TAMSULOSIN HCL 0.4 MG CAP PO SCH (21:56)
[2017-02-12] MEDS: ATORVASTATIN 10 MG TAB PO SCH (21:56)
[2017-02-13] VITALS (9 sets, daily range): BP systolic 106–135; BP diastolic 55–72; PULSE 69–84; RESP 16–20; TEMP 96.2–98.1; O2SAT 91–94
[2017-02-13] MEDS: VANCOMYCIN INJ 2,000 MG in SODIUM CHLORID 0.9% 500 ML INJ 500 ML IV SCH (03:04)
[2017-02-13] MEDS: RESP: ALBUTEROL 2.5 MG/IPRATROPIUM 0.5 MG NEB (SCH) INH ×3 (03:08→20:55)
[2017-02-13] MEDS: LEVOTHYROXINE SODIUM 100 MCG TAB PO SCH (06:29)
[2017-02-13] MEDS: MAGNESIUM HYDROXIDE SUSP 30 ML CUP PO PRN (06:32)
[2017-02-13] MEDS: CEFEPIME INJ 2,000 MG in SODIUM CHLORIDE 0.9% INJ 100 ML IV SCH ×2 (07:33→13:21)
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
[2017-02-13] MEDS: SODIUM CHLORIDE 0.9% 10 ML VIAL IRRIGATION SCH (09:00)
[2017-02-13] MEDS: buPROPion HCL 100 MG TAB PO SCH ×2 (09:17→21:41)
[2017-02-13] MEDS: GABAPENTIN 300 MG CAP PO SCH ×3 (09:17→17:10)
[2017-02-13] MEDS: METOPROLOL TARTRATE 50 MG TAB PO SCH ×2 (09:17→21:41)
[2017-02-13] MEDS: LISINOPRIL 5 MG TAB PO SCH (09:17)
[2017-02-13] MEDS: PANTOPRAZOLE SOD 40 MG DELAYED RELEASE TAB PO SCH (09:17)
[2017-02-13] MEDS: SODIUM CHLORIDE 0.9% FLUSH 10 ML FLUSH IV FLUSH SCH ×2 (09:17→21:42)
--- NOTE | 2017-02-13 15:38 | HHI.PR ---
Subjective Remarks Follow-up for abdominal pain/ abdominal fluid collection Patient stated that pain has improved greatly since the drainage. Denies any nausea or vomiting. He remains afebrile. He is tolerating oral intake. His girlfriend is at the bedside during the interview. Objective Vitals Vital Signs Date Time Temp Pulse Resp B/P (MAP) Pulse Ox O2 Delivery O2 Flow Rate FiO2 02/13/17 15:29 92 21 02/13/17 12:00 96.8 73 18 135/69 (91) 91 02/13/17 08:48 92 21 02/13/17 08:00 97.2 81 18 130/69 (89) 92 02/13/17 04:00 96.8 77 20 135/72 (93) 93 02/13/17 03:07 94 Nasal Cannula 3.00 02/13/17 00:00 96.2 69 20 106/55 (72) 92 02/12/17 21:35 96 Nasal Cannula 3.00 02/12/17 20:00 95.4 111 20 121/55 (77) 92 02/12/17 16:14 20 02/12/17 16:14 20 02/12/17 16:00 96.7 78 18 96/61 (73) 92 02/12/17 15:50 80 16 120/72 (88) 92 02/12/17 15:35 78 18 119/67 (84) 92 I/O 02/12/17 02/12/17 02/12/17 02/13/17 02/13/17 02/13/17 07:00 15:00 23:00 07:00 15:00 23:00 Intake Total 1340 ml 500 ml 840 ml 1440 ml 500 ml Output Total 100 ml 350 ml Balance 1340 ml 500 ml 740 ml 1090 ml 500 ml Intake Oral 240 ml 840 ml 240 ml IV Total 1100 ml 500 ml 1200 ml 500 ml Output Urine Total 100 ml 150 ml Drainage Total 200 ml # Voids 1 3 # Bowel Movements 0 Result Diagram: 02/12/17 0444 02/12/174 Imaging Last Impressions Abscess Drainage CT 02/12/17 0000 Signed Impressions: Service Date/Time: January 14:14 - CONCLUSION: Uncomplicated CT guided drainage. Trip Manley MD Shoulder X-Ray 12/27/17 0000 Signed Impressions: Service Date/Time: Saturday, February 11, 2017 01:35 - CONCLUSION: Large calcification most likely representing chronic tendinitis. Roly Lawson MD Gall Bladder Ultrasound 02/11/17 0000 Signed Impressions: Service Date/Time: Saturday, February 11, 2017 20:11 - CONCLUSION: 1. Distended gallbladder with multiple gallstones similar to earlier CT examination. No additional sonographic findings to suggest acute cholecystitis. However, the earliest manifestation of acute cholecystitis may be gallbladder distention. This is felt to be unlikely. If there is significant ongoing clinical concern consider HIDA scan to determine cystic duct patency. 2. Hepatomegaly with diffusely increased hepatic echogenicity consistent with hepatic steatosis or medical liver disease. Brenton Dunbar MD Chest X-Ray 02/11/17 Signed Impressions: Service Date/Time: Saturday, February 11, 2017 01:31 - CONCLUSION: Left basilar opacity is present may be due to a combination of consolidation and or pleural effusion and probable mild pulmonary venous congestion. Roly Lawson MD Chest CT 02/11/17 Signed Impressions: Service Date/Time: Saturday, February 11, 2017 03:27 - CONCLUSION: 1. Resolution of previously seen right lung base consolidation. 2. Interval development of infiltrate in bilateral upper lobes and left upper lobe consolidation and pleural effusion have not changed. 3. There is a tiny right pleural effusion smaller since the prior study and no significant change subdiaphragmatic fluid collection since the prior exam probably from post splenectomy changes. Roly Lawson MD Abdomen/Pelvis CT 02/11/17 Signed Impressions: Service Date/Time: Saturday, February 11, 2017 05:51 - CONCLUSION: The postoperative fluid collection and surrounding parenchymal changes in left upper quadrant appears slightly larger since the study from 7 days ago. Possibility of underlying infectious process and abscess formation is not excluded and clinical correlation is suggested. Roly Lawson MD Objective Remarks GENERAL: in NAD CARDIOVASCULAR: Regular rate and rhythm without murmurs, gallops, or rubs. RESPIRATORY: Breath sounds equal bilaterally. No accessory muscle use. GASTROINTESTINAL: Abdomen soft, non-tender, nondistended. Drain is in place with purulent/serosanginous MUSCULOSKELETAL: No cyanosis, or edema. BACK: Nontender without obvious deformity. No CVA tenderness. Medications and IVs Current Medications Acetaminophen/ Hydrocodone Bitart ([place] 5-325 Mg) 1 tab ONCE ONCE PO Last administered on 02/11/17 01:24; Start 02/11/17 at 01:15; Stop 02/11/17 at 01 :16; Status DC Piperacillin Sod/ Tazobactam Sod 50 ml @ 100 mls/hr ONCE ONCE IV Last administered on 02/11/17 04:36; Start 02/11/17 at 04:30; Stop 02/11/17 at 04 :59; Status DC Vancomycin HCl 1000 mg/Sodium Chloride 250 ml @ 250 mls/hr ONCE ONCE IV Last administered on 02/11/17 06:48; Start 02/11/17 at 05:15; Stop 02/11/17 at 06 :14; Status DC Sodium Chloride (NS Flush) 2 ml UNSCH PRN IV FLUSH FLUSH AFTER USING IV ACCESS ; Start 02/11/17 at 05:15 Sodium Chloride (NS Flush) 2 ml BID IV FLUSH Last administered on 02/13/17 09 :17; Start 02/11/17 at 09:00 Cefepime HCl 2000 mg/Sodium Chloride 100 ml @ 200 mls/hr Q8H IV Last administered on 02/13/17 13:21; Start 02/11/17 at 06:00; Stop 02/13/17 at 14 :43; Status DC Pharmacy Profile Note 0 ml @ 0 mls/hr UNSCH OTHER ; Start 02/11/17 at 05:15; Stop 02/13/17 at 14:43; Status DC Albuterol/ Ipratropium (Duoneb Neb) 1 ampule Q6HR NEB INH Last administered on 02/13/17 03:08; Start 02/11/17 at 10:00 Albuterol/ Ipratropium (Duoneb Neb) 1 ampule Q4HR NEB PRN INH SHORTNESS OF BREATH; Start 02/11/17 at 05:15 Enoxaparin Sodium (Lovenox Inj) 40 mg Q24H SQ Last administered on 02/11/17 05:27; Start 02/11/17 at 06:00; Stop 02/11/17 at 06:00; Status DC Amlodipine Besylate (Norvasc) 10 mg DAILY PO Last administered on 02/13/17 09 :17; Start 02/11/17 at 09:00 Atorvastatin Calcium (Lipitor) 10 mg HS PO Last administered on 02/12/17 21: 56; Start 02/11/17 at 21:00 Bupropion HCl (Wellbutrin) 100 mg BID PO Last administered on 02/13/17 09:17 ; Start 02/11/17 at 09:00 Gabapentin (Neurontin) 600 mg TID PO Last administered on 02/13/17 13:21; Start 02/11/17 at 09:00 Levothyroxine Sodium (Synthroid) 200 mcg DAILY@0700 PO Last administered on 06:29; Start 02/11/17 at 07:00 Lisinopril (Prinivil) 5 mg DAILY PO Last administered on 02/13/17 09:17; Start 02/11/17 at 09:00 Metoprolol Tartrate (Lopressor) 50 mg BID PO Last administered on 02/13/17 09 :17; Start 02/11/17 at 09:00 Pantoprazole Sodium (Protonix) 40 mg DAILY PO Last administered on 02/13/17 09:17; Start 02/11/17 at 09:00 Tamsulosin HCl (Flomax) 0.4 mg HS PO Last administered on 02/12/17 21:56; Start 02/11/17 at 21:00 Acetaminophen/ Hydrocodone Bitart ([place] 5-325 Mg) 1 tab Q4H PRN PO pain > 4 Last administered on 02/12/17 13:34; Start 02/11/17 at 05:15 Morphine Sulfate (Morphine Inj) 4 mg Q4H PRN IV PUSH pain 6-10; Start at 05:30 Heparin Sodium (Porcine) (Heparin Inj) 5,000 units Q8HR SQ ; Start 02/12/17 at 06:00; Status Future Hold Vancomycin HCl 2000 mg/Sodium Chloride 520 ml @ 250 mls/hr Q18H IV Last administered on 02/13/17 03:04; Start 02/11/17 at 15:00; Stop 02/13/17 at 14 :43; Status DC Miscellaneous Information SPECIFIC LAB TO BE DRAWN:VANCOMYCIN TROUGH DATE TO... ONCE ONCE .XX ; Start 02/13/17 at 20:45; Stop 02/13/17 at 20:46; Status Cancel Bisacodyl (Dulcolax Ec) 20 mg ONCE ONCE PO Last administered on 02/11/17 10: 40; Start 02/11/17 at 10:30; Stop 02/11/17 at 10:31; Status DC Lactulose (Lactulose Liq) 30 ml ONCE ONCE PO Last administered on 02/11/17 10:39; Start 02/11/17 at 10:30; Stop 02/11/17 at 10:31; Status DC Sodium Chloride 1,000 ml @ 100 mls/hr Q10H IV Last administered on 02/12/17 23:58; Start 02/11/17 at 12:45; Stop 02/13/17 at 14:53; Status DC Acetaminophen (Tylenol) 650 mg Q4H PRN PO FEVER; Start 02/12/17 at 12:45; Stop 02/12/17 at 13:12; Status DC Ibuprofen (Motrin) 600 mg Q8H PRN PO fever Last administered on 02/12/17 13: 34; Start 02/12/17 at 13:15 Magnesium Hydroxide (Milk Of Magnesia Liq) 30 ml DAILY PRN PO CONSTIPATION Last administered on 02/13/17 06:32; Start 02/12/17 at 13:15 Fentanyl Citrate (fentaNYL INJ) 200 mcg STK-MED ONCE .ROUTE Last administered on 02/12/17 14:15; Start 02/12/17 at 13:31; Stop 02/12/17 at 13:32; Status DC Midazolam HCl (Versed Inj) 4 mg STK-MED ONCE .ROUTE Last administered on 14:15; Start 02/12/17 at 13:31; Stop 02/12/17 at 13:32; Status DC Lidocaine HCl (Xylocaine 1% Inj) 20 ml STK-MED ONCE .ROUTE Last administered on 02/12/17 13:38; Start 02/12/17 at 13:38; Stop 02/12/17 at 13:39; Status DC Sodium Chloride (NS Inj) 10 ml DAILY IRRIGATION Last administered on 09:00; Start 02/13/17 at 09:00 Piperacillin Sod/ Tazobactam Sod 100 ml @ 200 mls/hr Q6H IV ; Start 02/13/17 at 15:00 A/P Problem List: (1) Pancreatitis, acute ICD Code: K85.90 - Acute pancreatitis without necrosis or infection, unspecified Status: Resolved (2) Pneumonia ICD Code: J18.9 - Pneumonia, unspecified organism (3) Abdominal fluid collection ICD Code: R18.8 - Other ascites Assessment and Plan This is a 71-year-old male who presented with abdominal pain Abdominal pain -Labs and imaging obtained significant for Lipase elevated at 500 and leukocytosis of 17,000. CT scan of the abdomen shows an abnormal fluid collection. -Status post CT-guided drainage which was purulent. -Pending cultures. Will consult infectious disease. -On vancomycin and cefepime. Pneumonia - previously patient had Serratia pneumonia (12/2016) -The patient has persistent left upper lobe consolidation and pleural effusion with leukocytosis impaired antibiotics of vancomycin and cefepime have been started for possible healthcare associated pneumonia -Clinically patient does not have any signs of pneumonia. So most likely unlikely patient has current pneumonia. Infectious disease consulted. Continue treatment for hypertension, hypothyroidism and depression Discharge Planning With patient, his girlfriend, his son-in-law who is a operating room tech. Cece Jung MD Feb 13, 2017 15:38
[2017-02-13] MEDS: PIPERACIL-TAZO 4.5 GM PREMIX 100 ML IV SCH ×2 (16:29→21:39)
[2017-02-13] MEDS: SODIUM CHLOR 0.9% 1000 ML INJ 1,000 ML IV SCH (16:29)
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
[2017-02-13] MEDS ORDERED: PHARMACY ORDERED LAB ONE (20:45)
[2017-02-13] MEDS: ATORVASTATIN 10 MG TAB PO SCH (21:40)
[2017-02-13] MEDS: TAMSULOSIN HCL 0.4 MG CAP PO SCH (21:41)
[2017-02-14] VITALS: BP 125/65; PULSE 84; RESP 16; TEMP 97.5; O2SAT 92
[2017-02-14] MEDS: PIPERACIL-TAZO 4.5 GM PREMIX 100 ML IV SCH ×4 (02:55→21:22)
[2017-02-14] MEDS: RESP: ALBUTEROL 2.5 MG/IPRATROPIUM 0.5 MG NEB (SCH) INH ×4 (04:00→21:32)
[2017-02-14] MEDS: LEVOTHYROXINE SODIUM 100 MCG TAB PO SCH (06:20)
[2017-02-14 08:00] VITALS: BP 140/70; PULSE 70; RESP 18; TEMP 97.5; O2SAT 97
[2017-02-14 08:39] LABS: HEMATOCRIT 33.5 % (39.0-51.0); HEMOGLOBIN 10.8 GM/DL (13.0-17.0); MEAN CELL VOLUME 91.9 FL (80.0-100.0); MEAN CORPUSCULAR HEMOGLOBIN 29.7 PG (27.0-34.0); MEAN CORPUSCULAR HGB CONC 32.3 % (32.0-36.0); MEAN PLATELET VOLUME 7.7 FL (7.0-11.0); PLATELET COUNT 607 TH/MM3 (150-450); RED BLOOD COUNT 3.65 MIL/MM3 (4.50-5.90); RED CELL DISTRIBUTION WIDTH 19.1 % (11.6-17.2); WHITE BLOOD COUNT 11.5 TH/MM3 (4.0-11.0)
[2017-02-14] MEDS: LISINOPRIL 5 MG TAB PO SCH (08:40)
[2017-02-14] MEDS: GABAPENTIN 300 MG CAP PO SCH ×3 (08:40→18:00)
[2017-02-14] MEDS: METOPROLOL TARTRATE 50 MG TAB PO SCH ×2 (08:40→21:22)
[2017-02-14] MEDS: buPROPion HCL 100 MG TAB PO SCH ×2 (08:40→21:22)
[2017-02-14] MEDS: SODIUM CHLORIDE 0.9% FLUSH 10 ML FLUSH IV FLUSH SCH ×2 (08:40→21:22)
[2017-02-14] MEDS: PANTOPRAZOLE SOD 40 MG DELAYED RELEASE TAB PO SCH (08:40)
[2017-02-14] MEDS: SODIUM CHLORIDE 0.9% 10 ML VIAL IRRIGATION SCH (08:44)
[2017-02-14 08:49] VITALS: O2SAT 98
[2017-02-14 09:12] LABS: BICARBONATE 25.1 MEQ/L (21.0-32.0); CALCIUM 9.3 MG/DL (8.5-10.1); CREATININE 1.01 MG/DL (0.60-1.30)
[2017-02-14] MEDS ORDERED: LORazepam 1 MG TAB PO PRN (09:30)
[2017-02-14] MEDS ORDERED: FLUMAZENIL 0.5 MG/5 ML VIAL IV PUSH PRN (09:30)
[2017-02-14] MEDS ORDERED: LORazepam 2 MG TAB PO PRN (09:30)
[2017-02-14] MEDS ORDERED: LORazepam 2 MG/ML VIAL IV PUSH PRN ×4 (09:30)
--- NOTE | 2017-02-14 10:56 | HHI.PR ---
Subjective Remarks Follow-up for abdominal pain Abdominal pain improved. He is asking for his diet to be advanced. Deny nausea or vomiting. Patient remains afebrile. His nurse at the bedside during the interview. He is also asking for help in showering, brushing his teeth, shaving. Objective Vitals Vital Signs Date Time Temp Pulse Resp B/P (MAP) Pulse Ox O2 Delivery O2 Flow Rate FiO2 02/14/17 08:49 98 02/14/17 08:00 97.5 70 18 140/70 (93) 97 02/14/17 00:00 97.5 84 16 125/65 (85) 92 02/13/17 20:00 97.5 84 16 120/64 (82) 91 02/13/17 16:00 98.1 74 18 119/63 (81) 94 02/13/17 15:29 92 21 02/13/17 12:00 96.8 73 18 135/69 (91) 91 I/O 02/13/17 02/13/17 02/13/17 02/14/17 02/14/17 02/14/17 07:00 15:00 23:00 07:00 15:00 23:00 Intake Total 1440 ml 500 ml 960 ml 240 ml Output Total 350 ml 50 ml 700 ml 425 ml Balance 1090 ml 450 ml 260 ml -185 ml Intake Oral 240 ml 960 ml 240 ml IV Total 1200 ml 500 ml Output Urine Total 150 ml 700 ml 400 ml Drainage Total 200 ml 50 ml 25 ml # Voids 3 # Bowel Movements 2 Result Diagram: 02/14/1782102/14/1722 Objective Remarks GENERAL: in NAD CARDIOVASCULAR: Regular rate and rhythm without murmurs, gallops, or rubs. RESPIRATORY: Breath sounds equal bilaterally. No accessory muscle use. GASTROINTESTINAL: Abdomen soft, non-tender, nondistended. Drain is in place with serosanginous MUSCULOSKELETAL: No cyanosis, or edema. BACK: Nontender without obvious deformity. No CVA tenderness. Medications and IVs Current Medications Acetaminophen/ Hydrocodone Bitart ([place] 5-325 Mg) 1 tab ONCE ONCE PO Last administered on 02/11/17t 01:24; Start 02/11/17 at 01:15; Stop 02/11/17 at 01 :16; Status DC Piperacillin Sod/ Tazobactam Sod 50 ml @ 100 mls/hr ONCE ONCE IV Last administered on 02/11/17 04:36; Start 02/11/17 at 04:30; Stop 02/11/17 at 04 :59; Status DC Vancomycin HCl 1000 mg/Sodium Chloride 250 ml @ 250 mls/hr ONCE ONCE IV Last administered on 02/11/17 06:48; Start 02/11/17 at 05:15; Stop 02/11/17 at 06 :14; Status DC Sodium Chloride (NS Flush) 2 ml UNSCH PRN IV FLUSH FLUSH AFTER USING IV ACCESS ; Start 02/11/17 at 05:15 Sodium Chloride (NS Flush) 2 ml BID IV FLUSH Last administered on 02/14/17 08 :40; Start 02/11/17 at 09:00 Cefepime HCl 2000 mg/Sodium Chloride 100 ml @ 200 mls/hr Q8H IV Last administered on 02/13/17 13:21; Start 02/11/17 at 06:00; Stop 02/13/17 at 14 :43; Status DC Pharmacy Profile Note 0 ml @ 0 mls/hr UNSCH OTHER ; Start 02/11/17 at 05:15; Stop 02/13/17 at 14:43; Status DC Albuterol/ Ipratropium (Duoneb Neb) 1 ampule Q6HR NEB INH Last administered on 02/14/17 08:49; Start 02/11/17 at 10:00 Albuterol/ Ipratropium (Duoneb Neb) 1 ampule Q4HR NEB PRN INH SHORTNESS OF BREATH; Start 02/11/17 at 05:15 Enoxaparin Sodium (Lovenox Inj) 40 mg Q24H SQ Last administered on 02/11/17 05:27; Start 02/11/17 at 06:00; Stop 02/11/17 at 06:00; Status DC Amlodipine Besylate (Norvasc) 10 mg DAILY PO Last administered on 02/14/17 08 :40; Start 02/11/17 at 09:00 Atorvastatin Calcium (Lipitor) 10 mg HS PO Last administered on 02/13/17 21: 40; Start 02/11/17 at 21:00 Bupropion HCl (Wellbutrin) 100 mg BID PO Last administered on 02/14/17 08:40 ; Start 02/11/17 at 09:00 Gabapentin (Neurontin) 600 mg TID PO Last administered on 02/14/17 08:40; Start 02/11/17 at 09:00 Levothyroxine Sodium (Synthroid) 200 mcg DAILY@0700 PO Last administered on 06:20; Start 02/11/17 at 07:00 Lisinopril (Prinivil) 5 mg DAILY PO Last administered on 02/14/17 08:40; Start 02/11/17 at 09:00 Metoprolol Tartrate (Lopressor) 50 mg BID PO Last administered on 02/14/17 08 :40; Start 02/11/17 at 09:00 Pantoprazole Sodium (Protonix) 40 mg DAILY PO Last administered on 02/14/17 08:40; Start 02/11/17 at 09:00 Tamsulosin HCl (Flomax) 0.4 mg HS PO Last administered on 02/13/17 21:41; Start 02/11/17 at 21:00 Acetaminophen/ Hydrocodone Bitart ([place] 5-325 Mg) 1 tab Q4H PRN PO pain > 4 Last administered on 02/12/17 13:34; Start 02/11/17 at 05:15 Morphine Sulfate (Morphine Inj) 4 mg Q4H PRN IV PUSH pain 6-10; Start at 05:30 Heparin Sodium (Porcine) (Heparin Inj) 5,000 units Q8HR SQ ; Start 02/12/17 at 06:00; Status Future Hold Vancomycin HCl 2000 mg/Sodium Chloride 520 ml @ 250 mls/hr Q18H IV Last administered on 02/13/17 03:04; Start 02/11/17 at 15:00; Stop 02/13/17 at 14 :43; Status DC Miscellaneous Information SPECIFIC LAB TO BE DRAWN:VANCOMYCIN TROUGH DATE TO... ONCE ONCE .XX ; Start 02/13/17 at 20:45; Stop 02/13/17 at 20:46; Status Cancel Bisacodyl (Dulcolax Ec) 20 mg ONCE ONCE PO Last administered on 02/11/17 10: 40; Start 02/11/17 at 10:30; Stop 02/11/17 at 10:31; Status DC Lactulose (Lactulose Liq) 30 ml ONCE ONCE PO Last administered on 02/11/17 10:39; Start 02/11/17 at 10:30; Stop 02/11/17 at 10:31; Status DC Sodium Chloride 1,000 ml @ 100 mls/hr Q10H IV Last administered on 02/13/17 16:29; Start 02/11/17 at 12:45; Stop 02/13/17 at 14:53; Status DC Acetaminophen (Tylenol) 650 mg Q4H PRN PO FEVER; Start 02/12/17 at 12:45; Stop 02/12/17 at 13:12; Status DC Ibuprofen (Motrin) 600 mg Q8H PRN PO fever Last administered on 02/12/17 13: 34; Start 02/12/17 at 13:15 Magnesium Hydroxide (Milk Of Magnesia Liq) 30 ml DAILY PRN PO CONSTIPATION Last administered on 02/13/17 06:32; Start 02/12/17 at 13:15 Fentanyl Citrate (fentaNYL INJ) 200 mcg STK-MED ONCE .ROUTE Last administered on 02/12/17 14:15; Start 02/12/17 at 13:31; Stop 02/12/17 at 13:32; Status DC Midazolam HCl (Versed Inj) 4 mg STK-MED ONCE .ROUTE Last administered on 14:15; Start 02/12/17 at 13:31; Stop 02/12/17 at 13:32; Status DC Lidocaine HCl (Xylocaine 1% Inj) 20 ml STK-MED ONCE .ROUTE Last administered on 02/12/17 13:38; Start 02/12/17 at 13:38; Stop 02/12/17 at 13:39; Status DC Sodium Chloride (NS Inj) 10 ml DAILY IRRIGATION Last administered on 08:44; Start 02/13/17 at 09:00 Piperacillin Sod/ Tazobactam Sod 100 ml @ 200 mls/hr Q6H IV Last administered on 02/14/17 08:40; Start 02/13/17 at 15:00 Flumazenil (Romazicon Inj) 0.2 mg Q1M PRN IV PUSH SEE LABEL COMMENTS; Start at 09:30 Lorazepam (Ativan) 1 mg Q4H PRN PO CIWA 8 - 10; Start 02/14/17 at 09:30 Lorazepam (Ativan Inj) 1 mg Q4H PRN IV PUSH CIWA 8 - 10; Start 02/14/17 at 09: 30 Lorazepam (Ativan) 2 mg Q2H PRN PO CIWA 11-14; Start 02/14/17 at 09:30 Lorazepam (Ativan Inj) 2 mg Q2H PRN IV PUSH CIWA 11-14; Start 02/14/17 at 09: 30 Lorazepam (Ativan Inj) 2 mg Q1H PRN IV PUSH CIWA 15-20; Start 02/14/17 at 09: 30 Lorazepam (Ativan Inj) 2 mg Q15M PRN IV PUSH CIWA > 20; Start 02/14/17 at 09: 30 A/P Problem List: (1) Pancreatitis, acute ICD Code: K85.90 - Acute pancreatitis without necrosis or infection, unspecified Status: Resolved (2) Pneumonia ICD Code: J18.9 - Pneumonia, unspecified organism (3) Abdominal fluid collection ICD Code: R18.8 - Other ascites Assessment and Plan This is a 71-year-old male who presented with abdominal pain Abdominal pain -Labs and imaging obtained significant for Lipase elevated at 500 and leukocytosis of 17,000. CT scan of the abdomen shows an abnormal fluid collection. -Status post CT-guided drainage which was purulent. -Cultures negative. Infectious disease following. May be secondary to a seroma. -Status post vancomycin cefepime on 02/13. Now on Zosyn. Infectious disease following. -Drain being managed by IR. Pneumonia - previously patient had Serratia pneumonia (12/2016) -The patient has persistent left upper lobe consolidation and pleural effusion with leukocytosis impaired antibiotics he was initially started on cefepime and vancomycin for hospital-acquired pneumonia. -Clinically patient does not have any signs of pneumonia. -Infectious disease consulted patient now on Zosyn. Continue treatment for hypertension, hypothyroidism and depression Discharge Planning Once drain is discontinue patient can be discharged to SNF. Cece Jung MD Feb 14, 2017 10:56
[2017-02-14 12:00] VITALS: BP 124/63; PULSE 60; RESP 18; TEMP 96.3; O2SAT 96
--- NOTE | 2017-02-14 12:44 | PD.CAR.PN ---
CVT Progress Note Subjective/Hospital Course: 02/12/17 Patient awake alert and oriented Tender in left upper quadrant or fullness is appreciated Left upper quadrant collection in the splenic subphrenic bed may have pancreatic component because patient had contusion of the pancreas at a time and lipase is a bit elevated Discussed today with Dr. Manley will do CT-guided drainage of the same and then we'll see how patient does There are a few loculated areas around the main cavity but I believe draining the main cavity we will do and I do not believe this is infected Nothing further to add at this time 02/14/17 After decompression of the left upper quadrant collection patient is doing much better Leukocytosis has resolved All cultures remained negative I've discussed with the family the situation and chances of needing an open surgery a very small although not 0 Continue current care Objective: Vital Signs Date Time Temp Pulse Resp B/P (MAP) Pulse Ox O2 Delivery O2 Flow Rate FiO2 02/14/17 12:00 96.3 60 18 124/63 (83) 96 02/14/17 08:49 98 02/14/17 08:00 97.5 70 18 140/70 (93) 97 02/14/17 00:00 97.5 84 16 125/65 (85) 92 02/13/17 20:00 97.5 84 16 120/64 (82) 91 02/13/17 16:00 98.1 74 18 119/63 (81) 94 02/13/17 15:29 92 21 Labs: Laboratory Tests Test 02/14/17 08:22 White Blood Count 11.5 TH/MM3 (4.0-11.0) Red Blood Count 3.65 MIL/MM3 (4.50-5.90) Hemoglobin 10.8 GM/DL (13.0-17.0) Hematocrit 33.5 % (39.0-51.0) Mean Corpuscular Volume 91.9 FL (80.0-100.0) Mean Corpuscular Hemoglobin 29.7 PG (27.0-34.0) Mean Corpuscular Hemoglobin Concent 32.3 % (32.0-36.0) Red Cell Distribution Width 19.1 % (11.6-17.2) Platelet Count 607 TH/MM3 (150-450) Mean Platelet Volume 7.7 FL (7.0-11.0) Blood Urea Nitrogen 8 MG/DL (7-18) Creatinine 1.01 MG/DL (0.60-1.30) Random Glucose 93 MG/DL (74-106) Calcium Level 9.3 MG/DL (8.5-10.1) Sodium Level 140 MEQ/L (136-145) Potassium Level 3.4 MEQ/L (3.5-5.1) Chloride Level 105 MEQ/L (98-107) Carbon Dioxide Level 25.1 MEQ/L (21.0-32.0) Anion Gap 10 MEQ/L (5-15) Estimat Glomerular Filtration Rate 73 ML/MIN (>89) Result Diagram: 02/14/17 0822 02/14/17 0822 Kyle Maya MD Feb 14, 2017 12:44
[2017-02-14 16:00] VITALS: BP 140/69; PULSE 76; RESP 18; TEMP 96.5; O2SAT 94
[2017-02-14 20:23] VITALS: BP 142/70; PULSE 74; RESP 18; TEMP 97.3; O2SAT 96
[2017-02-14] MEDS: TAMSULOSIN HCL 0.4 MG CAP PO SCH (21:22)
[2017-02-14] MEDS: ATORVASTATIN 10 MG TAB PO SCH (21:22)
[2017-02-15] VITALS (7 sets, daily range): BP systolic 116–147; BP diastolic 62–81; PULSE 71–79; RESP 18–20; TEMP 97.3–97.8; O2SAT 94–96
[2017-02-15] MEDS: PIPERACIL-TAZO 4.5 GM PREMIX 100 ML IV SCH ×4 (03:54→21:11)
[2017-02-15] MEDS: RESP: ALBUTEROL 2.5 MG/IPRATROPIUM 0.5 MG NEB (SCH) INH (04:00)
[2017-02-15] MEDS: MAGNESIUM HYDROXIDE SUSP 30 ML CUP PO PRN (06:32)
[2017-02-15] MEDS: LEVOTHYROXINE SODIUM 100 MCG TAB PO SCH (06:33)
[2017-02-15 08:25] LABS: HEMATOCRIT 29.1 % (39.0-51.0); HEMOGLOBIN 9.7 GM/DL (13.0-17.0); MEAN CELL VOLUME 90.9 FL (80.0-100.0); MEAN CORPUSCULAR HEMOGLOBIN 30.2 PG (27.0-34.0); MEAN CORPUSCULAR HGB CONC 33.3 % (32.0-36.0); MEAN PLATELET VOLUME 7.8 FL (7.0-11.0); PLATELET COUNT 618 TH/MM3 (150-450)
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
[2017-02-15 08:41] LABS: BICARBONATE 26.7 MEQ/L (21.0-32.0); CALCIUM 9.1 MG/DL (8.5-10.1); CREATININE 1.03 MG/DL (0.60-1.30)
[2017-02-15] MEDS: SODIUM CHLORIDE 0.9% 10 ML VIAL IRRIGATION SCH (09:00)
--- NOTE | 2017-02-15 10:09 | HHI.PR ---
Subjective Remarks Patient seen and examined this morning, vitals are stable and afebrile. This is a follow-up for the patient's abdominal pain. Reports abdominal pain is fantastic! He is asking when he can go home. Tolerating his regular diet. Wants to walk the halls. Objective Vital Signs Date Time Temp Pulse Resp B/P (MAP) Pulse Ox O2 Delivery O2 Flow Rate FiO2 02/15/17 00:11 97.5 74 18 116/62 (80) 94 02/14/17 20:23 97.3 74 18 142/70 (94) 96 02/14/17 16:00 96.5 76 18 140/69 (92) 94 02/14/17 12:00 96.3 60 18 124/63 (83) 96 I/O 02/14/17 02/14/17 02/14/17 02/15/17 02/15/17 02/15/17 07:00 15:00 23:00 07:00 15:00 23:00 Intake Total 240 ml 1160 ml 680 ml Output Total 425 ml 70 ml 1230 ml Balance -185 ml 1090 ml -550 ml Intake Oral 240 ml 960 ml 680 ml IV Total 200 ml Output Urine Total 400 ml 1200 ml Drainage Total 25 ml 70 ml 30 ml # Voids 3 4 # Bowel Movements 1 Result Diagram: 02/15/17 0659 02/15/17 0659 Imaging Last Impressions Abscess Drainage CT 02/12/17 0000 Signed Impressions: Service Date/Time: January 14:14 - CONCLUSION: Uncomplicated CT guided drainage. Trip Manley MD Shoulder X-Ray 02/11/17 0000 Signed Impressions: Service Date/Time: Saturday, February 11, 2017 01:35 - CONCLUSION: Large calcification most likely representing chronic tendinitis. Roly Lawson MD Gall Bladder Ultrasound 02/11/17 0000 Signed Impressions: Service Date/Time: Saturday, February 11, 2017 20:11 - CONCLUSION: 1. Distended gallbladder with multiple gallstones similar to earlier CT examination. No additional sonographic findings to suggest acute cholecystitis. However, the earliest manifestation of acute cholecystitis may be gallbladder distention. This is felt to be unlikely. If there is significant ongoing clinical concern consider HIDA scan to determine cystic duct patency. 2. Hepatomegaly with diffusely increased hepatic echogenicity consistent with hepatic steatosis or medical liver disease. Brenton Dunbar MD Chest X-Ray 02/11/17 0000 Signed Impressions: Service Date/Time: Saturday, February 11, 2017 01:31 - CONCLUSION: Left basilar opacity is present may be due to a combination of consolidation and or pleural effusion and probable mild pulmonary venous congestion. Roly Lawson MD Chest CT 02/11/17 0000 Signed Impressions: Service Date/Time: Saturday, February 11, 2017 03:27 - CONCLUSION: 1. Resolution of previously seen right lung base consolidation. 2. Interval development of infiltrate in bilateral upper lobes and left upper lobe consolidation and pleural effusion have not changed. 3. There is a tiny right pleural effusion smaller since the prior study and no significant change subdiaphragmatic fluid collection since the prior exam probably from post splenectomy changes. Roly Lawson MD Abdomen/Pelvis CT 02/11/17 0000 Signed Impressions: Service Date/Time: Saturday, February 11, 2017 05:51 - CONCLUSION: The postoperative fluid collection and surrounding parenchymal changes in left upper quadrant appears slightly larger since the study from 7 days ago. Possibility of underlying infectious process and abscess formation is not excluded and clinical correlation is suggested. Roly Lawson MD Objective Remarks GENERAL: sitting up in chair, eating breakfast, nad SKIN: Warm and dry. HEAD: Normocephalic. EYES: No scleral icterus. No injection or drainage. NECK: Supple, trachea midline. No JVD or lymphadenopathy. CARDIOVASCULAR: Regular rate and rhythm without murmurs, gallops, or rubs. RESPIRATORY: Breath sounds equal bilaterally. No accessory muscle use. GASTROINTESTINAL: Abdomen soft, non-tender, healed midline incision, abdominal binder on, left lower quadrant with drain MUSCULOSKELETAL: No cyanosis, or edema. No calf tenderness. A/P Problem List: (1) Abdominal fluid collection ICD Code: R18.8 - Other ascites (2) Pneumonia ICD Code: J18.9 - Pneumonia, unspecified organism (3) Pancreatitis, acute ICD Code: K85.90 - Acute pancreatitis without necrosis or infection, unspecified Status: Resolved (4) HTN (hypertension) ICD Code: I10 - Essential (primary) hypertension Status: Chronic Assessment and Plan 71-year-old male who presented with abdominal pain being treated for Abdominal Fluid collection - Left upper quadrant fluid collection seen on CT abdomen, likely from patient' s recent splenectomy. He underwent percutaneous drainage of the fluid collection, cultures were sent with have been negative to date. Fluid is serosanguineous. - Patient is being followed also by infectious disease. - Continue to follow cultures, concern is that they're negative due to prior antibiotics before draining - Continue to monitor CBC and follow temperature. Continue Zosyn 02/13-. - Followed by Dr. Baldwin, likely will not require further surgical intervention Pneumonia - Previously treated for Serratia pneumonia on January 05, 2017 - Persistent left upper lobe consolidation and pleural effusion with leukocytosis on admission. He was initially placed on vancomycin and cefepime for hospital-acquired pneumonia. - A she was switched to Zosyn on 02/13 Hypertension - Continue home meds Hypothyroidism - Continue home meds Depression - continue home meds He may walk the halls with nurse. I discussed the case with the patients nurse at bedside. Discharge Planning Discharge pending clearance and CT surgery and infectious disease recommendations for outpatient antibiotics. Mercedez See MD Feb 15, 2017 10:09
[2017-02-15] MEDS: buPROPion HCL 100 MG TAB PO SCH ×2 (10:14→21:10)
[2017-02-15] MEDS: METOPROLOL TARTRATE 50 MG TAB PO SCH ×2 (10:14→21:10)
[2017-02-15] MEDS: LISINOPRIL 5 MG TAB PO SCH (10:14)
[2017-02-15] MEDS: PANTOPRAZOLE SOD 40 MG DELAYED RELEASE TAB PO SCH (10:14)
[2017-02-15] MEDS: GABAPENTIN 300 MG CAP PO SCH ×3 (10:14→17:48)
[2017-02-15] MEDS: SODIUM CHLORIDE 0.9% FLUSH 10 ML FLUSH IV FLUSH SCH ×2 (10:15→21:00)
[2017-02-15] MEDS: TAMSULOSIN HCL 0.4 MG CAP PO SCH (21:10)
[2017-02-15] MEDS: ATORVASTATIN 10 MG TAB PO SCH (21:11)
[2017-02-16 00:16] VITALS: BP 121/74; PULSE 79; RESP 20; TEMP 97.4; O2SAT 96
[2017-02-16] MEDS: PIPERACIL-TAZO 4.5 GM PREMIX 100 ML IV SCH ×4 (04:00→20:45)
[2017-02-16 08:00] VITALS: BP 125/61; PULSE 71; RESP 16; TEMP 97.5; O2SAT 95
[2017-02-16] MEDS: LEVOTHYROXINE SODIUM 100 MCG TAB PO SCH (08:23)
[2017-02-16] MEDS: GABAPENTIN 300 MG CAP PO SCH ×3 (08:24→18:01)
[2017-02-16] MEDS: PANTOPRAZOLE SOD 40 MG DELAYED RELEASE TAB PO SCH (08:24)
[2017-02-16] MEDS: METOPROLOL TARTRATE 50 MG TAB PO SCH ×2 (08:24→20:45)
[2017-02-16] MEDS: buPROPion HCL 100 MG TAB PO SCH ×2 (08:24→20:45)
[2017-02-16] MEDS: LISINOPRIL 5 MG TAB PO SCH (08:24)
[2017-02-16] MEDS: SODIUM CHLORIDE 0.9% FLUSH 10 ML FLUSH IV FLUSH SCH ×2 (08:26→20:51)
[2017-02-16] MEDS: SODIUM CHLORIDE 0.9% 10 ML VIAL IRRIGATION SCH (08:26)
--- NOTE | 2017-02-16 09:44 | HHI.PR ---
Subjective Remarks Patient seen and examined this morning, vitals are stable and afebrile. This is a follow-up for the patient's abdominal pain. at beside. The family wants to know when they can go home. Some abdominal pain after eating a large meal. Walked the halls 5x yesterday. Objective Vital Signs Date Time Temp Pulse Resp B/P (MAP) Pulse Ox O2 Delivery O2 Flow Rate FiO2 02/16/17 08:00 97.5 71 16 125/61 (82) 95 02/16/17 00:16 97.4 79 20 121/74 (90) 96 02/15/17 20:44 97.6 78 18 147/76 (99) 96 02/15/17 17:43 95 21 02/15/17 16:00 97.4 73 18 138/72 (94) 95 02/15/17 12:00 97.3 71 20 140/81 (100) 95 02/15/17 10:56 95 I/O 02/15/17 02/15/17 02/15/17 02/16/17 02/16/17 02/16/17 07:00 15:00 23:00 07:00 15:00 23:00 Intake Total 680 ml 100 ml 680 ml 480 ml Output Total 1230 ml 75 ml 800 ml Balance -550 ml 100 ml 605 ml -320 ml Intake Oral 680 ml 480 ml 380 ml IV Total 100 ml 200 ml 100 ml Output Urine Total 1200 ml 800 ml Drainage Total 30 ml 75 ml # Bowel Movements 1 Result Diagram: 02/15/17 0659 02/15/17 0659 Imaging Last Impressions Abscess Drainage CT 02/12/17 0000 Signed Impressions: Service Date/Time: January 14:14 - CONCLUSION: Uncomplicated CT guided drainage. Trip Manley MD Shoulder X-Ray 02/11/17 0000 Signed Impressions: Service Date/Time: Saturday, February 11, 2017 01:35 - CONCLUSION: Large calcification most likely representing chronic tendinitis. Roly Lawson MD Gall Bladder Ultrasound 02/11/17 0000 Signed Impressions: Service Date/Time: Saturday, February 11, 2017 20:11 - CONCLUSION: 1. Distended gallbladder with multiple gallstones similar to earlier CT examination. No additional sonographic findings to suggest acute cholecystitis. However, the earliest manifestation of acute cholecystitis may be gallbladder distention. This is felt to be unlikely. If there is significant ongoing clinical concern consider HIDA scan to determine cystic duct patency. 2. Hepatomegaly with diffusely increased hepatic echogenicity consistent with hepatic steatosis or medical liver disease. Brenton Dunbar MD Chest X-Ray 02/11/17 0000 Signed Impressions: Service Date/Time: Saturday, February 11, 2017 01:31 - CONCLUSION: Left basilar opacity is present may be due to a combination of consolidation and or pleural effusion and probable mild pulmonary venous congestion. Roly Lawson MD Chest CT 02/11/17 0000 Signed Impressions: Service Date/Time: Saturday, February 11, 2017 03:27 - CONCLUSION: 1. Resolution of previously seen right lung base consolidation. 2. Interval development of infiltrate in bilateral upper lobes and left upper lobe consolidation and pleural effusion have not changed. 3. There is a tiny right pleural effusion smaller since the prior study and no significant change subdiaphragmatic fluid collection since the prior exam probably from post splenectomy changes. Roly Lwason MD Abdomen/Pelvis CT 02/11/17 0000 Signed Impressions: Service Date/Time: Saturday, February 11, 2017 05:51 - CONCLUSION: The postoperative fluid collection and surrounding parenchymal changes in left upper quadrant appears slightly larger since the study from 7 days ago. Possibility of underlying infectious process and abscess formation is not excluded and clinical correlation is suggested. Roly Lawson MD Objective Remarks GENERAL: sitting up in chair, eating breakfast, nad SKIN: Warm and dry. HEAD: Normocephalic. EYES: No scleral icterus. No injection or drainage. NECK: Supple, trachea midline. No JVD or lymphadenopathy. CARDIOVASCULAR: Regular rate and rhythm without murmurs, gallops, or rubs. RESPIRATORY: Breath sounds equal bilaterally. No accessory muscle use. GASTROINTESTINAL: Abdomen soft, non-tender, healed midline incision, abdominal binder on, left lower quadrant with drain serous sanginous fluid MUSCULOSKELETAL: No cyanosis, or edema. No calf tenderness. A/P Problem List: (1) Abdominal fluid collection ICD Code: R18.8 - Other ascites (2) Pneumonia ICD Code: J18.9 - Pneumonia, unspecified organism (3) Pancreatitis, acute ICD Code: K85.90 - Acute pancreatitis without necrosis or infection, unspecified Status: Resolved (4) HTN (hypertension) ICD Code: I10 - Essential (primary) hypertension Status: Chronic Assessment and Plan 71-year-old male who presented with abdominal pain being treated for Abdominal Fluid collection - Left upper quadrant fluid collection seen on CT abdomen, likely from patient' s recent splenectomy. He underwent percutaneous drainage of the fluid collection, cultures were sent with have been negative to date. Fluid is serosanguineous. - Patient is being followed also by infectious disease, several cultures still pending - Continue to follow cultures, concern is that they're negative due to prior antibiotics before draining - Continue to monitor CBC and follow temperature. Continue Zosyn 02/13-. - Followed by Dr. Baldwin, likely will not require further surgical intervention Pneumonia - Previously treated for Serratia pneumonia on January 05, 2017 - Persistent left upper lobe consolidation and pleural effusion with leukocytosis on admission. He was initially placed on vancomycin and cefepime for hospital-acquired pneumonia. - Zosyn started on 02/13 Hypertension - Continue home meds Hypothyroidism - Continue home meds Depression - continue home meds Discharge Planning Discharge pending clearance and CT surgery and infectious disease recommendations for outpatient antibiotics. Mercedez See MD Feb 16, 2017 09:44
[2017-02-16 10:09] LABS: AUTOMATED NEUTROPHIL # 5.4 TH/MM3 (1.8-7.7); BASOPHIL # 0.1 TH/MM3 (0-0.2); BASOPHIL % 0.9 % (0.0-2.0); EOSINOPHIL # 0.2 TH/MM3 (0-0.4); EOSINOPHIL % 1.8 % (0.0-4.0); HEMATOCRIT 31.3 % (39.0-51.0); HEMOGLOBIN 10.2 GM/DL (13.0-17.0); LYMPH % 40.3 % (9.0-44.0); LYMPHOCYTE # 4.4 TH/MM3 (1.0-4.8); MEAN CELL VOLUME 91.2 FL (80.0-100.0); MEAN CORPUSCULAR HEMOGLOBIN 29.8 PG (27.0-34.0); MEAN CORPUSCULAR HGB CONC 32.7 % (32.0-36.0); MEAN PLATELET VOLUME 7.6 FL (7.0-11.0); MONO % 8.4 % (0.0-8.0); MONOCYTE # 0.9 TH/MM3 (0-0.9); NEUT % 48.6 % (16.0-70.0); PLATELET COUNT 620 TH/MM3 (150-450); RED BLOOD COUNT 3.43 MIL/MM3 (4.50-5.90); RED CELL DISTRIBUTION WIDTH 18.9 % (11.6-17.2)
[2017-02-16 10:35] LABS: CALCIUM 9.4 MG/DL (8.5-10.1); CREATININE 1.13 MG/DL (0.60-1.30)
[2017-02-16 12:00] VITALS: BP 115/55; PULSE 63; RESP 16; TEMP 97.5; O2SAT 95
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
--- NOTE | 2017-02-16 13:56 | HHI.DCPOC ---
Discharge Care Plan Diagnosis: (1) Abdominal fluid collection Goals to Promote Your Health * To prevent worsening of your condition and complications * To maintain your health at the optimal level Directions to Meet Your Goals Take your medications as prescribed Follow your dietary instruction Follow activity as directed Keep your appointments as scheduled Take your immunizations and boosters as scheduled If your symptoms worsen call your PCP, if no PCP go to Urgent Care Center or Emergency Room Smoking is Dangerous to Your Health. Avoid second hand smoke Call the 24-hour hour crisis hotline for domestic abuse at Mercedez See MD Feb 16, 2017 13:56
[2017-02-16] MEDS ORDERED: AUGM500T7 PO (13:58)
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
--- NOTE | 2017-02-16 14:59 | HHI.FPPN ---
Addendum to progress note ADDENDUM Reason for addendum: Additonal documentation Additional information Spoke with Dr. Maya regarding patient drain. Must be removed prior to discharge, and must be removed by radiology. Radiology unable to remove drain today so patient will have to stay overnight and drain can be removed in the am and then proceed with discharge. Order placed for nurse to call radiology in the am for drain removal. I also discussed this with the patients nurse. Mercedez See MD Feb 16, 2017 14:59
[2017-02-16 16:00] VITALS: BP 138/67; PULSE 69; RESP 16; TEMP 98.1; O2SAT 96
[2017-02-16 17:30] VITALS: O2SAT 96
[2017-02-16 20:00] VITALS: BP 142/69; PULSE 75; RESP 18; TEMP 96.9; O2SAT 96; O2SAT 97
[2017-02-16] MEDS: ATORVASTATIN 10 MG TAB PO SCH (20:45)
[2017-02-16] MEDS: TAMSULOSIN HCL 0.4 MG CAP PO SCH (20:51)
[2017-02-17] VITALS: BP 125/58; PULSE 69; RESP 18; TEMP 97.5; O2SAT 93
[2017-02-17] MEDS: PIPERACIL-TAZO 4.5 GM PREMIX 100 ML IV SCH ×2 (03:26→09:39)
[2017-02-17] MEDS: LEVOTHYROXINE SODIUM 100 MCG TAB PO SCH (05:49)
[2017-02-17] MEDS: GABAPENTIN 300 MG CAP PO SCH ×2 (07:55→12:34)
[2017-02-17] MEDS: METOPROLOL TARTRATE 50 MG TAB PO SCH (07:55)
[2017-02-17] MEDS: buPROPion HCL 100 MG TAB PO SCH (07:55)
[2017-02-17] MEDS: PANTOPRAZOLE SOD 40 MG DELAYED RELEASE TAB PO SCH (07:55)
[2017-02-17] MEDS: SODIUM CHLORIDE 0.9% 10 ML VIAL IRRIGATION SCH (07:56)
[2017-02-17] MEDS: LISINOPRIL 5 MG TAB PO SCH (07:56)
[2017-02-17 08:00] VITALS: BP 141/68; PULSE 71; RESP 16; TEMP 96.4; O2SAT 96
[2017-02-17] MEDS: SODIUM CHLORIDE 0.9% FLUSH 10 ML FLUSH IV FLUSH SCH (09:39)
[2017-02-17 09:40] VITALS: O2SAT 96
--- NOTE | 2017-02-17 09:42 | RADRPT ---
EXAM DATE/TIME: 02/17/2017 08:25 [place] COMPARISON: No previous studies available for comparison. INDICATIONS : Evaluate for removal of drain. ORAL CONTRAST: No oral contrast ingested. RADIATION DOSE: 16.23 CTDIvol (mGy) MEDICAL HISTORY : Chronic obstructive pulmonary disease. Hypertension. Acute kidney injury. Rib fractures. SURGICAL HISTORY : Splenectomy. ENCOUNTER: Initial ACUITY: 1 week PAIN SCALE: 4/10 LOCATION: Left upper quadrant TECHNIQUE: Volumetric scanning of the abdomen was performed. Using automated exposure control and adjustment of the mA and/or kV according to patient size, radiation dose was kept as low as reasonably achievable to obtain optimal diagnostic quality images. DICOM format image data is available electronically for review and comparison. FINDINGS: LOWER LUNGS: Small bilateral pleural effusions with adjacent compressive atelectasis are noted. Subdiaphragmatic d rain is again noted. No residual sub-diaphragmatic collection is noted. The drain was subsequently re moved and a dressing was applied. The patient refused post drain removal chest x-ray. LIVER: Homogeneous density without lesion. There is no dilation of the biliary tree. The gallbladder contai ns multiple calcified gallstones and sludge. SPLEEN: Normal size without lesion. PANCREAS: Within normal limits. KIDNEYS: Normal in size and shape. There is no mass, stone, or hydronephrosis. Nonspecific perinephric streak iness is noted bilaterally. ADRENAL GLANDS: 2.4 x 1.8 cm right adrenal nodule consistent with probable adrenal adenoma. The left adrenal gland is unremarkable. AORTA/RETROPERITONEAL: There is no aneurysm or lymphadenopathy. BOWEL/MESENTERY: The stomach and visualized small and large bowel demonstrate no abnormality. MUSCULOSKELETAL: Degenerative changes are noted throughout the thoraco-lumbar spine. CONCLUSION: 1. Small bilateral pleural effusions with adjacent compressive atelectasis. 2. No residual subphrenic collection on the left. Therefore, subphrenic drain was removed. The patien t refused post procedure chest x-ray to rule out pneumothorax. 3. Cholelithiasis. 4. 2.4 x 1.8 cm right adrenal nodule consistent with probable adrenal adenoma. 5. Degenerative changes throughout the thoraco-lumbar spine. Trent Nava MD on February 17, 2017 at 9:30 Board Certified Radiologist. This report was verified electronically.
[2017-02-17 12:00] VITALS: BP 119/63; PULSE 68; RESP 16; TEMP 96.9; O2SAT 96
--- NOTE | 2017-02-17 12:36 | HHI.FF ---
Face to Face Verification Diagnosis: (1) COPD (chronic obstructive pulmonary disease) (2) Impaired mobility and activities of daily living (3) Debility (4) Abdominal fluid collection (5) Fall (6) Hypertension (7) Stage II pressure ulcer of buttock Home Health Nursing Order: Medical education Signs/symptoms of disease process Wound care and dressing changes Nursing assessment with vital signs Instructions: fall precautions I have seen patient Bryon Morris on 02/17/17. My clinical findings support the need for the requested home health care services because: Deconditioned w/ increased weakness Med compliance is questionable Limited ability to care for self High risk of falls I certify that my clinical findings support that this patient is homebound because: Unsteady gait/balance Unsafe to leave home unassisted Taylor Diehl MD Feb 17, 2017 12:36
--- NOTE | 2017-02-17 13:02 | HHI.FF ---
Face to Face Verification Diagnosis: (1) Impaired mobility and activities of daily living (2) Stage II pressure ulcer of buttock (3) Fall (4) Hypertension (5) Debility (6) COPD (chronic obstructive pulmonary disease) Physical Therapy Order: Evaluate and Treat Occupational Therapy Order: Evaluate and Treat Home Health Nursing Order: Medical education Signs/symptoms of disease process Wound care and dressing changes Nursing assessment with vital signs I have seen patient Bryon Morris on 02/17/17. My clinical findings support the need for the requested home health care services because: Deconditioned w/ increased weakness Med compliance is questionable Limited ability to care for self I certify that my clinical findings support that this patient is homebound because: Impaired cognitive ability/safety Unsteady gait/balance Taylor Diehl MD Feb 17, 2017 13:02
--- NOTE | 2017-02-17 14:56 | HHI.PR ---
Objective Vitals Vital Signs Date Time Temp Pulse Resp B/P (MAP) Pulse Ox O2 Delivery O2 Flow Rate FiO2 02/17/17 12:00 96.9 68 16 119/63 (81) 96 02/17/17 09:40 96 02/17/17 08:00 96.4 71 16 141/68 (92) 96 02/17/17 00:00 97.5 69 18 125/58 (80) 93 02/16/17 20:00 96.9 75 18 142/69 (93) 96 02/16/17 17:30 96 21 02/16/17 16:00 98.1 69 16 138/67 (90) 96 I/O 02/16/17 02/16/17 02/16/17 02/17/17 02/17/17 02/17/17 07:00 15:00 23:00 07:00 15:00 23:00 Intake Total 480 ml 100 ml 700 ml 720 ml 100 ml Output Total 800 ml 50 ml 725 ml 1100 ml 50 ml Balance -320 ml 50 ml -25 ml -380 ml 50 ml Intake Oral 380 ml 600 ml 720 ml IV Total 100 ml 100 ml 100 ml 100 ml Output Urine Total 800 ml 700 ml 1100 ml Drainage Total 50 ml 25 ml 50 ml # Bowel Movements 1 0 1 Result Diagram: 02/16/17 0852 02/16/17 0852 A/P Problem List: (1) Pancreatitis, acute ICD Code: K85.90 - Acute pancreatitis without necrosis or infection, unspecified Status: Resolved (2) Pneumonia ICD Code: J18.9 - Pneumonia, unspecified organism (3) Abdominal fluid collection ICD Code: R18.8 - Other ascites Taylor Diehl MD Feb 17, 2017 14:56
== END 2017-02-17 12:54 | disposition home health service (06) | DRG 438 ==
LOC: NEPC 00:11 → NEDA 05:17 → N07A 06:01
PROVIDERS: ADMIT Hospitalist; ATTEND Hospitalist
PROC: 0W9G30Z Drainage of Peritoneal Cavity with Drainage Device, Percutaneous Approach (ICD-10-PCS; principal; 2017-02-13)
PROC: 0WPGX0Z Removal of Drainage Device from Peritoneal Cavity, External Approach (ICD-10-PCS; 2017-02-17)
DX: K85.90 Acute pancreatitis without necrosis or infection, unspecified (principal); J18.9 Pneumonia, unspecified organism; R18.8 Other ascites; Y95 Nosocomial condition; I10 Essential (primary) hypertension; E78.5 Hyperlipidemia, unspecified; E03.9 Hypothyroidism, unspecified; Z90.81 Acquired absence of spleen; K80.20 Calculus of gallbladder without cholecystitis without obstruction
CPT/HCPCS: 71020; 71250; 73030; 74150; 74176; 75989; 76705; 80048; 80053; 81001; 83690; 83880; 84484; 85007; 85025; 85027; 85610; 85730; 87015; 87070; 87102; 87116; 87205; 87206; 93005; 94640; 94664; 96365; C1729; C1769; J0692; J1650; J2250; J2543; J3010; J3370; J7030; J7040; J7050